=== PATIENT | female | born 1935 | race Caucasian/White ===

== ENCOUNTER 2016-05-28 06:24 | Day surgery (SDC) | payer OTHER ==
[2016-05-28] MEDS ORDERED: CYTARABINE SQ ONE (08:00)
[2016-05-28 10:28] LABS: MCH 35.9 pg (25.7-33.7); MCHC 33.9 g/dl (32.0-36.0); MEAN CELL VOLUME 105.7 fl (80-96); MEAN PLT VOLUME 7.2 fl (7.5-11.1); PLATELET COUNT 164 K/MM3 (134-434); RDW 27.2 % (11.6-15.6); WHITE BLOOD COUNT 8.9 K/mm3 (4.0-10.0)
[2016-05-28 10:58] LABS: ANISOCYTOSIS 2+; PLATELET ESTIMATE ADEQUATE (NORMAL)
[2016-05-28 11:58] VITALS: BP 120/47; TEMP 97.7
[2016-05-28 12:01] VITALS: PULSE 100; BMI 20.9
== END 2016-05-28 14:42 | disposition home or self-care (01) ==
LOC: JINFUSION 06:24 → J7W 06:24 → JONCCHEMO 06:24 → JINFUSION 14:42
PROVIDERS: ATTEND Internal Medicine Hematology & Oncology
DX: Z51.11 Encounter for antineoplastic chemotherapy (principal); C92.Z0 Other myeloid leukemia not having achieved remission; D64.81 Anemia due to antineoplastic chemotherapy; D70.1 Agranulocytosis secondary to cancer chemotherapy; T45.1X5A Adverse effect of antineoplastic and immunosuppressive drugs, initial encounter; Y92.9 Unspecified place or not applicable
CPT/HCPCS: 96402; J9100; 36415; 85025; 96401

== ENCOUNTER 2016-05-29 06:54 | Day surgery (SDC) | payer OTHER ==
[2016-05-29] MEDS ORDERED: CYTARABINE SQ ONE (08:00)
[2016-05-29 11:07] VITALS: BMI 20.9
[2016-05-29 11:08] VITALS: BP 102/50; PULSE 80; TEMP 98
== END 2016-05-29 13:56 | disposition home or self-care (01) ==
LOC: JONCCHEMO 06:54 → JINFUSION 06:54 → J7W 06:55 → JINFUSION 13:56
PROVIDERS: ATTEND Internal Medicine Hematology & Oncology
DX: Z51.11 Encounter for antineoplastic chemotherapy (principal); C92.Z0 Other myeloid leukemia not having achieved remission; D70.1 Agranulocytosis secondary to cancer chemotherapy; T45.1X5A Adverse effect of antineoplastic and immunosuppressive drugs, initial encounter; Y92.9 Unspecified place or not applicable
CPT/HCPCS: 96402; J9100; 96401; 96413; 96415

== ENCOUNTER 2016-05-30 07:27 | Day surgery (SDC) | payer OTHER ==
[2016-05-30] MEDS ORDERED: CYTARABINE SQ ONE (08:00)
[2016-05-30 10:28] VITALS: BP 117/49; PULSE 95; TEMP 98.1
== END 2016-05-30 15:51 | disposition home or self-care (01) ==
LOC: JONCCHEMO 07:27 → JINFUSION 07:27 → J7W 07:28 → JINFUSION 15:51
PROVIDERS: ATTEND Internal Medicine Hematology & Oncology
DX: Z51.11 Encounter for antineoplastic chemotherapy (principal); C92.Z0 Other myeloid leukemia not having achieved remission; D64.81 Anemia due to antineoplastic chemotherapy; D70.1 Agranulocytosis secondary to cancer chemotherapy; T45.1X5A Adverse effect of antineoplastic and immunosuppressive drugs, initial encounter; Y92.9 Unspecified place or not applicable
CPT/HCPCS: 96402; J9100; 96401

== ENCOUNTER 2016-06-05 06:38 | Day surgery (SDC) | payer OTHER ==
[2016-06-05] MEDS ORDERED: CYTARABINE SQ ONE (08:00)
[2016-06-05 08:34] LABS: MCH 36.7 pg (25.7-33.7); MCHC 34.6 g/dl (32.0-36.0); MEAN CELL VOLUME 106.2 fl (80-96); MEAN PLT VOLUME 6.6 fl (7.5-11.1); PLATELET COUNT 121 K/MM3 (134-434); RDW 26.3 % (11.6-15.6); WHITE BLOOD COUNT 14.9 K/mm3 (4.0-10.0)
[2016-06-05 10:09] LABS: ANISOCYTOSIS 2+
[2016-06-05 10:10] LABS: FRAGMENTED CELL 1+; MICROCYTOSIS 1+; POLYCHROMASIA 1+; TEAR DROP CELLS 1+
[2016-06-05 13:46] VITALS: BMI 19.8
[2016-06-05 13:50] VITALS: BP 106/52; PULSE 106; TEMP 98
== END 2016-06-05 09:30 | disposition home or self-care (01) ==
LOC: JONCCHEMO 06:38 → J7W 08:48 → JONCCHEMO 09:30
PROVIDERS: ATTEND Internal Medicine Hematology & Oncology
DX: Z51.11 Encounter for antineoplastic chemotherapy (principal); C92.02 Acute myeloblastic leukemia, in relapse
CPT/HCPCS: 96401; J9100; 36415; 85025

== ENCOUNTER 2016-06-06 06:36 | Day surgery (SDC) | payer OTHER ==
[2016-06-06] MEDS ORDERED: CYTARABINE SQ ONE (08:00)
[2016-06-06 16:53] VITALS: BP 118/68; PULSE 64; TEMP 98.2; BMI 20.9
== END 2016-06-06 11:00 | disposition home or self-care (01) ==
LOC: JONCCHEMO 06:36 → J7W 10:16 → JONCCHEMO 11:00
PROVIDERS: ATTEND Internal Medicine Hematology & Oncology
DX: Z51.11 Encounter for antineoplastic chemotherapy (principal); C92.02 Acute myeloblastic leukemia, in relapse
CPT/HCPCS: 96401; J9100; 96402

== ENCOUNTER 2016-06-07 06:14 | Day surgery (SDC) | payer OTHER ==
[2016-06-07] MEDS ORDERED: CYTARABINE SQ ONE (08:00)
[2016-06-07 16:16] VITALS: BP 106/54; PULSE 92; TEMP 97.9; BMI 20.9
== END 2016-06-07 11:00 | disposition home or self-care (01) ==
LOC: JONCCHEMO 06:14 → J7W 09:38 → JONCCHEMO 11:00
PROVIDERS: ATTEND Internal Medicine Hematology & Oncology
DX: Z51.11 Encounter for antineoplastic chemotherapy (principal); C92.02 Acute myeloblastic leukemia, in relapse
CPT/HCPCS: 96401; J9100; 96402

== ENCOUNTER 2016-06-11 06:45 | Day surgery (SDC) | payer OTHER ==
[2016-06-11] MEDS ORDERED: CYTARABINE SQ ONE (08:00)
[2016-06-11 09:05] LABS: MCHC 34.6 g/dl (32.0-36.0); MEAN CELL VOLUME 106.7 fl (80-96); MEAN PLT VOLUME 6.5 fl (7.5-11.1); PLATELET COUNT 106 K/MM3 (134-434); RDW 26.6 % (11.6-15.6); WHITE BLOOD COUNT 12.9 K/mm3 (4.0-10.0)
[2016-06-11 11:21] LABS: ALBUMIN 3.4 g/dl (3.4-5.0); BILIRUBIN,DIRECT 0.1 mg/dL (0.0-0.2); BILIRUBIN,TOTAL 0.4 mg/dL (0.2-1.0); TOT PROT 5.9 g/dl (6.4-8.2)
[2016-06-11 11:40] LABS: INR 2.84 (0.82-1.09); PROTHROMBIN TIME (PATIENT) 31.9 SEC (9.98-11.88)
[2016-06-11 12:53] LABS: ANISOCYTOSIS 4+; MICROCYTOSIS 1+; POLYCHROMASIA 1+; TEAR DROP CELLS 1+
[2016-06-11 14:00] VITALS: BMI 20.5
[2016-06-11 14:21] VITALS: BP 106/56; PULSE 66; TEMP 98
== END 2016-06-11 11:00 | disposition home or self-care (01) ==
LOC: JONCCHEMO 06:45 → J7W 10:23 → JONCCHEMO 11:00
PROVIDERS: ATTEND Internal Medicine Hematology & Oncology
PROC: 3E01305 Introduction of Other Antineoplastic into Subcutaneous Tissue, Percutaneous Approach (ICD-10-PCS; principal; 2016-06-11)
PROC: 30233N1 Transfusion of Nonautologous Red Blood Cells into Peripheral Vein, Percutaneous Approach (ICD-10-PCS; 2016-06-11)
DX: Z51.11 Encounter for antineoplastic chemotherapy (principal); C92.90 Myeloid leukemia, unspecified, not having achieved remission; D61.818 Other pancytopenia
CPT/HCPCS: 36430; 96401; J9100; 36415; 80076; 85025; 85610; 86850; 86900; 86901; 86922; P9038; P9058

== ENCOUNTER 2016-06-12 08:25 | Inpatient (IN) | payer OTHER ==
[~2016-06-12 08:25] MED LIST: CYTARABINE SQ ONE
[2016-06-12] MEDS ORDERED: FUROSEMIDE 40 MG TABLET (FP) PO SCH (09:45)
[2016-06-12] MEDS ORDERED: POTASSIUM CHLORIDE TABS 20 MEQ TABLET.ER (FP) PO SCH (09:45)
[2016-06-12 10:06] LABS: MCH 37.1 pg (25.7-33.7); MCHC 34.4 g/dl (32.0-36.0); MEAN CELL VOLUME 107.9 fl (80-96); MEAN PLT VOLUME 6.9 fl (7.5-11.1); PLATELET COUNT 113 K/MM3 (134-434); RDW 26.3 % (11.6-15.6); WHITE BLOOD COUNT 21.5 K/mm3 (4.0-10.0)
[2016-06-12 10:16] LABS: ALBUMIN 3.4 g/dl (3.4-5.0); ANION GAP 8 (8-16); BILIRUBIN,TOTAL 0.4 mg/dL (0.2-1.0); CO2 27 mmol/L (21-32); CREATININE 0.9 mg/dL (0.55-1.02); GLUCOSE,RANDOM 134 mg/dL (74-106); MAGNESIUM 1.9 mg/dL (1.8-2.4); SGOT/AST 15 U/L (15-37); SGPT/ALT 18 U/L (12-78); TOT PROT 5.8 g/dl (6.4-8.2)
[2016-06-12 10:17] LABS: ALK PHOS 53 U/L (45-117)
[2016-06-12 11:04] LABS: PLATELET ESTIMATE DECREASED (NORMAL)
[2016-06-12] MEDS ORDERED: ACETAMINOPHEN 325 MG TABLET (FP) ONE (15:16)
[2016-06-12] MEDS ORDERED: ACETAMINOPHEN 325 MG TABLET (FP) PO ONE (15:19)
[2016-06-12] MEDS ORDERED: POTASSIUM CHLORIDE TABS 20 MEQ TABLET.ER (FP) PO ONE (15:20)
--- NOTE | 2016-06-12 15:36 | PN ---
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 - on Emma-c- anemia secondary to chemotherapy Pancytopenia secondary to AML ROS- no headaches, diplopia , epistaxis, dysphagia, chest pain, SOB, difficulty breathing, , GI problems of nausea, emesis,diarrhea, constipation, melena, hematochezia, problems of dysuria, hematuria, pyuria, no vaginal bleeding , discharge, no musculskeletal symptoms, no joint pains, No psychological problems 95/50 102 20 afebrile - Temp spike to > 100 post transfusion HEENT: JAMARI, EOM Intact Oropharynx: No thrush, No mucositis Neck: Supple Nodes: Without adenopathy Breasts: Without masses Cor: RSR, systolic murmur Lungs: kyphoscoliosis, clear Abd: Soft, Normal bowel sounds, No organomegaly Ext:No significant edema Skin: No rashes, Integument intact Meds- reviewed and unchanged CBC, BMP 06/12/16 09:50 06/12/16 09:50 Impression: AML-- not in remission-- Kyle- C Fever- post transfusion- culture and tylenol- likely secondary to transfusion Anemia- for transfusion therapy-- 2 packed cells and reassess. Neutropenia/thrombocytopenia- secondary to chemotherapy and AML Hypokalemia- for repletion
[2016-06-12 17:06] VITALS: BMI 20.5
[2016-06-12] MEDS ORDERED: CEFEPIME HCL/D5W 2 GM/50 ML PREMIX IVPB SCH ×2 (18:00)
[2016-06-12] MEDS: WARFARIN NA 5 MG TABLET (UD) PO SCH (20:03)
[2016-06-12] MEDS: VANCOMYCIN 1 GRAM (PRE-DOCKED) 1,000 MG/250 ML BAG IVPB SCH (20:03)
[2016-06-12] MEDS ORDERED: PT OWN MED DRAWER 7, Y5N ONE (21:34)
[2016-06-12] MEDS: VORICONAZOLE 50 MG TABLET (RESTRICTED TO ID) PO SCH (21:58)
[2016-06-12] MEDS: ACYCLOVIR 400 MG TABLET PO SCH (21:58)
[2016-06-12] MEDS: CEFEPIME 2 GM in DEXTROSE 5%-WATER - 100 ML IVPB SCH (22:11)
[2016-06-13] MEDS ORDERED: ACETAMINOPHEN 325 MG TABLET (FP) PO ONE (01:15)
[2016-06-13] MEDS: CEFEPIME 2 GM in DEXTROSE 5%-WATER - 100 ML IVPB SCH ×3 (01:17→18:29)
[2016-06-13] MEDS ORDERED: PT OWN MED DRAWER 7, Y5N ONE ×4 (04:52→15:32)
[2016-06-13] MEDS: ACYCLOVIR 400 MG TABLET PO SCH ×2 (11:11→21:44)
[2016-06-13] MEDS: VANCOMYCIN 1 GRAM (PRE-DOCKED) 1,000 MG/250 ML BAG IVPB SCH (11:11)
[2016-06-13 11:12] LABS: MCH 33.5 pg (25.7-33.7); MCHC 34.2 g/dl (32.0-36.0); MEAN PLT VOLUME 7.2 fl (7.5-11.1); PLATELET COUNT 120 K/MM3 (134-434); RDW 25.3 % (11.6-15.6)
--- NOTE | 2016-06-13 11:19 | PN ---
Teaching Attending Note Name of Resident: Michel Keating ATTENDING PHYSICIAN STATEMENT I saw and evaluated the patient. I reviewed the resident's note and discussed the case with the resident. I agree with the resident's findings and plan as documented. SUBJECTIVE: 80 year old female with AML, admitted yesterday for transfusion and chemotherapy (dakota-c) she has been maintained on voriconazole, acyclovir and ciprofloxacin for the last 2 years she has chronic neutropenia for the last one year as well she has cough- some yellow sputum, worse today no SOB yesterday had fever and chills after transfusion no diarrhea no dysuria OBJECTIVE: Vital Signs Period Temp Pulse Resp BP Sys/Barrios Pulse Ox Last 24 Hr 98.7 F-102.4 F 86-108 20-20 90-109/42-68 pulse oximetry 95% RA no thrush, no oral lesions cor rrr lungs crackles left base abd soft,nt ext no edema no perirectal erythema or pain port site no erythema no rash CBC, BMP 06/13/16 10:15 cultures pending cxray left lower lobe infiltrate ASSESSMENT AND PLAN: neutropenic fever LLL pneumonia AML with blasts cipro prophylaxis makes atypical pneumonia unlikely send influenza screen stat, legionella urinary antigen sputum culture continue vancomycin/cefepime continue antifungal and antiviral prophylaxis chest ct aspergillus galactomanan, fungitell d/w Dr Miranda
[2016-06-13 11:20] LABS: WHITE BLOOD COUNT 41.9 K/mm3 (4.0-10.0)
[2016-06-13 11:32] LABS: INR 3.86 (0.82-1.09); PROTHROMBIN TIME (PATIENT) 43.7 SEC (9.98-11.88)
[2016-06-13 11:36] LABS: ALK PHOS 55 U/L (45-117); ANION GAP 10 (8-16); BILIRUBIN,TOTAL 0.5 mg/dL (0.2-1.0); CALCIUM 8.3 mg/dL (8.5-10.1); CO2 23 mmol/L (21-32); CREATININE 0.7 mg/dL (0.55-1.02); GLUCOSE,RANDOM 150 mg/dL (74-106); SGOT/AST 19 U/L (15-37); SGPT/ALT 18 U/L (12-78); TOT PROT 5.7 g/dl (6.4-8.2)
[2016-06-13 12:45] LABS: ANISOCYTOSIS 3+
[2016-06-13 12:46] LABS: MICROCYTOSIS FEW; POLYCHROMASIA FEW
--- NOTE | 2016-06-13 14:03 | CONSULT ---
Consult Consult Specialty:: Infectious Disease Referred by:: Dr. Miranda Reason for Consultation:: Febrile Neutropenia - History of Present Illness Chief Complaint: fevers History of Present Illness: this is a 80F with a PMH of atrial fibrillation history of DVT on coumadin s/p IVC filter and AML not in remission currently on Emma-C chemotherapy who presents to the hospital for elective blood transfusion and was to be discharged. She was being transfused yesterday and after her first unit of blood she spiked a fever. She had a Tmax at one point of 102.4. The patient is also chronically severely neutropenic for the last year. She also endorses chills which started yesterday. She also complains of a cough which started yesterday and has gotten worse. the cough is productive at times but she does not know the color or consistency of the sputum. During my evaluation of her a STAT CXR was obtained due to physical exam findings and she was found to have a LLL infiltrate/consolidation consistent with pneumonia. She denies recent travel or sick contacts. Denies chest pain or shortness of breath. Denies dysuria or diarrhea. She has been maintained on voriconazole, acyclovir and ciprofloxacin for the last 2 years. - History Source History Provided By: Patient, Medical Record Limitations to Obtaining History: No Limitations - Past Medical History Cardio/Vascular: Yes: AFIB Gastrointestinal: Yes: GERD Heme/Onc: Yes: Other (AML) - Alcohol/Substance Use Hx Alcohol Use: No - Smoking History Smoking history: Never smoked Have you smoked in the past 12 months: No - Social History ADL: Independent Home Medications - Allergies Allergies/Adverse Reactions: Allergies Allergy/AdvReac Type Severity Reaction Status Date / Time No Known Allergies Allergy Verified 07/27/15 13:50 - Home Medications Home Medications: Ambulatory Orders Ascorbate Calcium [Vitamin C] 500 mg PO DAILY 06/03/14 Calcium Citrate/Vitamin D3 [Citracal + D Caplet] 1 each PO BID 06/03/14 Diltiazem Cd [Cardizem Cd -] 180 mg PO DAILY 06/03/14 [place]-3 Fatty Acids [Fish Oil] 300 mg PO DAILY 06/03/14 Acyclovir [Zovirax -] 400 mg PO BID #60 tablet 07/09/14 Voriconazole 50 mg PO BID #60 tablet 07/09/14 Warfarin Na [Coumadin -] 5 mg PO DAILY #30 tablet 07/09/14 Ciprofloxacin [Cipro -] 250 mg PO DAILY 06/12/16 Omeprazole Magnesium [Prilosec] 10 mg PO DAILY 06/12/16 Review of Systems - Review of Systems Constitutional: reports: Chills, Fever Eyes: reports: No Symptoms HENT: reports: No Symptoms Neck: reports: No Symptoms Cardiovascular: reports: No Symptoms Respiratory: reports: Cough Gastrointestinal: reports: No Symptoms Genitourinary: reports: No Symptoms Neurological: reports: No Symptoms Physical Exam Vital Signs: Vital Signs Temperature 100.7 F H 06/13/16 13:48 Pulse Rate 116 H 06/13/16 13:48 Respiratory Rate 20 06/13/16 13:48 Blood Pressure 115/75 06/13/16 13:48 O2 Sat by Pulse Oximetry (%) Constitutional: Yes: Well Nourished, No Distress Eyes: Yes: Other (conjunctival pallor) HENT: Yes: Atraumatic, Other (no evidence of mucositis no thrush no oral ulcers) Neck: Yes: Trachea Midline Cardiovascular: Yes: Regular Rate and Rhythm, Murmur (3/6 systolic murmur) Respiratory: Yes: Other (LLL crackles right lung field clear left chemoport site clean no erythema or discharge) Gastrointestinal: Yes: Soft Edema: No Peripheral Pulses WNL: Yes (DP 2+ bilaterally ) Neurological: Yes: Alert, Oriented Labs: CBC, BMP 06/13/16 10:15 06/13/16 10:15 Imaging - Results Chest X-ray: Report Reviewed, Image Reviewed (image reviewed with radiologist consistent with LLL pneumonia) Problem List - Problems (1) AML (acute myelogenous leukemia) Code(s): C92.00 - ACUTE MYELOBLASTIC LEUKEMIA, NOT HAVING ACHIEVED REMISSION Qualifiers: Leukemia Active/Remission status: without remission Qualified Code(s ): C92.00 - Acute myeloblastic leukemia, not having achieved remission (2) DVT (deep venous thrombosis) Code(s): I82.409 - ACUTE EMBOLISM AND THOMBOS UNSP DEEP VN UNSP LOWER EXTREMITY Qualifiers: Laterality: left Chronicity: chronic (3) GERD (gastroesophageal reflux disease) Code(s): K21.9 - GASTRO-ESOPHAGEAL REFLUX DISEASE WITHOUT ESOPHAGITIS (4) Neutropenia Code(s): D70.9 - NEUTROPENIA, UNSPECIFIED Qualifiers: Neutropenia type: secondary to cancer chemotherapy Qualified Code(s) : D70.1 - Agranulocytosis secondary to cancer chemotherapy (5) Atrial fibrillation Code(s): I48.91 - UNSPECIFIED ATRIAL FIBRILLATION (6) Pneumonia Code(s): J18.9 - PNEUMONIA, UNSPECIFIED ORGANISM (7) Febrile neutropenia Code(s): D70.9 - NEUTROPENIA, UNSPECIFIED R50.81 - FEVER PRESENTING WITH CONDITIONS CLASSIFIED ELSEWHERE Assessment/Plan 80F with AML and now has febrile neutropenia and LLL pneumonia patient has been on ciprofloxacin which makes atypical organisms unlikely possible patient has a streptococcal pneumonia as cirpofloxacin does not have great coverage against strep. Will send urinary antigens send influenza nasal swab stat sputum culture if able to produce sputum continue vancomycin and cefepime day 1 continue antifungal and antiviral prophylaxis with voriconazole and acyclovir f/u blood cultures f/u urine cultures vanco trough before fourth dose chest ct ordered thank you for this consult and allowing us to participate in the care of this patient Case discussed with attending Dr. Ibarra
[2016-06-13] MEDS: VORICONAZOLE 50 MG TABLET (RESTRICTED TO ID) PO SCH ×2 (16:02→21:45)
[2016-06-13] MEDS ORDERED: ALTEPLASE 2 MG VIAL CVP ONE ×2 (21:50→22:45)
--- NOTE | 2016-06-13 22:22 | CONSULT ---
Consult - text type - Consultation Consultation Note: patient seen and examined this is a 80F with a PMH of atrial fibrillation history of DVT on coumadin s/p IVC filter and AML on Emma-C chemotherapy who presents to the hospital for elective blood transfusion and was to be discharged. She spiked a fever. She had a Tmax at one point of 102.4. The patient is also chronically severely neutropenic for the last year. She also endorses chills which started yesterday. - Past Medical History Cardio/Vascular: Yes: AFIB Gastrointestinal: Yes: GERD Heme/Onc: Yes: Other (AML) - Smoking History Smoking history: Never smoked - Social History ADL: Independent Home Medications - Allergies Allergies/Adverse Reactions: Allergies Allergy/AdvReac Type Severity Reaction Status Date / Time No Known Allergies Allergy Verified 07/27/15 13:50 - Home Medications Home Medications: Ambulatory Orders Ascorbate Calcium [Vitamin C] 500 mg PO DAILY 06/03/14 Calcium Citrate/Vitamin D3 [Citracal + D Caplet] 1 each PO BID 06/03/14 Diltiazem Cd [Cardizem Cd -] 180 mg PO DAILY 06/03/14 [place]-3 Fatty Acids [Fish Oil] 300 mg PO DAILY 06/03/14 Acyclovir [Zovirax -] 400 mg PO BID #60 tablet 07/09/14 Voriconazole 50 mg PO BID #60 tablet 07/09/14 Warfarin Na [Coumadin -] 5 mg PO DAILY #30 tablet 07/09/14 Ciprofloxacin [Cipro -] 250 mg PO DAILY 06/12/16 Omeprazole Magnesium [Prilosec] 10 mg PO DAILY 06/12/16 Current Medications Acetaminophen (Tylenol -) 650 mg PO Q6H PRN PRN Reason: FEVER OVER 101 Last Admin: 06/14/16 13:10 Dose: 650 mg Acyclovir (Zovirax -) 400 mg PO BID JATINDER Last Admin: 06/14/16 10:05 Dose: 400 mg Diltiazem HCl (Cardizem Cd -) 180 mg PO DAILY JATINDER Last Admin: 06/14/16 10:05 Dose: 180 mg Cefepime HCl 2 gm/ Dextrose 100 mls @ 200 mls/hr IVPB Q8H-IV JATINDER Last Admin: 06/14/16 11:27 Dose: 200 mls/hr Azithromycin (Zithromax 500mg Ivpb (Pre-Docked)) 250 mls @ 250 mls/hr IVPB DAILY [facility] Last Admin: 06/14/16 10:06 Dose: 250 mls/hr Voriconazole (Vfend (Restricted To Id)) 100 mg PO BID [facility] Last Admin: 06/14/16 10:06 Dose: 100 mg Warfarin Sodium (Coumadin -) 5 mg PO DAILY@1800 [facility] Last Admin: 06/12/16 20:03 Dose: 5 mg Physical Exam Vital Signs: Vital Signs Temperature 100.7 F H 06/13/16 13:48 Pulse Rate 116 H 06/13/16 13:48 Respiratory Rate 20 06/13/16 13:48 Blood Pressure 115/75 06/13/16 13:48 O2 Sat by Pulse Oximetry (%) Constitutional: Yes: Well Nourished, No Distress Eyes: Yes: Other (conjunctival pallor) HENT: Yes: Atraumatic, Other (no evidence of mucositis no thrush no oral ulcers) Neck: Yes: Trachea Midline Cardiovascular: Yes: Regular Rate and Rhythm, Murmur (3/6 systolic murmur) Respiratory: Yes: Other (LLL crackles right lung field clear left chemoport site clean no erythema or discharge) Gastrointestinal: Yes: Soft Peripheral Pulses WNL: Yes (DP 2+ bilaterally ) Neurological: Yes: Alert, Oriented Abnormal Lab Results 06/14/16 06/14/16 06/14/16 07:00 07:00 07:00 WBC 67.4 H* D RBC 3.05 L Hgb 10.1 L Hct 30.0 L MCV 98.4 H RDW 25.6 H Plt Count 108 L MPV 7.1 L Lymphocytes % 2.0 L D Nucleated RBCs 2 H Blast Cells 98 H INR 2.56 H D Random Glucose 121 H Calcium 7.8 L Total Protein 5.6 L Albumin 2.7 L A/P Problem List - Problems (1) AML (acute myelogenous leukemia) Code(s): C92.00 - ACUTE MYELOBLASTIC LEUKEMIA, NOT HAVING ACHIEVED REMISSION Qualifiers: Leukemia Active/Remission status: without remission Qualified Code(s ): C92.00 - Acute myeloblastic leukemia, not having achieved remission (2) DVT (deep venous thrombosis) Code(s): I82.409 - ACUTE EMBOLISM AND THOMBOS UNSP DEEP VN UNSP LOWER EXTREMITY Qualifiers: Laterality: left Chronicity: chronic (3) GERD (gastroesophageal reflux disease) Code(s): K21.9 - GASTRO-ESOPHAGEAL REFLUX DISEASE WITHOUT ESOPHAGITIS (4) Neutropenia Code(s): D70.9 - NEUTROPENIA, UNSPECIFIED Qualifiers: Neutropenia type: secondary to cancer chemotherapy Qualified Code(s) : D70.1 - Agranulocytosis secondary to cancer chemotherapy (5) Atrial fibrillation Code(s): I48.91 - UNSPECIFIED ATRIAL FIBRILLATION (6) Pneumonia Code(s): J18.9 - PNEUMONIA, UNSPECIFIED ORGANISM (7) Febrile neutropenia Code(s): D70.9 - NEUTROPENIA, UNSPECIFIED R50.81 - FEVER PRESENTING WITH CONDITIONS CLASSIFIED ELSEWHERE Assessment/Plan 80 y/o patient with aml on low dose cytarabine admitted with fevers/cough/mild SOB on vanco/cefepime on prophylactic vori/acyclovir /cipro had visual hallucinations in the past with 200mg bid of vori holding coumadin transfusion support as necessary discussed with ID team
[2016-06-14] MEDS ORDERED: ACETAMINOPHEN 325 MG TABLET (FP) ONE (01:20)
[2016-06-14] MEDS: CEFEPIME 2 GM in DEXTROSE 5%-WATER - 100 ML IVPB SCH ×3 (01:23→17:10)
[2016-06-14] MEDS: ACETAMINOPHEN 325 MG TABLET (FP) PO PRN ×3 (01:23→21:38)
[2016-06-14 08:17] LABS: MCH 33.2 pg (25.7-33.7); MCHC 33.8 g/dl (32.0-36.0); MEAN CELL VOLUME 98.4 fl (80-96); MEAN PLT VOLUME 7.1 fl (7.5-11.1); PLATELET COUNT 108 K/MM3 (134-434); RDW 25.6 % (11.6-15.6)
[2016-06-14 08:30] LABS: INR 2.56 (0.82-1.09); PROTHROMBIN TIME (PATIENT) 28.7 SEC (9.98-11.88)
--- NOTE | 2016-06-14 08:33 | PN ---
Progress Note, Physician Chief Complaint: ID Appears in good spirits today comfortable Denies SOB some couph noted but more chronically ill appearing then "acute" Notes some sputum production. Meds Vancomycin Cefepime Voriconazole Acyclovir - Current Medication List Current Medications: Active Medications Acetaminophen (Tylenol -) 650 mg PO Q6H PRN PRN Reason: FEVER OVER 101 Last Admin: 06/14/16 01:23 Dose: 650 mg Acyclovir (Zovirax -) 400 mg PO BID [facility] Last Admin: 06/13/16 21:44 Dose: 400 mg Diltiazem HCl (Cardizem Cd -) 180 mg PO DAILY [facility] Last Admin: 06/13/16 11:02 Dose: Not Given Cefepime HCl 2 gm/ Dextrose 100 mls @ 200 mls/hr IVPB Q8H-IV [facility] Last Admin: 06/14/16 01:23 Dose: 200 mls/hr Vancomycin HCl (Vancomycin (Pre-Docked)) 1,000 mg IVPB DAILY [facility] PRN Reason: Protocol Last Admin: 06/13/16 11:11 Dose: 1,000 mg Voriconazole (Vfend (Restricted To Id)) 100 mg PO BID [facility] Last Admin: 06/13/16 21:45 Dose: 100 mg Warfarin Sodium (Coumadin -) 5 mg PO DAILY@1800 [facility] Last Admin: 06/12/16 20:03 Dose: 5 mg - Objective Vital Signs: Vital Signs Temperature 98 F 06/14/16 06:00 Pulse Rate 94 H 06/14/16 06:00 Respiratory Rate 20 06/14/16 06:00 Blood Pressure 101/65 06/14/16 06:00 O2 Sat by Pulse Oximetry (%) 95 06/13/16 09:00 Constitutional: Yes: No Distress, Thin Eyes: Yes: WNL, Conjunctiva Clear HENT: Yes: WNL, Atraumatic. No: Thrush Neck: Yes: WNL, Supple Cardiovascular: Yes: Regular Rate and Rhythm, S1, S2. No: Murmur, Rub Respiratory: Yes: WNL, Regular, CTA Bilaterally, Rales Gastrointestinal: Yes: WNL, Normal Bowel Sounds, Soft. No: Tenderness, Tenderness, Epigastrium, Tenderness, Rebound Extremities: No: Cold, Cool, Cyanosis Edema: No Integumentary: No: Erythema, Rash Labs: INR, PTT INR 3.86 (0.82-1.09) H D 06/13/16 10:15 Problem List - Problems (1) AML (acute myelogenous leukemia) Code(s): C92.00 - ACUTE MYELOBLASTIC LEUKEMIA, NOT HAVING ACHIEVED REMISSION Qualifiers: Leukemia Active/Remission status: without remission Qualified Code(s ): C92.00 - Acute myeloblastic leukemia, not having achieved remission (2) Febrile neutropenia Code(s): D70.9 - NEUTROPENIA, UNSPECIFIED R50.81 - FEVER PRESENTING WITH CONDITIONS CLASSIFIED ELSEWHERE (3) Neutropenia Code(s): D70.9 - NEUTROPENIA, UNSPECIFIED Qualifiers: Neutropenia type: secondary to cancer chemotherapy Qualified Code(s) : D70.1 - Agranulocytosis secondary to cancer chemotherapy (4) Pneumonia Code(s): J18.9 - PNEUMONIA, UNSPECIFIED ORGANISM Assessment/Plan Microbiology 06/13/16 14:36 Urine For Antigen Detection Legionella Antigen - Final 06/13/16 14:36 Urine For Antigen Detection Streptococcus pneumoniae Antigen (M - Final 06/13/16 10:15 Nasopharyngeal Swab Influenza Types A,B Antigen (MINDY) - Final 06/13/16 10:15 Nasopharyngeal Swab - Final 06/12/16 16:00 Blood - Peripheral Venous Blood Culture - Preliminary NO GROWTH OBTAINED AFTER 24 HOURS, INCUBATION TO CONTINUE FOR 4 DAYS. 06/12/16 16:00 Blood - Peripheral Venous Blood Culture - Preliminary NO GROWTH OBTAINED AFTER 24 HOURS, INCUBATION TO CONTINUE FOR 4 DAYS. Laboratory Tests 06/13/16 06/13/16 06/13/16 10:15 10:15 10:15 WBC 41.9 H* D Hgb 10.3 L D Plt Count 120 L INR 3.86 H D Creatinine 0.7 D Total Bilirubin 0.5 D AST 19 D ALT 18 Alkaline Phosphatase 55 A. galactomannan Ag Beta-(1,3)-D-Glucan 06/14/16 06/14/16 06/14/16 07:00 07:00 07:00 WBC Pending Hgb Pending Plt Count Pending INR Pending Creatinine Total Bilirubin AST ALT Alkaline Phosphatase A. galactomannan Ag Pending Beta-(1,3)-D-Glucan Pending Assessment Acute myelogenous Leukemia not in remission Post SHILPI C chemotherapy Pneumonia unspecified etiology Post blood transfusion Plan Obviously the possible causes of fever and pneumonia in this immunocompromised patient are many and include bacterial fungal PCP Nocardia CMV. Currently "unspecified" etiology . Despite fever subjectively she says she feel bit better I would stop Vanco as her culture negative for staph Continue Cefepime Could add Azithromycin for atypical coverage though she was on quinolne prophylactically. Fungitell sent previously Would send sputum for fungal culture and routine. Not sure she could tolerate a bronchoscopy should she remain febrile. Serology for CMV including PCR should be sent
[2016-06-14 08:34] LABS: ALBUMIN 2.7 g/dl (3.4-5.0); ANION GAP 12 (8-16); CALCIUM 7.8 mg/dL (8.5-10.1); CO2 22 mmol/L (21-32); CREATININE 0.6 mg/dL (0.55-1.02); GLUCOSE,RANDOM 121 mg/dL (74-106); SGOT/AST 21 U/L (15-37); SGPT/ALT 17 U/L (12-78)
[2016-06-14 08:36] LABS: ALK PHOS 54 U/L (45-117); BILIRUBIN,TOTAL 0.5 mg/dL (0.2-1.0); TOT PROT 5.6 g/dl (6.4-8.2)
[2016-06-14 08:48] LABS: WHITE BLOOD COUNT 67.4 K/mm3 (4.0-10.0)
[2016-06-14] MEDS ORDERED: PT OWN MED DRAWER 7, Y5N ONE ×4 (09:40→20:16)
[2016-06-14] MEDS: ACYCLOVIR 400 MG TABLET PO SCH ×2 (10:05→21:38)
[2016-06-14] MEDS: AZITHROMYCIN IVPB 250 ML IVPB SCH (10:06)
[2016-06-14] MEDS: VORICONAZOLE 50 MG TABLET (RESTRICTED TO ID) PO SCH ×2 (10:06→21:37)
[2016-06-14] MEDS ORDERED: ALLOPURINOL 300 MG TABLET (FP) PO SCH (12:45)
--- NOTE | 2016-06-14 15:04 | HP ---
Admitting History and Physical - Primary Care Physician PCP: Saeed Boucher - Admission Chief Complaint: COUGH/WEAKNESS/SPUTUM History of Present Illness: 80 W FEMALE WITH PNEUMONIA AND AML NOW HOSPITALIZED FOR WORKUP AND TREATMENT OF ACUTE COMMUNITY ACQUIRED PNEUMONIA. WAS RECENTLY HOSPITALIZED WITH ACUTE BRONCHITIS. PATIENT WAS ON SHILPI-C/ AND FUNGAL/ANTI VIRAL/PCP PROPHYLAXSIS. History Source: Patient, Family Member, Medical Record Limitations to Obtaining History: Clinical Condition - Past Medical History RELIEF MATE: No: Alzheimer's Cardiovascular: Yes: AFIB Pulmonary: Yes: COPD. No: O2 Dependent Gastrointestinal: Yes: GERD Heme/Onc: Yes: Other (AML) Psych: No: Addictions - Smoking History Smoking history: Never smoked Have you smoked in the past 12 months: No - Alcohol/Substance Use Hx Alcohol Use: No - Social History Usual Living Arrangement: Yes: With Spouse ADL: Independent History of Recent Travel: No Home Medications - Allergies Allergies/Adverse Reactions: Allergies Allergy/AdvReac Type Severity Reaction Status Date / Time No Known Allergies Allergy Verified 07/27/15 13:50 - Home Medications Home Medications: Ambulatory Orders Ascorbate Calcium [Vitamin C] 500 mg PO DAILY 06/03/14 Calcium Citrate/Vitamin D3 [Citracal + D Caplet] 1 each PO BID 06/03/14 Diltiazem Cd [Cardizem Cd -] 180 mg PO DAILY 06/03/14 [place]-3 Fatty Acids [Fish Oil] 300 mg PO DAILY 06/03/14 Acyclovir [Zovirax -] 400 mg PO BID #60 tablet 07/09/14 Voriconazole 50 mg PO BID #60 tablet 07/09/14 Warfarin Na [Coumadin -] 5 mg PO DAILY #30 tablet 07/09/14 Ciprofloxacin [Cipro -] 250 mg PO DAILY 06/12/16 Omeprazole Magnesium [Prilosec] 10 mg PO DAILY 06/12/16 Family Disease History - Family Disease History Family History: Unremarkable Review of Systems - Review of Systems Constitutional: reports: Fever Eyes: denies: Blurred Vision HENT: denies: Difficult Swallowing Neck: denies: Decreased ROM Cardiovascular: denies: Chest Pain Respiratory: reports: Cough, Exercise Intolerance, SOB on Exertion. denies: Hemoptysis, Wheezing Gastrointestinal: reports: No Symptoms Genitourinary: reports: No Symptoms Breasts: reports: No Symptoms Reported Musculoskeletal: reports: No Symptoms Physical Examination Vital Signs: Vital Signs Temperature 102.1 F H 06/14/16 13:56 Pulse Rate 109 H 06/14/16 13:56 Respiratory Rate 20 06/14/16 13:56 Blood Pressure 118/51 06/14/16 13:56 O2 Sat by Pulse Oximetry (%) 97 06/14/16 09:00 Constitutional: Yes: Calm Eyes: Yes: EOM Intact HENT: Yes: Normocephalic Neck: Yes: Trachea Midline Cardiovascular: Yes: S1, S2 Respiratory: Yes: Diminished Gastrointestinal: Yes: Normal Bowel Sounds Edema: No Neurological: Yes: WNL Labs: CBC, BMP 06/14/16 07:00 06/14/16 07:00 REST REVIEWED Imaging - Results Cat Scan: Image Reviewed EKG: Report Reviewed Problem List - Problems (1) AML (acute myelogenous leukemia) Code(s): C92.00 - ACUTE MYELOBLASTIC LEUKEMIA, NOT HAVING ACHIEVED REMISSION Qualifiers: Leukemia Active/Remission status: without remission Qualified Code(s ): C92.00 - Acute myeloblastic leukemia, not having achieved remission (2) Atrial fibrillation Code(s): I48.91 - UNSPECIFIED ATRIAL FIBRILLATION (3) DVT (deep venous thrombosis) Code(s): I82.409 - ACUTE EMBOLISM AND THOMBOS UNSP DEEP VN UNSP LOWER EXTREMITY Qualifiers: Laterality: left Chronicity: chronic (4) Febrile neutropenia Code(s): D70.9 - NEUTROPENIA, UNSPECIFIED R50.81 - FEVER PRESENTING WITH CONDITIONS CLASSIFIED ELSEWHERE (5) GERD (gastroesophageal reflux disease) Code(s): K21.9 - GASTRO-ESOPHAGEAL REFLUX DISEASE WITHOUT ESOPHAGITIS (6) Pneumonia Code(s): J18.9 - PNEUMONIA, UNSPECIFIED ORGANISM Assessment/Plan ACUTE BLAST CRISIS SUPERIMPOSED UPON PNEUMONIA AF/DVT/ANTICOAGULATION RECENT SHILPI-C H/O ANTI-FUNGAL/ANTI-VIRAL/PCP PROPHYLAXSIS PANCULTURE ANTIBIOTICS ONCO F/U NEUTROPENIC PRECAUTIONS ANTICOAGULATION ID F/U Maritza BOUCHER MD
[2016-06-14] MEDS: WARFARIN NA 5 MG TABLET (UD) PO SCH (17:10)
--- NOTE | 2016-06-14 18:13 | PN ---
Progress Note (short form) - Note Progress Note: PAtient seen and examined Febrile Last Vital Signs Temp Pulse Resp BP Pulse Ox 98 F 85 20 107/49 97 06/14/16 18:04 06/14/16 18:04 06/14/16 18:04 06/14/16 18:04 06/14/16 09:00 Cor: RSR, No murmurs, No gallops Lungs: LLL crackles Abd: Soft, Normal bowel sounds, No organomegaly Ext:No significant edema Abnormal Lab Results 06/14/16 06/14/16 06/14/16 07:00 07:00 07:00 WBC 67.4 H* D RBC 3.05 L Hgb 10.1 L Hct 30.0 L MCV 98.4 H RDW 25.6 H Plt Count 108 L MPV 7.1 L Lymphocytes % 2.0 L D Nucleated RBCs 2 H Blast Cells 98 H INR 2.56 H D Random Glucose 121 H Calcium 7.8 L Total Protein 5.6 L Albumin 2.7 L Current Medications Acetaminophen (Tylenol -) 650 mg PO Q6H PRN PRN Reason: FEVER OVER 101 Last Admin: 06/14/16 13:10 Dose: 650 mg Acyclovir (Zovirax -) 400 mg PO BID [facility] Last Admin: 06/14/16 10:05 Dose: 400 mg Diltiazem HCl (Cardizem Cd -) 180 mg PO DAILY [facility] Last Admin: 06/14/16 10:05 Dose: 180 mg Cefepime HCl 2 gm/ Dextrose 100 mls @ 200 mls/hr IVPB Q8H-IV [facility] Last Admin: 06/14/16 17:10 Dose: 200 mls/hr Azithromycin (Zithromax 500mg Ivpb (Pre-Docked)) 250 mls @ 250 mls/hr IVPB DAILY [facility] Last Admin: 06/14/16 10:06 Dose: 250 mls/hr Voriconazole (Vfend (Restricted To Id)) 100 mg PO BID [facility] Last Admin: 06/14/16 10:06 Dose: 100 mg Warfarin Sodium (Coumadin -) 5 mg PO DAILY@1800 [facility] Last Admin: 06/14/16 17:10 Dose: 5 mg A/P 80 y/o patient with AML rising WBC on cefepime Rising blast count will get palliative care request
[2016-06-14] MEDS: SODIUM CHLORIDE 1,000 ML IV SCH (18:55)
[2016-06-14] MEDS: FEBUXOSTAT 40 MG TAB PO SCH (21:37)
[2016-06-15] MEDS: CEFEPIME 2 GM in DEXTROSE 5%-WATER - 100 ML IVPB SCH ×3 (01:14→17:34)
[2016-06-15] MEDS: ACETAMINOPHEN 325 MG TABLET (FP) PO PRN (05:38)
[2016-06-15 07:55] LABS: INR 2.41 (0.82-1.09)
[2016-06-15 07:58] LABS: ACTIVATED PTT 33.9 SECONDS (26.9-34.4)
--- NOTE | 2016-06-15 08:29 | PN ---
Progress Note, Physician Chief Complaint: ID Ill appearing SOB requiring oxygen Febrile once again 102 Cefepime Azithromycin - Current Medication List Current Medications: Active Medications Acetaminophen (Tylenol -) 650 mg PO Q6H PRN PRN Reason: FEVER OVER 101 Last Admin: 06/15/16 05:38 Dose: 650 mg Acyclovir (Zovirax -) 400 mg PO BID [facility] Last Admin: 06/14/16 21:38 Dose: 400 mg Diltiazem HCl (Cardizem Cd -) 180 mg PO DAILY [facility] Last Admin: 06/14/16 10:05 Dose: 180 mg Febuxostat (Uloric -) 40 mg PO DAILY [facility] Last Admin: 06/14/16 21:37 Dose: 40 mg Cefepime HCl 2 gm/ Dextrose 100 mls @ 200 mls/hr IVPB Q8H-IV [facility] Last Admin: 06/15/16 01:14 Dose: 200 mls/hr Azithromycin (Zithromax 500mg Ivpb (Pre-Docked)) 250 mls @ 250 mls/hr IVPB DAILY [facility] Last Admin: 06/14/16 10:06 Dose: 250 mls/hr Sodium Chloride (Normal Saline -) 1,000 mls @ 50 mls/hr IV ASDIR [facility] Stop: 06/15/16 18:23 Last Admin: 06/14/16 18:55 Dose: 50 mls/hr Voriconazole (Vfend (Restricted To Id)) 100 mg PO BID [facility] Last Admin: 06/14/16 21:37 Dose: 100 mg Warfarin Sodium (Coumadin -) 5 mg PO DAILY@1800 [facility] Last Admin: 06/14/16 17:10 Dose: 5 mg - Objective Vital Signs: Vital Signs Temperature 102 F H 06/15/16 05:36 Pulse Rate 101 H 06/15/16 05:36 Respiratory Rate 10 L 06/15/16 05:36 Blood Pressure 119/51 06/15/16 05:36 O2 Sat by Pulse Oximetry (%) 97 06/14/16 20:54 Constitutional: Yes: Mild Distress, Other (Cachectic) HENT: No: Thrush Cardiovascular: Yes: WNL, Regular Rate and Rhythm, S1, S2. No: Bradycardia Respiratory: Yes: WNL, Regular, CTA Bilaterally. No: Rales, Rhonchi Gastrointestinal: Yes: Soft. No: Tenderness, Tenderness, Epigastrium Edema: No Labs: CBC, BMP 06/14/16 07:00 06/14/16 07:00 INR, PTT INR 2.56 (0.82-1.09) H D 06/14/16 07:00 Problem List - Problems (1) AML (acute myelogenous leukemia) Code(s): C92.00 - ACUTE MYELOBLASTIC LEUKEMIA, NOT HAVING ACHIEVED REMISSION Qualifiers: Leukemia Active/Remission status: without remission Qualified Code(s ): C92.00 - Acute myeloblastic leukemia, not having achieved remission (2) Febrile neutropenia Code(s): D70.9 - NEUTROPENIA, UNSPECIFIED R50.81 - FEVER PRESENTING WITH CONDITIONS CLASSIFIED ELSEWHERE (3) Neutropenia Code(s): D70.9 - NEUTROPENIA, UNSPECIFIED Qualifiers: Neutropenia type: secondary to cancer chemotherapy Qualified Code(s) : D70.1 - Agranulocytosis secondary to cancer chemotherapy (4) Pneumonia Code(s): J18.9 - PNEUMONIA, UNSPECIFIED ORGANISM Assessment/Plan Microbiology 06/13/16 14:36 Urine For Antigen Detection Legionella Antigen - Final 06/13/16 14:36 Urine For Antigen Detection Streptococcus pneumoniae Antigen (M - Final 06/14/16 08:45 Serum Cryptococcal Antigen - Preliminary Laboratory Tests 06/14/16 06/14/16 06/14/16 07:00 07:00 07:00 WBC 67.4 H* D Hct 30.0 L Plt Count 108 L BUN 11 Creatinine 0.6 CMV IgG Ab CMV IgM Ab CMV DNA Quant PCR A. galactomannan Ag Pending Beta-(1,3)-D-Glucan Pending 06/15/16 06/15/16 06/15/16 06:35 06:35 06:35 WBC Hct Plt Count BUN Creatinine CMV IgG Ab Pending CMV IgM Ab Pending CMV DNA Quant PCR Pending A. galactomannan Ag Beta-(1,3)-D-Glucan Assessment AML Post chemotherapy Neutropenic febrile with PNA Transfusion requirements Plan Continue current antibiotics Caspofungin Dicsussed with Dr Miranda Antitussive Ngoc DEWITT
--- NOTE | 2016-06-15 08:44 | PN ---
History of Present Illness: AML - not in remission, on sub Q Emma-C with prolonged history of neutropenia, in with LLL pneumonia, and febrile course s/p transfusion therapy - Review of Systems Constitutional: reports: Fever, Malaise, Weakness Eyes: denies: Blurred Vision, Double Vision HENT: denies: Difficult Swallowing, Throat Pain Neck: denies: Stiffness, Tenderness Cardiovascular: reports: Shortness of Breath. denies: Edema Respiratory: reports: SOB, SOB on Exertion Gastrointestinal: denies: Abdominal Pain, Bloating, Constipation, Diarrhea, Dysphagia, Nausea, Vomiting Genitourinary: denies: Burning, Dysuria Breasts: reports: No Symptoms Reported Musculoskeletal: denies: Back Pain, Extremity Pain, Joint Swelling, Muscle Pain , Muscle Weakness Integumentary: denies: Bruising, Eczema, Erythema Neurological: reports: No Symptoms Endocrine: reports: No Symptoms Hematology/Lymphatic: reports: No Symptoms. denies: Swollen Glands Psychiatric: reports: No Symptoms - Medications/Allergies Allergies/Adverse Reactions: Allergies Allergy/AdvReac Type Severity Reaction Status Date / Time allopurinol Allergy Verified 06/14/16 20:33 Medications: Current Medications Acetaminophen (Tylenol -) 650 mg PO Q6H PRN PRN Reason: FEVER OVER 101 Last Admin: 06/15/16 05:38 Dose: 650 mg Diltiazem HCl (Cardizem Cd -) 180 mg PO DAILY [facility] Last Admin: 06/14/16 10:05 Dose: 180 mg Febuxostat (Uloric -) 40 mg PO DAILY [facility] Last Admin: 06/14/16 21:37 Dose: 40 mg Cefepime HCl 2 gm/ Dextrose 100 mls @ 200 mls/hr IVPB Q8H-IV [facility] Last Admin: 06/15/16 01:14 Dose: 200 mls/hr Azithromycin (Zithromax 500mg Ivpb (Pre-Docked)) 250 mls @ 250 mls/hr IVPB DAILY [facility] Last Admin: 06/14/16 10:06 Dose: 250 mls/hr Sodium Chloride (Normal Saline -) 1,000 mls @ 50 mls/hr IV ASDIR [facility] Stop: 06/15/16 18:23 Last Admin: 06/14/16 18:55 Dose: 50 mls/hr Caspofungin 70 mg/ Sodium (Chloride) 250 mls @ 250 mls/hr IV ONCE ONE Stop: 06/15/16 09:28 Caspofungin 50 mg/ Sodium (Chloride) 250 mls @ 250 mls/hr IV DAILY [facility] Valacyclovir HCl (Valtrex -) 500 mg PO DAILY [facility] Warfarin Sodium (Coumadin -) 5 mg PO DAILY@1800 [facility] Last Admin: 06/14/16 17:10 Dose: 5 mg - Objective Vital Signs: Vital Signs Temperature 102 F H 06/15/16 05:36 Pulse Rate 101 H 06/15/16 05:36 Respiratory Rate 10 L 06/15/16 05:36 Blood Pressure 119/51 06/15/16 05:36 O2 Sat by Pulse Oximetry (%) 97 06/14/16 20:54 Constitutional: Yes: Mild Distress Eyes: Yes: Conjunctiva Clear, EOM Intact, PERRL. No: Diplopia, Ptosis, Sclera Icterus, Tearing HENT: Yes: Atraumatic, Normocephalic. No: Hoarseness, Thrush, Tonsillar Exudate Neck: Yes: Supple. No: Lymphadenopathy, Thyromegaly Cardiovascular: Yes: Regular Rate and Rhythm, Murmur Respiratory: Yes: Rales, Other (LLL rales Kyphoscoliosis) Gastrointestinal: Yes: Normal Bowel Sounds, Soft. No: Hepatomegaly, Palpable Mass, Splenomegaly Genitourinary: No: CVA Tenderness - Left Breast(s): Yes: WNL Musculoskeletal: No: Back Pain Extremities: Yes: WNL. No: Calf Tenderness, Cyanosis Edema: No Integumentary: No: Bruising, Erythema Neurological: Yes: WNL ...Motor Strength: WNL Psychiatric: Yes: WNL Labs: CBC, BMP 06/14/16 07:00 06/14/16 07:00 - ....Imaging Cat Scan: Report Reviewed, Image Reviewed Problem List - Problems (1) AML (acute myelogenous leukemia) Assessment/Plan: Previously received idarubicin and emma-c x2. with remission. (3 and 7, 2 and 5 ) Then relapse --treated with 5- azacytidine with partial response. Then relapse. Then Emma-C subq low dose with partial response. Then progression. Re-trial of low dose subq Emma-c. Prolonged neutropenia with relative preservation of platelets and Hb in past. Patient was receiving low dose Emma-C when she spiked temp post transfusion. Code(s): C92.00 - ACUTE MYELOBLASTIC LEUKEMIA, NOT HAVING ACHIEVED REMISSION Qualifiers: Leukemia Active/Remission status: without remission Qualified Code(s ): C92.00 - Acute myeloblastic leukemia, not having achieved remission (2) Atrial fibrillation Assessment/Plan: History of atrial fib and DVT-- will need to be maintained on a/c with coumadin or other. Code(s): I48.91 - UNSPECIFIED ATRIAL FIBRILLATION (3) DVT (deep venous thrombosis) Assessment/Plan: History of DVT - maintain a/c. Code(s): I82.409 - ACUTE EMBOLISM AND THOMBOS UNSP DEEP VN UNSP LOWER EXTREMITY Qualifiers: Laterality: left Chronicity: chronic (4) Febrile neutropenia Assessment/Plan: LLL infitrate . On antibiotics per I.D. Had been maintained as outpatient on prophylactic voriconaze, cipro, and acyclovir . Code(s): D70.9 - NEUTROPENIA, UNSPECIFIED R50.81 - FEVER PRESENTING WITH CONDITIONS CLASSIFIED ELSEWHERE (5) Pneumonia Assessment/Plan: Antibiotics broadened per I.D. Has small pleural effusion on left. Multilobar pneumonia with RUL and LLL infiltration. Code(s): J18.9 - PNEUMONIA, UNSPECIFIED ORGANISM Qualifiers: Lung location: lower lobe of lung Qualified Code(s): J13 - Pneumonia due to Streptococcus pneumoniae Assessment/Plan Case reviewed with Dr. Grossman.
[2016-06-15] MEDS ORDERED: CASPOFUNGIN ACETATE 70 MG in SODIUM CHLORIDE 250 ML IVPB ONE (08:45)
[2016-06-15] MEDS ORDERED: PT OWN MED DRAWER 7, Y5N ONE ×3 (08:50→17:30)
[2016-06-15] MEDS: FEBUXOSTAT 40 MG TAB PO SCH (09:09)
[2016-06-15] MEDS: valACYclovir HCL 500 MG TABLET (FP) PO SCH (09:10)
[2016-06-15] MEDS: AZITHROMYCIN IVPB 250 ML IVPB SCH (09:10)
--- NOTE | 2016-06-15 09:17 | PN ---
Progress Note (short form) - Note Progress Note: Todays CBC pending- virtually 100% blasts with rising WBC count in prior labs. INR- therapeutic- currently off coumadin. To monitor. Problem List - Problems (1) AML (acute myelogenous leukemia) Code(s): C92.00 - ACUTE MYELOBLASTIC LEUKEMIA, NOT HAVING ACHIEVED REMISSION Qualifiers: Leukemia Active/Remission status: without remission Qualified Code(s ): C92.00 - Acute myeloblastic leukemia, not having achieved remission (2) Atrial fibrillation Code(s): I48.91 - UNSPECIFIED ATRIAL FIBRILLATION (3) DVT (deep venous thrombosis) Code(s): I82.409 - ACUTE EMBOLISM AND THOMBOS UNSP DEEP VN UNSP LOWER EXTREMITY Qualifiers: Laterality: left Chronicity: chronic (4) Febrile neutropenia Code(s): D70.9 - NEUTROPENIA, UNSPECIFIED R50.81 - FEVER PRESENTING WITH CONDITIONS CLASSIFIED ELSEWHERE (5) Pneumonia Code(s): J18.9 - PNEUMONIA, UNSPECIFIED ORGANISM Qualifiers: Lung location: lower lobe of lung Qualified Code(s): J13 - Pneumonia due to Streptococcus pneumoniae
[2016-06-15] MEDS: DEXTROMETHORPHAN/PROMETHAZINE 15 MG/6.25 MG/5 ML SYRUP PO PRN ×2 (12:53→22:45)
--- NOTE | 2016-06-15 15:52 | PN ---
Progress Note, Physician History of Present Illness: PULMONARY ALERT,+COUGH,FEBRILE - Current Medication List Current Medications: Active Medications Acetaminophen (Tylenol -) 650 mg PO Q6H PRN PRN Reason: FEVER OVER 101 Last Admin: 06/15/16 05:38 Dose: 650 mg Diltiazem HCl (Cardizem Cd -) 180 mg PO DAILY [facility] Last Admin: 06/15/16 09:09 Dose: 180 mg Febuxostat (Uloric -) 40 mg PO DAILY [facility] Last Admin: 06/15/16 09:09 Dose: 40 mg Cefepime HCl 2 gm/ Dextrose 100 mls @ 200 mls/hr IVPB Q8H-IV [facility] Last Admin: 06/15/16 09:06 Dose: 200 mls/hr Azithromycin (Zithromax 500mg Ivpb (Pre-Docked)) 250 mls @ 250 mls/hr IVPB DAILY [facility] Last Admin: 06/15/16 09:10 Dose: 250 mls/hr Sodium Chloride (Normal Saline -) 1,000 mls @ 50 mls/hr IV ASDIR [facility] Stop: 06/15/16 18:23 Last Admin: 06/14/16 18:55 Dose: 50 mls/hr Caspofungin 50 mg/ Sodium (Chloride) 250 mls @ 250 mls/hr IVPB DAILY [facility] Promethazine HCl/Dextromethorphan (Phenergan-Dm Syrup -) 5 ml PO Q4H PRN PRN Reason: COUGH Last Admin: 06/15/16 12:53 Dose: 5 ml Valacyclovir HCl (Valtrex -) 500 mg PO DAILY [facility] Last Admin: 06/15/16 09:10 Dose: 500 mg Warfarin Sodium (Coumadin -) 5 mg PO DAILY@1800 [facility] Last Admin: 06/14/16 17:10 Dose: 5 mg - Objective Vital Signs: Vital Signs Temperature 98.1 F 06/15/16 14:16 Pulse Rate 97 H 06/15/16 14:16 Respiratory Rate 20 06/15/16 14:16 Blood Pressure 117/47 06/15/16 14:16 O2 Sat by Pulse Oximetry (%) 95 06/15/16 09:00 Constitutional: Yes: Calm, Thin Eyes: Yes: WNL HENT: Yes: WNL Neck: Yes: WNL Cardiovascular: Yes: Pulse Irregular, S1, S2 Respiratory: Yes: Rales, Rhonchi (CRACKLES+ RHONCHI) Gastrointestinal: Yes: Normal Bowel Sounds, Soft Extremities: Yes: WNL Edema: No Labs: CBC, BMP 06/14/16 07:00 06/14/16 07:00 INR, PTT INR 2.41 (0.82-1.09) H 06/15/16 06:35 Assessment/Plan Problem List - Problems (1) AML (acute myelogenous leukemia) Code(s): C92.00 - ACUTE MYELOBLASTIC LEUKEMIA, NOT HAVING ACHIEVED REMISSION Qualifiers: Leukemia Active/Remission status: without remission Qualified Code(s ): C92.00 - Acute myeloblastic leukemia, not having achieved remission (2) Atrial fibrillation Code(s): I48.91 - UNSPECIFIED ATRIAL FIBRILLATION (3) DVT (deep venous thrombosis) Code(s): I82.409 - ACUTE EMBOLISM AND THOMBOS UNSP DEEP VN UNSP LOWER EXTREMITY Qualifiers: Laterality: left Chronicity: chronic (4) Febrile neutropenia Code(s): D70.9 - NEUTROPENIA, UNSPECIFIED R50.81 - FEVER PRESENTING WITH CONDITIONS CLASSIFIED ELSEWHERE (5) GERD (gastroesophageal reflux disease) Code(s): K21.9 - GASTRO-ESOPHAGEAL REFLUX DISEASE WITHOUT ESOPHAGITIS (6) Pneumonia Code(s): J18.9 - PNEUMONIA, UNSPECIFIED ORGANISM Assessment/Plan ACUTE BLAST CRISIS SUPERIMPOSED UPON PNEUMONIA AF DVT/ANTICOAGULATION RECENT SHILPI-C H/O ANTI-FUNGAL/ANTI-VIRAL/PCP PROPHYLAXSIS PLAN ANTIBIOTICS PER ID NEUTROPENIC PRECAUTIONS ANTICOAGULATION O2 INHALED BRONCHODILATORS F/U CHEST X-RAYS DR MARKS
[2016-06-15] MEDS: SODIUM CHLORIDE 1,000 ML IV SCH (17:34)
[2016-06-15] MEDS: WARFARIN NA 5 MG TABLET (UD) PO SCH (17:34)
[2016-06-16] MEDS: CEFEPIME 2 GM in DEXTROSE 5%-WATER - 100 ML IVPB SCH ×3 (02:07→19:09)
[2016-06-16 07:33] LABS: MCH 32.8 pg (25.7-33.7); MCHC 33.5 g/dl (32.0-36.0); MEAN PLT VOLUME 7.7 fl (7.5-11.1); PLATELET COUNT 73 K/MM3 (134-434); RDW 25.9 % (11.6-15.6)
[2016-06-16 07:44] LABS: INR 3.44 (0.82-1.09); PROTHROMBIN TIME (PATIENT) 38.8 SEC (9.98-11.88); WHITE BLOOD COUNT 68.4 K/mm3 (4.0-10.0)
[2016-06-16 07:55] LABS: ALBUMIN 2.2 g/dl (3.4-5.0); ALK PHOS 64 U/L (45-117); ANION GAP 10 (8-16); BILIRUBIN,TOTAL 0.2 mg/dL (0.2-1.0); CALCIUM 7.3 mg/dL (8.5-10.1); CO2 24 mmol/L (21-32); CREATININE 0.6 mg/dL (0.55-1.02); GLUCOSE,RANDOM 115 mg/dL (74-106); MAGNESIUM 2.1 mg/dL (1.8-2.4); SGOT/AST 33 U/L (15-37); SGPT/ALT 25 U/L (12-78); TOT PROT 4.8 g/dl (6.4-8.2)
--- NOTE | 2016-06-16 08:45 | PN ---
Progress Note, Physician Chief Complaint: ID Subjectively better today NO fever currently and her couph perhaps improved Cancidas day 1 Cefepime Azithromycin Valtrex - Current Medication List Current Medications: Active Medications Acetaminophen (Tylenol -) 650 mg PO Q6H PRN PRN Reason: FEVER OVER 101 Last Admin: 06/15/16 05:38 Dose: 650 mg Diltiazem HCl (Cardizem Cd -) 180 mg PO DAILY [facility] Last Admin: 06/15/16 09:09 Dose: 180 mg Febuxostat (Uloric -) 40 mg PO DAILY [facility] Last Admin: 06/15/16 09:09 Dose: 40 mg Cefepime HCl 2 gm/ Dextrose 100 mls @ 200 mls/hr IVPB Q8H-IV [facility] Last Admin: 06/16/16 02:07 Dose: 200 mls/hr Azithromycin (Zithromax 500mg Ivpb (Pre-Docked)) 250 mls @ 250 mls/hr IVPB DAILY [facility] Last Admin: 06/15/16 09:10 Dose: 250 mls/hr Caspofungin 50 mg/ Sodium (Chloride) 250 mls @ 250 mls/hr IVPB DAILY [facility] Promethazine HCl/Dextromethorphan (Phenergan-Dm Syrup -) 5 ml PO Q4H PRN PRN Reason: COUGH Last Admin: 06/15/16 22:45 Dose: 5 ml Valacyclovir HCl (Valtrex -) 500 mg PO DAILY [facility] Last Admin: 06/15/16 09:10 Dose: 500 mg Warfarin Sodium (Coumadin -) 5 mg PO DAILY@1800 [facility] Last Admin: 06/15/16 17:34 Dose: 5 mg - Objective Vital Signs: Vital Signs Temperature 98.4 F 06/16/16 06:52 Pulse Rate 100 H 06/16/16 06:52 Respiratory Rate 20 06/16/16 06:52 Blood Pressure 145/55 06/16/16 06:52 O2 Sat by Pulse Oximetry (%) 92 L 06/15/16 21:00 Constitutional: Yes: Thin Neck: Yes: WNL, Supple Cardiovascular: Yes: Regular Rate and Rhythm, S1, S2. No: Murmur Respiratory: Yes: WNL, Regular, CTA Bilaterally, Diminished, Other (Less rales today) Gastrointestinal: Yes: WNL, Normal Bowel Sounds, Soft. No: Tenderness, Tenderness, Epigastrium Edema: No Labs: CBC, BMP 06/16/16 06:00 06/16/16 06:00 INR, PTT INR 3.44 (0.82-1.09) H D 06/16/16 06:00 Problem List - Problems (1) AML (acute myelogenous leukemia) Code(s): C92.00 - ACUTE MYELOBLASTIC LEUKEMIA, NOT HAVING ACHIEVED REMISSION Qualifiers: Leukemia Active/Remission status: without remission Qualified Code(s ): C92.00 - Acute myeloblastic leukemia, not having achieved remission (2) Febrile neutropenia Code(s): D70.9 - NEUTROPENIA, UNSPECIFIED R50.81 - FEVER PRESENTING WITH CONDITIONS CLASSIFIED ELSEWHERE (3) Neutropenia Code(s): D70.9 - NEUTROPENIA, UNSPECIFIED Qualifiers: Neutropenia type: secondary to cancer chemotherapy Qualified Code(s) : D70.1 - Agranulocytosis secondary to cancer chemotherapy (4) Pneumonia Code(s): J18.9 - PNEUMONIA, UNSPECIFIED ORGANISM Qualifiers: Lung location: lower lobe of lung Qualified Code(s): J13 - Pneumonia due to Streptococcus pneumoniae Assessment/Plan Microbiology 06/14/16 14:00 Sputum - Expectorated Gram Stain - Final 06/13/16 19:00 Urine - Urine Clean Catch Urine Culture - Final NO GROWTH OBTAINED 06/14/16 08:45 Serum Cryptococcal Antigen - Preliminary 06/12/16 16:00 Blood - Peripheral Venous Blood Culture - Preliminary NO GROWTH OBTAINED AFTER 72 HOURS, INCUBATION TO CONTINUE FOR 2 DAYS. 06/12/16 16:00 Blood - Peripheral Venous Blood Culture - Preliminary NO GROWTH OBTAINED AFTER 72 HOURS, INCUBATION TO CONTINUE FOR 2 DAYS. Laboratory Tests 06/14/16 06/15/16 06/15/16 07:00 06:35 06:35 WBC Hgb Hct Plt Count BUN Creatinine Creat Clearance w eGFR CMV IgG Ab 5.80 H CMV IgM Ab CMV DNA Quant PCR Pending A. galactomannan Ag Pending Beta-(1,3)-D-Glucan Pending 06/15/16 06/16/16 06/16/16 06:35 06:00 06:00 WBC 68.4 H* Hgb 8.6 L D Hct 25.7 L Plt Count 73 L D BUN 12 Creatinine 0.6 Creat Clearance w eGFR > 60 CMV IgG Ab CMV IgM Ab < 30.0 CMV DNA Quant PCR A. galactomannan Ag Beta-(1,3)-D-Glucan Assessment AML with blast crisis and neutropenic pneumonia unspecified Empiric therapy includes antifugal therapy Plan Viral and fungal markers pendng Seems better today Continue current therapy Ngoc DEWITT
[2016-06-16] MEDS: AZITHROMYCIN IVPB 250 ML IVPB SCH (11:07)
[2016-06-16] MEDS: CASPOFUNGIN ACETATE 50 MG in SODIUM CHLORIDE 250 ML IVPB SCH (11:07)
[2016-06-16] MEDS: FEBUXOSTAT 40 MG TAB PO SCH (11:07)
[2016-06-16] MEDS: valACYclovir HCL 500 MG TABLET (FP) PO SCH (11:07)
[2016-06-16 11:18] LABS: SMUDGE CELLS FEW
[2016-06-16 11:19] LABS: PLATELET COMMENT2 NO CLOTTING DETECTED; PLATELET ESTIMATE DECREASED (NORMAL)
[2016-06-16 11:21] LABS: ANISOCYTOSIS 2+
[2016-06-16 11:22] LABS: HYPOCHROMIA 2+; POIKILOCYTOSIS 2+
--- NOTE | 2016-06-16 11:49 | PN ---
Progress Note (short form) - Note Progress Note: Appears very weak. Generalized malaise and fatigue. No CP. SOB has improved. Poor oral intake, but had some breakfast this AM. Intake & Output 06/13/16 06/14/16 06/15/16 06/16/16 23:59 23:59 23:59 23:59 Intake Total 750 1150 2960 120 Balance 750 1150 2960 120 Weight 98 lb Last Vital Signs Temp Pulse Resp BP Pulse Ox 98.4 F 100 H 20 145/55 92 L 06/16/16 06:52 06/16/16 06:52 06/16/16 06:52 06/16/16 06:52 06/15/16 21:00 Active Medications Acetaminophen (Tylenol -) 650 mg PO Q6H PRN PRN Reason: FEVER OVER 101 Last Admin: 06/15/16 05:38 Dose: 650 mg Diltiazem HCl (Cardizem Cd -) 180 mg PO DAILY [facility] Last Admin: 06/16/16 11:07 Dose: 180 mg Febuxostat (Uloric -) 40 mg PO DAILY [facility] Last Admin: 06/16/16 11:07 Dose: 40 mg Cefepime HCl 2 gm/ Dextrose 100 mls @ 200 mls/hr IVPB Q8H-IV [facility] Last Admin: 06/16/16 11:07 Dose: 200 mls/hr Azithromycin (Zithromax 500mg Ivpb (Pre-Docked)) 250 mls @ 250 mls/hr IVPB DAILY [facility] Last Admin: 06/16/16 11:07 Dose: 250 mls/hr Caspofungin 50 mg/ Sodium (Chloride) 250 mls @ 250 mls/hr IVPB DAILY [facility] Last Admin: 06/16/16 11:07 Dose: 250 mls/hr Promethazine HCl/Dextromethorphan (Phenergan-Dm Syrup -) 5 ml PO Q4H PRN PRN Reason: COUGH Last Admin: 06/15/16 22:45 Dose: 5 ml Valacyclovir HCl (Valtrex -) 500 mg PO DAILY [facility] Last Admin: 06/16/16 11:07 Dose: 500 mg Warfarin Sodium (Coumadin -) 5 mg PO DAILY@1800 [facility] Last Admin: 06/15/16 17:34 Dose: 5 mg Constitutional: Yes: Awake and alert, Weak appearing Eyes: Yes: WNL HENT: Yes: WNL Neck: Yes: WNL Cardiovascular: Yes: Pulse Irregular, S1, S2 Respiratory: Yes: Basilar Rales / Rhonchi Gastrointestinal: Yes: Normal Bowel Sounds, Soft Extremities: Yes: WNL Edema: No Labs: Laboratory Results - last 24 hr 06/15/16 06/15/16 06/16/16 06:35 06:35 06:00 WBC 68.4 H* RBC 2.62 L Hgb 8.6 L D Hct 25.7 L MCV 98.0 H MCHC 33.5 RDW 25.9 H Plt Count 73 L D MPV 7.7 Neutrophils % Y Lymphocytes % 4.0 L D Monocytes % 1.0 L Reactive Lymphocytes 6 D Blast Cells 90 H Smudge Cells Few Platelet Estimate Decreased Platelet Comment No clotting detected Hypochromic-Microcytic 2+ Poikilocytosis 2+ Anisocytosis 2+ INR Sodium Potassium Chloride Carbon Dioxide Anion Gap BUN Creatinine Creat Clearance w eGFR Random Glucose Calcium Magnesium Total Bilirubin AST ALT Alkaline Phosphatase Total Protein Albumin CMV IgG Ab 5.80 H CMV IgM Ab < 30.0 06/16/16 06/16/16 06:00 06:00 WBC RBC Hgb Hct MCV MCHC RDW Plt Count MPV Neutrophils % Lymphocytes % Monocytes % Reactive Lymphocytes Blast Cells Smudge Cells Platelet Estimate Platelet Comment Hypochromic-Microcytic Poikilocytosis Anisocytosis INR 3.44 H D Sodium 140 Potassium 3.5 Chloride 106 Carbon Dioxide 24 Anion Gap 10 BUN 12 Creatinine 0.6 Creat Clearance w eGFR > 60 Random Glucose 115 H Calcium 7.3 L Magnesium 2.1 Total Bilirubin 0.2 D AST 33 D ALT 25 D Alkaline Phosphatase 64 Total Protein 4.8 L Albumin 2.2 L CMV IgG Ab CMV IgM Ab Assessment/Plan Problem List - Problems (1) AML (acute myelogenous leukemia) Code(s): C92.00 - ACUTE MYELOBLASTIC LEUKEMIA, NOT HAVING ACHIEVED REMISSION Qualifiers: Leukemia Active/Remission status: without remission Qualified Code(s ): C92.00 - Acute myeloblastic leukemia, not having achieved remission (2) Atrial fibrillation Code(s): I48.91 - UNSPECIFIED ATRIAL FIBRILLATION (3) DVT (deep venous thrombosis) Code(s): I82.409 - ACUTE EMBOLISM AND THOMBOS UNSP DEEP VN UNSP LOWER EXTREMITY Qualifiers: Laterality: left Chronicity: chronic (4) Febrile neutropenia Code(s): D70.9 - NEUTROPENIA, UNSPECIFIED R50.81 - FEVER PRESENTING WITH CONDITIONS CLASSIFIED ELSEWHERE (5) GERD (gastroesophageal reflux disease) Code(s): K21.9 - GASTRO-ESOPHAGEAL REFLUX DISEASE WITHOUT ESOPHAGITIS (6) Pneumonia Code(s): J18.9 - PNEUMONIA, UNSPECIFIED ORGANISM Assessment/Plan ACUTE BLAST CRISIS SUPERIMPOSED UPON PNEUMONIA AF DVT/ANTICOAGULATION RECENT SHILPI-C H/O ANTI-FUNGAL/ANTI-VIRAL/PCP PROPHYLAXSIS PLAN ANTIBIOTICS/ANTIFUNGALS PER ID NEUTROPENIC PRECAUTIONS ANTICOAGULATION O2 INHALED BRONCHODILATORS PO TOLERATED DR MARTI
--- NOTE | 2016-06-16 11:54 | PN ---
Progress Note (short form) - Note Progress Note: History of Present Illness: AML - not in remission, on sub Q Emma-C with prolonged history of neutropenia, in with LLL pneumonia, and febrile course s/p transfusion therapy she is sleeping well. I spoke with the who says she was better this mornign, had a bath, ate and had no fevers yesterday and since she is tired now she was sleeping/ Active Medications Generic Name Dose Route Start Last Admin Trade Name Freq PRN Reason Stop Dose Admin Acetaminophen 650 mg 06/13/16 16:43 06/15/16 05:38 Tylenol - PO 650 mg Q6H PRN Administration FEVER OVER 101 Albuterol Sulfate 1 amp 06/16/16 11:49 Ventolin 0.083% Nebulizer Soln - NEB Q4H PRN SHORT OF BREATH/WHEEZING Diltiazem HCl 180 mg 06/13/16 10:00 06/16/16 11:07 Cardizem Cd - PO 180 mg DAILY [facility] Administration Febuxostat 40 mg 06/14/16 20:00 06/16/16 11:07 Uloric - PO 40 mg DAILY [facility] Administration Cefepime HCl 2 gm/ Dextrose 100 mls @ 200 mls/hr 06/12/16 18:00 06/16/16 11:07 IVPB 200 mls/hr Q8H-IV [facility] Administration Azithromycin 250 mls @ 250 mls/hr 06/14/16 10:00 06/16/16 11:07 Zithromax 500mg Ivpb (Pre-Docked) IVPB 250 mls/hr DAILY [facility] Administration Caspofungin 50 mg/ Sodium 250 mls @ 250 mls/hr 06/16/16 10:00 06/16/16 11:07 Chloride IVPB 250 mls/hr DAILY [facility] Administration Ondansetron HCl 4 mg 06/16/16 11:49 Zofran Injection IVPB Q6H PRN NAUSE[facility] Promethazine HCl/Dextromethorphan 5 ml 06/15/16 11:05 06/15/16 22:45 Phenergan-Dm Syrup - PO 5 ml Q4H PRN Administration COUGH Valacyclovir HCl 500 mg 06/15/16 10:00 06/16/16 11:07 Valtrex - PO 500 mg DAILY [facility] Administration Warfarin Sodium 5 mg 06/12/16 18:00 06/15/16 17:34 Coumadin - PO 5 mg DAILY@1800 [facility] Administration Vital Signs Period Temp Pulse Resp BP Sys/Barrios Pulse Ox Last 24 Hr 97.9 F-98.9 F 93-104 18-20 114-145/47-78 92 CBC, BMP 06/16/16 06:00 06/16/16 06:00 - ....Imaging Cat Scan: Report Reviewed, Image Reviewed Problem List AML -continue broad spectrum Abx as per ID -No fevers overnight and the patient subjectively better is good -continues to have a high percentage blasts consistent with relapsed AML, will melissa for now -hold coumadin
[2016-06-16] MEDS: ALBUTEROL SO4 0.083% IH SOL 2.5 MG/3 ML VIAL.NEB. NEB PRN (19:08)
[2016-06-17] MEDS: CEFEPIME 2 GM in DEXTROSE 5%-WATER - 100 ML IVPB SCH ×3 (02:03→18:14)
[2016-06-17] MEDS: ALBUTEROL SO4 0.083% IH SOL 2.5 MG/3 ML VIAL.NEB. NEB PRN (06:39)
[2016-06-17 07:39] LABS: MCH 33.3 pg (25.7-33.7); MCHC 33.8 g/dl (32.0-36.0); MEAN CELL VOLUME 98.6 fl (80-96); MEAN PLT VOLUME 7.9 fl (7.5-11.1); PLATELET COUNT 74 K/MM3 (134-434); RDW 26.1 % (11.6-15.6)
[2016-06-17 07:43] LABS: WHITE BLOOD COUNT 75.9 K/mm3 (4.0-10.0)
[2016-06-17 07:45] LABS: PROTHROMBIN TIME (PATIENT) 55.6 SEC (9.98-11.88)
[2016-06-17 08:01] LABS: INR 4.89 (0.82-1.09)
--- NOTE | 2016-06-17 08:12 | PN ---
Progress Note, Physician Chief Complaint: ID Looks worse today increasing weakness congested wheezing Seen by leukemia service Cefepime Caspofungin Azithromycin Fevers down - Current Medication List Current Medications: Active Medications Acetaminophen (Tylenol -) 650 mg PO Q6H PRN PRN Reason: FEVER OVER 101 Last Admin: 06/15/16 05:38 Dose: 650 mg Albuterol Sulfate (Ventolin 0.083% Nebulizer Soln -) 1 amp NEB Q4H PRN PRN Reason: SHORT OF BREATH/WHEEZING Last Admin: 06/17/16 06:39 Dose: 1 amp Diltiazem HCl (Cardizem Cd -) 180 mg PO DAILY [facility] Last Admin: 06/16/16 11:07 Dose: 180 mg Febuxostat (Uloric -) 40 mg PO DAILY [facility] Last Admin: 06/16/16 11:07 Dose: 40 mg Cefepime HCl 2 gm/ Dextrose 100 mls @ 200 mls/hr IVPB Q8H-IV [facility] Last Admin: 06/17/16 02:03 Dose: 200 mls/hr Azithromycin (Zithromax 500mg Ivpb (Pre-Docked)) 250 mls @ 250 mls/hr IVPB DAILY [facility] Last Admin: 06/16/16 11:07 Dose: 250 mls/hr Caspofungin 50 mg/ Sodium (Chloride) 250 mls @ 250 mls/hr IVPB DAILY [facility] Last Admin: 06/16/16 11:07 Dose: 250 mls/hr Ondansetron HCl (Zofran Injection) 4 mg IVPB Q6H PRN PRN Reason: NAUSEA Promethazine HCl/Dextromethorphan (Phenergan-Dm Syrup -) 5 ml PO Q4H PRN PRN Reason: COUGH Last Admin: 06/15/16 22:45 Dose: 5 ml Valacyclovir HCl (Valtrex -) 500 mg PO DAILY [facility] Last Admin: 06/16/16 11:07 Dose: 500 mg Warfarin Sodium (Coumadin -) 5 mg PO DAILY@1800 [facility] Last Admin: 06/15/16 17:34 Dose: 5 mg - Objective Vital Signs: Vital Signs Temperature 98.2 F 06/17/16 05:32 Pulse Rate 88 06/17/16 05:32 Respiratory Rate 20 06/17/16 05:32 Blood Pressure 123/61 06/17/16 05:32 O2 Sat by Pulse Oximetry (%) 92 L 06/16/16 21:00 Constitutional: Yes: Other (Weak) Neck: Yes: WNL, Supple Cardiovascular: Yes: Regular Rate and Rhythm, S1, S2 Respiratory: Yes: Rhonchi, Wheezes Gastrointestinal: Yes: Soft. No: Tenderness Edema: No Labs: CBC, BMP 06/17/16 06:15 INR, PTT INR 4.89 (0.82-1.09) H* D 06/17/16 06:15 Problem List - Problems (1) AML (acute myelogenous leukemia) Code(s): C92.00 - ACUTE MYELOBLASTIC LEUKEMIA, NOT HAVING ACHIEVED REMISSION Qualifiers: Leukemia Active/Remission status: without remission Qualified Code(s ): C92.00 - Acute myeloblastic leukemia, not having achieved remission (2) Febrile neutropenia Code(s): D70.9 - NEUTROPENIA, UNSPECIFIED R50.81 - FEVER PRESENTING WITH CONDITIONS CLASSIFIED ELSEWHERE (3) Neutropenia Code(s): D70.9 - NEUTROPENIA, UNSPECIFIED Qualifiers: Neutropenia type: secondary to cancer chemotherapy Qualified Code(s) : D70.1 - Agranulocytosis secondary to cancer chemotherapy (4) Pneumonia Code(s): J18.9 - PNEUMONIA, UNSPECIFIED ORGANISM Qualifiers: Lung location: lower lobe of lung Qualified Code(s): J13 - Pneumonia due to Streptococcus pneumoniae Assessment/Plan Microbiology 06/14/16 14:00 Sputum - Expectorated Gram Stain - Final 06/13/16 14:36 Urine For Antigen Detection Legionella Antigen - Final 06/13/16 14:36 Urine For Antigen Detection Streptococcus pneumoniae Antigen (M - Final 06/13/16 10:15 Nasopharyngeal Swab Influenza Types A,B Antigen (MINDY) - Final 06/13/16 10:15 Nasopharyngeal Swab - Final 06/14/16 14:00 Sputum - Expectorated Sputum Culture - Preliminary Yeast Like Organism 06/13/16 10:15 Nasopharyngeal Swab Respiratory Virus Panel - Preliminary 06/12/16 16:00 Blood - Peripheral Venous Blood Culture - Preliminary NO GROWTH OBTAINED AFTER 96 HOURS, INCUBATION TO CONTINUE FOR 1 DAYS. 06/12/16 16:00 Blood - Peripheral Venous Blood Culture - Preliminary NO GROWTH OBTAINED AFTER 96 HOURS, INCUBATION TO CONTINUE FOR 1 DAYS. Laboratory Tests 06/14/16 06/15/16 06/15/16 07:00 06:35 06:35 WBC Hgb Hct Plt Count INR CMV IgG Ab 5.80 H CMV IgM Ab CMV DNA Quant PCR Pending A. galactomannan Ag Pending Beta-(1,3)-D-Glucan Pending 06/15/16 06/17/16 06/17/16 06:35 06:15 06:15 WBC 75.9 H* Hgb 8.9 L Hct 26.2 L Plt Count 74 L INR 4.89 H* D CMV IgG Ab CMV IgM Ab < 30.0 CMV DNA Quant PCR A. galactomannan Ag Beta-(1,3)-D-Glucan Assessment Relapsed AML Pneumonia Bronchospasm wheeze Plan Continue current empiric antimicrobials Consider adding steroids Ngoc DEWITT
[2016-06-17 08:59] LABS: ANION GAP 9 (8-16); BILIRUBIN,TOTAL 0.3 mg/dL (0.2-1.0); CO2 23 mmol/L (21-32); CREATININE 0.6 mg/dL (0.55-1.02); GLUCOSE,RANDOM 110 mg/dL (74-106); MAGNESIUM 2.1 mg/dL (1.8-2.4); SGOT/AST 138 U/L (15-37); SGPT/ALT 80 U/L (12-78); TOT PROT 5.1 g/dl (6.4-8.2)
[2016-06-17 09:00] LABS: ALK PHOS 80 U/L (45-117)
[2016-06-17 09:06] LABS: CALCIUM 6.9 mg/dL (8.5-10.1)
[2016-06-17] MEDS ORDERED: PT OWN MED DRAWER 7, Y5N ONE (10:50)
[2016-06-17] MEDS: CASPOFUNGIN ACETATE 50 MG in SODIUM CHLORIDE 250 ML IVPB SCH (10:53)
[2016-06-17] MEDS: AZITHROMYCIN IVPB 250 ML IVPB SCH (10:54)
[2016-06-17] MEDS: FEBUXOSTAT 40 MG TAB PO SCH (10:56)
[2016-06-17] MEDS: valACYclovir HCL 500 MG TABLET (FP) PO SCH (10:58)
[2016-06-17] MEDS: DEXTROMETHORPHAN/PROMETHAZINE 15 MG/6.25 MG/5 ML SYRUP PO PRN (11:02)
[2016-06-17] MEDS ORDERED: FUROSEMIDE 40 MG/4 ML INJECTABLE VIAL IVPUSH ONE (11:15)
[2016-06-17] MEDS ORDERED: PHYTONADIONE 5 MG TABLET PO ONE (11:15)
--- NOTE | 2016-06-17 11:17 | PN ---
Progress Note (short form) - Note Progress Note: Appears very weak. Generalized malaise and fatigue. No CP. Congested cough. No hemoptysis. Ate some breakfast this AM. Intake & Output 06/14/16 06/15/16 06/16/16 06/17/16 23:59 23:59 23:59 23:59 Intake Total 1150 2960 470 100 Balance 1150 2960 470 100 Last Vital Signs Temp Pulse Resp BP Pulse Ox 98.2 F 88 20 123/61 92 L 06/17/16 05:32 06/17/16 05:32 06/17/16 05:32 06/17/16 05:32 06/16/16 21:00 Active Medications Acetaminophen (Tylenol -) 650 mg PO Q6H PRN PRN Reason: FEVER OVER 101 Last Admin: 06/15/16 05:38 Dose: 650 mg Albuterol Sulfate (Ventolin 0.083% Nebulizer Soln -) 1 amp NEB Q4H PRN PRN Reason: SHORT OF BREATH/WHEEZING Last Admin: 06/17/16 06:39 Dose: 1 amp Diltiazem HCl (Cardizem Cd -) 180 mg PO DAILY [facility] Last Admin: 06/17/16 10:57 Dose: 180 mg Febuxostat (Uloric -) 40 mg PO DAILY [facility] Last Admin: 06/17/16 10:56 Dose: 40 mg Cefepime HCl 2 gm/ Dextrose 100 mls @ 200 mls/hr IVPB Q8H-IV [facility] Last Admin: 06/17/16 02:03 Dose: 200 mls/hr Azithromycin (Zithromax 500mg Ivpb (Pre-Docked)) 250 mls @ 250 mls/hr IVPB DAILY [facility] Last Admin: 06/17/16 10:54 Dose: 250 mls/hr Caspofungin 50 mg/ Sodium (Chloride) 250 mls @ 250 mls/hr IVPB DAILY [facility] Last Admin: 06/17/16 10:53 Dose: 250 mls/hr Ondansetron HCl (Zofran Injection) 4 mg IVPB Q6H PRN PRN Reason: NAUSEA Promethazine HCl/Dextromethorphan (Phenergan-Dm Syrup -) 5 ml PO Q4H PRN PRN Reason: COUGH Last Admin: 06/17/16 11:02 Dose: 5 ml Valacyclovir HCl (Valtrex -) 500 mg PO DAILY [facility] Last Admin: 06/17/16 10:58 Dose: 500 mg Constitutional: Yes: Awake and alert, Mildly tachypneic at rest, Weak appearing Eyes: Yes: WNL HENT: Yes: WNL Neck: Yes: WNL Cardiovascular: Yes: Pulse Irregular, S1, S2 Respiratory: Yes: Basilar Rales / Rhonchi Gastrointestinal: Yes: Normal Bowel Sounds, Soft Extremities: Yes: WNL Edema: No Labs: Laboratory Results - last 24 hr 06/16/16 06/17/16 06/17/16 06:00 06:15 06:15 WBC 75.9 H* RBC 2.66 L Hgb 8.9 L Hct 26.2 L MCV 98.6 H MCHC 33.8 RDW 26.1 H Plt Count 74 L MPV 7.9 Lymphocytes % 4.0 L D Monocytes % 1.0 L Reactive Lymphocytes 6 D Blast Cells 90 H Smudge Cells Few Platelet Estimate Decreased Platelet Comment No clotting detected Hypochromic-Microcytic 2+ Poikilocytosis 2+ Anisocytosis 2+ INR 4.89 H* D Sodium Potassium Chloride Carbon Dioxide Anion Gap BUN Creatinine Creat Clearance w eGFR Random Glucose Calcium Magnesium Total Bilirubin AST ALT Alkaline Phosphatase Total Protein Albumin 06/17/16 06:15 WBC RBC Hgb Hct MCV MCHC RDW Plt Count MPV Lymphocytes % Monocytes % Reactive Lymphocytes Blast Cells Smudge Cells Platelet Estimate Platelet Comment Hypochromic-Microcytic Poikilocytosis Anisocytosis INR Sodium 142 Potassium 4.2 Chloride 109 H Carbon Dioxide 23 Anion Gap 9 BUN 12 Creatinine 0.6 Creat Clearance w eGFR > 60 Random Glucose 110 H Calcium 6.9 L* Magnesium 2.1 Total Bilirubin 0.3 D AST 138 H D ALT 80 H D Alkaline Phosphatase 80 D Total Protein 5.1 L Albumin 2.0 L Assessment/Plan Problem List - Problems (1) AML (acute myelogenous leukemia) Code(s): C92.00 - ACUTE MYELOBLASTIC LEUKEMIA, NOT HAVING ACHIEVED REMISSION Qualifiers: Leukemia Active/Remission status: without remission Qualified Code(s ): C92.00 - Acute myeloblastic leukemia, not having achieved remission (2) Atrial fibrillation Code(s): I48.91 - UNSPECIFIED ATRIAL FIBRILLATION (3) DVT (deep venous thrombosis) Code(s): I82.409 - ACUTE EMBOLISM AND THOMBOS UNSP DEEP VN UNSP LOWER EXTREMITY Qualifiers: Laterality: left Chronicity: chronic (4) Febrile neutropenia Code(s): D70.9 - NEUTROPENIA, UNSPECIFIED R50.81 - FEVER PRESENTING WITH CONDITIONS CLASSIFIED ELSEWHERE (5) GERD (gastroesophageal reflux disease) Code(s): K21.9 - GASTRO-ESOPHAGEAL REFLUX DISEASE WITHOUT ESOPHAGITIS (6) Pneumonia Code(s): J18.9 - PNEUMONIA, UNSPECIFIED ORGANISM Assessment/Plan ACUTE BLAST CRISIS SUPERIMPOSED UPON PNEUMONIA AF DVT/ANTICOAGULATION RECENT SHILPI-C H/O ANTI-FUNGAL/ANTI-VIRAL/PCP PROPHYLAXSIS PLAN ANTIBIOTICS/ANTIFUNGALS PER ID NEUTROPENIC PRECAUTIONS ANTICOAGULATION O2 INHALED BRONCHODILATORS PO TOLERATED CHECK AM LABS DR MARTI
[2016-06-17] MEDS: ARFORMOTEROL TARTRATE 15 MCG/2 ML VIAL NEB SCH ×2 (12:59→22:05)
[2016-06-17] MEDS: ACETYLCYSTEINE 20% 200MG/ML 4 ML VIAL *FOR ORAL / INH USE ONLY NEB SCH ×2 (13:00→22:05)
--- NOTE | 2016-06-17 13:15 | PN ---
Progress Note (short form) - Note Progress Note: History of Present Illness: AML - not in remission, on sub Q Emma-C with prolonged history of neutropenia, in with LLL pneumonia, and febrile course s/p transfusion therapy Today she is more SOB no cough with sputum, no fever She has wheezing and she got inhalers but with minimal relief Active Medications Generic Name Dose Route Start Last Admin Trade Name Freq PRN Reason Stop Dose Admin Acetaminophen 650 mg 06/13/16 16:43 06/15/16 05:38 Tylenol - PO 650 mg Q6H PRN Administration FEVER OVER 101 Albuterol Sulfate 1 amp 06/16/16 11:49 Ventolin 0.083% Nebulizer Soln - NEB Q4H PRN SHORT OF BREATH/WHEEZING Diltiazem HCl 180 mg 06/13/16 10:00 06/16/16 11:07 Cardizem Cd - PO 180 mg DAILY [facility] Administration Febuxostat 40 mg 06/14/16 20:00 06/16/16 11:07 Uloric - PO 40 mg DAILY [facility] Administration Cefepime HCl 2 gm/ Dextrose 100 mls @ 200 mls/hr 06/12/16 18:00 06/16/16 11:07 IVPB 200 mls/hr Q8H-IV [facility] Administration Azithromycin 250 mls @ 250 mls/hr 06/14/16 10:00 06/16/16 11:07 Zithromax 500mg Ivpb (Pre-Docked) IVPB 250 mls/hr DAILY [facility] Administration Caspofungin 50 mg/ Sodium 250 mls @ 250 mls/hr 06/16/16 10:00 06/16/16 11:07 Chloride IVPB 250 mls/hr DAILY [facility] Administration Ondansetron HCl 4 mg 06/16/16 11:49 Zofran Injection IVPB Q6H PRN NAUSEA Promethazine HCl/Dextromethorphan 5 ml 06/15/16 11:05 06/15/16 22:45 Phenergan-Dm Syrup - PO 5 ml Q4H PRN Administration COUGH Valacyclovir HCl 500 mg 06/15/16 10:00 06/16/16 11:07 Valtrex - PO 500 mg DAILY [facility] Administration Warfarin Sodium 5 mg 06/12/16 18:00 06/15/16 17:34 Coumadin - PO 5 mg DAILY@1800 [facility] Administration Vital Signs Period Temp Pulse Resp BP Sys/Barrios Pulse Ox Last 24 Hr 98.0 F-99.9 F 81-108 20-22 110-123/51-61 92 CVS- Normal RS- bilateral extensive crackles P/A- Soft, non tender Extr- no edema - ....Imaging Cat Scan: Report Reviewed, Image Reviewed Problem List AML -continue broad spectrum Abx as per ID -lasix 20 mg iv one dose now -Vitamin K po one dose today, coumadin held since Saturday -prednisone if needed -will consider hydrurea for high blasts if needed
[2016-06-17] MEDS ORDERED: FUROSEMIDE 40 MG/4 ML INJECTABLE VIAL ONE (14:02)
[2016-06-18] MEDS: CEFEPIME 2 GM in DEXTROSE 5%-WATER - 100 ML IVPB SCH ×3 (01:17→19:11)
[2016-06-18 08:02] LABS: INR 1.9 (0.82-1.09); PROTHROMBIN TIME (PATIENT) 21.2 SEC (9.98-11.88)
[2016-06-18] MEDS: ACETYLCYSTEINE 20% 200MG/ML 4 ML VIAL *FOR ORAL / INH USE ONLY NEB SCH ×2 (09:00→21:53)
[2016-06-18] MEDS: ARFORMOTEROL TARTRATE 15 MCG/2 ML VIAL NEB SCH ×2 (09:00→21:52)
[2016-06-18] MEDS ORDERED: PT OWN MED DRAWER 7, Y5N ONE ×2 (10:32→19:06)
[2016-06-18] MEDS: ALBUTEROL SO4 0.083% IH SOL 2.5 MG/3 ML VIAL.NEB. NEB PRN ×2 (11:21→14:25)
[2016-06-18] MEDS: AZITHROMYCIN IVPB 250 ML IVPB SCH (11:31)
[2016-06-18] MEDS: valACYclovir HCL 500 MG TABLET (FP) PO SCH (11:32)
[2016-06-18] MEDS: FEBUXOSTAT 40 MG TAB PO SCH (13:45)
[2016-06-18] MEDS: CASPOFUNGIN ACETATE 50 MG in SODIUM CHLORIDE 250 ML IVPB SCH (13:45)
--- NOTE | 2016-06-18 14:54 | PN ---
Progress Note (short form) - Note Progress Note: OOB to chair. [place] very congested last night and required BD TX almost every 4 hours. Appears very weak. Generalized malaise and fatigue. Congested cough. No hemoptysis. Intake & Output 06/15/16 06/16/16 06/17/16 06/18/16 23:59 23:59 23:59 23:59 Intake Total 2960 470 350 220 Balance 2960 470 350 220 Last Vital Signs Temp Pulse Resp BP Pulse Ox 98.2 F 92 H 22 112/51 92 L 06/18/16 06:00 06/18/16 06:00 06/18/16 06:00 06/18/16 06:00 06/17/16 21:00 Active Medications Acetaminophen (Tylenol -) 650 mg PO Q6H PRN PRN Reason: FEVER OVER 101 Last Admin: 06/15/16 05:38 Dose: 650 mg Acetylcysteine (Mucomyst 20 Oral / Inh Use Only*) 200 mg NEB BID [facility] Last Admin: 06/18/16 09:00 Dose: 200 mg Albuterol Sulfate (Ventolin 0.083% Nebulizer Soln -) 1 amp NEB Q4H PRN PRN Reason: SHORT OF BREATH/WHEEZING Last Admin: 06/18/16 11:21 Dose: 1 amp Arformoterol Tartrate (Brovana (Restricted To Pulmonology/Resp) -) 1 amp NEB BID [facility] Last Admin: 06/18/16 09:00 Dose: 1 amp Diltiazem HCl (Cardizem Cd -) 180 mg PO DAILY [facility] Last Admin: 06/18/16 11:32 Dose: 180 mg Febuxostat (Uloric -) 40 mg PO DAILY [facility] Last Admin: 06/18/16 13:45 Dose: 40 mg Cefepime HCl 2 gm/ Dextrose 100 mls @ 200 mls/hr IVPB Q8H-IV [facility] Last Admin: 06/18/16 12:49 Dose: 200 mls/hr Azithromycin (Zithromax 500mg Ivpb (Pre-Docked)) 250 mls @ 250 mls/hr IVPB DAILY [facility] Last Admin: 06/18/16 11:31 Dose: 250 mls/hr Caspofungin 50 mg/ Sodium (Chloride) 250 mls @ 250 mls/hr IVPB DAILY [facility] Last Admin: 06/18/16 13:45 Dose: 250 mls/hr Ondansetron HCl (Zofran Injection) 4 mg IVPB Q6H PRN PRN Reason: NAUSEA Promethazine HCl/Dextromethorphan (Phenergan-Dm Syrup -) 5 ml PO Q4H PRN PRN Reason: COUGH Last Admin: 06/17/16 11:02 Dose: 5 ml Valacyclovir HCl (Valtrex -) 500 mg PO DAILY [facility] Last Admin: 06/18/16 11:32 Dose: 500 mg Constitutional: Yes: Awake and alert, Mildly tachypneic at rest, Weak appearing Eyes: Yes: WNL HENT: Yes: WNL Neck: Yes: WNL Cardiovascular: Yes: Pulse Irregular, S1, S2 Respiratory: Yes: Basilar Rales / Rhonchi Gastrointestinal: Yes: Normal Bowel Sounds, Soft Extremities: Yes: WNL Edema: No Labs: Laboratory Results - last 24 hr 06/18/16 06:00 INR 1.90 H D Assessment/Plan Problem List - Problems (1) AML (acute myelogenous leukemia) Code(s): C92.00 - ACUTE MYELOBLASTIC LEUKEMIA, NOT HAVING ACHIEVED REMISSION Qualifiers: Leukemia Active/Remission status: without remission Qualified Code(s ): C92.00 - Acute myeloblastic leukemia, not having achieved remission (2) Atrial fibrillation Code(s): I48.91 - UNSPECIFIED ATRIAL FIBRILLATION (3) DVT (deep venous thrombosis) Code(s): I82.409 - ACUTE EMBOLISM AND THOMBOS UNSP DEEP VN UNSP LOWER EXTREMITY Qualifiers: Laterality: left Chronicity: chronic (4) Febrile neutropenia Code(s): D70.9 - NEUTROPENIA, UNSPECIFIED R50.81 - FEVER PRESENTING WITH CONDITIONS CLASSIFIED ELSEWHERE (5) GERD (gastroesophageal reflux disease) Code(s): K21.9 - GASTRO-ESOPHAGEAL REFLUX DISEASE WITHOUT ESOPHAGITIS (6) Pneumonia Code(s): J18.9 - PNEUMONIA, UNSPECIFIED ORGANISM Assessment/Plan ACUTE BLAST CRISIS SUPERIMPOSED UPON PNEUMONIA AF DVT/ANTICOAGULATION RECENT SHILPI-C H/O ANTI-FUNGAL/ANTI-VIRAL/PCP PROPHYLAXSIS PLAN ANTIBIOTICS/ANTIFUNGALS PER ID NEUTROPENIC PRECAUTIONS ANTICOAGULATION O2 INHALED BRONCHODILATORS PO TOLERATED JORDINVANДмитрий NEBULIZED MUCOMYST DR MARTI
--- NOTE | 2016-06-18 15:21 | PN ---
Progress Note, Physician History of Present Illness: patient seen and examined at bedside states she feels better than yesterday has a congested cough states she feels better after nebulizer treatments - Current Medication List Current Medications: Active Medications Acetaminophen (Tylenol -) 650 mg PO Q6H PRN PRN Reason: FEVER OVER 101 Last Admin: 06/15/16 05:38 Dose: 650 mg Acetylcysteine (Mucomyst 20 Oral / Inh Use Only*) 200 mg NEB BID [facility] Last Admin: 06/18/16 09:00 Dose: 200 mg Albuterol Sulfate (Ventolin 0.083% Nebulizer Soln -) 1 amp NEB Q4H PRN PRN Reason: SHORT OF BREATH/WHEEZING Last Admin: 06/18/16 11:21 Dose: 1 amp Arformoterol Tartrate (Brovana (Restricted To Pulmonology/Resp) -) 1 amp NEB BID [facility] Last Admin: 06/18/16 09:00 Dose: 1 amp Diltiazem HCl (Cardizem Cd -) 180 mg PO DAILY [facility] Last Admin: 06/18/16 11:32 Dose: 180 mg Febuxostat (Uloric -) 40 mg PO DAILY [facility] Last Admin: 06/18/16 13:45 Dose: 40 mg Cefepime HCl 2 gm/ Dextrose 100 mls @ 200 mls/hr IVPB Q8H-IV [facility] Last Admin: 06/18/16 12:49 Dose: 200 mls/hr Azithromycin (Zithromax 500mg Ivpb (Pre-Docked)) 250 mls @ 250 mls/hr IVPB DAILY [facility] Last Admin: 06/18/16 11:31 Dose: 250 mls/hr Caspofungin 50 mg/ Sodium (Chloride) 250 mls @ 250 mls/hr IVPB DAILY [facility] Last Admin: 06/18/16 13:45 Dose: 250 mls/hr Ondansetron HCl (Zofran Injection) 4 mg IVPB Q6H PRN PRN Reason: NAUSEA Promethazine HCl/Dextromethorphan (Phenergan-Dm Syrup -) 5 ml PO Q4H PRN PRN Reason: COUGH Last Admin: 06/17/16 11:02 Dose: 5 ml Valacyclovir HCl (Valtrex -) 500 mg PO DAILY [facility] Last Admin: 06/18/16 11:32 Dose: 500 mg - Objective Vital Signs: Vital Signs Temperature 98.2 F 06/18/16 06:00 Pulse Rate 92 H 06/18/16 06:00 Respiratory Rate 22 06/18/16 06:00 Blood Pressure 112/51 06/18/16 06:00 O2 Sat by Pulse Oximetry (%) 92 L 06/17/16 21:00 Microbiology 06/13/16 10:15 Nasopharyngeal Swab Respiratory Virus Panel - Preliminary 06/12/16 16:00 Blood - Peripheral Venous Blood Culture - Final NO GROWTH AFTER 5 DAYS INCUBATION 06/12/16 16:00 Blood - Peripheral Venous Blood Culture - Final NO GROWTH AFTER 5 DAYS INCUBATION 06/14/16 14:00 Sputum - Expectorated Gram Stain - Final 06/14/16 14:00 Sputum - Expectorated Sputum Culture - Final Yeast Like Organism 06/13/16 19:00 Urine - Urine Clean Catch Urine Culture - Final NO GROWTH OBTAINED 06/14/16 08:45 Serum Cryptococcal Antigen - Preliminary 06/13/16 14:36 Urine For Antigen Detection Legionella Antigen - Final 06/13/16 14:36 Urine For Antigen Detection Streptococcus pneumoniae Antigen (M - Final 06/13/16 10:15 Nasopharyngeal Swab Influenza Types A,B Antigen (MINDY) - Final 06/13/16 10:15 Nasopharyngeal Swab - Final Constitutional: Yes: No Distress, Calm Neck: Yes: Supple, Trachea Midline Cardiovascular: Yes: Tachycardia Respiratory: Yes: Rales (coarse breath sounds bilaterally), Rhonchi, Other Gastrointestinal: Yes: Normal Bowel Sounds, Soft Edema: No Psychiatric: Yes: Alert, Oriented Labs: CBC, BMP 06/17/16 06:15 06/17/16 06:15 INR, PTT INR 1.90 (0.82-1.09) H D 06/18/16 06:00 Problem List - Problems (1) AML (acute myelogenous leukemia) Code(s): C92.00 - ACUTE MYELOBLASTIC LEUKEMIA, NOT HAVING ACHIEVED REMISSION Qualifiers: Leukemia Active/Remission status: without remission Qualified Code(s ): C92.00 - Acute myeloblastic leukemia, not having achieved remission (2) DVT (deep venous thrombosis) Code(s): I82.409 - ACUTE EMBOLISM AND THOMBOS UNSP DEEP VN UNSP LOWER EXTREMITY Qualifiers: Laterality: left Chronicity: chronic (3) GERD (gastroesophageal reflux disease) Code(s): K21.9 - GASTRO-ESOPHAGEAL REFLUX DISEASE WITHOUT ESOPHAGITIS (4) Neutropenia Code(s): D70.9 - NEUTROPENIA, UNSPECIFIED Qualifiers: Neutropenia type: secondary to cancer chemotherapy Qualified Code(s) : D70.1 - Agranulocytosis secondary to cancer chemotherapy (5) Atrial fibrillation Code(s): I48.91 - UNSPECIFIED ATRIAL FIBRILLATION (6) Pneumonia Code(s): J18.9 - PNEUMONIA, UNSPECIFIED ORGANISM Qualifiers: Lung location: lower lobe of lung Qualified Code(s): J13 - Pneumonia due to Streptococcus pneumoniae (7) Febrile neutropenia Code(s): D70.9 - NEUTROPENIA, UNSPECIFIED R50.81 - FEVER PRESENTING WITH CONDITIONS CLASSIFIED ELSEWHERE Assessment/Plan 80F with AML and now has febrile neutropenia and LLL pneumonia Continue Cefepime Caspofungin valtrex and azithromycin bronchodilators and nebulizers PRN oxygen as needed Trend CBC Pallitaive care assessment
--- NOTE | 2016-06-18 15:47 | PN ---
Teaching Attending Note Name of Resident: Michel Keating ATTENDING PHYSICIAN STATEMENT I saw and evaluated the patient. I reviewed the resident's note and discussed the case with the resident. I agree with the resident's findings and plan as documented. SUBJECTIVE:Cefepime Azithromycin caspofungin OBJECTIVE: ASSESSMENT AND PLAN: Selected Entries 06/18/16 06/18/16 06:00 15:38 Temperature 98.0 F Pulse Rate 85 Respiratory 20 Rate Blood Pressure 112/51 Microbiology 06/14/16 14:00 Sputum - Expectorated Gram Stain - Final 06/14/16 14:00 Sputum - Expectorated Sputum Culture - Final Yeast Like Organism 06/12/16 16:00 Blood - Peripheral Venous Blood Culture - Final NO GROWTH AFTER 5 DAYS INCUBATION 06/12/16 16:00 Blood - Peripheral Venous Blood Culture - Final NO GROWTH AFTER 5 DAYS INCUBATION 06/14/16 08:45 Serum Cryptococcal Antigen - Preliminary Laboratory Tests 06/17/16 06/17/16 06:15 06:15 WBC 75.9 H* Hgb 8.9 L Hct 26.2 L Plt Count 74 L BUN 12 Creatinine 0.6 Assessment 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 Plan Continue current therapy Problem List - Problems (1) AML (acute myelogenous leukemia) Code(s): C92.00 - ACUTE MYELOBLASTIC LEUKEMIA, NOT HAVING ACHIEVED REMISSION Qualifiers: Leukemia Active/Remission status: without remission Qualified Code(s ): C92.00 - Acute myeloblastic leukemia, not having achieved remission (2) Febrile neutropenia Code(s): D70.9 - NEUTROPENIA, UNSPECIFIED R50.81 - FEVER PRESENTING WITH CONDITIONS CLASSIFIED ELSEWHERE (3) Neutropenia Code(s): D70.9 - NEUTROPENIA, UNSPECIFIED Qualifiers: Neutropenia type: secondary to cancer chemotherapy Qualified Code(s) : D70.1 - Agranulocytosis secondary to cancer chemotherapy (4) Pneumonia Code(s): J18.9 - PNEUMONIA, UNSPECIFIED ORGANISM Qualifiers: Lung location: lower lobe of lung Qualified Code(s): J13 - Pneumonia due to Streptococcus pneumoniae
--- NOTE | 2016-06-18 16:38 | PN ---
Progress Note (short form) - Note Progress Note: PAtient seen and examined mild shortness of breath Last Vital Signs Temp Pulse Resp BP Pulse Ox 98.0 F 85 20 112/50 92 L 06/18/16 15:38 06/18/16 15:38 06/18/16 15:38 06/18/16 10:00 06/17/16 21:00 Cor: RSR, No murmurs, No gallops Lungs: LLL crackles Abd: Soft, Normal bowel sounds, No organomegaly Ext:No significant edema Abnormal Lab Results 06/18/16 06:00 INR 1.90 H D Current Medications Acetaminophen (Tylenol -) 650 mg PO Q6H PRN PRN Reason: FEVER OVER 101 Last Admin: 06/15/16 05:38 Dose: 650 mg Acetylcysteine (Mucomyst 20 Oral / Inh Use Only*) 200 mg NEB BID [facility] Last Admin: 06/18/16 09:00 Dose: 200 mg Albuterol Sulfate (Ventolin 0.083% Nebulizer Soln -) 1 amp NEB Q4H PRN PRN Reason: SHORT OF BREATH/WHEEZING Last Admin: 06/18/16 11:21 Dose: 1 amp Arformoterol Tartrate (Brovana (Restricted To Pulmonology/Resp) -) 1 amp NEB BID [facility] Last Admin: 06/18/16 09:00 Dose: 1 amp Diltiazem HCl (Cardizem Cd -) 180 mg PO DAILY [facility] Last Admin: 06/18/16 11:32 Dose: 180 mg Febuxostat (Uloric -) 40 mg PO DAILY [facility] Last Admin: 06/18/16 13:45 Dose: 40 mg Cefepime HCl 2 gm/ Dextrose 100 mls @ 200 mls/hr IVPB Q8H-IV [facility] Last Admin: 06/18/16 12:49 Dose: 200 mls/hr Azithromycin (Zithromax 500mg Ivpb (Pre-Docked)) 250 mls @ 250 mls/hr IVPB DAILY [facility] Last Admin: 06/18/16 11:31 Dose: 250 mls/hr Caspofungin 50 mg/ Sodium (Chloride) 250 mls @ 250 mls/hr IVPB DAILY [facility] Last Admin: 06/18/16 13:45 Dose: 250 mls/hr Ondansetron HCl (Zofran Injection) 4 mg IVPB Q6H PRN PRN Reason: NAUSEA Promethazine HCl/Dextromethorphan (Phenergan-Dm Syrup -) 5 ml PO Q4H PRN PRN Reason: COUGH Last Admin: 06/17/16 11:02 Dose: 5 ml Valacyclovir HCl (Valtrex -) 500 mg PO DAILY [facility] Last Admin: 06/18/16 11:32 Dose: 500 mg A/P 80 y/o patient with AML rising WBC on cefepime Rising blast count. on uloric. check LDH/uric acid. start hydrea check CXR will get palliative care consult discussed with patients daughter overall situation. daughter to come tomorrow to discuss personally.
[2016-06-18] MEDS ORDERED: HYDROXYUREA 500 MG CAPSULE PO SCH (20:15)
[2016-06-19] MEDS ORDERED: PT OWN MED DRAWER 7, Y5N ONE ×5 (00:48→23:29)
[2016-06-19] MEDS: CEFEPIME 2 GM in DEXTROSE 5%-WATER - 100 ML IVPB SCH ×3 (01:32→17:17)
[2016-06-19 07:58] LABS: MCH 33.3 pg (25.7-33.7); MCHC 33.2 g/dl (32.0-36.0); MEAN CELL VOLUME 100.4 fl (80-96); MEAN PLT VOLUME 8.2 fl (7.5-11.1); PLATELET COUNT 88 K/MM3 (134-434); RDW 27.7 % (11.6-15.6)
[2016-06-19 08:02] LABS: WHITE BLOOD COUNT 56.4 K/mm3 (4.0-10.0)
[2016-06-19 08:54] LABS: ALBUMIN 1.9 g/dl (3.4-5.0); ALK PHOS 77 U/L (45-117); ANION GAP 11 (8-16); BILIRUBIN,TOTAL 0.3 mg/dL (0.2-1.0); CALCIUM 7.4 mg/dL (8.5-10.1); CO2 25 mmol/L (21-32); CREATININE 0.4 mg/dL (0.55-1.02); GLUCOSE,RANDOM 106 mg/dL (74-106); LDH 423 U/L (84-246); SGOT/AST 43 U/L (15-37); SGPT/ALT 57 U/L (12-78); TOT PROT 4.8 g/dl (6.4-8.2)
[2016-06-19 09:09] LABS: URIC ACID 0.8 mg/dL (2.6-7.2)
[2016-06-19 09:25] LABS: ASPERGILLUS GALACTOMANNAN AG 0.23
[2016-06-19] MEDS: valACYclovir HCL 500 MG TABLET (FP) PO SCH (09:26)
[2016-06-19] MEDS: HYDROXYUREA 500 MG CAPSULE PO SCH ×2 (09:26→23:25)
[2016-06-19] MEDS: FEBUXOSTAT 40 MG TAB PO SCH (09:27)
[2016-06-19] MEDS: DEXTROMETHORPHAN/PROMETHAZINE 15 MG/6.25 MG/5 ML SYRUP PO PRN ×2 (09:30→23:33)
[2016-06-19] MEDS: ARFORMOTEROL TARTRATE 15 MCG/2 ML VIAL NEB SCH ×2 (10:30→22:10)
[2016-06-19] MEDS: ACETYLCYSTEINE 20% 200MG/ML 4 ML VIAL *FOR ORAL / INH USE ONLY NEB SCH ×2 (10:30→22:10)
[2016-06-19] MEDS: AZITHROMYCIN IVPB 250 ML IVPB SCH (10:31)
[2016-06-19 10:51] LABS: PLATELET ESTIMATE DECREASED (NORMAL)
--- NOTE | 2016-06-19 11:25 | PN ---
Progress Note (short form) - Note Progress Note: OOB to chair. Clinically appears slightly better today. Less tachypneic at rest. Cough feels less congested. No CP. No hemoptysis. Intake & Output 06/16/16 06/17/16 06/18/16 06/19/16 23:59 23:59 23:59 23:59 Intake Total 470 350 540 550 Balance 470 350 540 550 Last Vital Signs Temp Pulse Resp BP Pulse Ox 99 F 104 H 20 115/55 91 L 06/19/16 10:34 06/19/16 10:34 06/19/16 10:34 06/19/16 10:34 06/18/16 21:00 Active Medications Acetaminophen (Tylenol -) 650 mg PO Q6H PRN PRN Reason: FEVER OVER 101 Last Admin: 06/15/16 05:38 Dose: 650 mg Acetylcysteine (Mucomyst 20 Oral / Inh Use Only*) 200 mg NEB BID [facility] Last Admin: 06/18/16 21:53 Dose: 200 mg Albuterol Sulfate (Ventolin 0.083% Nebulizer Soln -) 1 amp NEB Q4H PRN PRN Reason: SHORT OF BREATH/WHEEZING Last Admin: 06/18/16 14:25 Dose: 1 amp Arformoterol Tartrate (Brovana (Restricted To Pulmonology/Resp) -) 1 amp NEB BID [facility] Last Admin: 06/18/16 21:52 Dose: 1 amp Diltiazem HCl (Cardizem Cd -) 180 mg PO DAILY [facility] Last Admin: 06/18/16 11:32 Dose: 180 mg Febuxostat (Uloric -) 40 mg PO DAILY [facility] Last Admin: 06/19/16 09:27 Dose: 40 mg Hydroxyurea (Hydrea -) 500 mg PO Q12H [facility] Last Admin: 06/19/16 09:26 Dose: 500 mg Cefepime HCl 2 gm/ Dextrose 100 mls @ 200 mls/hr IVPB Q8H-IV J[facility]INDER Last Admin: 06/19/16 09:47 Dose: 200 mls/hr Azithromycin (Zithromax 500mg Ivpb (Pre-Docked)) 250 mls @ 250 mls/hr IVPB DAILY [facility] Last Admin: 06/19/16 10:31 Dose: 250 mls/hr Caspofungin 50 mg/ Sodium (Chloride) 250 mls @ 250 mls/hr IVPB DAILY [facility] Last Admin: 06/18/16 13:45 Dose: 250 mls/hr Ondansetron HCl (Zofran Injection) 4 mg IVPB Q6H PRN PRN Reason: NAUSEA Promethazine HCl/Dextromethorphan (Phenergan-Dm Syrup -) 5 ml PO Q4H PRN PRN Reason: COUGH Last Admin: 06/19/16 09:30 Dose: 5 ml Valacyclovir HCl (Valtrex -) 500 mg PO DAILY [facility] Last Admin: 06/19/16 09:26 Dose: 500 mg Constitutional: Yes: Awake and alert, Mildly tachypneic at rest, Weak appearing Eyes: Yes: WNL HENT: Yes: WNL Neck: Yes: WNL Cardiovascular: Yes: Pulse Irregular, S1, S2 Respiratory: Yes: Basilar Rales / Rhonchi Gastrointestinal: Yes: Normal Bowel Sounds, Soft Extremities: Yes: WNL Edema: No Labs: Laboratory Results - last 24 hr 06/14/16 06/19/16 06/19/16 07:00 06:00 06:00 WBC 56.4 H* RBC 2.48 L Hgb 8.3 L Hct 24.9 L MCV 100.4 H MCHC 33.2 RDW 27.7 H Plt Count 88 L MPV 8.2 Neutrophils % 2.0 L Lymphocytes % 3.0 L D Differential Comment Manual diff done Blast Cells 95 H Platelet Estimate Decreased Sodium 141 Potassium 3.7 Chloride 105 Carbon Dioxide 25 Anion Gap 11 BUN 12 Creatinine 0.4 L D Creat Clearance w eGFR > 60 Random Glucose 106 Uric Acid 0.8 L* D Calcium 7.4 L Total Bilirubin 0.3 AST 43 H D ALT 57 D Alkaline Phosphatase 77 LD Total 423 H D Total Protein 4.8 L Albumin 1.9 L A. galactomannan Ag 0.23 Assessment/Plan Problem List - Problems (1) AML (acute myelogenous leukemia) Code(s): C92.00 - ACUTE MYELOBLASTIC LEUKEMIA, NOT HAVING ACHIEVED REMISSION Qualifiers: Leukemia Active/Remission status: without remission Qualified Code(s ): C92.00 - Acute myeloblastic leukemia, not having achieved remission (2) Atrial fibrillation Code(s): I48.91 - UNSPECIFIED ATRIAL FIBRILLATION (3) DVT (deep venous thrombosis) Code(s): I82.409 - ACUTE EMBOLISM AND THOMBOS UNSP DEEP VN UNSP LOWER EXTREMITY Qualifiers: Laterality: left Chronicity: chronic (4) Febrile neutropenia Code(s): D70.9 - NEUTROPENIA, UNSPECIFIED R50.81 - FEVER PRESENTING WITH CONDITIONS CLASSIFIED ELSEWHERE (5) GERD (gastroesophageal reflux disease) Code(s): K21.9 - GASTRO-ESOPHAGEAL REFLUX DISEASE WITHOUT ESOPHAGITIS (6) Pneumonia Code(s): J18.9 - PNEUMONIA, UNSPECIFIED ORGANISM Assessment/Plan ACUTE BLAST CRISIS SUPERIMPOSED UPON PNEUMONIA AF DVT/ANTICOAGULATION RECENT SHILPI-C H/O ANTI-FUNGAL/ANTI-VIRAL/PCP PROPHYLAXSIS PLAN ANTIBIOTICS/ANTIFUNGALS PER ID NEUTROPENIC PRECAUTIONS ANTICOAGULATION O2 INHALED BRONCHODILATORS PO TOLERATED BROVANA NEBULIZED MUCOMYST DR MARTI
[2016-06-19] MEDS: CASPOFUNGIN ACETATE 50 MG in SODIUM CHLORIDE 250 ML IVPB SCH (11:37)
--- NOTE | 2016-06-19 11:39 | PN ---
Progress Note, Physician History of Present Illness: patient seen and examined at bedside states she feels better than yesterday states she feels less congested complains of a runny nose states she feels better after nebulizer treatments - Current Medication List Current Medications: Active Medications Acetaminophen (Tylenol -) 650 mg PO Q6H PRN PRN Reason: FEVER OVER 101 Last Admin: 06/15/16 05:38 Dose: 650 mg Acetylcysteine (Mucomyst 20 Oral / Inh Use Only*) 200 mg NEB BID [facility] Last Admin: 06/18/16 21:53 Dose: 200 mg Albuterol Sulfate (Ventolin 0.083% Nebulizer Soln -) 1 amp NEB Q4H PRN PRN Reason: SHORT OF BREATH/WHEEZING Last Admin: 06/18/16 14:25 Dose: 1 amp Arformoterol Tartrate (Brovana (Restricted To Pulmonology/Resp) -) 1 amp NEB BID [facility] Last Admin: 06/18/16 21:52 Dose: 1 amp Diltiazem HCl (Cardizem Cd -) 180 mg PO DAILY [facility] Last Admin: 06/18/16 11:32 Dose: 180 mg Febuxostat (Uloric -) 40 mg PO DAILY [facility] Last Admin: 06/19/16 09:27 Dose: 40 mg Hydroxyurea (Hydrea -) 500 mg PO Q12H [facility] Last Admin: 06/19/16 09:26 Dose: 500 mg Cefepime HCl 2 gm/ Dextrose 100 mls @ 200 mls/hr IVPB Q8H-IV [facility] Last Admin: 06/19/16 09:47 Dose: 200 mls/hr Azithromycin (Zithromax 500mg Ivpb (Pre-Docked)) 250 mls @ 250 mls/hr IVPB DAILY [facility] Last Admin: 06/19/16 10:31 Dose: 250 mls/hr Caspofungin 50 mg/ Sodium (Chloride) 250 mls @ 250 mls/hr IVPB DAILY [facility] Last Admin: 06/18/16 13:45 Dose: 250 mls/hr Ondansetron HCl (Zofran Injection) 4 mg IVPB Q6H PRN PRN Reason: NAUSEA Promethazine HCl/Dextromethorphan (Phenergan-Dm Syrup -) 5 ml PO Q4H PRN PRN Reason: COUGH Last Admin: 06/19/16 09:30 Dose: 5 ml Valacyclovir HCl (Valtrex -) 500 mg PO DAILY [facility] Last Admin: 06/19/16 09:26 Dose: 500 mg - Objective Vital Signs: Vital Signs Temperature 99 F 06/19/16 10:34 Pulse Rate 104 H 06/19/16 10:34 Respiratory Rate 20 06/19/16 10:34 Blood Pressure 115/55 06/19/16 10:34 O2 Sat by Pulse Oximetry (%) 91 L 06/18/16 21:00 Constitutional: Yes: No Distress, Calm Neck: Yes: Supple, Trachea Midline Cardiovascular: Yes: Tachycardia Respiratory: Yes: Rales (coarse breath sounds L>R), Rhonchi L>R, Other Left chest chemoport in place no signs of infection Gastrointestinal: Yes: Normal Bowel Sounds, Soft Edema: No Psychiatric: Yes: Alert, Oriented Labs: CBC, BMP 06/19/16 06:00 06/19/16 06:00 INR, PTT INR 1.90 (0.82-1.09) H D 06/18/16 06:00 Problem List - Problems (1) AML (acute myelogenous leukemia) Code(s): C92.00 - ACUTE MYELOBLASTIC LEUKEMIA, NOT HAVING ACHIEVED REMISSION Qualifiers: Leukemia Active/Remission status: without remission Qualified Code(s ): C92.00 - Acute myeloblastic leukemia, not having achieved remission (2) DVT (deep venous thrombosis) Code(s): I82.409 - ACUTE EMBOLISM AND THOMBOS UNSP DEEP VN UNSP LOWER EXTREMITY Qualifiers: Laterality: left Chronicity: chronic (3) GERD (gastroesophageal reflux disease) Code(s): K21.9 - GASTRO-ESOPHAGEAL REFLUX DISEASE WITHOUT ESOPHAGITIS (4) Neutropenia Code(s): D70.9 - NEUTROPENIA, UNSPECIFIED Qualifiers: Neutropenia type: secondary to cancer chemotherapy Qualified Code(s) : D70.1 - Agranulocytosis secondary to cancer chemotherapy (5) Atrial fibrillation Code(s): I48.91 - UNSPECIFIED ATRIAL FIBRILLATION (6) Pneumonia Code(s): J18.9 - PNEUMONIA, UNSPECIFIED ORGANISM Qualifiers: Lung location: lower lobe of lung Qualified Code(s): J13 - Pneumonia due to Streptococcus pneumoniae (7) Febrile neutropenia Code(s): D70.9 - NEUTROPENIA, UNSPECIFIED R50.81 - FEVER PRESENTING WITH CONDITIONS CLASSIFIED ELSEWHERE Assessment/Plan 80F with AML and now has febrile neutropenia and LLL pneumonia Continue Cefepime Caspofungin and valtrex stop azithromycin bronchodilators and nebulizers PRN oxygen as needed Trend CBC Pallitaive care assessment Meeting with patient's daughter today
--- NOTE | 2016-06-19 12:20 | PN ---
Progress Note (short form) - Note Progress Note: OOB in chair reports feeling better today! still with moist cough less SOB Vital Signs Period Temp Pulse Resp BP Sys/Barrios Pulse Ox Last 24 Hr 97.8 F-99 F 85-109 20-20 112-122/53-66 91-91 cor-rrr lungs bilateral rhonchi abd soft,nt ext no edema CBC, BMP 06/19/16 06:00 06/19/16 06:00 Microbiology 06/14/16 08:45 Serum Cryptococcal Antigen - Final 06/13/16 10:15 Nasopharyngeal Swab Respiratory Virus Panel - Final 06/12/16 16:00 Blood - Peripheral Venous Blood Culture - Final NO GROWTH AFTER 5 DAYS INCUBATION 06/12/16 16:00 Blood - Peripheral Venous Blood Culture - Final NO GROWTH AFTER 5 DAYS INCUBATION 06/14/16 14:00 Sputum - Expectorated Gram Stain - Final 06/14/16 14:00 Sputum - Expectorated Sputum Culture - Final Yeast Like Organism 06/13/16 19:00 Urine - Urine Clean Catch Urine Culture - Final NO GROWTH OBTAINED 06/13/16 14:36 Urine For Antigen Detection Legionella Antigen - Final 06/13/16 14:36 Urine For Antigen Detection Streptococcus pneumoniae Antigen (M - Final 06/13/16 10:15 Nasopharyngeal Swab Influenza Types A,B Antigen (MINDY) - Final 06/13/16 10:15 Nasopharyngeal Swab - Final a/p neutr
--- NOTE | 2016-06-19 12:22 | PN ---
Teaching Attending Note Name of Resident: Michel Keating ATTENDING PHYSICIAN STATEMENT I saw and evaluated the patient. I reviewed the resident's note and discussed the case with the resident. I agree with the resident's findings and plan as documented. SUBJECTIVE: oob to chair, feels better today moist cough OBJECTIVE: Vital Signs Period Temp Pulse Resp BP Sys/Barrios Pulse Ox Last 24 Hr 97.8 F-99 F 85-109 20-20 112-122/53-66 91-91 cor-rrr lungs bilateral rhonchi abd soft,nt ext no edema +port CBC, BMP 06/19/16 06:00 06/19/16 06:00 ANC is 1128- 2% poly today!! ASSESSMENT AND PLAN: pneumonia AML not in remission ?regaining her neutrophils awaiting tomorrows CBC palliative care f/u cefepime and caspofungin valtrex to continue d/c zithromax
--- NOTE | 2016-06-19 15:31 | PN ---
Progress Note (short form) - Note Progress Note: Patient seen and examined Met with daughter, son-in- law, and with patient at bedside. Lengthy discussion about current status, poor prognosis, inability to fight infection, persistent pneumonia in both left and right lung, and leukemia with almost 100 % leukemia in blood . Some nausea, no emesis. Appetite fair, Cough persists, perhaps diminished. No diarrhea, constipation. No dysuria. Last Vital Signs Temp Pulse Resp BP Pulse Ox 98.6 F 94 H 20 115/55 91 L 06/19/16 14:44 06/19/16 14:44 06/19/16 14:44 06/19/16 10:34 06/19/16 09:00 HEENT: JAMARI, EOM Intact Oropharynx: No thrush, No mucositis Neck: Supple Nodes: Without adenopathy Cor: RSR, systolic murmur Lungs:Rales-coarse --LLL>RLL Abd: Soft, Normal bowel sounds, No organomegaly Ext:No significant edema Skin: No rashes, Integument intact 06/19/16 06:00 06/19/16 06:00 Current Medications Generic Name Dose Route Start Last Admin Trade Name Freq PRN Reason Stop Dose Admin Acetaminophen 650 mg 06/13/16 16:43 06/15/16 05:38 Tylenol - PO 650 mg Q6H PRN Administration FEVER OVER 101 Acetylcysteine 200 mg 06/17/16 11:30 06/19/16 10:30 Mucomyst 20 Oral / Inh Use Only* NEB 200 mg BID JATINDER Administration Albuterol Sulfate 1 amp 06/16/16 11:49 06/18/16 14:25 Ventolin 0.083% Nebulizer Soln - NEB 1 amp Q4H PRN Administration SHORT OF BREATH/WHEEZING Arformoterol Tartrate 1 amp 06/17/16 11:30 06/19/16 10:30 Brovana (Restricted To Pulmonology/Resp) - NEB 1 amp BID JATINDER Administration Diltiazem HCl 180 mg 06/13/16 10:00 06/19/16 11:40 Cardizem Cd - PO Not Given DAILY JATINDER Febuxostat 40 mg 06/14/16 20:00 06/19/16 09:27 Uloric - PO 40 mg DAILY JAT[facility]ER Administration Hydroxyurea 500 mg 06/19/16 10:00 06/19/16 09:26 Hydrea - PO 500 mg Q12H JATINDER Administration Cefepime HCl 2 gm/ Dextrose 100 mls @ 200 mls/hr 06/12/16 18:00 06/19/16 09:47 IVPB 200 mls/hr Q8H-IV JATINDER Administration Caspofungin 50 mg/ Sodium 250 mls @ 250 mls/hr 06/16/16 10:00 06/19/16 11:37 Chloride IVPB 250 mls/hr DAILY JATINDER Administration Ondansetron HCl 4 mg 06/16/16 11:49 Zofran Injection IVPB Q6H PRN NAUSEA Promethazine HCl/Dextromethorphan 5 ml 06/15/16 11:05 06/19/16 09:30 Phenergan-Dm Syrup - PO 5 ml Q4H PRN Administration COUGH Valacyclovir HCl 500 mg 06/15/16 10:00 06/19/16 09:26 Valtrex - PO 500 mg DAILY JATINDER Administration Imp-AML not in remission Pneumonia Anemia Leucocytosis, Thrombocytopenia Plan: Antibiotics per I.D. 2% PMN's ?? effect of 9 days of sub Q Emma-c Hydrea to control leucocytosi A/C for Hx of DVT Anti-fungal and anti-viral therapy. Problem List - Problems (1) AML (acute myelogenous leukemia) Code(s): C92.00 - ACUTE MYELOBLASTIC LEUKEMIA, NOT HAVING ACHIEVED REMISSION Qualifiers: Leukemia Active/Remission status: without remission Qualified Code(s ): C92.00 - Acute myeloblastic leukemia, not having achieved remission (2) Atrial fibrillation Code(s): I48.91 - UNSPECIFIED ATRIAL FIBRILLATION (3) DVT (deep venous thrombosis) Code(s): I82.409 - ACUTE EMBOLISM AND THOMBOS UNSP DEEP VN UNSP LOWER EXTREMITY Qualifiers: Laterality: left Chronicity: chronic (4) Febrile neutropenia Code(s): D70.9 - NEUTROPENIA, UNSPECIFIED R50.81 - FEVER PRESENTING WITH CONDITIONS CLASSIFIED ELSEWHERE (5) Pneumonia Code(s): J18.9 - PNEUMONIA, UNSPECIFIED ORGANISM Qualifiers: Lung location: lower lobe of lung Qualified Code(s): J13 - Pneumonia due to Streptococcus pneumoniae
[2016-06-19] MEDS ORDERED: ALTEPLASE 2 MG VIAL CVP ONE ×2 (20:30→23:00)
[2016-06-20 00:07] LABS: B D GLUCAN(FUNGITELL) < 31 pg/mL (.)
[2016-06-20] MEDS: CEFEPIME 2 GM in DEXTROSE 5%-WATER - 100 ML IVPB SCH ×3 (02:06→17:28)
[2016-06-20 07:51] LABS: MCH 33.8 pg (25.7-33.7); MEAN CELL VOLUME 99.3 fl (80-96); MEAN PLT VOLUME 8.3 fl (7.5-11.1); PLATELET COUNT 98 K/MM3 (134-434); RDW 26.8 % (11.6-15.6)
[2016-06-20 08:12] LABS: INR 1.45 (0.82-1.09); PROTHROMBIN TIME (PATIENT) 16.1 SEC (9.98-11.88)
[2016-06-20 09:01] LABS: ALBUMIN 1.9 g/dl (3.4-5.0); ALK PHOS 85 U/L (45-117); ANION GAP 8 (8-16); BILIRUBIN,TOTAL 0.3 mg/dL (0.2-1.0); CALCIUM 7.5 mg/dL (8.5-10.1); CO2 26 mmol/L (21-32); CREATININE 0.4 mg/dL (0.55-1.02); GLUCOSE,RANDOM 92 mg/dL (74-106); SGOT/AST 47 U/L (15-37); SGPT/ALT 54 U/L (12-78); TOT PROT 5.1 g/dl (6.4-8.2)
[2016-06-20] MEDS: ARFORMOTEROL TARTRATE 15 MCG/2 ML VIAL NEB SCH ×2 (09:10→23:15)
[2016-06-20] MEDS: ACETYLCYSTEINE 20% 200MG/ML 4 ML VIAL *FOR ORAL / INH USE ONLY NEB SCH ×2 (09:10→23:15)
--- NOTE | 2016-06-20 09:36 | PN ---
Progress Note, Physician Chief Complaint: ID Cefepime Caspofungin Dyspneic afebrile - Current Medication List Current Medications: Active Medications Acetaminophen (Tylenol -) 650 mg PO Q6H PRN PRN Reason: FEVER OVER 101 Last Admin: 06/15/16 05:38 Dose: 650 mg Acetylcysteine (Mucomyst 20 Oral / Inh Use Only*) 200 mg NEB BID [facility] Last Admin: 06/20/16 09:10 Dose: 200 mg Albuterol Sulfate (Ventolin 0.083% Nebulizer Soln -) 1 amp NEB Q4H PRN PRN Reason: SHORT OF BREATH/WHEEZING Last Admin: 06/18/16 14:25 Dose: 1 amp Arformoterol Tartrate (Brovana (Restricted To Pulmonology/Resp) -) 1 amp NEB BID [facility] Last Admin: 06/20/16 09:10 Dose: 1 amp Diltiazem HCl (Cardizem Cd -) 180 mg PO DAILY [facility] Last Admin: 06/19/16 11:40 Dose: Not Given Febuxostat (Uloric -) 40 mg PO DAILY [facility] Last Admin: 06/19/16 09:27 Dose: 40 mg Hydroxyurea (Hydrea -) 500 mg PO Q12H [facility] Last Admin: 06/19/16 23:25 Dose: 500 mg Cefepime HCl 2 gm/ Dextrose 100 mls @ 200 mls/hr IVPB Q8H-IV [facility] Last Admin: 06/20/16 02:06 Dose: 200 mls/hr Caspofungin 50 mg/ Sodium (Chloride) 250 mls @ 250 mls/hr IVPB DAILY [facility] Last Admin: 06/19/16 11:37 Dose: 250 mls/hr Ondansetron HCl (Zofran Injection) 4 mg IVPB Q6H PRN PRN Reason: NAUSEA Promethazine HCl/Dextromethorphan (Phenergan-Dm Syrup -) 5 ml PO Q4H PRN PRN Reason: COUGH Last Admin: 06/19/16 23:33 Dose: 5 ml Valacyclovir HCl (Valtrex -) 500 mg PO DAILY [facility] Last Admin: 06/19/16 09:26 Dose: 500 mg - Objective Vital Signs: Vital Signs Temperature 98.7 F 06/20/16 05:48 Pulse Rate 98 H 06/20/16 09:06 Respiratory Rate 20 06/20/16 05:48 Blood Pressure 124/62 06/20/16 05:48 O2 Sat by Pulse Oximetry (%) 92 L 06/20/16 09:06 Constitutional: Yes: Moderate Distress, Other (venti mask) Labs: CBC, BMP 06/20/16 06:00 06/20/16 06:00 INR, PTT INR 1.45 (0.82-1.09) H 06/20/16 06:00 Problem List - Problems (1) AML (acute myelogenous leukemia) Code(s): C92.00 - ACUTE MYELOBLASTIC LEUKEMIA, NOT HAVING ACHIEVED REMISSION Qualifiers: Leukemia Active/Remission status: without remission Qualified Code(s ): C92.00 - Acute myeloblastic leukemia, not having achieved remission (2) Febrile neutropenia Code(s): D70.9 - NEUTROPENIA, UNSPECIFIED R50.81 - FEVER PRESENTING WITH CONDITIONS CLASSIFIED ELSEWHERE (3) Neutropenia Code(s): D70.9 - NEUTROPENIA, UNSPECIFIED Qualifiers: Neutropenia type: secondary to cancer chemotherapy Qualified Code(s) : D70.1 - Agranulocytosis secondary to cancer chemotherapy (4) Pneumonia Code(s): J18.9 - PNEUMONIA, UNSPECIFIED ORGANISM Qualifiers: Lung location: lower lobe of lung Qualified Code(s): J13 - Pneumonia due to Streptococcus pneumoniae Assessment/Plan Laboratory Tests 06/19/16 06/20/16 06:00 06:00 WBC 40.0 H* Plt Count 98 L Blast Cells 95 H Assessment Relapsed leukemia AML Bilateral PNA Fungal markers and MCV PCR negative Plan Consider stopping current antibiotics in next 48 hours Ngoc DEWITT
[2016-06-20] MEDS: FEBUXOSTAT 40 MG TAB PO SCH (10:31)
[2016-06-20] MEDS: valACYclovir HCL 500 MG TABLET (FP) PO SCH (10:31)
[2016-06-20] MEDS: CASPOFUNGIN ACETATE 50 MG in SODIUM CHLORIDE 250 ML IVPB SCH (10:31)
[2016-06-20] MEDS: HYDROXYUREA 500 MG CAPSULE PO SCH ×2 (10:31→21:39)
[2016-06-20 11:04] LABS: ANISOCYTOSIS 2+; FRAGMENTED CELL FEW; MICROCYTOSIS 1+
[2016-06-20 11:05] LABS: PLATELET ESTIMATE DECREASED (NORMAL)
--- NOTE | 2016-06-20 13:03 | PN ---
Progress Note, Physician History of Present Illness: pulmonary alert,nad,oob-chair,-sob,less cough - Current Medication List Current Medications: Active Medications Acetaminophen (Tylenol -) 650 mg PO Q6H PRN PRN Reason: FEVER OVER 101 Last Admin: 06/15/16 05:38 Dose: 650 mg Acetylcysteine (Mucomyst 20 Oral / Inh Use Only*) 200 mg NEB BID [facility] Last Admin: 06/20/16 09:10 Dose: 200 mg Albuterol Sulfate (Ventolin 0.083% Nebulizer Soln -) 1 amp NEB Q4H PRN PRN Reason: SHORT OF BREATH/WHEEZING Last Admin: 06/18/16 14:25 Dose: 1 amp Arformoterol Tartrate (Brovana (Restricted To Pulmonology/Resp) -) 1 amp NEB BID [facility] Last Admin: 06/20/16 09:10 Dose: 1 amp Diltiazem HCl (Cardizem Cd -) 180 mg PO DAILY [facility] Last Admin: 06/20/16 10:31 Dose: 180 mg Febuxostat (Uloric -) 40 mg PO DAILY [facility] Last Admin: 06/20/16 10:31 Dose: 40 mg Hydroxyurea (Hydrea -) 500 mg PO Q12H [facility] Last Admin: 06/20/16 10:31 Dose: 500 mg Cefepime HCl 2 gm/ Dextrose 100 mls @ 200 mls/hr IVPB Q8H-IV [facility] Last Admin: 06/20/16 02:06 Dose: 200 mls/hr Caspofungin 50 mg/ Sodium (Chloride) 250 mls @ 250 mls/hr IVPB DAILY [facility] Last Admin: 06/20/16 10:31 Dose: 250 mls/hr Ondansetron HCl (Zofran Injection) 4 mg IVPB Q6H PRN PRN Reason: NAUSEA Promethazine HCl/Dextromethorphan (Phenergan-Dm Syrup -) 5 ml PO Q4H PRN PRN Reason: COUGH Last Admin: 06/19/16 23:33 Dose: 5 ml Valacyclovir HCl (Valtrex -) 500 mg PO DAILY [facility] Last Admin: 06/20/16 10:31 Dose: 500 mg - Objective Vital Signs: Vital Signs Temperature 98.7 F 06/20/16 05:48 Pulse Rate 98 H 03/08/17 09:06 Respiratory Rate 20 06/20/16 05:48 Blood Pressure 124/62 06/20/16 05:48 O2 Sat by Pulse Oximetry (%) 92 L 06/20/16 09:06 Constitutional: Yes: Calm, Thin Eyes: Yes: WNL HENT: Yes: WNL Neck: Yes: WNL Cardiovascular: Yes: Pulse Irregular, S1, S2 Respiratory: Yes: Rales (scattered rhonchi,basilar crackles), Rhonchi Gastrointestinal: Yes: Normal Bowel Sounds, Soft Extremities: Yes: WNL Edema: No Labs: CBC, BMP 06/20/16 06:00 06/20/16 06:00 INR, PTT INR 1.45 (0.82-1.09) H 06/20/16 06:00 Assessment/Plan Problem List - Problems (1) AML (acute myelogenous leukemia) Code(s): C92.00 - ACUTE MYELOBLASTIC LEUKEMIA, NOT HAVING ACHIEVED REMISSION Qualifiers: Leukemia Active/Remission status: without remission Qualified Code(s ): C92.00 - Acute myeloblastic leukemia, not having achieved remission (2) Atrial fibrillation Code(s): I48.91 - UNSPECIFIED ATRIAL FIBRILLATION (3) DVT (deep venous thrombosis) Code(s): I82.409 - ACUTE EMBOLISM AND THOMBOS UNSP DEEP VN UNSP LOWER EXTREMITY Qualifiers: Laterality: left Chronicity: chronic (4) Febrile neutropenia Code(s): D70.9 - NEUTROPENIA, UNSPECIFIED R50.81 - FEVER PRESENTING WITH CONDITIONS CLASSIFIED ELSEWHERE (5) GERD (gastroesophageal reflux disease) Code(s): K21.9 - GASTRO-ESOPHAGEAL REFLUX DISEASE WITHOUT ESOPHAGITIS (6) Pneumonia Code(s): J18.9 - PNEUMONIA, UNSPECIFIED ORGANISM Assessment/Plan ACUTE BLAST CRISIS SUPERIMPOSED UPON PNEUMONIA AF DVT/ANTICOAGULATION RECENT SHILPI-C H/O ANTI-FUNGAL/ANTI-VIRAL/PCP PROPHYLAXSIS PLAN NEUTROPENIC PRECAUTIONS ANTICOAGULATION O2 INHALED BRONCHODILATORS F/U CHEST X-RAYS DR MARKS
--- NOTE | 2016-06-20 21:20 | PN ---
Progress Note (short form) - Note Progress Note: PAtient seen and examined mild shortness of breath Last Vital Signs Temp Pulse Resp BP Pulse Ox 98.5 F 95 H 20 116/57 94 L 06/20/16 18:00 06/20/16 18:00 06/20/16 20:32 06/20/16 18:00 06/20/16 20:32 Cor: RSR, No murmurs, No gallops Lungs: LLL crackles Abd: Soft, Normal bowel sounds, No organomegaly Ext:No significant edema Abnormal Lab Results 06/20/16 06/20/16 06/20/16 06:00 06:00 06:00 WBC 40.0 H* RBC 2.52 L Hgb 8.5 L Hct 25.0 L MCV 99.3 H RDW 26.8 H Plt Count 98 L Neutrophils % 2.0 L Lymphocytes % 1.0 L D Monocytes % 3.0 L D Blast Cells 94 H INR 1.45 H Chloride 108 H Creatinine 0.4 L Calcium 7.5 L AST 47 H Total Protein 5.1 L Albumin 1.9 L Current Medications Acetaminophen (Tylenol -) 650 mg PO Q6H PRN PRN Reason: FEVER OVER 101 Last Admin: 06/15/16 05:38 Dose: 650 mg Acetylcysteine (Mucomyst 20 Oral / Inh Use Only*) 200 mg NEB BID [facility] Last Admin: 06/20/16 09:10 Dose: 200 mg Albuterol Sulfate (Ventolin 0.083% Nebulizer Soln -) 1 amp NEB Q4H PRN PRN Reason: SHORT OF BREATH/WHEEZING Last Admin: 06/18/16 14:25 Dose: 1 amp Arformoterol Tartrate (Brovana (Restricted To Pulmonology/Resp) -) 1 amp NEB BID [facility] Last Admin: 06/20/16 09:10 Dose: 1 amp Diltiazem HCl (Cardizem Cd -) 180 mg PO DAILY [facility] Last Admin: 06/20/16 10:31 Dose: 180 mg Febuxostat (Uloric -) 40 mg PO DAILY [facility] Last Admin: 06/20/16 10:31 Dose: 40 mg Hydroxyurea (Hydrea -) 500 mg PO Q12H [facility] Last Admin: 06/20/16 10:31 Dose: 500 mg Cefepime HCl 2 gm/ Dextrose 100 mls @ 200 mls/hr IVPB Q8H-IV [facility] Last Admin: 06/20/16 17:28 Dose: 200 mls/hr Caspofungin 50 mg/ Sodium (Chloride) 250 mls @ 250 mls/hr IVPB DAILY [facility] Last Admin: 06/20/16 10:31 Dose: 250 mls/hr Ondansetron HCl (Zofran Injection) 4 mg IVPB Q6H PRN PRN Reason: NAUSEA Promethazine HCl/Dextromethorphan (Phenergan-Dm Syrup -) 5 ml PO Q4H PRN PRN Reason: COUGH Last Admin: 06/19/16 23:33 Dose: 5 ml Valacyclovir HCl (Valtrex -) 500 mg PO DAILY [facility] Last Admin: 06/20/16 10:31 Dose: 500 mg A/P 80 y/o patient with AML rising WBC on cefepime on uloric/hydrea on broad spectrum antibiotics
[2016-06-20] MEDS ORDERED: WARFARIN NA 3 MG TABLET PO ONE (21:27)
[2016-06-20] MEDS ORDERED: PT OWN MED DRAWER 7, Y5N ONE (21:42)
[2016-06-20] MEDS: DEXTROMETHORPHAN/PROMETHAZINE 15 MG/6.25 MG/5 ML SYRUP PO PRN (22:20)
[2016-06-21] MEDS: CEFEPIME 2 GM in DEXTROSE 5%-WATER - 100 ML IVPB SCH ×3 (01:37→18:34)
[2016-06-21 07:32] LABS: MCH 34.3 pg (25.7-33.7); MCHC 34.5 g/dl (32.0-36.0); MEAN CELL VOLUME 99.4 fl (80-96); MEAN PLT VOLUME 7.6 fl (7.5-11.1); PLATELET COUNT 95 K/MM3 (134-434); RDW 26.7 % (11.6-15.6); WHITE BLOOD COUNT 17.6 K/mm3 (4.0-10.0)
[2016-06-21 07:59] LABS: INR 1.29 (0.82-1.09); PROTHROMBIN TIME (PATIENT) 14.3 SEC (9.98-11.88)
[2016-06-21 08:06] LABS: ALBUMIN 2.1 g/dl (3.4-5.0); ANION GAP 8 (8-16); CALCIUM 7.7 mg/dL (8.5-10.1); CO2 26 mmol/L (21-32); GLUCOSE,RANDOM 100 mg/dL (74-106)
[2016-06-21 08:11] LABS: ALK PHOS 86 U/L (45-117); BILIRUBIN,TOTAL 0.4 mg/dL (0.2-1.0); CREATININE 0.4 mg/dL (0.55-1.02); SGOT/AST 56 U/L (15-37); SGPT/ALT 62 U/L (12-78); TOT PROT 5.4 g/dl (6.4-8.2)
--- NOTE | 2016-06-21 09:12 | PN ---
Progress Note (short form) - Note Progress Note: OOB in chair +cough sob when she moves Vital Signs Period Temp Pulse Resp BP Sys/Barrios Pulse Ox Last 24 Hr 97.7 F-98.8 F 95-110 20-22 106-140/57-76 94 cor-rrr llungs scattered rhonchi abd soft,nt ext no edema CBC, BMP 06/21/16 06:00 06/21/16 06:00 diff pending a/p pneumonia persistent neutropenia AML not in remission (blasts) s/p [place]-c overall prognosis poor continue cefepime/cancidas valtrex remains afebrile
[2016-06-21 09:30] LABS: PLATELET ESTIMATE DECREASED (NORMAL)
[2016-06-21] MEDS ORDERED: PT OWN MED DRAWER 7, Y5N ONE ×2 (10:01→18:30)
[2016-06-21] MEDS: valACYclovir HCL 500 MG TABLET (FP) PO SCH (10:12)
[2016-06-21] MEDS: HYDROXYUREA 500 MG CAPSULE PO SCH ×2 (10:12→22:19)
[2016-06-21] MEDS: CASPOFUNGIN ACETATE 50 MG in SODIUM CHLORIDE 250 ML IVPB SCH (10:12)
[2016-06-21] MEDS: ARFORMOTEROL TARTRATE 15 MCG/2 ML VIAL NEB SCH ×2 (10:20→22:08)
[2016-06-21] MEDS: ACETYLCYSTEINE 20% 200MG/ML 4 ML VIAL *FOR ORAL / INH USE ONLY NEB SCH ×2 (10:20→22:08)
--- NOTE | 2016-06-21 10:22 | PN ---
Progress Note (short form) - Note Progress Note: OOB to chair. Clinically no significant change. Mildly tachypneic at rest. Congested cough. No CP. No hemoptysis. Intake & Output 06/18/16 06/19/16 06/20/16 06/21/16 23:59 23:59 23:59 23:59 Intake Total 540 1400 1100 350 Balance 540 1400 1100 350 Last Vital Signs Temp Pulse Resp BP Pulse Ox 98.2 F 104 H 20 125/58 94 L 06/21/16 09:07 06/21/16 09:07 06/21/16 09:07 06/21/16 09:07 06/20/16 20:32 Active Medications Acetaminophen (Tylenol -) 650 mg PO Q6H PRN PRN Reason: FEVER OVER 101 Last Admin: 06/15/16 05:38 Dose: 650 mg Acetylcysteine (Mucomyst 20 Oral / Inh Use Only*) 200 mg NEB BID COUNTS INCLUDE 234 BEDS AT THE [facility] Last Admin: 06/20/16 23:15 Dose: 200 mg Albuterol Sulfate (Ventolin 0.083% Nebulizer Soln -) 1 amp NEB Q4H PRN PRN Reason: SHORT OF BREATH/WHEEZING Last Admin: 06/18/16 14:25 Dose: 1 amp Arformoterol Tartrate (Brovana (Restricted To Pulmonology/Resp) -) 1 amp NEB BID COUNTS INCLUDE 234 BEDS AT THE [facility] Last Admin: 06/20/16 23:15 Dose: 1 amp Diltiazem HCl (Cardizem Cd -) 180 mg PO DAILY COUNTS INCLUDE 234 BEDS AT THE [facility] Last Admin: 06/20/16 10:31 Dose: 180 mg Febuxostat (Uloric -) 40 mg PO DAILY COUNTS INCLUDE 234 BEDS AT THE [facility] Last Admin: 06/20/16 10:31 Dose: 40 mg Hydroxyurea (Hydrea -) 500 mg PO Q12H COUNTS INCLUDE 234 BEDS AT THE [facility] Last Admin: 06/20/16 21:39 Dose: 500 mg Cefepime HCl 2 gm/ Dextrose 100 mls @ 200 mls/hr IVPB Q8H-IV JATINDER Last Admin: 06/21/16 01:37 Dose: 200 mls/hr Caspofungin 50 mg/ Sodium (Chloride) 250 mls @ 250 mls/hr IVPB DAILY COUNTS INCLUDE 234 BEDS AT THE [facility] Last Admin: 06/20/16 10:31 Dose: 250 mls/hr Ondansetron HCl (Zofran Injection) 4 mg IVPB Q6H PRN PRN Reason: NAUSEA Promethazine HCl/Dextromethorphan (Phenergan-Dm Syrup -) 5 ml PO Q4H PRN PRN Reason: COUGH Last Admin: 06/20/16 22:20 Dose: 5 ml Valacyclovir HCl (Valtrex -) 500 mg PO DAILY COUNTS INCLUDE 234 BEDS AT THE [facility] Last Admin: 06/20/16 10:31 Dose: 500 mg Warfarin Sodium (Coumadin -) 3 mg PO DAILY@1800 JATINDER Constitutional: Yes: Awake and alert, Mildly tachypneic at rest, Weak appearing Eyes: Yes: WNL HENT: Yes: WNL Neck: Yes: WNL Cardiovascular: Yes: Pulse Irregular, S1, S2 Respiratory: Yes: Bilateral Rales / Rhonchi Gastrointestinal: Yes: Normal Bowel Sounds, Soft Extremities: Yes: WNL Edema: No Labs: Laboratory Results - last 24 hr 06/20/16 06/21/16 06/21/16 06:00 06:00 06:00 WBC 17.6 H D RBC 2.55 L Hgb 8.7 L Hct 25.3 L MCV 99.4 H MCHC 34.5 RDW 26.7 H Plt Count 95 L MPV 7.6 Neutrophils % 2.0 L 1.0 L Lymphocytes % 1.0 L D 5.0 L D Monocytes % 3.0 L D 1.0 L Differential Comment Manual diff done Manual diff done Blast Cells 94 H 93 H Platelet Estimate Decreased Decreased Anisocytosis 2+ Microcytosis 1+ Macrocytosis 1+ Fragmented RBCs Few INR 1.29 H Sodium Potassium Chloride Carbon Dioxide Anion Gap BUN Creatinine Creat Clearance w eGFR Random Glucose Calcium Total Bilirubin AST ALT Alkaline Phosphatase Total Protein Albumin 06/21/16 06:00 WBC RBC Hgb Hct MCV MCHC RDW Plt Count MPV Neutrophils % Lymphocytes % Monocytes % Differential Comment Blast Cells Platelet Estimate Anisocytosis Microcytosis Macrocytosis Fragmented RBCs INR Sodium 142 Potassium 3.9 Chloride 108 H Carbon Dioxide 26 Anion Gap 8 BUN 14 Creatinine 0.4 L Creat Clearance w eGFR > 60 Random Glucose 100 Calcium 7.7 L Total Bilirubin 0.4 D AST 56 H ALT 62 Alkaline Phosphatase 86 Total Protein 5.4 L Albumin 2.1 L Assessment/Plan Problem List - Problems (1) AML (acute myelogenous leukemia) Code(s): C92.00 - ACUTE MYELOBLASTIC LEUKEMIA, NOT HAVING ACHIEVED REMISSION Qualifiers: Leukemia Active/Remission status: without remission Qualified Code(s ): C92.00 - Acute myeloblastic leukemia, not having achieved remission (2) Atrial fibrillation Code(s): I48.91 - UNSPECIFIED ATRIAL FIBRILLATION (3) DVT (deep venous thrombosis) Code(s): I82.409 - ACUTE EMBOLISM AND THOMBOS UNSP DEEP VN UNSP LOWER EXTREMITY Qualifiers: Laterality: left Chronicity: chronic (4) Febrile neutropenia Code(s): D70.9 - NEUTROPENIA, UNSPECIFIED R50.81 - FEVER PRESENTING WITH CONDITIONS CLASSIFIED ELSEWHERE (5) GERD (gastroesophageal reflux disease) Code(s): K21.9 - GASTRO-ESOPHAGEAL REFLUX DISEASE WITHOUT ESOPHAGITIS (6) Pneumonia Code(s): J18.9 - PNEUMONIA, UNSPECIFIED ORGANISM Assessment/Plan ACUTE BLAST CRISIS SUPERIMPOSED UPON PNEUMONIA AF DVT/ANTICOAGULATION RECENT SHILPI-C H/O ANTI-FUNGAL/ANTI-VIRAL/PCP PROPHYLAXSIS PLAN ANTIBIOTICS/ANTIFUNGALS PER ID NEUTROPENIC PRECAUTIONS ANTICOAGULATION O2 INHALED BRONCHODILATORS PO TOLERATED BROVANA NEBULIZED MUCOMYST GOC DISCUSSIONS ONGOING WITH PALLIATIVE CARE DR MARTI
[2016-06-21] MEDS: FEBUXOSTAT 40 MG TAB PO SCH (10:50)
[2016-06-21] MEDS: ACETAMINOPHEN 325 MG TABLET (FP) PO PRN (17:54)
[2016-06-21] MEDS: WARFARIN NA 3 MG TABLET PO SCH (18:28)
[2016-06-22] MEDS ORDERED: PT OWN MED DRAWER 7, Y5N ONE ×3 (01:18→18:57)
[2016-06-22] MEDS: CEFEPIME 2 GM in DEXTROSE 5%-WATER - 100 ML IVPB SCH ×3 (01:49→18:55)
[2016-06-22 07:27] LABS: MCHC 33.9 g/dl (32.0-36.0); MEAN CELL VOLUME 100.2 fl (80-96); PLATELET COUNT 105 K/MM3 (134-434); RDW 26.7 % (11.6-15.6); WHITE BLOOD COUNT 14.5 K/mm3 (4.0-10.0)
[2016-06-22 07:53] LABS: ALBUMIN 2.1 g/dl (3.4-5.0); ANION GAP 10 (8-16); CALCIUM 7.5 mg/dL (8.5-10.1); CO2 24 mmol/L (21-32); GLUCOSE,RANDOM 105 mg/dL (74-106)
[2016-06-22 07:56] LABS: ALK PHOS 75 U/L (45-117); BILIRUBIN,TOTAL 0.6 mg/dL (0.2-1.0); CREATININE 0.4 mg/dL (0.55-1.02); SGOT/AST 37 U/L (15-37); SGPT/ALT 48 U/L (12-78); TOT PROT 5.5 g/dl (6.4-8.2)
[2016-06-22 10:17] LABS: PLATELET ESTIMATE DECREASED (NORMAL); POLYCHROMASIA FEW
[2016-06-22 10:18] LABS: ANISOCYTOSIS 2+; OVALOCYTES 1+
[2016-06-22] MEDS: ARFORMOTEROL TARTRATE 15 MCG/2 ML VIAL NEB SCH ×2 (10:43→22:35)
[2016-06-22] MEDS: ACETYLCYSTEINE 20% 200MG/ML 4 ML VIAL *FOR ORAL / INH USE ONLY NEB SCH ×2 (10:44→22:35)
[2016-06-22] MEDS: CASPOFUNGIN ACETATE 50 MG in SODIUM CHLORIDE 250 ML IVPB SCH (11:05)
[2016-06-22] MEDS: ACETAMINOPHEN 325 MG TABLET (FP) PO PRN (11:07)
[2016-06-22] MEDS: HYDROXYUREA 500 MG CAPSULE PO SCH ×2 (11:07→21:34)
[2016-06-22] MEDS: valACYclovir HCL 500 MG TABLET (FP) PO SCH (11:07)
[2016-06-22] MEDS: FEBUXOSTAT 40 MG TAB PO SCH (11:08)
--- NOTE | 2016-06-22 12:04 | PN ---
Progress Note (short form) - Note Progress Note: PAtient seen and examined 06/21 and 06/22/16 mild shortness of breath Last Vital Signs Temp Pulse Resp BP Pulse Ox 98.6 F 112 H 20 122/59 92 L 06/22/16 06:00 06/22/16 03:11 06/22/16 06:00 06/22/16 03:11 06/21/16 21:00 Cor: RSR, No murmurs, No gallops Lungs: decreased at bases Abd: Soft, Normal bowel sounds, No organomegaly Ext:No significant edema Abnormal Lab Results 06/22/16 06/22/16 07:16 07:16 WBC 14.5 H RBC 2.44 L Hgb 8.3 L Hct 24.4 L MCV 100.2 H RDW 26.7 H Plt Count 105 L Neutrophils % 0.0 L Lymphocytes % 2.0 L D Monocytes % 0.0 L D Nucleated RBCs 1 H Blast Cells 92 H Creatinine 0.4 L Calcium 7.5 L Total Protein 5.5 L Albumin 2.1 L Current Medications Acetaminophen (Tylenol -) 650 mg PO Q6H PRN PRN Reason: FEVER OVER 101 Last Admin: 06/22/16 11:07 Dose: 650 mg Acetylcysteine (Mucomyst 20 Oral / Inh Use Only*) 200 mg NEB BID [facility] Last Admin: 06/22/16 10:44 Dose: 200 mg Arformoterol Tartrate (Brovana (Restricted To Pulmonology/Resp) -) 1 amp NEB BID [facility] Last Admin: 06/22/16 10:43 Dose: 1 amp Diltiazem HCl (Cardizem Cd -) 180 mg PO DAILY [facility] Last Admin: 06/22/16 11:07 Dose: 180 mg Febuxostat (Uloric -) 40 mg PO DAILY [facility] Last Admin: 06/22/16 11:08 Dose: 40 mg Hydroxyurea (Hydrea -) 500 mg PO Q12H [facility] Last Admin: 06/22/16 11:07 Dose: 500 mg Cefepime HCl 2 gm/ Dextrose 100 mls @ 200 mls/hr IVPB Q8H-IV JATINDER Last Admin: 06/22/16 11:07 Dose: 200 mls/hr Caspofungin 50 mg/ Sodium (Chloride) 250 mls @ 250 mls/hr IVPB DAILY [facility] Last Admin: 06/22/16 11:05 Dose: 250 mls/hr Ondansetron HCl (Zofran Injection) 4 mg IVPB Q6H PRN PRN Reason: NAUSEA Promethazine HCl/Dextromethorphan (Phenergan-Dm Syrup -) 5 ml PO Q4H PRN PRN Reason: COUGH Last Admin: 06/20/16 22:20 Dose: 5 ml Valacyclovir HCl (Valtrex -) 500 mg PO DAILY [facility] Last Admin: 06/22/16 11:07 Dose: 500 mg Warfarin Sodium (Coumadin -) 3 mg PO DAILY@1800 [facility] Last Admin: 06/21/16 18:28 Dose: 3 mg A/P 80 y/o patient with AML on uloric/hydrea on broad spectrum antibiotics disucuused [facility] patient and family. They understand the whole situation. At this time they will consider adira placemetn when medically cleared
[2016-06-22] MEDS ORDERED: VANCOMYCIN 1 GRAM (PRE-DOCKED) 250 ML IVPB ONE (13:12)
--- NOTE | 2016-06-22 13:16 | PN ---
Progress Note (short form) - Note Progress Note: in bed eating lunch isolated temp last night to 102! blood cultures/urine culture drawn now afebrile continues to c/o SOB still hopeful- is the cancer getting better? this is despite multiple conversations to the contrary with multiple providers at bedside here sister is visiting no diarrhea no dysuria Vital Signs Period Temp Pulse Resp BP Sys/Barrios Pulse Ox Last 24 Hr 98.2 F-102.3 F 112-114 20-20 122-128/58-63 92 no oral lesions cor-rrr lungs crackles at bases abd soft,nt port no erythema ext no edema no rash no perirectal pain CBC, BMP 06/22/16 07:16 06/22/16 07:16 cultures pending a/p pneumonia persistent neutropenia AML not in remission (blasts) s/p [place]-c overall prognosis poor continue cefepime/cancidas valtrex vancomycin one dose f/u cultures
--- NOTE | 2016-06-22 14:40 | PN ---
Progress Note (short form) - Note Progress Note: PULMONARY REMAINS HOPEFUL AND OPTOMISTIC PATIENT IS NOT A DNR AT THIS POINT FRAIL/CHRONICALLY ILL IN APPEARANCE VSS/AFEBRILE ANICTERIC DISTANT SCATTERED RHONCHI S1S2 BS+ SOFT NO EDEMA LABS/MEDS/NOTES/IMAGING REVIEWED NEUTROPENIC PNEUMONIA AML SHILPI-C CONTINUE ANTIBIOTICS/FLUIDS/O2 PRN HAVE DISCUSSED GOALS OF CARE Maritza BOUCHER MD Problem List - Problems (1) AML (acute myelogenous leukemia) Code(s): C92.00 - ACUTE MYELOBLASTIC LEUKEMIA, NOT HAVING ACHIEVED REMISSION Qualifiers: Leukemia Active/Remission status: without remission Qualified Code(s ): C92.00 - Acute myeloblastic leukemia, not having achieved remission (2) Atrial fibrillation Code(s): I48.91 - UNSPECIFIED ATRIAL FIBRILLATION (3) DVT (deep venous thrombosis) Code(s): I82.409 - ACUTE EMBOLISM AND THOMBOS UNSP DEEP VN UNSP LOWER EXTREMITY Qualifiers: Laterality: left Chronicity: chronic (4) Febrile neutropenia Code(s): D70.9 - NEUTROPENIA, UNSPECIFIED R50.81 - FEVER PRESENTING WITH CONDITIONS CLASSIFIED ELSEWHERE (5) GERD (gastroesophageal reflux disease) Code(s): K21.9 - GASTRO-ESOPHAGEAL REFLUX DISEASE WITHOUT ESOPHAGITIS (6) Pneumonia Code(s): J18.9 - PNEUMONIA, UNSPECIFIED ORGANISM Qualifiers: Lung location: lower lobe of lung Qualified Code(s): J13 - Pneumonia due to Streptococcus pneumoniae
[2016-06-22] MEDS: WARFARIN NA 3 MG TABLET PO SCH (18:40)
[2016-06-22] MEDS: ONDANSETRON 4 MG/2 ML VIAL IVPB PRN (21:26)
[2016-06-23] MEDS ORDERED: PT OWN MED DRAWER 7, Y5N ONE (00:16)
[2016-06-23] MEDS: CEFEPIME 2 GM in DEXTROSE 5%-WATER - 100 ML IVPB SCH ×3 (01:07→18:00)
[2016-06-23 09:20] LABS: ALBUMIN 2.1 g/dl (3.4-5.0); ANION GAP 11 (8-16); CALCIUM 7.8 mg/dL (8.5-10.1); CO2 25 mmol/L (21-32); CREATININE 0.5 mg/dL (0.55-1.02); GLUCOSE,RANDOM 91 mg/dL (74-106); SGOT/AST 28 U/L (15-37); SGPT/ALT 40 U/L (12-78)
[2016-06-23 09:21] LABS: ALK PHOS 76 U/L (45-117); BILIRUBIN,TOTAL 0.3 mg/dL (0.2-1.0); TOT PROT 5.7 g/dl (6.4-8.2)
[2016-06-23] MEDS: CASPOFUNGIN ACETATE 50 MG in SODIUM CHLORIDE 250 ML IVPB SCH (09:38)
[2016-06-23] MEDS: HYDROXYUREA 500 MG CAPSULE PO SCH ×2 (09:38→22:13)
[2016-06-23] MEDS: valACYclovir HCL 500 MG TABLET (FP) PO SCH (09:38)
[2016-06-23] MEDS: FEBUXOSTAT 40 MG TAB PO SCH (09:38)
[2016-06-23] MEDS: DEXTROMETHORPHAN/PROMETHAZINE 15 MG/6.25 MG/5 ML SYRUP PO PRN (09:39)
[2016-06-23] MEDS: ARFORMOTEROL TARTRATE 15 MCG/2 ML VIAL NEB SCH ×2 (11:00→21:16)
[2016-06-23] MEDS: ACETYLCYSTEINE 20% 200MG/ML 4 ML VIAL *FOR ORAL / INH USE ONLY NEB SCH ×2 (11:00→21:16)
[2016-06-23 12:25] LABS: MCH 33.9 pg (25.7-33.7); MCHC 33.8 g/dl (32.0-36.0); MEAN CELL VOLUME 100.4 fl (80-96); MEAN PLT VOLUME 7.8 fl (7.5-11.1); PLATELET COUNT 113 K/MM3 (134-434); RDW 26.3 % (11.6-15.6); WHITE BLOOD COUNT 27.3 K/mm3 (4.0-10.0)
[2016-06-23 12:46] LABS: ANISOCYTOSIS 3+; HYPOCHROMIA 2+; MICROCYTOSIS 1+; PLATELET COMMENT2 NO CLUMPING NOTED; PLATELET COMMENT3 NO CLOTTING DETECTED; PLATELET ESTIMATE SLT DECREASED (NORMAL); POIKILOCYTOSIS 2+; POLYCHROMASIA 2+; SMUDGE CELLS FEW
--- NOTE | 2016-06-23 13:05 | PN ---
Progress Note (short form) - Note Progress Note: Patient seen in follow up. No new complaints, in good cheer. Denies SOB. Ongoing cough. Meds reviewed. Current Medications Generic Name Dose Route Start Last Admin Trade Name Freq PRN Reason Stop Dose Admin Acetaminophen 650 mg 06/13/16 16:43 06/22/16 11:07 Tylenol - PO 650 mg Q6H PRN Administration FEVER OVER 101 Acetylcysteine 200 mg 06/17/16 11:30 06/23/16 11:00 Mucomyst 20 Oral / Inh Use Only* NEB 200 mg BID JATINDER Administration Arformoterol Tartrate 1 amp 06/17/16 11:30 06/23/16 11:00 Brovana (Restricted To Pulmonology/Resp) - NEB 1 amp BID JATINDER Administration Diltiazem HCl 180 mg 06/13/16 10:00 06/23/16 09:38 Cardizem Cd - PO 180 mg DAILY JATINDER Administration Febuxostat 40 mg 06/14/16 20:00 06/23/16 09:38 Uloric - PO 40 mg DAILY JATINDER Administration Hydroxyurea 500 mg 06/19/16 10:00 06/23/16 09:38 Hydrea - PO 500 mg Q12H JATINDER Administration Cefepime HCl 2 gm/ Dextrose 100 mls @ 200 mls/hr 06/12/16 18:00 06/23/16 10:54 IVPB 200 mls/hr Q8H-IV JATINDER Administration Caspofungin 50 mg/ Sodium 250 mls @ 250 mls/hr 06/16/16 10:00 06/23/16 09:38 Chloride IVPB 250 mls/hr DAILY JATINDER Administration Ondansetron HCl 4 mg 06/16/16 11:49 06/22/16 21:26 Zofran Injection IVPB 4 mg Q6H PRN Administration NAUSEA Promethazine HCl/Dextromethorphan 5 ml 06/15/16 11:05 06/23/16 09:39 Phenergan-Dm Syrup - PO 5 ml Q4H PRN Administration COUGH Valacyclovir HCl 500 mg 06/15/16 10:00 06/23/16 09:38 Valtrex - PO 500 mg DAILY JATINDER Administration Warfarin Sodium 3 mg 06/21/16 18:00 06/22/16 18:40 Coumadin - PO 3 mg DAILY@1800 JATINDER Administration On exam. Last Vital Signs Temp Pulse Resp BP Pulse Ox 99.2 F 106 H 20 109/49 93 L 06/23/16 09:50 06/23/16 09:50 06/23/16 09:50 06/23/16 09:50 06/22/16 21:00 Looks comfortable. Well hydrated. Mild pallor. Not icteric. Chest: scattered ronchi throughout both lung espinal, mildly distresses, with increased RR, use of accessory muscles. Abd: SNT, no organomeagly. CVS: S1, S2, no gallops or murmurs. Neuro: Alert and oriented, non-focal. Skin: no rash Ext: no swelling. CBC, BMP 06/23/16 06:00 06/23/16 09:00 INR, PTT INR 1.29 (0.82-1.09) H 06/21/16 06:00 Assessment: MDS/AML with progressive disease. Initial peripheral blastemia appeared to respond to HU, but today trend reversed. Will continue to observe for now - consider increasing HU tomorrow if rising trend confirmed. Unfortunately, cognizant of ultimate futility of above titration. Ongoing treatment for suspected pulmonary sepsis.
--- NOTE | 2016-06-23 14:47 | PN ---
Progress Note (short form) - Note Progress Note: PULMONARY REMAINS HOPEFUL AND OPTIMISTIC PATIENT IS NOT A DNR AT THIS POINT FRAIL/CHRONICALLY ILL IN APPEARANCE VSS/AFEBRILE ANICTERIC DISTANT SCATTERED RHONCHI S1S2 BS+ SOFT NO EDEMA LABS/MEDS/NOTES/IMAGING REVIEWED NEUTROPENIC PNEUMONIA AML SHILPI-C CONTINUE ANTIBIOTICS/FLUIDS/O2 PRN HAVE DISCUSSED GOALS OF CARE Maritza BOUCHER MD Problem List - Problems (1) AML (acute myelogenous leukemia) Code(s): C92.00 - ACUTE MYELOBLASTIC LEUKEMIA, NOT HAVING ACHIEVED REMISSION Qualifiers: Leukemia Active/Remission status: without remission Qualified Code(s ): C92.00 - Acute myeloblastic leukemia, not having achieved remission (2) Atrial fibrillation Code(s): I48.91 - UNSPECIFIED ATRIAL FIBRILLATION (3) DVT (deep venous thrombosis) Code(s): I82.409 - ACUTE EMBOLISM AND THOMBOS UNSP DEEP VN UNSP LOWER EXTREMITY Qualifiers: Laterality: left Chronicity: chronic (4) Febrile neutropenia Code(s): D70.9 - NEUTROPENIA, UNSPECIFIED R50.81 - FEVER PRESENTING WITH CONDITIONS CLASSIFIED ELSEWHERE (5) GERD (gastroesophageal reflux disease) Code(s): K21.9 - GASTRO-ESOPHAGEAL REFLUX DISEASE WITHOUT ESOPHAGITIS (6) Pneumonia Code(s): J18.9 - PNEUMONIA, UNSPECIFIED ORGANISM Qualifiers: Lung location: lower lobe of lung Qualified Code(s): J13 - Pneumonia due to Streptococcus pneumoniae
[2016-06-23] MEDS: WARFARIN NA 3 MG TABLET PO SCH (18:00)
[2016-06-24] MEDS: CEFEPIME 2 GM in DEXTROSE 5%-WATER - 100 ML IVPB SCH ×3 (01:04→18:46)
[2016-06-24] MEDS ORDERED: PT OWN MED DRAWER 7, Y5N ONE ×2 (09:39→18:26)
[2016-06-24] MEDS: CASPOFUNGIN ACETATE 50 MG in SODIUM CHLORIDE 250 ML IVPB SCH (10:06)
[2016-06-24] MEDS: valACYclovir HCL 500 MG TABLET (FP) PO SCH (10:06)
[2016-06-24] MEDS: FEBUXOSTAT 40 MG TAB PO SCH (10:06)
[2016-06-24] MEDS: HYDROXYUREA 500 MG CAPSULE PO SCH ×2 (10:06→22:08)
[2016-06-24] MEDS: ARFORMOTEROL TARTRATE 15 MCG/2 ML VIAL NEB SCH ×2 (10:30→21:49)
[2016-06-24] MEDS: ACETYLCYSTEINE 20% 200MG/ML 4 ML VIAL *FOR ORAL / INH USE ONLY NEB SCH ×2 (10:30→21:49)
[2016-06-24 10:44] LABS: INR 1.89 (0.82-1.09); PROTHROMBIN TIME (PATIENT) 21.1 SEC (9.98-11.88)
[2016-06-24 10:47] LABS: ACTIVATED PTT 38.2 SECONDS (26.9-34.4)
[2016-06-24 13:32] LABS: MCH 34.7 pg (25.7-33.7); MCHC 34.2 g/dl (32.0-36.0); MEAN CELL VOLUME 101.5 fl (80-96); MEAN PLT VOLUME 8.1 fl (7.5-11.1); PLATELET COUNT 126 K/MM3 (134-434); RDW 27.1 % (11.6-15.6); WHITE BLOOD COUNT 12.5 K/mm3 (4.0-10.0)
--- NOTE | 2016-06-24 15:45 | PN ---
Progress Note (short form) - Note Progress Note: Patient seen in follow up. No new complaints, in good cheer. Sitting in chair. Denies SOB. Ongoing cough. Appears more tachypneic, but denies feeling more dyspneic. Meds reviewed. Current Medications Generic Name Dose Route Start Last Admin Trade Name Freq PRN Reason Stop Dose Admin Acetaminophen 650 mg 06/13/16 16:43 06/22/16 11:07 Tylenol - PO 650 mg Q6H PRN Administration FEVER OVER 101 Acetylcysteine 200 mg 06/17/16 11:30 06/23/16 11:00 Mucomyst 20 Oral / Inh Use Only* NEB 200 mg BID JATINDER Administration Arformoterol Tartrate 1 amp 06/17/16 11:30 06/23/16 11:00 Brovana (Restricted To Pulmonology/Resp) - NEB 1 amp BID JATINDER Administration Diltiazem HCl 180 mg 06/13/16 10:00 06/23/16 09:38 Cardizem Cd - PO 180 mg DAILY JATINDER Administration Febuxostat 40 mg 06/14/16 20:00 06/23/16 09:38 Uloric - PO 40 mg DAILY JATINDER Administration Hydroxyurea 500 mg 06/19/16 10:00 06/23/16 09:38 Hydrea - PO 500 mg Q12H JATINDER Administration Cefepime HCl 2 gm/ Dextrose 100 mls @ 200 mls/hr 06/12/16 18:00 06/23/16 10:54 IVPB 200 mls/hr Q8H-IV JATINDER Administration Caspofungin 50 mg/ Sodium 250 mls @ 250 mls/hr 06/16/16 10:00 06/23/16 09:38 Chloride IVPB 250 mls/hr DAILY JATINDER Administration Ondansetron HCl 4 mg 06/16/16 11:49 06/22/16 21:26 Zofran Injection IVPB 4 mg Q6H PRN Administration NAUSEA Promethazine HCl/Dextromethorphan 5 ml 06/15/16 11:05 06/23/16 09:39 Phenergan-Dm Syrup - PO 5 ml Q4H PRN Administration COUGH Valacyclovir HCl 500 mg 06/15/16 10:00 06/23/16 09:38 Valtrex - PO 500 mg DAILY JATINDER Administration Warfarin Sodium 3 mg 06/21/16 18:00 06/22/16 18:40 Coumadin - PO 3 mg DAILY@1800 JATINDER Administration On exam. Last Vital Signs Temp Pulse Resp BP Pulse Ox 98.2 F 109 H 20 138/114 90 L 06/24/16 14:27 06/24/16 14:27 06/24/16 14:27 06/24/16 14:27 06/24/16 11:46 Looks comfortable. Well hydrated. Mild pallor. Not icteric. Chest: scattered ronchi throughout both lung espinal, mildly distresses, with increased RR, use of accessory muscles. Abd: SNT, no organomeagly. CVS: S1, S2, no gallops or murmurs. Neuro: Alert and oriented, non-focal. Skin: no rash Ext: no swelling. CBC, BMP 06/24/16 13:25 06/23/16 09:00 INR, PTT INR 1.29 (0.82-1.09) H 06/21/16 06:00 Assessment: MDS/AML with progressive disease. Initial peripheral blastemia appeared to respond to HU, and with WCC stable at this time - keep on HU at present dose. Unfortunately, cognizant of ultimate futility of above titration. Ongoing treatment for suspected pulmonary sepsis.
[2016-06-24] MEDS: ACETAMINOPHEN 325 MG TABLET (FP) PO PRN (16:38)
[2016-06-24] MEDS: WARFARIN NA 3 MG TABLET PO SCH (18:39)
[2016-06-25] MEDS: CEFEPIME 2 GM in DEXTROSE 5%-WATER - 100 ML IVPB SCH ×2 (01:02→10:03)
[2016-06-25 07:41] LABS: MCHC 33.8 g/dl (32.0-36.0); MEAN CELL VOLUME 100.4 fl (80-96); MEAN PLT VOLUME 7.8 fl (7.5-11.1); PLATELET COUNT 120 K/MM3 (134-434); RDW 26.5 % (11.6-15.6); WHITE BLOOD COUNT 12.7 K/mm3 (4.0-10.0)
[2016-06-25 07:45] LABS: INR 1.83 (0.82-1.09); PROTHROMBIN TIME (PATIENT) 20.4 SEC (9.98-11.88)
[2016-06-25] MEDS: DEXTROMETHORPHAN/PROMETHAZINE 15 MG/6.25 MG/5 ML SYRUP PO PRN (10:03)
[2016-06-25] MEDS: FEBUXOSTAT 40 MG TAB PO SCH (10:04)
[2016-06-25] MEDS: HYDROXYUREA 500 MG CAPSULE PO SCH ×2 (10:04→22:19)
[2016-06-25] MEDS: valACYclovir HCL 500 MG TABLET (FP) PO SCH (10:04)
[2016-06-25] MEDS: ACETYLCYSTEINE 20% 200MG/ML 4 ML VIAL *FOR ORAL / INH USE ONLY NEB SCH ×2 (10:32→22:24)
[2016-06-25] MEDS: ARFORMOTEROL TARTRATE 15 MCG/2 ML VIAL NEB SCH ×2 (10:32→22:24)
--- NOTE | 2016-06-25 10:39 | PN ---
Progress Note, Physician Chief Complaint: ID Situation remains desperate Remains dyspneic Couphing Last chest xray with persistant infiltrates - Current Medication List Current Medications: Active Medications Acetaminophen (Tylenol -) 650 mg PO Q6H PRN PRN Reason: FEVER OVER 101 Last Admin: 06/24/16 16:38 Dose: 650 mg Acetylcysteine (Mucomyst 20 Oral / Inh Use Only*) 200 mg NEB BID [facility] Last Admin: 06/25/16 10:32 Dose: 200 mg Arformoterol Tartrate (Brovana (Restricted To Pulmonology/Resp) -) 1 amp NEB BID [facility] Last Admin: 06/25/16 10:32 Dose: 1 amp Diltiazem HCl (Cardizem Cd -) 180 mg PO DAILY [facility] Last Admin: 06/25/16 10:04 Dose: 180 mg Febuxostat (Uloric -) 40 mg PO DAILY [facility] Last Admin: 06/25/16 10:04 Dose: 40 mg Hydroxyurea (Hydrea -) 500 mg PO Q12H [facility] Last Admin: 06/25/16 10:04 Dose: 500 mg Cefepime HCl 2 gm/ Dextrose 100 mls @ 200 mls/hr IVPB Q8H-IV [facility] Last Admin: 06/25/16 10:03 Dose: 200 mls/hr Caspofungin 50 mg/ Sodium (Chloride) 250 mls @ 250 mls/hr IVPB DAILY [facility] Last Admin: 06/24/16 10:06 Dose: 250 mls/hr Ondansetron HCl (Zofran Injection) 4 mg IVPB Q6H PRN PRN Reason: NAUSEA Last Admin: 06/22/16 21:26 Dose: 4 mg Promethazine HCl/Dextromethorphan (Phenergan-Dm Syrup -) 5 ml PO Q4H PRN PRN Reason: COUGH Last Admin: 06/25/16 10:03 Dose: 5 ml Valacyclovir HCl (Valtrex -) 500 mg PO DAILY [facility] Last Admin: 06/25/16 10:04 Dose: 500 mg Warfarin Sodium (Coumadin -) 3 mg PO DAILY@1800 [facility] Last Admin: 06/24/16 18:39 Dose: 3 mg - Objective Vital Signs: Vital Signs Temperature 98.9 F 06/25/16 08:06 Pulse Rate 115 H 06/25/16 08:06 Respiratory Rate 22 06/25/16 08:06 Blood Pressure 117/58 06/25/16 08:06 O2 Sat by Pulse Oximetry (%) 93 L 06/24/16 20:55 Constitutional: Yes: Cachectic, Moderate Distress Neck: Yes: WNL, Supple Cardiovascular: Yes: Regular Rate and Rhythm, S1, S2. No: Murmur Respiratory: Yes: Rales Gastrointestinal: Yes: WNL, Normal Bowel Sounds. No: Tenderness, Tenderness, Epigastrium Edema: No Labs: CBC, BMP 06/25/16 05:55 06/23/16 09:00 INR, PTT INR 1.83 (0.82-1.09) H 06/25/16 05:55 Problem List - Problems (1) AML (acute myelogenous leukemia) Code(s): C92.00 - ACUTE MYELOBLASTIC LEUKEMIA, NOT HAVING ACHIEVED REMISSION Qualifiers: Leukemia Active/Remission status: without remission Qualified Code(s ): C92.00 - Acute myeloblastic leukemia, not having achieved remission (2) Febrile neutropenia Code(s): D70.9 - NEUTROPENIA, UNSPECIFIED R50.81 - FEVER PRESENTING WITH CONDITIONS CLASSIFIED ELSEWHERE (3) Neutropenia Code(s): D70.9 - NEUTROPENIA, UNSPECIFIED Qualifiers: Neutropenia type: secondary to cancer chemotherapy Qualified Code(s) : D70.1 - Agranulocytosis secondary to cancer chemotherapy (4) Pneumonia Code(s): J18.9 - PNEUMONIA, UNSPECIFIED ORGANISM Qualifiers: Lung location: lower lobe of lung Qualified Code(s): J13 - Pneumonia due to Streptococcus pneumoniae Assessment/Plan Microbiology 06/21/16 22:25 Urine - Urine Clean Catch Urine Culture - Final NO GROWTH OBTAINED 06/21/16 20:45 Blood - Alon Cath Blood Culture - Preliminary NO GROWTH OBTAINED AFTER 72 HOURS, INCUBATION TO CONTINUE FOR 2 DAYS. Laboratory Tests 06/14/16 06/15/16 06/15/16 07:00 06:35 06:35 WBC Hgb Hct Plt Count Blast Cells CMV IgG Ab 5.80 H CMV IgM Ab < 30.0 A. galactomannan Ag 0.23 Beta-(1,3)-D-Glucan < 31 06/24/16 06/25/16 13:25 05:55 WBC 12.7 H Hgb 7.6 L D Hct 22.5 L Plt Count 120 L Blast Cells 92 H CMV IgG Ab CMV IgM Ab A. galactomannan Ag Beta-(1,3)-D-Glucan Assessment Refractory leukemia Fever pulmonary infiltrates ? etiology Spiking fevers despite Caspo and Cefepime Advise Prognosis poor Invasive BAL for diagnosis not feasible Discussed Dr Casarez Stop Cefepime Substitute Imipenem Stop Caspofungin Palliative care most appropriate Chst satinder Grossman MD
[2016-06-25] MEDS: CASPOFUNGIN ACETATE 50 MG in SODIUM CHLORIDE 250 ML IVPB SCH (10:50)
--- NOTE | 2016-06-25 12:10 | PN ---
Progress Note (short form) - Note Progress Note: PULMONARY/MED Feeling slightly better. Cough clearing. Febrile overnight to 101.2 Last Vital Signs Temp Pulse Resp BP Pulse Ox 98.9 F 115 H 22 117/58 93 L 06/25/16 08:06 06/25/16 08:06 06/25/16 08:06 06/25/16 08:06 06/24/16 20:55 Gen: NAD in chair Heart: irregular Lung: bibasilar rales Abd: soft, nontender Ext: no edema CBC, BMP 06/25/16 05:55 06/23/16 09:00 Active Medications Acetaminophen (Tylenol -) 650 mg PO Q6H PRN PRN Reason: FEVER OVER 101 Last Admin: 06/24/16 16:38 Dose: 650 mg Acetylcysteine (Mucomyst 20 Oral / Inh Use Only*) 200 mg NEB BID [facility] Last Admin: 06/25/16 10:32 Dose: 200 mg Arformoterol Tartrate (Brovana (Restricted To Pulmonology/Resp) -) 1 amp NEB BID [facility] Last Admin: 06/25/16 10:32 Dose: 1 amp Diltiazem HCl (Cardizem Cd -) 180 mg PO DAILY [facility] Last Admin: 06/25/16 10:04 Dose: 180 mg Febuxostat (Uloric -) 40 mg PO DAILY [facility] Last Admin: 06/25/16 10:04 Dose: 40 mg Hydroxyurea (Hydrea -) 500 mg PO Q12H J[facility]INDER Last Admin: 06/25/16 10:04 Dose: 500 mg Imipenem/Cilastatin Sodium 500 (mg/ Sodium Chloride) 100 mls @ 100 mls/hr IVPB Q6H-IV JATINDER PRN Reason: Protocol Ondansetron HCl (Zofran Injection) 4 mg IVPB Q6H PRN PRN Reason: NAUSEA Last Admin: 06/22/16 21:26 Dose: 4 mg Promethazine HCl/Dextromethorphan (Phenergan-Dm Syrup -) 5 ml PO Q4H PRN PRN Reason: COUGH Last Admin: 06/25/16 10:03 Dose: 5 ml Valacyclovir HCl (Valtrex -) 500 mg PO DAILY [facility] Last Admin: 06/25/16 10:04 Dose: 500 mg Warfarin Sodium (Coumadin -) 3 mg PO DAILY@1800 J[facility]ER Last Admin: 06/24/16 18:39 Dose: 3 mg A/P Pneumonia Neutropenic Sepsis AML s/p recent SHILPI-C DVT Atrial Fibrillation - continue antibiotics per ID - f/u cultures - monitor CBC - inhaled bronchodilators - rate control - continue anticoagulation - o2 as needed
[2016-06-25] MEDS: IMIPENEM/CILASTATIN SODIUM 500 MG in SODIUM CHLORIDE 100 ML IVPB SCH ×2 (15:34→22:18)
[2016-06-25 15:54] LABS: PLATELET ESTIMATE DECREASED (NORMAL); POIKILOCYTOSIS 1+
[2016-06-25 15:55] LABS: ANISOCYTOSIS 1+
[2016-06-25] MEDS: WARFARIN NA 3 MG TABLET PO SCH (19:00)
--- NOTE | 2016-06-25 20:46 | PN ---
Progress Note (short form) - Note Progress Note: PAtient seen and examined 06/21 and 06/22/16 mild shortness of breath cough AFVSS Cor: RSR, No murmurs, No gallops Lungs: decreased at bases Abd: Soft, Normal bowel sounds, No organomegaly Ext:No significant edema A/P 80 y/o patient with AML on uloric/hydrea on broad spectrum antibiotics disucuused wih patient and family. They understand the whole situation but have not decided yet. ongoing discussion regarding goals of care
[2016-06-26] MEDS: IMIPENEM/CILASTATIN SODIUM 500 MG in SODIUM CHLORIDE 100 ML IVPB SCH ×4 (02:54→20:59)
[2016-06-26 09:11] LABS: INR 1.86 (0.82-1.09); PROTHROMBIN TIME (PATIENT) 20.7 SEC (9.98-11.88)
[2016-06-26] MEDS: ARFORMOTEROL TARTRATE 15 MCG/2 ML VIAL NEB SCH ×2 (09:41→22:20)
[2016-06-26] MEDS: ACETYLCYSTEINE 20% 200MG/ML 4 ML VIAL *FOR ORAL / INH USE ONLY NEB SCH ×2 (09:41→20:20)
[2016-06-26] MEDS ORDERED: PT OWN MED DRAWER 7, Y5N ONE ×2 (10:19→20:44)
[2016-06-26] MEDS: HYDROXYUREA 500 MG CAPSULE PO SCH ×2 (10:20→21:05)
[2016-06-26] MEDS: FEBUXOSTAT 40 MG TAB PO SCH (10:21)
[2016-06-26] MEDS: valACYclovir HCL 500 MG TABLET (FP) PO SCH (10:21)
--- NOTE | 2016-06-26 11:00 | PN ---
Progress Note (short form) - Note Progress Note: PULMONARY/MED Feeling slightly better. Cough clearing. No fevers recorded. Last Vital Signs Temp Pulse Resp BP Pulse Ox 97.4 F L 109 H 20 100/47 94 L 06/26/16 14:00 06/26/16 14:00 06/26/16 14:00 06/26/16 14:00 06/26/16 09:00 Gen: NAD in chair Heart: irregular Lung: bibasilar rales Abd: soft, nontender Ext: no edema CBC, BMP 06/25/16 05:55 06/23/16 09:00 Active Medications Acetaminophen (Tylenol -) 650 mg PO Q6H PRN PRN Reason: FEVER OVER 101 Last Admin: 06/24/16 16:38 Dose: 650 mg Acetylcysteine (Mucomyst 20 Oral / Inh Use Only*) 200 mg NEB BID [facility] Last Admin: 06/26/16 09:41 Dose: 200 mg Arformoterol Tartrate (Brovana (Restricted To Pulmonology/Resp) -) 1 amp NEB BID [facility] Last Admin: 06/26/16 09:41 Dose: 1 amp Diltiazem HCl (Cardizem Cd -) 180 mg PO DAILY [facility] Last Admin: 06/26/16 10:20 Dose: 180 mg Febuxostat (Uloric -) 40 mg PO DAILY [facility] Last Admin: 06/26/16 10:21 Dose: 40 mg Hydroxyurea (Hydrea -) 500 mg PO Q12H [facility] Last Admin: 06/26/16 10:20 Dose: 500 mg Imipenem/Cilastatin Sodium 500 (mg/ Sodium Chloride) 100 mls @ 100 mls/hr IVPB Q6H-IV JATINDER PRN Reason: Protocol Last Admin: 06/26/16 10:20 Dose: 100 mls/hr Ondansetron HCl (Zofran Injection) 4 mg IVPB Q6H PRN PRN Reason: NAUSEA Last Admin: 06/22/16 21:26 Dose: 4 mg Promethazine HCl/Dextromethorphan (Phenergan-Dm Syrup -) 5 ml PO Q4H PRN PRN Reason: COUGH Last Admin: 06/25/16 10:03 Dose: 5 ml Valacyclovir HCl (Valtrex -) 500 mg PO DAILY [facility] Last Admin: 06/26/16 10:21 Dose: 500 mg Warfarin Sodium (Coumadin -) 3 mg PO DAILY@1800 [facility] Last Admin: 06/25/16 19:00 Dose: 3 mg A/P Pneumonia Neutropenic Sepsis AML s/p recent SHILPI-C DVT Atrial Fibrillation - continue antibiotics per ID - monitor CBC - transfuse as needed - inhaled bronchodilators - rate control - continue anticoagulation - o2 as needed
[2016-06-26] MEDS: WARFARIN NA 3 MG TABLET PO SCH (17:31)
[2016-06-27] MEDS: IMIPENEM/CILASTATIN SODIUM 500 MG in SODIUM CHLORIDE 100 ML IVPB SCH ×4 (03:25→22:09)
[2016-06-27 08:00] LABS: MCH 34.3 pg (25.7-33.7); MCHC 33.9 g/dl (32.0-36.0); MEAN CELL VOLUME 101.4 fl (80-96); MEAN PLT VOLUME 7.7 fl (7.5-11.1); PLATELET COUNT 104 K/MM3 (134-434); RDW 26.5 % (11.6-15.6); WHITE BLOOD COUNT 4.4 K/mm3 (4.0-10.0)
[2016-06-27 08:44] LABS: CALCIUM 7.9 mg/dL (8.5-10.1); MAGNESIUM 2.3 mg/dL (1.8-2.4)
[2016-06-27 08:46] LABS: CREATININE 0.5 mg/dL (0.55-1.02); PHOSPHOROUS 2.8 mg/dL (2.5-4.9)
[2016-06-27] MEDS: valACYclovir HCL 500 MG TABLET (FP) PO SCH (10:00)
[2016-06-27] MEDS: HYDROXYUREA 500 MG CAPSULE PO SCH (10:00)
[2016-06-27] MEDS: FEBUXOSTAT 40 MG TAB PO SCH (10:00)
[2016-06-27 10:32] LABS: INR 1.82 (0.82-1.09); PROTHROMBIN TIME (PATIENT) 20.3 SEC (9.98-11.88)
[2016-06-27 10:53] LABS: ANISOCYTOSIS 3+; HYPOCHROMIA 2+; MICROCYTOSIS FEW; PLATELET ESTIMATE DECREASED (NORMAL)
[2016-06-27 10:54] LABS: SCHISTOCYTES FEW; TEAR DROP CELLS FEW
--- NOTE | 2016-06-27 11:29 | PN ---
Progress Note (short form) - Note Progress Note: PULMONARY REMAINS HOPEFUL AND OPTIMISTIC PATIENT IS NOT A DNR AT THIS POINT FRAIL/CHRONICALLY ILL IN APPEARANCE VSS/AFEBRILE ANICTERIC DISTANT SCATTERED RHONCHI S1S2 BS+ SOFT NO EDEMA LABS/MEDS/NOTES/IMAGING REVIEWED MILD IMPROVEMENT IN RADIOGRAPH NEUTROPHILS UP TO 3% NEUTROPENIC PNEUMONIA AML SHILPI-C CONTINUE ANTIBIOTICS/FLUIDS/O2 PRN HAVE DISCUSSED GOALS OF CARE Maritza BOUCHER MD Problem List - Problems (1) AML (acute myelogenous leukemia) Code(s): C92.00 - ACUTE MYELOBLASTIC LEUKEMIA, NOT HAVING ACHIEVED REMISSION Qualifiers: Leukemia Active/Remission status: without remission Qualified Code(s ): C92.00 - Acute myeloblastic leukemia, not having achieved remission (2) Atrial fibrillation Code(s): I48.91 - UNSPECIFIED ATRIAL FIBRILLATION (3) DVT (deep venous thrombosis) Code(s): I82.409 - ACUTE EMBOLISM AND THOMBOS UNSP DEEP VN UNSP LOWER EXTREMITY Qualifiers: Laterality: left Chronicity: chronic (4) Febrile neutropenia Code(s): D70.9 - NEUTROPENIA, UNSPECIFIED R50.81 - FEVER PRESENTING WITH CONDITIONS CLASSIFIED ELSEWHERE (5) GERD (gastroesophageal reflux disease) Code(s): K21.9 - GASTRO-ESOPHAGEAL REFLUX DISEASE WITHOUT ESOPHAGITIS (6) Pneumonia Code(s): J18.9 - PNEUMONIA, UNSPECIFIED ORGANISM Qualifiers: Lung location: lower lobe of lung Qualified Code(s): J13 - Pneumonia due to Streptococcus pneumoniae
[2016-06-27] MEDS: ACETYLCYSTEINE 20% 200MG/ML 4 ML VIAL *FOR ORAL / INH USE ONLY NEB SCH ×2 (11:30→22:05)
[2016-06-27] MEDS: ARFORMOTEROL TARTRATE 15 MCG/2 ML VIAL NEB SCH ×2 (11:30→22:05)
--- NOTE | 2016-06-27 13:29 | PN ---
Progress Note (short form) - Note Progress Note: OOb in chair wants to know if she is getting better no fevers Vital Signs Period Temp Pulse Resp BP Sys/Barrios Pulse Ox Last 24 Hr 97.4 F-98.2 F 87-109 20-20 100-115/47-60 91-96 cor-rrr lungs decreased bs at bases abd soft,nt ext no edema CBC, BMP 06/27/16 06:30 06/27/16 06:30 cxray improving RUL infiltrate LLL infiltrate unchanged Microbiology 06/21/16 20:45 Blood - Alon Cath Blood Culture - Final NO GROWTH AFTER 5 DAYS INCUBATION 06/21/16 20:45 Blood - Peripheral Venous Blood Culture - Final NO GROWTH AFTER 5 DAYS INCUBATION 06/21/16 22:25 Urine - Urine Clean Catch Urine Culture - Final NO GROWTH OBTAINED 06/15/16 22:22 Sputum - Expectorated REY Preparation - Preliminary 06/15/16 22:22 Sputum - Expectorated Fungal Culture - Preliminary 06/14/16 08:45 Serum Cryptococcal Antigen - Final 06/13/16 10:15 Nasopharyngeal Swab Respiratory Virus Panel - Final 06/12/16 16:00 Blood - Peripheral Venous Blood Culture - Final NO GROWTH AFTER 5 DAYS INCUBATION 06/12/16 16:00 Blood - Peripheral Venous Blood Culture - Final NO GROWTH AFTER 5 DAYS INCUBATION 06/14/16 14:00 Sputum - Expectorated Gram Stain - Final 06/14/16 14:00 Sputum - Expectorated Sputum Culture - Final Yeast Like Organism 06/13/16 19:00 Urine - Urine Clean Catch Urine Culture - Final NO GROWTH OBTAINED 06/13/16 14:36 Urine For Antigen Detection Legionella Antigen - Final 06/13/16 14:36 Urine For Antigen Detection Streptococcus pneumoniae Antigen (M - Final 06/13/16 10:15 Nasopharyngeal Swab Influenza Types A,B Antigen (MINDY) - Final 06/13/16 10:15 Nasopharyngeal Swab - Final a/p pneumonia persistent neutropenia AML not in remission (blasts) s/p dakota-c overall prognosis poor now on imipenem day #2 continue antiviral/antifungal prophylaxis
[2016-06-27] MEDS: WARFARIN NA 3 MG TABLET PO SCH (18:25)
--- NOTE | 2016-06-27 20:15 | PN ---
Progress Note (short form) - Note Progress Note: PAtient seen and examined 06/21 and 06/22/16 mild shortness of breath cough Last Vital Signs Temp Pulse Resp BP Pulse Ox 98.6 F 103 H 20 112/48 91 L 06/27/16 18:04 06/27/16 18:04 06/27/16 18:04 06/27/16 18:04 06/27/16 12:43 Cor: RSR, No murmurs, No gallops Lungs: decreased at bases Abd: Soft, Normal bowel sounds, No organomegaly Ext:No significant edema Abnormal Lab Results 06/27/16 06/27/16 06/27/16 06:30 06:30 06:30 RBC 2.07 L Hgb 7.1 L Hct 21.0 L MCV 101.4 H RDW 26.5 H Plt Count 104 L Neutrophils % 3.0 L Lymphocytes % 6.0 L D Blast Cells 91 H INR 1.82 H Creatinine 0.5 L Calcium 7.9 L Current Medications Acetaminophen (Tylenol -) 650 mg PO Q6H PRN PRN Reason: FEVER OVER 101 Last Admin: 06/24/16 16:38 Dose: 650 mg Acetylcysteine (Mucomyst 20 Oral / Inh Use Only*) 200 mg NEB BID [facility] Last Admin: 06/27/16 11:30 Dose: 200 mg Arformoterol Tartrate (Brovana (Restricted To Pulmonology/Resp) -) 1 amp NEB BID [facility] Last Admin: 06/27/16 11:30 Dose: 1 amp Diltiazem HCl (Cardizem Cd -) 180 mg PO DAILY [facility] Last Admin: 06/27/16 10:00 Dose: 180 mg Febuxostat (Uloric -) 40 mg PO DAILY [facility] Last Admin: 06/27/16 10:00 Dose: 40 mg Hydroxyurea (Hydrea -) 500 mg PO Q12H [facility] Last Admin: 06/27/16 10:00 Dose: 500 mg Imipenem/Cilastatin Sodium 500 (mg/ Sodium Chloride) 100 mls @ 100 mls/hr IVPB Q6H-IV JATINDER PRN Reason: Protocol Last Admin: 06/27/16 15:00 Dose: 100 mls/hr Ondansetron HCl (Zofran Injection) 4 mg IVPB Q6H PRN PRN Reason: NAUSEA Last Admin: 06/22/16 21:26 Dose: 4 mg Promethazine HCl/Dextromethorphan (Phenergan-Dm Syrup -) 5 ml PO Q4H PRN PRN Reason: COUGH Last Admin: 06/25/16 10:03 Dose: 5 ml Valacyclovir HCl (Valtrex -) 500 mg PO DAILY [facility] Last Admin: 06/27/16 10:00 Dose: 500 mg Voriconazole (Vfend (Restricted To Id)) 100 mg PO BID [facility] Warfarin Sodium (Coumadin -) 3 mg PO DAILY@1800 [facility] Last Admin: 06/27/16 18:25 Dose: 3 mg A/P 80 y/o patient with AML on uloric/hydrea on broad spectrum antibiotics--imipenem/voriconazole discussed wih patient and family. They understand the whole situation but have not decided yet. ongoing discussion regarding goals of care
[2016-06-27] MEDS ORDERED: PT OWN MED DRAWER 7, Y5N ONE (21:54)
[2016-06-27] MEDS: VORICONAZOLE 50 MG TABLET (RESTRICTED TO ID) PO SCH (22:10)
[2016-06-28] MEDS: IMIPENEM/CILASTATIN SODIUM 500 MG in SODIUM CHLORIDE 100 ML IVPB SCH ×4 (02:10→21:34)
[2016-06-28 07:46] LABS: MCH 33.4 pg (25.7-33.7); MCHC 33.9 g/dl (32.0-36.0); MEAN CELL VOLUME 98.4 fl (80-96); MEAN PLT VOLUME 7.3 fl (7.5-11.1); PLATELET COUNT 102 K/MM3 (134-434); RDW 23.8 % (11.6-15.6)
[2016-06-28 07:53] LABS: WHITE BLOOD COUNT 1.7 K/mm3 (4.0-10.0)
[2016-06-28 08:03] LABS: INR 1.61 (0.82-1.09); PROTHROMBIN TIME (PATIENT) 17.9 SEC (9.98-11.88)
[2016-06-28] MEDS ORDERED: PT OWN MED DRAWER 7, Y5N ONE ×2 (08:29→20:53)
[2016-06-28] MEDS: ARFORMOTEROL TARTRATE 15 MCG/2 ML VIAL NEB SCH ×2 (10:30→22:13)
[2016-06-28] MEDS: ACETYLCYSTEINE 20% 200MG/ML 4 ML VIAL *FOR ORAL / INH USE ONLY NEB SCH ×2 (10:30→22:13)
--- NOTE | 2016-06-28 10:53 | PN ---
Progress Note, Physician Chief Complaint: ID Imipenem day 3 Rx Voriconazole prophylaxis per Dr Casarez Patient states " Im not getting better" - Current Medication List Current Medications: Active Medications Acetaminophen (Tylenol -) 650 mg PO Q6H PRN PRN Reason: FEVER OVER 101 Last Admin: 06/24/16 16:38 Dose: 650 mg Acetylcysteine (Mucomyst 20 Oral / Inh Use Only*) 200 mg NEB BID [facility] Last Admin: 06/27/16 22:05 Dose: 200 mg Arformoterol Tartrate (Brovana (Restricted To Pulmonology/Resp) -) 1 amp NEB BID [facility] Last Admin: 06/27/16 22:05 Dose: 1 amp Diltiazem HCl (Cardizem Cd -) 180 mg PO DAILY [facility] Last Admin: 06/27/16 10:00 Dose: 180 mg Febuxostat (Uloric -) 40 mg PO DAILY [facility] Last Admin: 06/27/16 10:00 Dose: 40 mg Imipenem/Cilastatin Sodium 500 (mg/ Sodium Chloride) 100 mls @ 100 mls/hr IVPB Q6H-IV JATINDER PRN Reason: Protocol Last Admin: 06/28/16 08:41 Dose: 100 mls/hr Ondansetron HCl (Zofran Injection) 4 mg IVPB Q6H PRN PRN Reason: NAUSEA Last Admin: 06/22/16 21:26 Dose: 4 mg Promethazine HCl/Dextromethorphan (Phenergan-Dm Syrup -) 5 ml PO Q4H PRN PRN Reason: COUGH Last Admin: 06/25/16 10:03 Dose: 5 ml Valacyclovir HCl (Valtrex -) 500 mg PO DAILY [facility] Last Admin: 06/27/16 10:00 Dose: 500 mg Voriconazole (Vfend (Restricted To Id)) 100 mg PO BID [facility] Last Admin: 06/27/16 22:10 Dose: 100 mg Warfarin Sodium (Coumadin -) 3 mg PO DAILY@1800 [facility] Last Admin: 06/27/16 18:25 Dose: 3 mg - Objective Vital Signs: Vital Signs Temperature 97.2 F L 06/28/16 09:12 Pulse Rate 92 H 06/28/16 09:12 Respiratory Rate 18 06/28/16 09:12 Blood Pressure 114/43 06/28/16 09:12 O2 Sat by Pulse Oximetry (%) 91 L 06/27/16 21:00 Constitutional: Yes: Moderate Distress, Thin Neck: Yes: WNL, Supple Cardiovascular: Yes: S1, S2 Respiratory: Yes: Rales, Rhonchi Gastrointestinal: Yes: Soft. No: Tenderness Edema: No Labs: CBC, BMP 06/28/16 06:00 06/27/16 06:30 INR, PTT INR 1.61 (0.82-1.09) H 06/28/16 06:00 Problem List - Problems (1) AML (acute myelogenous leukemia) Code(s): C92.00 - ACUTE MYELOBLASTIC LEUKEMIA, NOT HAVING ACHIEVED REMISSION Qualifiers: Leukemia Active/Remission status: without remission Qualified Code(s ): C92.00 - Acute myeloblastic leukemia, not having achieved remission (2) Febrile neutropenia Code(s): D70.9 - NEUTROPENIA, UNSPECIFIED R50.81 - FEVER PRESENTING WITH CONDITIONS CLASSIFIED ELSEWHERE (3) Neutropenia Code(s): D70.9 - NEUTROPENIA, UNSPECIFIED Qualifiers: Neutropenia type: secondary to cancer chemotherapy Qualified Code(s) : D70.1 - Agranulocytosis secondary to cancer chemotherapy (4) Pneumonia Code(s): J18.9 - PNEUMONIA, UNSPECIFIED ORGANISM Qualifiers: Lung location: lower lobe of lung Qualified Code(s): J13 - Pneumonia due to Streptococcus pneumoniae Assessment/Plan Microbiology 06/14/16 14:00 Sputum - Expectorated Gram Stain - Final 06/14/16 14:00 Sputum - Expectorated Sputum Culture - Final Yeast Like Organism Laboratory Tests 06/27/16 06/28/16 06:30 06:00 WBC 1.7 L D Hgb 9.2 L D Hct 27.1 L D Plt Count 102 L BUN 15 Creatinine 0.5 L Assessment AML relapsed Pancytopenia secondary above Pneumonia long course antibiotic empiric Plan Prognosis remains poor She has made little or no clinical improvement in the time admitted Supportive care to continue Ngoc DEWITT
[2016-06-28] MEDS: FEBUXOSTAT 40 MG TAB PO SCH (11:23)
--- NOTE | 2016-06-28 11:23 | PN ---
Progress Note (short form) - Note Progress Note: PULMONARY/MED No fevers recorded. Does not feel like she is improving. Last Vital Signs Temp Pulse Resp BP Pulse Ox 97.2 F L 92 H 18 114/43 91 L 06/28/16 09:12 06/28/16 09:12 06/28/16 09:12 06/28/16 09:12 06/27/16 21:00 Gen: NAD in chair Heart: irregular Lung: bibasilar rales Abd: soft, nontender Ext: no edema CBC, BMP 06/28/16 06:00 06/27/16 06:30 Active Medications Acetaminophen (Tylenol -) 650 mg PO Q6H PRN PRN Reason: FEVER OVER 101 Last Admin: 06/24/16 16:38 Dose: 650 mg Acetylcysteine (Mucomyst 20 Oral / Inh Use Only*) 200 mg NEB BID [facility] Last Admin: 06/28/16 10:30 Dose: 200 mg Arformoterol Tartrate (Brovana (Restricted To Pulmonology/Resp) -) 1 amp NEB BID [facility] Last Admin: 06/28/16 10:30 Dose: 1 amp Diltiazem HCl (Cardizem Cd -) 180 mg PO DAILY [facility] Last Admin: 06/27/16 10:00 Dose: 180 mg Febuxostat (Uloric -) 40 mg PO DAILY [facility] Last Admin: 06/27/16 10:00 Dose: 40 mg Imipenem/Cilastatin Sodium 500 (mg/ Sodium Chloride) 100 mls @ 100 mls/hr IVPB Q6H-IV JATINDER PRN Reason: Protocol Last Admin: 06/28/16 08:41 Dose: 100 mls/hr Ondansetron HCl (Zofran Injection) 4 mg IVPB Q6H PRN PRN Reason: NAUSEA Last Admin: 06/22/16 21:26 Dose: 4 mg Promethazine HCl/Dextromethorphan (Phenergan-Dm Syrup -) 5 ml PO Q4H PRN PRN Reason: COUGH Last Admin: 06/25/16 10:03 Dose: 5 ml Valacyclovir HCl (Valtrex -) 500 mg PO DAILY [facility] Last Admin: 06/27/16 10:00 Dose: 500 mg Voriconazole (Vfend (Restricted To Id)) 100 mg PO BID [facility] Last Admin: 06/27/16 22:10 Dose: 100 mg Warfarin Sodium (Coumadin -) 3 mg PO DAILY@1800 [facility] Last Admin: 06/27/16 18:25 Dose: 3 mg A/P Pneumonia Neutropenic Sepsis AML s/p recent SHILPI-C DVT Atrial Fibrillation - continue antibiotics per ID - monitor CBC - transfuse as needed - inhaled bronchodilators - rate control - continue anticoagulation - o2 as needed - continue discussions regarding goals of care, advanced directives
[2016-06-28] MEDS: VORICONAZOLE 50 MG TABLET (RESTRICTED TO ID) PO SCH ×2 (11:24→22:40)
[2016-06-28] MEDS: valACYclovir HCL 500 MG TABLET (FP) PO SCH (11:24)
[2016-06-28] MEDS: WARFARIN NA 3 MG TABLET PO SCH (17:57)
--- NOTE | 2016-06-28 18:18 | PN ---
Progress Note (short form) - Note Progress Note: PAtient seen and examined 06/21 and 06/22/16 mild shortness of breath cough Last Vital Signs Temp Pulse Resp BP Pulse Ox 98.2 F 102 H 20 122/57 94 L 06/28/16 14:11 06/28/16 14:11 06/28/16 14:11 06/28/16 14:11 06/28/16 09:00 Cor: RSR, No murmurs, No gallops Lungs: decreased at bases Abd: Soft, Normal bowel sounds, No organomegaly Ext:No significant edema Abnormal Lab Results 06/27/16 06/27/16 06/27/16 06:30 06:30 06:30 RBC 2.07 L Hgb 7.1 L Hct 21.0 L MCV 101.4 H RDW 26.5 H Plt Count 104 L Neutrophils % 3.0 L Lymphocytes % 6.0 L D Blast Cells 91 H INR 1.82 H Creatinine 0.5 L Calcium 7.9 L Current Medications Acetaminophen (Tylenol -) 650 mg PO Q6H PRN PRN Reason: FEVER OVER 101 Last Admin: 06/24/16 16:38 Dose: 650 mg Acetylcysteine (Mucomyst 20 Oral / Inh Use Only*) 200 mg NEB BID [facility] Last Admin: 06/27/16 11:30 Dose: 200 mg Arformoterol Tartrate (Brovana (Restricted To Pulmonology/Resp) -) 1 amp NEB BID [facility] Last Admin: 06/27/16 11:30 Dose: 1 amp Diltiazem HCl (Cardizem Cd -) 180 mg PO DAILY [facility] Last Admin: 06/27/16 10:00 Dose: 180 mg Febuxostat (Uloric -) 40 mg PO DAILY [facility] Last Admin: 06/27/16 10:00 Dose: 40 mg Hydroxyurea (Hydrea -) 500 mg PO Q12H [facility] Last Admin: 06/27/16 10:00 Dose: 500 mg Imipenem/Cilastatin Sodium 500 (mg/ Sodium Chloride) 100 mls @ 100 mls/hr IVPB Q6H-IV JATINDER PRN Reason: Protocol Last Admin: 06/27/16 15:00 Dose: 100 mls/hr Ondansetron HCl (Zofran Injection) 4 mg IVPB Q6H PRN PRN Reason: NAUSEA Last Admin: 06/22/16 21:26 Dose: 4 mg Promethazine HCl/Dextromethorphan (Phenergan-Dm Syrup -) 5 ml PO Q4H PRN PRN Reason: COUGH Last Admin: 06/25/16 10:03 Dose: 5 ml Valacyclovir HCl (Valtrex -) 500 mg PO DAILY [facility] Last Admin: 06/27/16 10:00 Dose: 500 mg Voriconazole (Vfend (Restricted To Id)) 100 mg PO BID [facility] Warfarin Sodium (Coumadin -) 3 mg PO DAILY@1800 [facility] Last Admin: 06/27/16 18:25 Dose: 3 mg A/P 80 y/o patient with AML on uloric on broad spectrum antibiotics--imipenem/voriconazole s/p PRBCs hold hydrea s/p fluoroscopy of port add mucinex DM for cough ongoing discussion regarding goals of care
[2016-06-28] MEDS: guaiFENesin/D-METHORPHAN HB 1 EACH TAB.ER.12H PO SCH (21:37)
[2016-06-28] MEDS: ONDANSETRON 4 MG/2 ML VIAL IVPB PRN (21:39)
[2016-06-29] MEDS: IMIPENEM/CILASTATIN SODIUM 500 MG in SODIUM CHLORIDE 100 ML IVPB SCH ×4 (03:50→22:26)
[2016-06-29 07:38] LABS: MCH 33.4 pg (25.7-33.7); MCHC 34.5 g/dl (32.0-36.0); MEAN CELL VOLUME 96.8 fl (80-96); MEAN PLT VOLUME 7.1 fl (7.5-11.1); PLATELET COUNT 90 K/MM3 (134-434); RDW 23.6 % (11.6-15.6)
[2016-06-29 07:51] LABS: WHITE BLOOD COUNT 1.3 K/mm3 (4.0-10.0)
[2016-06-29 08:05] LABS: CALCIUM 8.1 mg/dL (8.5-10.1); CREATININE 0.5 mg/dL (0.55-1.02); MAGNESIUM 2.3 mg/dL (1.8-2.4); PHOSPHOROUS 2.2 mg/dL (2.5-4.9)
[2016-06-29 08:16] LABS: INR 1.56 (0.82-1.09); PROTHROMBIN TIME (PATIENT) 17.3 SEC (9.98-11.88)
[2016-06-29 08:53] LABS: PLATELET ESTIMATE DECREASED (NORMAL)
[2016-06-29] MEDS ORDERED: PT OWN MED DRAWER 7, Y5N ONE ×2 (09:24→13:23)
[2016-06-29] MEDS: FEBUXOSTAT 40 MG TAB PO SCH (09:29)
[2016-06-29] MEDS: VORICONAZOLE 50 MG TABLET (RESTRICTED TO ID) PO SCH ×2 (09:29→22:28)
[2016-06-29] MEDS: guaiFENesin/D-METHORPHAN HB 1 EACH TAB.ER.12H PO SCH ×2 (09:33→22:27)
[2016-06-29] MEDS: ACETYLCYSTEINE 20% 200MG/ML 4 ML VIAL *FOR ORAL / INH USE ONLY NEB SCH ×2 (09:45→21:20)
[2016-06-29] MEDS: ARFORMOTEROL TARTRATE 15 MCG/2 ML VIAL NEB SCH ×2 (09:45→21:20)
--- NOTE | 2016-06-29 11:28 | PN ---
Progress Note (short form) - Note Progress Note: PULMONARY REMAINS HOPEFUL AND OPTIMISTIC PATIENT IS NOT A DNR AT THIS POINT FRAIL/CHRONICALLY ILL IN APPEARANCE VSS/AFEBRILE ANICTERIC DISTANT SCATTERED RHONCHI S1S2 BS+ SOFT NO EDEMA LABS/MEDS/NOTES/IMAGING REVIEWED MILD IMPROVEMENT IN RADIOGRAPH NEUTROPHILS UP TO 4% NEUTROPENIC PNEUMONIA AML SHILPI-C CONTINUE ANTIBIOTICS/FLUIDS/O2 PRN HAVE DISCUSSED GOALS OF CARE Maritza BOUCHER MD Problem List - Problems (1) AML (acute myelogenous leukemia) Code(s): C92.00 - ACUTE MYELOBLASTIC LEUKEMIA, NOT HAVING ACHIEVED REMISSION Qualifiers: Leukemia Active/Remission status: without remission Qualified Code(s ): C92.00 - Acute myeloblastic leukemia, not having achieved remission (2) Atrial fibrillation Code(s): I48.91 - UNSPECIFIED ATRIAL FIBRILLATION (3) DVT (deep venous thrombosis) Code(s): I82.409 - ACUTE EMBOLISM AND THOMBOS UNSP DEEP VN UNSP LOWER EXTREMITY Qualifiers: Laterality: left Chronicity: chronic (4) Febrile neutropenia Code(s): D70.9 - NEUTROPENIA, UNSPECIFIED R50.81 - FEVER PRESENTING WITH CONDITIONS CLASSIFIED ELSEWHERE (5) GERD (gastroesophageal reflux disease) Code(s): K21.9 - GASTRO-ESOPHAGEAL REFLUX DISEASE WITHOUT ESOPHAGITIS (6) Pneumonia Code(s): J18.9 - PNEUMONIA, UNSPECIFIED ORGANISM Qualifiers: Lung location: lower lobe of lung Qualified Code(s): J13 - Pneumonia due to Streptococcus pneumoniae
[2016-06-29] MEDS: valACYclovir HCL 500 MG TABLET (FP) PO SCH (11:33)
--- NOTE | 2016-06-29 12:43 | PN ---
Progress Note (short form) - Note Progress Note: Patient seen and examined Updated patient on her status. Acute leukemia has not significantly responded to Emma-c Thus there are not sufficeint good WBC's to fight infection. Pneumonia not significantly changed over past several weeks in hospital. Both patient and are not willing to stop therapy. Last Vital Signs Temp Pulse Resp BP Pulse Ox 98.5 F 99 H 20 116/54 94 L 06/29/16 08:00 06/29/16 09:50 06/29/16 08:00 06/29/16 08:00 06/29/16 09:50 HEENT: JAMARI, EOM Intact Oropharynx: No thrush, No mucositis, missing teeth Neck: Supple Nodes: Without adenopathy Cor: RSR, , systolic murmur Lungs:kyphosis, diminished breath sounds bilaterally Abd: Soft, Normal bowel sounds, No organomegaly Ext:No significant edema Skin: No rashes, Integument intact CBC, BMP 06/29/16 06:30 06/29/16 06:30 s/p transfusion therapy Impression: AML - not in remission Bilobar pneumonia Pancytopenia secondary to AML Plan: Patient/family not willing to retreat from therapy. Dietary to see Try marinol Problem List - Problems (1) AML (acute myelogenous leukemia) Code(s): C92.00 - ACUTE MYELOBLASTIC LEUKEMIA, NOT HAVING ACHIEVED REMISSION Qualifiers: Leukemia Active/Remission status: without remission Qualified Code(s ): C92.00 - Acute myeloblastic leukemia, not having achieved remission (2) Atrial fibrillation Code(s): I48.91 - UNSPECIFIED ATRIAL FIBRILLATION (3) DVT (deep venous thrombosis) Code(s): I82.409 - ACUTE EMBOLISM AND THOMBOS UNSP DEEP VN UNSP LOWER EXTREMITY Qualifiers: Laterality: left Chronicity: chronic (4) Febrile neutropenia Code(s): D70.9 - NEUTROPENIA, UNSPECIFIED R50.81 - FEVER PRESENTING WITH CONDITIONS CLASSIFIED ELSEWHERE (5) Pneumonia Code(s): J18.9 - PNEUMONIA, UNSPECIFIED ORGANISM Qualifiers: Lung location: lower lobe of lung Qualified Code(s): J13 - Pneumonia due to Streptococcus pneumoniae
--- NOTE | 2016-06-29 14:03 | PN ---
Progress Note (short form) - Note Progress Note: OOb in chair feels better after transfusion cough unchanged no diarrhea Vital Signs Period Temp Pulse Resp BP Sys/Barrios Pulse Ox Last 24 Hr 97.7 F-98.5 F 93-102 20-20 116-122/52-62 94-94 cor-rrr llungs scattered rhonchi abd soft,nt ext no edema CBC, BMP 06/29/16 06:30 06/29/16 06:30 a/p pneumonia persistent neutropenia AML not in remission (blasts) s/p dakota-c overall prognosis poor now on imipenem day #4 continue antiviral/antifungal prophylaxis ongoing discussion with patient and regarding goals of care
[2016-06-29] MEDS: WARFARIN NA 3 MG TABLET PO SCH (17:19)
[2016-06-29] MEDS: DRONABINOL 5 MG CAPSULE PO SCH (22:27)
[2016-06-30] MEDS: IMIPENEM/CILASTATIN SODIUM 500 MG in SODIUM CHLORIDE 100 ML IVPB SCH ×4 (03:27→22:00)
[2016-06-30 07:33] LABS: MCH 33.3 pg (25.7-33.7); MCHC 34.4 g/dl (32.0-36.0); MEAN CELL VOLUME 96.9 fl (80-96); MEAN PLT VOLUME 7.5 fl (7.5-11.1); PLATELET COUNT 93 K/MM3 (134-434); RDW 23.5 % (11.6-15.6)
[2016-06-30 07:44] LABS: WHITE BLOOD COUNT 0.8 K/mm3 (4.0-10.0)
[2016-06-30 07:48] LABS: ALBUMIN 2.4 g/dl (3.4-5.0); ANION GAP 6 (8-16); BILIRUBIN,TOTAL 0.6 mg/dL (0.2-1.0); CALCIUM 8.1 mg/dL (8.5-10.1); CO2 29 mmol/L (21-32); CREATININE 0.4 mg/dL (0.55-1.02); GLUCOSE,RANDOM 92 mg/dL (74-106); SGOT/AST 21 U/L (15-37); SGPT/ALT 19 U/L (12-78); TOT PROT 7.1 g/dl (6.4-8.2)
[2016-06-30 07:49] LABS: ALK PHOS 66 U/L (45-117)
[2016-06-30] MEDS ORDERED: PT OWN MED DRAWER 7, Y5N ONE ×2 (08:54→21:27)
[2016-06-30] MEDS: ACETYLCYSTEINE 20% 200MG/ML 4 ML VIAL *FOR ORAL / INH USE ONLY NEB SCH ×2 (10:40→22:35)
[2016-06-30] MEDS: ARFORMOTEROL TARTRATE 15 MCG/2 ML VIAL NEB SCH ×2 (10:40→22:35)
[2016-06-30] MEDS: DRONABINOL 5 MG CAPSULE PO SCH ×2 (10:45→22:00)
[2016-06-30] MEDS: VORICONAZOLE 50 MG TABLET (RESTRICTED TO ID) PO SCH ×2 (10:45→22:01)
[2016-06-30] MEDS: valACYclovir HCL 500 MG TABLET (FP) PO SCH (10:45)
[2016-06-30] MEDS: FEBUXOSTAT 40 MG TAB PO SCH (11:10)
[2016-06-30] MEDS: guaiFENesin/D-METHORPHAN HB 1 EACH TAB.ER.12H PO SCH ×2 (11:11→22:02)
--- NOTE | 2016-06-30 13:22 | PN ---
Progress Note (short form) - Note Progress Note: PULMONARY/MED +nonproductive cough. Denies shortness of breath. Last Vital Signs Temp Pulse Resp BP Pulse Ox 98.2 F 99 H 18 117/64 94 L 06/30/16 06:02 06/30/16 06:02 06/30/16 06:02 06/30/16 06:02 06/29/16 21:00 Gen: NAD in chair Heart: irregular Lung: bibasilar rales Abd: soft, nontender Ext: no edema CBC, BMP 06/30/16 06:00 06/30/16 06:00 Active Medications Acetaminophen (Tylenol -) 650 mg PO Q6H PRN PRN Reason: FEVER OVER 101 Last Admin: 06/24/16 16:38 Dose: 650 mg Acetylcysteine (Mucomyst 20 Oral / Inh Use Only*) 200 mg NEB BID [facility] Last Admin: 06/30/16 10:40 Dose: 200 mg Arformoterol Tartrate (Brovana (Restricted To Pulmonology/Resp) -) 1 amp NEB BID [facility] Last Admin: 06/30/16 10:40 Dose: 1 amp Diltiazem HCl (Cardizem Cd -) 180 mg PO DAILY [facility] Last Admin: 06/30/16 10:45 Dose: 180 mg Dronabinol (Marinol -) 5 mg PO BID [facility] Last Admin: 06/30/16 10:45 Dose: 5 mg Febuxostat (Uloric -) 40 mg PO DAILY [facility] Last Admin: 06/30/16 11:10 Dose: 40 mg Guaifenesin (Mucinex Dm -) 1 tablet PO BID [facility] Last Admin: 06/30/16 11:11 Dose: 1 tablet Imipenem/Cilastatin Sodium 500 (mg/ Sodium Chloride) 100 mls @ 100 mls/hr IVPB Q6H-IV JATINDER PRN Reason: Protocol Last Admin: 06/30/16 10:00 Dose: 100 mls/hr Ondansetron HCl (Zofran Injection) 4 mg IVPB Q6H PRN PRN Reason: NAUSEA Last Admin: 06/28/16 21:39 Dose: 4 mg Valacyclovir HCl (Valtrex -) 500 mg PO DAILY [facility] Last Admin: 06/30/16 10:45 Dose: 500 mg Voriconazole (Vfend (Restricted To Id)) 100 mg PO BID [facility] Last Admin: 06/30/16 10:45 Dose: 100 mg Warfarin Sodium (Coumadin -) 3 mg PO DAILY@1800 [facility] Last Admin: 06/29/16 17:19 Dose: 3 mg A/P Pneumonia Neutropenic Sepsis AML s/p recent SHILPI-C DVT Atrial Fibrillation - continue antibiotics per ID - monitor CBC - transfuse as needed - inhaled bronchodilators - rate control - continue anticoagulation - o2 as needed - continue discussions regarding goals of care, advanced directives
--- NOTE | 2016-06-30 13:38 | PN ---
Progress Note (short form) - Note Progress Note: Patient seen and examined Last Vital Signs Temp Pulse Resp BP Pulse Ox 98.2 F 99 H 18 117/64 94 L 06/30/16 06:02 06/30/16 06:02 06/30/16 06:02 06/30/16 06:02 06/29/16 21:00 HEENT: JAMARI, EOM Intact Oropharynx: No thrush, No mucositis, missing teeth Cor: RSR, Systolic murmur Abd: Soft, Normal bowel sounds, No organomegaly Ext:No significant edema Skin: No rashes, Integument intact CBC, BMP 06/30/16 06:00 06/30/16 06:00 Current Medications Generic Name Dose Route Start Last Admin Trade Name Freq PRN Reason Stop Dose Admin Acetaminophen 650 mg 06/13/16 16:43 06/24/16 16:38 Tylenol - PO 650 mg Q6H PRN Administration FEVER OVER 101 Acetylcysteine 200 mg 06/17/16 11:30 06/30/16 10:40 Mucomyst 20 Oral / Inh Use Only* NEB 200 mg BID JATINDER Administration Arformoterol Tartrate 1 amp 06/17/16 11:30 06/30/16 10:40 Brovana (Restricted To Pulmonology/Resp) - NEB 1 amp BID JATINDER Administration Diltiazem HCl 180 mg 06/13/16 10:00 06/30/16 10:45 Cardizem Cd - PO 180 mg DAILY JATINDER Administration Dronabinol 5 mg 06/29/16 22:00 06/30/16 10:45 Marinol - PO 5 mg BID JATINDER Administration Febuxostat 40 mg 06/14/16 20:00 06/30/16 11:10 Uloric - PO 40 mg DAILY JATINDER Administration Guaifenesin 1 tablet 06/28/16 22:00 06/30/16 11:11 Mucinex Dm - PO 1 tablet BID JATINDER Administration Imipenem/Cilastatin Sodium 500 100 mls @ 100 mls/hr 06/25/16 15:00 06/30/16 10: 00 mg/ Sodium Chloride IVPB 100 mls/hr Q6H-IV JATINDER Administration Protocol Ondansetron HCl 4 mg 06/16/16 11:49 06/28/16 21:39 Zofran Injection IVPB 4 mg Q6H PRN Administration NAUSEA Valacyclovir HCl 500 mg 06/15/16 10:00 06/30/16 10:45 Valtrex - PO 500 mg DAILY JATINDER Administration Voriconazole 100 mg 06/27/16 22:00 06/30/16 10:45 Vfend (Restricted To Id) PO 100 mg BID JATINDER Administration Warfarin Sodium 3 mg 06/21/16 18:00 06/29/16 17:19 Coumadin - PO 3 mg DAILY@1800 JATINDER Administration Impression: AML- not in remission Pancytopenia Bilobar pneumonia A/C H/O DVT Continue antibiotics per I.D. Check INR. Problem List - Problems (1) AML (acute myelogenous leukemia) Code(s): C92.00 - ACUTE MYELOBLASTIC LEUKEMIA, NOT HAVING ACHIEVED REMISSION Qualifiers: Leukemia Active/Remission status: without remission Qualified Code(s ): C92.00 - Acute myeloblastic leukemia, not having achieved remission (2) Atrial fibrillation Code(s): I48.91 - UNSPECIFIED ATRIAL FIBRILLATION (3) DVT (deep venous thrombosis) Code(s): I82.409 - ACUTE EMBOLISM AND THOMBOS UNSP DEEP VN UNSP LOWER EXTREMITY Qualifiers: Laterality: left Chronicity: chronic (4) Febrile neutropenia Code(s): D70.9 - NEUTROPENIA, UNSPECIFIED R50.81 - FEVER PRESENTING WITH CONDITIONS CLASSIFIED ELSEWHERE (5) Pneumonia Code(s): J18.9 - PNEUMONIA, UNSPECIFIED ORGANISM Qualifiers: Lung location: lower lobe of lung Qualified Code(s): J13 - Pneumonia due to Streptococcus pneumoniae
[2016-06-30 14:09] LABS: HYPOCHROMIA 2+; PLATELET COMMENT2 NO CLOTTING DETECTED; PLATELET ESTIMATE DECREASED (NORMAL); SMUDGE CELLS FEW
[2016-06-30 14:10] LABS: ANISOCYTOSIS 2+
[2016-06-30] MEDS: WARFARIN NA 3 MG TABLET PO SCH (17:42)
[2016-07-01] MEDS: IMIPENEM/CILASTATIN SODIUM 500 MG in SODIUM CHLORIDE 100 ML IVPB SCH ×4 (02:09→23:06)
[2016-07-01 07:40] LABS: MCH 33.6 pg (25.7-33.7); MCHC 34.4 g/dl (32.0-36.0); MEAN CELL VOLUME 97.9 fl (80-96); MEAN PLT VOLUME 7.7 fl (7.5-11.1); PLATELET COUNT 104 K/MM3 (134-434); RDW 23.4 % (11.6-15.6)
[2016-07-01 07:55] LABS: CALCIUM 8.6 mg/dL (8.5-10.1); CREATININE 0.4 mg/dL (0.55-1.02); MAGNESIUM 2.3 mg/dL (1.8-2.4); PHOSPHOROUS 2.7 mg/dL (2.5-4.9)
[2016-07-01 08:03] LABS: INR 1.66 (0.82-1.09); PROTHROMBIN TIME (PATIENT) 18.4 SEC (9.98-11.88)
[2016-07-01 08:16] LABS: WHITE BLOOD COUNT 0.6 K/mm3 (4.0-10.0)
[2016-07-01] MEDS ORDERED: PT OWN MED DRAWER 7, Y5N ONE ×2 (08:48→14:58)
[2016-07-01] MEDS: ARFORMOTEROL TARTRATE 15 MCG/2 ML VIAL NEB SCH ×2 (09:56→22:22)
[2016-07-01] MEDS: ACETYLCYSTEINE 20% 200MG/ML 4 ML VIAL *FOR ORAL / INH USE ONLY NEB SCH ×2 (09:57→22:23)
[2016-07-01] MEDS: DRONABINOL 5 MG CAPSULE PO SCH ×2 (10:16→23:06)
[2016-07-01] MEDS: guaiFENesin/D-METHORPHAN HB 1 EACH TAB.ER.12H PO SCH ×2 (10:17→23:07)
[2016-07-01] MEDS: FEBUXOSTAT 40 MG TAB PO SCH (10:17)
[2016-07-01] MEDS: valACYclovir HCL 500 MG TABLET (FP) PO SCH (10:17)
[2016-07-01] MEDS: VORICONAZOLE 50 MG TABLET (RESTRICTED TO ID) PO SCH ×2 (10:17→23:07)
--- NOTE | 2016-07-01 11:36 | PN ---
Progress Note (short form) - Note Progress Note: PULMONARY/MED Denies shortness of breath. No fevers or chills. Occasional cough. Last Vital Signs Temp Pulse Resp BP Pulse Ox 97 F L 91 H 20 119/59 95 07/01/16 10:36 07/01/16 10:36 07/01/16 10:36 07/01/16 10:36 07/01/16 09:00 Gen: NAD at rest Heart: irregular Lung: bibasilar rales Abd: soft, nontender Ext: no edema CBC, BMP 07/01/16 06:00 07/01/16 06:00 Active Medications Acetaminophen (Tylenol -) 650 mg PO Q6H PRN PRN Reason: FEVER OVER 101 Last Admin: 06/24/16 16:38 Dose: 650 mg Acetylcysteine (Mucomyst 20 Oral / Inh Use Only*) 200 mg NEB BID [facility] Last Admin: 07/01/16 09:57 Dose: 200 mg Arformoterol Tartrate (Brovana (Restricted To Pulmonology/Resp) -) 1 amp NEB BID [facility] Last Admin: 07/01/16 09:56 Dose: 1 amp Diltiazem HCl (Cardizem Cd -) 180 mg PO DAILY [facility] Last Admin: 07/01/16 10:12 Dose: 180 mg Dronabinol (Marinol -) 5 mg PO BID [facility] Last Admin: 07/01/16 10:16 Dose: 5 mg Febuxostat (Uloric -) 40 mg PO DAILY [facility] Last Admin: 07/01/16 10:17 Dose: 40 mg Guaifenesin (Mucinex Dm -) 1 tablet PO BID [facility] Last Admin: 07/01/16 10:17 Dose: 1 tablet Imipenem/Cilastatin Sodium 500 (mg/ Sodium Chloride) 100 mls @ 100 mls/hr IVPB Q6H-IV JATINDER PRN Reason: Protocol Last Admin: 07/01/16 09:30 Dose: 100 mls/hr Ondansetron HCl (Zofran Injection) 4 mg IVPB Q6H PRN PRN Reason: NAUSEA Last Admin: 06/28/16 21:39 Dose: 4 mg Valacyclovir HCl (Valtrex -) 500 mg PO DAILY [facility] Last Admin: 07/01/16 10:17 Dose: 500 mg Voriconazole (Vfend (Restricted To Id)) 100 mg PO BID [facility] Last Admin: 07/01/16 10:17 Dose: 100 mg Warfarin Sodium (Coumadin -) 3 mg PO DAILY@1800 [facility] Last Admin: 06/30/16 17:42 Dose: 3 mg A/P Pneumonia Neutropenia AML s/p recent SHILPI-C DVT Atrial Fibrillation - continue antibiotics per ID - monitor CBC - transfuse as needed - inhaled bronchodilators - rate control - continue anticoagulation - o2 as needed - continue discussions regarding goals of care, advanced directives
--- NOTE | 2016-07-01 12:32 | PN ---
Progress Note (short form) - Note Progress Note: Patient seen and examined No chest pains, SOB, dysnea Weak and required assistance in ambulation from bed to BR. Some tremors Last Vital Signs Temp Pulse Resp BP Pulse Ox 97 F L 91 H 20 119/59 95 07/01/16 10:36 07/01/16 10:36 07/01/16 10:36 07/01/16 10:36 07/01/16 09:00 HEENT: JAMARI, EOM Intact Oropharynx: No thrush, No mucositis, missing teeth Cor: RSR, systolic murmur Lungs: bronchial breath sounds, rales at bases bilaterally, kyphosis Abd: Soft, Normal bowel sounds, No organomegaly Ext:No significant edema Skin: No rashes, Integument intact CBC, BMP 07/01/16 06:00 07/01/16 06:00 INR, PTT INR 1.66 (0.82-1.09) H 07/01/16 06:00 Impression: AML -not in remission Pneumonia Neutropenia Anemia a/c- subtherapeutic Plan: Increase coumadin Continue antibiotics Problem List - Problems (1) AML (acute myelogenous leukemia) Code(s): C92.00 - ACUTE MYELOBLASTIC LEUKEMIA, NOT HAVING ACHIEVED REMISSION Qualifiers: Leukemia Active/Remission status: without remission Qualified Code(s ): C92.00 - Acute myeloblastic leukemia, not having achieved remission (2) Atrial fibrillation Code(s): I48.91 - UNSPECIFIED ATRIAL FIBRILLATION (3) DVT (deep venous thrombosis) Code(s): I82.409 - ACUTE EMBOLISM AND THOMBOS UNSP DEEP VN UNSP LOWER EXTREMITY Qualifiers: Laterality: left Chronicity: chronic (4) Febrile neutropenia Code(s): D70.9 - NEUTROPENIA, UNSPECIFIED R50.81 - FEVER PRESENTING WITH CONDITIONS CLASSIFIED ELSEWHERE (5) Pneumonia Code(s): J18.9 - PNEUMONIA, UNSPECIFIED ORGANISM Qualifiers: Lung location: lower lobe of lung Qualified Code(s): J13 - Pneumonia due to Streptococcus pneumoniae
[2016-07-01 15:17] LABS: PLATELET ESTIMATE DECREASED (NORMAL)
[2016-07-01 15:19] LABS: ANISOCYTOSIS 2+; HYPOCHROMIA 1+
[2016-07-01] MEDS: WARFARIN NA 5 MG TABLET (UD) PO SCH (18:17)
[2016-07-02] MEDS: IMIPENEM/CILASTATIN SODIUM 500 MG in SODIUM CHLORIDE 100 ML IVPB SCH ×4 (03:20→20:53)
[2016-07-02 08:17] LABS: MCH 33.5 pg (25.7-33.7); MEAN CELL VOLUME 98.5 fl (80-96); MEAN PLT VOLUME 7.6 fl (7.5-11.1); PLATELET COUNT 117 K/MM3 (134-434); RDW 23.3 % (11.6-15.6)
[2016-07-02 08:21] LABS: WHITE BLOOD COUNT 0.6 K/mm3 (4.0-10.0)
[2016-07-02 08:36] LABS: INR 1.66 (0.82-1.09); PROTHROMBIN TIME (PATIENT) 18.4 SEC (9.98-11.88)
[2016-07-02 08:44] LABS: ALBUMIN 2.6 g/dl (3.4-5.0); ANION GAP 8 (8-16); CALCIUM 8.6 mg/dL (8.5-10.1); CO2 29 mmol/L (21-32); CREATININE 0.5 mg/dL (0.55-1.02); GLUCOSE,RANDOM 101 mg/dL (74-106); MAGNESIUM 2.3 mg/dL (1.8-2.4); SGPT/ALT 14 U/L (12-78)
[2016-07-02 08:50] LABS: ALK PHOS 69 U/L (45-117); BILIRUBIN,TOTAL 0.6 mg/dL (0.2-1.0); PHOSPHOROUS 2.5 mg/dL (2.5-4.9); SGOT/AST 15 U/L (15-37); TOT PROT 7.5 g/dl (6.4-8.2)
[2016-07-02] MEDS: ARFORMOTEROL TARTRATE 15 MCG/2 ML VIAL NEB SCH ×2 (10:10→21:45)
[2016-07-02] MEDS: ACETYLCYSTEINE 20% 200MG/ML 4 ML VIAL *FOR ORAL / INH USE ONLY NEB SCH ×2 (10:10→21:45)
[2016-07-02] MEDS ORDERED: PT OWN MED DRAWER 7, Y5N ONE (10:53)
[2016-07-02] MEDS: guaiFENesin/D-METHORPHAN HB 1 EACH TAB.ER.12H PO SCH ×2 (11:34→22:41)
--- NOTE | 2016-07-02 11:51 | PN ---
Progress Note (short form) - Note Progress Note: remains afebrile has completed one week of imipenem now looks quite weak now dizzy yesterday no diarrhea appetite improved on marinol Vital Signs Period Temp Pulse Resp BP Sys/Barrios Pulse Ox Last 24 Hr 98 F-98.6 F 91-102 18-20 116-137/46-70 94 cor-rrr lungs decreased bs at bases abd soft,nt ext no edema port site no erythema CBC, BMP 07/02/16 06:00 07/02/16 06:00 a/p AML- not in remission continue neutropenia pneumonia remains on imipenem will d/w oncology
[2016-07-02] MEDS: valACYclovir HCL 500 MG TABLET (FP) PO SCH (12:39)
[2016-07-02] MEDS: DRONABINOL 5 MG CAPSULE PO SCH ×2 (12:39→22:41)
[2016-07-02] MEDS: VORICONAZOLE 50 MG TABLET (RESTRICTED TO ID) PO SCH ×2 (12:41→22:42)
[2016-07-02] MEDS: FEBUXOSTAT 40 MG TAB PO SCH (12:42)
--- NOTE | 2016-07-02 16:30 | PN ---
Progress Note, Physician History of Present Illness: PULMONARY ALERT,NAD,OOB-CHAIR,-SOB. - Current Medication List Current Medications: Active Medications Acetaminophen (Tylenol -) 650 mg PO Q6H PRN PRN Reason: FEVER OVER 101 Last Admin: 06/24/16 16:38 Dose: 650 mg Acetylcysteine (Mucomyst 20 Oral / Inh Use Only*) 200 mg NEB BID [facility] Last Admin: 07/02/16 10:10 Dose: 200 mg Arformoterol Tartrate (Brovana (Restricted To Pulmonology/Resp) -) 1 amp NEB BID [facility] Last Admin: 07/02/16 10:10 Dose: 1 amp Diltiazem HCl (Cardizem Cd -) 180 mg PO DAILY [facility] Last Admin: 07/02/16 10:40 Dose: 180 mg Dronabinol (Marinol -) 5 mg PO BID [facility] Last Admin: 07/02/16 12:39 Dose: 5 mg Febuxostat (Uloric -) 40 mg PO DAILY [facility] Last Admin: 07/02/16 12:42 Dose: 40 mg Guaifenesin (Mucinex Dm -) 1 tablet PO BID [facility] Last Admin: 07/02/16 11:34 Dose: 1 tablet Imipenem/Cilastatin Sodium 500 (mg/ Sodium Chloride) 100 mls @ 100 mls/hr IVPB Q6H-IV JATINDER PRN Reason: Protocol Last Admin: 07/02/16 10:00 Dose: 100 mls/hr Ondansetron HCl (Zofran Injection) 4 mg IVPB Q6H PRN PRN Reason: NAUSEA Last Admin: 06/28/16 21:39 Dose: 4 mg Valacyclovir HCl (Valtrex -) 500 mg PO DAILY [facility] Last Admin: 07/02/16 12:39 Dose: 500 mg Voriconazole (Vfend (Restricted To Id)) 100 mg PO BID [facility] Last Admin: 07/02/16 12:41 Dose: 100 mg Warfarin Sodium (Coumadin -) 5 mg PO DAILY@1800 [facility] Last Admin: 07/01/16 18:17 Dose: 5 mg - Objective Vital Signs: Vital Signs Temperature 97.9 F 07/02/16 15:20 Pulse Rate 95 H 07/02/16 15:20 Respiratory Rate 20 07/02/16 15:20 Blood Pressure 129/52 07/02/16 09:00 O2 Sat by Pulse Oximetry (%) 96 07/02/16 09:00 Constitutional: Yes: Calm, Thin Eyes: Yes: WNL HENT: Yes: WNL Neck: Yes: WNL Cardiovascular: Yes: Pulse Irregular, S1, S2 Respiratory: Yes: Diminished Gastrointestinal: Yes: Normal Bowel Sounds, Soft Extremities: Yes: WNL Edema: No Labs: CBC, BMP 07/02/16 06:00 07/02/16 06:00 INR, PTT INR 1.66 (0.82-1.09) H 07/02/16 06:30 Assessment/Plan Problem List - Problems (1) AML (acute myelogenous leukemia) Code(s): C92.00 - ACUTE MYELOBLASTIC LEUKEMIA, NOT HAVING ACHIEVED REMISSION Qualifiers: Leukemia Active/Remission status: without remission Qualified Code(s ): C92.00 - Acute myeloblastic leukemia, not having achieved remission (2) Atrial fibrillation Code(s): I48.91 - UNSPECIFIED ATRIAL FIBRILLATION (3) DVT (deep venous thrombosis) Code(s): I82.409 - ACUTE EMBOLISM AND THOMBOS UNSP DEEP VN UNSP LOWER EXTREMITY Qualifiers: Laterality: left Chronicity: chronic (4) Febrile neutropenia Code(s): D70.9 - NEUTROPENIA, UNSPECIFIED R50.81 - FEVER PRESENTING WITH CONDITIONS CLASSIFIED ELSEWHERE (5) GERD (gastroesophageal reflux disease) Code(s): K21.9 - GASTRO-ESOPHAGEAL REFLUX DISEASE WITHOUT ESOPHAGITIS (6) Pneumonia Code(s): J18.9 - PNEUMONIA, UNSPECIFIED ORGANISM Assessment/Plan ACUTE BLAST CRISIS SUPERIMPOSED UPON PNEUMONIA AF DVT/ANTICOAGULATION RECENT SHILPI-C H/O ANTI-FUNGAL/ANTI-VIRAL/PCP PROPHYLAXSIS NEUTROPENIA PLAN NEUTROPENIC PRECAUTIONS ANTICOAGULATION O2 INHALED BRONCHODILATORS F/U CHEST X-RAYS DR MARKS
[2016-07-02] MEDS: WARFARIN NA 5 MG TABLET (UD) PO SCH (18:21)
--- NOTE | 2016-07-02 20:00 | PN ---
Progress Note (short form) - Note Progress Note: PAtient seen and examined 06/21 and 06/22/16 mild shortness of breath cough Last Vital Signs Temp Pulse Resp BP Pulse Ox 98.2 F 102 H 20 122/57 94 L 06/28/16 14:11 06/28/16 14:11 06/28/16 14:11 06/28/16 14:11 06/28/16 09:00 Cor: RSR, No murmurs, No gallops Lungs: decreased at bases Abd: Soft, Normal bowel sounds, No organomegaly Ext:No significant edema Abnormal Lab Results 06/27/16 06/27/16 06/27/16 06:30 06:30 06:30 RBC 2.07 L Hgb 7.1 L Hct 21.0 L MCV 101.4 H RDW 26.5 H Plt Count 104 L Neutrophils % 3.0 L Lymphocytes % 6.0 L D Blast Cells 91 H INR 1.82 H Creatinine 0.5 L Calcium 7.9 L Current Medications Acetaminophen (Tylenol -) 650 mg PO Q6H PRN PRN Reason: FEVER OVER 101 Last Admin: 06/24/16 16:38 Dose: 650 mg Acetylcysteine (Mucomyst 20 Oral / Inh Use Only*) 200 mg NEB BID [facility] Last Admin: 06/27/16 11:30 Dose: 200 mg Arformoterol Tartrate (Brovana (Restricted To Pulmonology/Resp) -) 1 amp NEB BID [facility] Last Admin: 06/27/16 11:30 Dose: 1 amp Diltiazem HCl (Cardizem Cd -) 180 mg PO DAILY [facility] Last Admin: 06/27/16 10:00 Dose: 180 mg Febuxostat (Uloric -) 40 mg PO DAILY [facility] Last Admin: 06/27/16 10:00 Dose: 40 mg Hydroxyurea (Hydrea -) 500 mg PO Q12H [facility] Last Admin: 06/27/16 10:00 Dose: 500 mg Imipenem/Cilastatin Sodium 500 (mg/ Sodium Chloride) 100 mls @ 100 mls/hr IVPB Q6H-IV JATINDER PRN Reason: Protocol Last Admin: 06/27/16 15:00 Dose: 100 mls/hr Ondansetron HCl (Zofran Injection) 4 mg IVPB Q6H PRN PRN Reason: NAUSEA Last Admin: 06/22/16 21:26 Dose: 4 mg Promethazine HCl/Dextromethorphan (Phenergan-Dm Syrup -) 5 ml PO Q4H PRN PRN Reason: COUGH Last Admin: 06/25/16 10:03 Dose: 5 ml Valacyclovir HCl (Valtrex -) 500 mg PO DAILY [facility] Last Admin: 06/27/16 10:00 Dose: 500 mg Voriconazole (Vfend (Restricted To Id)) 100 mg PO BID [facility] Warfarin Sodium (Coumadin -) 3 mg PO DAILY@1800 [facility] Last Admin: 06/27/16 18:25 Dose: 3 mg A/P 80 y/o patient with AML on uloric on broad spectrum antibiotics--imipenem/voriconazole s/p PRBCs hold hydrea s/p fluoroscopy of port add mucinex DM for cough ongoing discussion regarding goals of care
[2016-07-03] MEDS: IMIPENEM/CILASTATIN SODIUM 500 MG in SODIUM CHLORIDE 100 ML IVPB SCH ×4 (02:01→22:10)
[2016-07-03] MEDS ORDERED: PT OWN MED DRAWER 7, Y5N ONE ×3 (09:11→21:10)
[2016-07-03] MEDS: ACETYLCYSTEINE 20% 200MG/ML 4 ML VIAL *FOR ORAL / INH USE ONLY NEB SCH ×2 (09:55→22:15)
[2016-07-03] MEDS: ARFORMOTEROL TARTRATE 15 MCG/2 ML VIAL NEB SCH ×2 (09:55→22:15)
[2016-07-03] MEDS: valACYclovir HCL 500 MG TABLET (FP) PO SCH (11:24)
[2016-07-03] MEDS: DRONABINOL 5 MG CAPSULE PO SCH ×2 (11:24→22:12)
[2016-07-03] MEDS: FEBUXOSTAT 40 MG TAB PO SCH (11:25)
[2016-07-03] MEDS: guaiFENesin/D-METHORPHAN HB 1 EACH TAB.ER.12H PO SCH ×2 (11:25→22:12)
[2016-07-03] MEDS: VORICONAZOLE 50 MG TABLET (RESTRICTED TO ID) PO SCH ×2 (11:41→22:13)
--- NOTE | 2016-07-03 13:09 | PN ---
Progress Note (short form) - Note Progress Note: PULMONARY/MED Denies shortness of breath. No fevers or chills. Occasional cough. Last Vital Signs Temp Pulse Resp BP Pulse Ox 97.6 F 94 H 20 109/43 96 07/03/16 06:01 07/03/16 06:01 07/03/16 06:01 07/03/16 06:01 07/02/16 20:50 Gen: NAD at rest Heart: irregular Lung: bibasilar rales Abd: soft, nontender Ext: no edema CBC, BMP 07/02/16 06:00 07/02/16 06:00 Active Medications Acetaminophen (Tylenol -) 650 mg PO Q6H PRN PRN Reason: FEVER OVER 101 Last Admin: 06/24/16 16:38 Dose: 650 mg Acetylcysteine (Mucomyst 20 Oral / Inh Use Only*) 200 mg NEB BID [facility] Last Admin: 07/03/16 09:55 Dose: 200 mg Arformoterol Tartrate (Brovana (Restricted To Pulmonology/Resp) -) 1 amp NEB BID [facility] Last Admin: 07/03/16 09:55 Dose: 1 amp Diltiazem HCl (Cardizem Cd -) 180 mg PO DAILY [facility] Last Admin: 07/03/16 11:24 Dose: 180 mg Dronabinol (Marinol -) 5 mg PO BID [facility] Last Admin: 07/03/16 11:24 Dose: 5 mg Febuxostat (Uloric -) 40 mg PO DAILY [facility] Last Admin: 07/03/16 11:25 Dose: 40 mg Guaifenesin (Mucinex Dm -) 1 tablet PO BID [facility] Last Admin: 07/03/16 11:25 Dose: 1 tablet Imipenem/Cilastatin Sodium 500 (mg/ Sodium Chloride) 100 mls @ 100 mls/hr IVPB Q6H-IV JATINDER PRN Reason: Protocol Last Admin: 07/03/16 09:59 Dose: 100 mls/hr Ondansetron HCl (Zofran Injection) 4 mg IVPB Q6H PRN PRN Reason: NAUSEA Last Admin: 06/28/16 21:39 Dose: 4 mg Valacyclovir HCl (Valtrex -) 500 mg PO DAILY [facility] Last Admin: 07/03/16 11:24 Dose: 500 mg Voriconazole (Vfend (Restricted To Id)) 100 mg PO BID [facility] Last Admin: 07/03/16 11:41 Dose: 100 mg Warfarin Sodium (Coumadin -) 5 mg PO DAILY@1800 [facility] Last Admin: 07/02/16 18:21 Dose: 5 mg A/P Pneumonia Neutropenia AML s/p recent SHILPI-C DVT Atrial Fibrillation - continue antibiotics per ID - monitor CBC - transfuse as needed - inhaled bronchodilators - rate control - continue anticoagulation - humidify O2 - rehab/PT - continue discussions regarding goals of care, advanced directives - discuss with ID length of antibiotic course
--- NOTE | 2016-07-03 17:07 | PN ---
Progress Note (short form) - Note Progress Note: Patient seen and examined Still with heart burn No chest pain . minimal cough No diarrhea,moving bowels Last Vital Signs Temp Pulse Resp BP Pulse Ox 98.8 F 100 H 20 105/43 96 07/03/16 15:05 07/03/16 15:05 07/03/16 15:05 07/03/16 15:05 07/03/16 09:00 HEENT: JAMARI, EOM Intact Oropharynx: No thrush, No mucositis Neck: Supple Nodes: Without adenopathy Cor: RSR, No murmurs, No gallops Lungs:kyphosis ;diminished breath sounds Abd: Soft, Normal bowel sounds, No organomegaly Ext:No significant edema Skin: No rashes, Integument intact No labs- to order Impression: AML not in remission pancytopenia Pneumonia Plan: check labs continue with antibiotics. Problem List - Problems (1) AML (acute myelogenous leukemia) Code(s): C92.00 - ACUTE MYELOBLASTIC LEUKEMIA, NOT HAVING ACHIEVED REMISSION Qualifiers: Leukemia Active/Remission status: without remission Qualified Code(s ): C92.00 - Acute myeloblastic leukemia, not having achieved remission (2) Atrial fibrillation Code(s): I48.91 - UNSPECIFIED ATRIAL FIBRILLATION (3) DVT (deep venous thrombosis) Code(s): I82.409 - ACUTE EMBOLISM AND THOMBOS UNSP DEEP VN UNSP LOWER EXTREMITY Qualifiers: Laterality: left Chronicity: chronic (4) Febrile neutropenia Code(s): D70.9 - NEUTROPENIA, UNSPECIFIED R50.81 - FEVER PRESENTING WITH CONDITIONS CLASSIFIED ELSEWHERE (5) Pneumonia Code(s): J18.9 - PNEUMONIA, UNSPECIFIED ORGANISM Qualifiers: Lung location: lower lobe of lung Qualified Code(s): J13 - Pneumonia due to Streptococcus pneumoniae
[2016-07-03 17:52] LABS: MCH 33.5 pg (25.7-33.7); MEAN CELL VOLUME 98.7 fl (80-96); MEAN PLT VOLUME 7.7 fl (7.5-11.1); PLATELET COUNT 164 K/MM3 (134-434); RDW 23.3 % (11.6-15.6); WHITE BLOOD COUNT 0.5 K/mm3 (4.0-10.0)
[2016-07-03 18:10] LABS: INR 1.89 (0.82-1.09); PROTHROMBIN TIME (PATIENT) 21.1 SEC (9.98-11.88)
[2016-07-03] MEDS: WARFARIN NA 5 MG TABLET (UD) PO SCH (19:03)
[2016-07-04] MEDS ORDERED: PT OWN MED DRAWER 7, Y5N ONE ×4 (03:20→22:24)
[2016-07-04] MEDS: IMIPENEM/CILASTATIN SODIUM 500 MG in SODIUM CHLORIDE 100 ML IVPB SCH ×4 (03:26→22:43)
[2016-07-04 07:35] LABS: MCH 33.3 pg (25.7-33.7); MCHC 33.7 g/dl (32.0-36.0); MEAN PLT VOLUME 7.6 fl (7.5-11.1); PLATELET COUNT 133 K/MM3 (134-434); RDW 22.9 % (11.6-15.6)
[2016-07-04 07:51] LABS: INR 1.95 (0.82-1.09); PROTHROMBIN TIME (PATIENT) 21.8 SEC (9.98-11.88)
[2016-07-04 08:16] LABS: WHITE BLOOD COUNT 0.6 K/mm3 (4.0-10.0)
[2016-07-04] MEDS: DRONABINOL 5 MG CAPSULE PO SCH ×2 (09:18→22:41)
[2016-07-04] MEDS: valACYclovir HCL 500 MG TABLET (FP) PO SCH (09:18)
[2016-07-04] MEDS: FEBUXOSTAT 40 MG TAB PO SCH (09:19)
[2016-07-04] MEDS: guaiFENesin/D-METHORPHAN HB 1 EACH TAB.ER.12H PO SCH ×2 (09:20→22:42)
[2016-07-04] MEDS: VORICONAZOLE 50 MG TABLET (RESTRICTED TO ID) PO SCH ×2 (09:20→22:42)
[2016-07-04 10:05] LABS: ALBUMIN 2.7 g/dl (3.4-5.0); ALK PHOS 68 U/L (45-117); ANION GAP 10 (8-16); BILIRUBIN,TOTAL 0.5 mg/dL (0.2-1.0); CALCIUM 8.3 mg/dL (8.5-10.1); CO2 26 mmol/L (21-32); CREATININE 0.4 mg/dL (0.55-1.02); GLUCOSE,RANDOM 87 mg/dL (74-106); MAGNESIUM 2.2 mg/dL (1.8-2.4); PHOSPHOROUS 2.3 mg/dL (2.5-4.9); SGOT/AST 12 U/L (15-37); SGPT/ALT 12 U/L (12-78); TOT PROT 7.3 g/dl (6.4-8.2)
--- NOTE | 2016-07-04 10:12 | PN ---
Progress Note (short form) - Note Progress Note: PULMONARY DAY #10 IMIPENEM OOB TO CHAIR/POOR APPETITE FRAIL/CHRONICALLY ILL IN APPEARANCE VSS/AFEBRILE ANICTERIC DISTANT SCATTERED RHONCHI S1S2 BS+ SOFT NO EDEMA LABS/MEDS/NOTES/IMAGING REVIEWED MILD IMPROVEMENT IN RADIOGRAPH NEUTROPENIC PNEUMONIA AML SHILPI-C CONTINUE ANTIBIOTICS/FLUIDS/O2 PRN/ANTI-VIRAL/ANTI-FUNGAL HAVE DISCUSSED GOALS OF CARE Maritza BOUCHER MD Problem List - Problems (1) AML (acute myelogenous leukemia) Code(s): C92.00 - ACUTE MYELOBLASTIC LEUKEMIA, NOT HAVING ACHIEVED REMISSION Qualifiers: Leukemia Active/Remission status: without remission Qualified Code(s ): C92.00 - Acute myeloblastic leukemia, not having achieved remission (2) Atrial fibrillation Code(s): I48.91 - UNSPECIFIED ATRIAL FIBRILLATION (3) DVT (deep venous thrombosis) Code(s): I82.409 - ACUTE EMBOLISM AND THOMBOS UNSP DEEP VN UNSP LOWER EXTREMITY Qualifiers: Laterality: left Chronicity: chronic (4) Febrile neutropenia Code(s): D70.9 - NEUTROPENIA, UNSPECIFIED R50.81 - FEVER PRESENTING WITH CONDITIONS CLASSIFIED ELSEWHERE (5) GERD (gastroesophageal reflux disease) Code(s): K21.9 - GASTRO-ESOPHAGEAL REFLUX DISEASE WITHOUT ESOPHAGITIS (6) Pneumonia Code(s): J18.9 - PNEUMONIA, UNSPECIFIED ORGANISM Qualifiers: Lung location: lower lobe of lung Qualified Code(s): J13 - Pneumonia due to Streptococcus pneumoniae
[2016-07-04] MEDS: ACETYLCYSTEINE 20% 200MG/ML 4 ML VIAL *FOR ORAL / INH USE ONLY NEB SCH ×2 (10:40→22:30)
[2016-07-04] MEDS: ARFORMOTEROL TARTRATE 15 MCG/2 ML VIAL NEB SCH ×2 (10:40→22:30)
--- NOTE | 2016-07-04 15:57 | PN ---
Progress Note (short form) - Note Progress Note: remains afebrile day #9 imipenem no diarrhea appetite improved on marinol Vital Signs Period Temp Pulse Resp BP Sys/Barrios Pulse Ox Last 24 Hr 97.6 F-98.5 F 86-112 20-20 113-126/52-63 95-98 cor-rrr lungs decreased bs at bases abd soft,nt ext no edema CBC, BMP 07/04/16 06:00 07/04/16 06:00 a/p AML- not in remission continue neutropenia pneumonia remains on imipenem repeat cxray today
[2016-07-04] MEDS: WARFARIN NA 5 MG TABLET (UD) PO SCH (17:30)
--- NOTE | 2016-07-04 22:40 | PN ---
Progress Note (short form) - Note Progress Note: PAtient seen and examined 06/21 and 06/22/16 feels better Last Vital Signs Temp Pulse Resp BP Pulse Ox 97.9 F 94 H 20 123/50 96 07/04/16 20:49 07/04/16 20:49 07/04/16 20:49 07/04/16 20:49 07/04/16 20:49 Cor: RSR, No murmurs, No gallops Lungs: decreased at bases Abd: Soft, Normal bowel sounds, No organomegaly Ext:No significant edema Abnormal Lab Results 07/04/16 07/04/16 07/04/16 06:00 06:00 06:00 WBC 0.6 L RBC 2.30 L Hgb 7.7 L D Hct 22.8 L MCV 99.0 H RDW 22.9 H Plt Count 133 L Neutrophils % 6.0 L D Lymphocytes % 80.0 H Blast Cells 8 H INR 1.95 H Creatinine 0.4 L Calcium 8.3 L Phosphorus 2.3 L AST 12 L Albumin 2.7 L Current Medications Generic Name Dose Route Start Last Admin Trade Name Freq PRN Reason Stop Dose Admin Acetaminophen 650 mg 06/13/16 16:43 06/24/16 16:38 Tylenol - PO 650 mg Q6H PRN Administration FEVER OVER 101 Acetylcysteine 200 mg 06/17/16 11:30 07/04/16 10:40 Mucomyst 20 Oral / Inh Use Only* NEB 200 mg BID JATINDER Administration Arformoterol Tartrate 1 amp 06/17/16 11:30 07/04/16 10:40 Brovana (Restricted To Pulmonology/Resp) - NEB 1 amp BID JATINDER Administration Diltiazem HCl 180 mg 06/13/16 10:00 07/04/16 09:18 Cardizem Cd - PO 180 mg DAILY JATINDER Administration Dronabinol 5 mg 06/29/16 22:00 07/04/16 09:18 Marinol - PO 5 mg BID JATINDER Administration Febuxostat 40 mg 06/14/16 20:00 07/04/16 09:19 Uloric - PO 40 mg DAILY JATINDER Administration Guaifenesin 1 tablet 06/28/16 22:00 07/04/16 09:20 Mucinex Dm - PO 1 tablet BID JATINDER Administration Imipenem/Cilastatin Sodium 500 100 mls @ 100 mls/hr 06/25/16 15:00 07/04/16 15: 35 mg/ Sodium Chloride IVPB 100 mls/hr Q6H-IV JATINDER Administration Protocol Ondansetron HCl 4 mg 06/16/16 11:49 06/28/16 21:39 Zofran Injection IVPB 4 mg Q6H PRN Administration NAUSEA Valacyclovir HCl 500 mg 06/15/16 10:00 07/04/16 09:18 Valtrex - PO 500 mg DAILY JATINDER Administration Voriconazole 100 mg 06/27/16 22:00 07/04/16 09:20 Vfend (Restricted To Id) PO 100 mg BID JATINDER Administration Warfarin Sodium 5 mg 07/01/16 18:00 07/04/16 17:30 Coumadin - PO 5 mg DAILY@1800 JATINDER Administration A/P 80 y/o patient with AML on uloric on broad spectrum antibiotics--imipenem/voriconazole s/p PRBCs hold hydrea s/p fluoroscopy of port add mucinex DM for cough ongoing discussion regarding goals of care
[2016-07-05] MEDS: IMIPENEM/CILASTATIN SODIUM 500 MG in SODIUM CHLORIDE 100 ML IVPB SCH ×2 (04:13→08:38)
[2016-07-05] MEDS ORDERED: PT OWN MED DRAWER 7, Y5N ONE ×3 (08:35→14:58)
--- NOTE | 2016-07-05 09:34 | PN ---
Progress Note (short form) - Note Progress Note: Looks slightly better overall. Some dry cough. Generalized weakness. CXR: some radiographic improvement Intake & Output 07/02/16 07/03/16 07/04/16 07/05/16 23:59 23:59 23:59 23:59 Intake Total 500 520 600 200 Balance 500 520 600 200 Last Vital Signs Temp Pulse Resp BP Pulse Ox 98.1 F 89 20 111/60 96 07/05/16 05:40 07/05/16 05:40 07/05/16 05:40 07/05/16 05:40 07/04/16 20:49 Active Medications Acetaminophen (Tylenol -) 650 mg PO Q6H PRN PRN Reason: FEVER OVER 101 Last Admin: 06/24/16 16:38 Dose: 650 mg Acetylcysteine (Mucomyst 20 Oral / Inh Use Only*) 200 mg NEB BID [facility] Last Admin: 07/04/16 22:30 Dose: 200 mg Arformoterol Tartrate (Brovana (Restricted To Pulmonology/Resp) -) 1 amp NEB BID [facility] Last Admin: 07/04/16 22:30 Dose: 1 amp Diltiazem HCl (Cardizem Cd -) 180 mg PO DAILY [facility] Last Admin: 07/04/16 09:18 Dose: 180 mg Dronabinol (Marinol -) 5 mg PO BID [facility] Last Admin: 07/04/16 22:41 Dose: 5 mg Febuxostat (Uloric -) 40 mg PO DAILY [facility] Last Admin: 07/04/16 09:19 Dose: 40 mg Guaifenesin (Mucinex Dm -) 1 tablet PO BID [facility] Last Admin: 07/04/16 22:42 Dose: 1 tablet Imipenem/Cilastatin Sodium 500 (mg/ Sodium Chloride) 100 mls @ 100 mls/hr IVPB Q6H-IV JATINDER PRN Reason: Protocol Last Admin: 07/05/16 08:38 Dose: 100 mls/hr Ondansetron HCl (Zofran Injection) 4 mg IVPB Q6H PRN PRN Reason: NAUSEA Last Admin: 06/28/16 21:39 Dose: 4 mg Valacyclovir HCl (Valtrex -) 500 mg PO DAILY [facility] Last Admin: 07/04/16 09:18 Dose: 500 mg Voriconazole (Vfend (Restricted To Id)) 100 mg PO BID [facility] Warfarin Sodium (Coumadin -) 5 mg PO DAILY@1800 [facility] Last Admin: 07/04/16 17:30 Dose: 5 mg Gen: NAD at rest Heart: irregular Lung: bibasilar rhonchi Abd: soft, nontender Ext: no edema Laboratory Results - last 24 hr 07/04/16 07/04/16 06:00 06:00 Neutrophils % 6.0 L D Lymphocytes % 80.0 H Monocytes % 6.0 Blast Cells 8 H Sodium 141 Potassium 4.1 Chloride 105 Carbon Dioxide 26 Anion Gap 10 BUN 16 Creatinine 0.4 L Creat Clearance w eGFR > 60 Random Glucose 87 Calcium 8.3 L Phosphorus 2.3 L Magnesium 2.2 Total Bilirubin 0.5 AST 12 L ALT 12 Alkaline Phosphatase 68 Total Protein 7.3 Albumin 2.7 L IMP: Pneumonia Neutropenia AML s/p recent SHILPI-C -> Not in remission DVT Atrial Fibrillation Anemia - continue antibiotics per ID -> Will D/W ID ABX course - monitor CBC - transfuse as needed - inhaled bronchodilators - Follow INR - O2 as needed - rehab/PT - ongoing discussions regarding goals of care, advanced directives Dr Marquez
[2016-07-05] MEDS: DRONABINOL 5 MG CAPSULE PO SCH ×2 (10:14→22:19)
[2016-07-05] MEDS: guaiFENesin/D-METHORPHAN HB 1 EACH TAB.ER.12H PO SCH ×2 (10:15→22:19)
[2016-07-05 10:16] LABS: MCH 33.6 pg (25.7-33.7); MCHC 33.7 g/dl (32.0-36.0); MEAN CELL VOLUME 99.8 fl (80-96); MEAN PLT VOLUME 7.2 fl (7.5-11.1); PLATELET COUNT 157 K/MM3 (134-434); RDW 23.5 % (11.6-15.6)
[2016-07-05] MEDS: VORICONAZOLE 200 MG TABLET (RESTRICTED TO ID) PO SCH ×2 (10:16→22:19)
[2016-07-05] MEDS: FEBUXOSTAT 40 MG TAB PO SCH (10:19)
[2016-07-05 10:24] LABS: INR 2.21 (0.82-1.09); PROTHROMBIN TIME (PATIENT) 24.7 SEC (9.98-11.88)
[2016-07-05] MEDS: ARFORMOTEROL TARTRATE 15 MCG/2 ML VIAL NEB SCH ×2 (10:30→22:23)
[2016-07-05] MEDS: ACETYLCYSTEINE 20% 200MG/ML 4 ML VIAL *FOR ORAL / INH USE ONLY NEB SCH ×2 (10:30→22:23)
[2016-07-05 10:55] LABS: WHITE BLOOD COUNT 0.6 K/mm3 (4.0-10.0)
[2016-07-05 11:21] LABS: ALBUMIN 2.7 g/dl (3.4-5.0); ALK PHOS 75 U/L (45-117); ANION GAP 8 (8-16); BILIRUBIN,TOTAL 0.5 mg/dL (0.2-1.0); CALCIUM 8.6 mg/dL (8.5-10.1); CO2 28 mmol/L (21-32); CREATININE 0.5 mg/dL (0.55-1.02); GLUCOSE,RANDOM 112 mg/dL (74-106); SGOT/AST 14 U/L (15-37); SGPT/ALT 15 U/L (12-78); TOT PROT 7.5 g/dl (6.4-8.2)
[2016-07-05] MEDS: valACYclovir HCL 500 MG TABLET (FP) PO SCH (13:40)
--- NOTE | 2016-07-05 14:02 | PN ---
Progress Note, Physician Chief Complaint: Perhaps looks best she has looked Day 10 Imipenem No fever distress - Current Medication List Current Medications: Active Medications Acetaminophen (Tylenol -) 650 mg PO Q6H PRN PRN Reason: FEVER OVER 101 Last Admin: 06/24/16 16:38 Dose: 650 mg Acetylcysteine (Mucomyst 20 Oral / Inh Use Only*) 200 mg NEB BID [facility] Last Admin: 07/05/16 10:30 Dose: 200 mg Arformoterol Tartrate (Brovana (Restricted To Pulmonology/Resp) -) 1 amp NEB BID [facility] Last Admin: 07/05/16 10:30 Dose: 1 amp Diltiazem HCl (Cardizem Cd -) 180 mg PO DAILY [facility] Last Admin: 07/05/16 10:14 Dose: 180 mg Dronabinol (Marinol -) 5 mg PO BID [facility] Last Admin: 07/05/16 10:14 Dose: 5 mg Febuxostat (Uloric -) 40 mg PO DAILY [facility] Last Admin: 07/05/16 10:19 Dose: 40 mg Guaifenesin (Mucinex Dm -) 1 tablet PO BID [facility] Last Admin: 07/05/16 10:15 Dose: 1 tablet Imipenem/Cilastatin Sodium 500 (mg/ Sodium Chloride) 100 mls @ 100 mls/hr IVPB Q6H-IV JATINDER PRN Reason: Protocol Last Admin: 07/05/16 08:38 Dose: 100 mls/hr Ondansetron HCl (Zofran Injection) 4 mg IVPB Q6H PRN PRN Reason: NAUSEA Last Admin: 06/28/16 21:39 Dose: 4 mg Valacyclovir HCl (Valtrex -) 500 mg PO DAILY [facility] Last Admin: 07/05/16 13:40 Dose: 500 mg Voriconazole (Vfend (Restricted To Id)) 100 mg PO BID [facility] Last Admin: 07/05/16 10:16 Dose: 100 mg Warfarin Sodium (Coumadin -) 5 mg PO DAILY@1800 [facility] Last Admin: 07/04/16 17:30 Dose: 5 mg - Objective Vital Signs: Vital Signs Temperature 98.1 F 07/05/16 05:40 Pulse Rate 89 07/05/16 05:40 Respiratory Rate 20 07/05/16 05:40 Blood Pressure 111/60 07/05/16 05:40 O2 Sat by Pulse Oximetry (%) 96 07/04/16 20:49 Constitutional: Yes: Cachectic, Thin HENT: Yes: WNL, Atraumatic Neck: Yes: WNL, Supple Respiratory: Yes: Diminished. No: Rales, Tachypnea Gastrointestinal: Yes: Soft. No: Tenderness Edema: No Labs: CBC, BMP 07/05/16 09:45 07/05/16 09:45 INR, PTT INR 2.21 (0.82-1.09) H 07/05/16 09:45 Problem List - Problems (1) AML (acute myelogenous leukemia) Code(s): C92.00 - ACUTE MYELOBLASTIC LEUKEMIA, NOT HAVING ACHIEVED REMISSION Qualifiers: Leukemia Active/Remission status: without remission Qualified Code(s ): C92.00 - Acute myeloblastic leukemia, not having achieved remission (2) Febrile neutropenia Code(s): D70.9 - NEUTROPENIA, UNSPECIFIED R50.81 - FEVER PRESENTING WITH CONDITIONS CLASSIFIED ELSEWHERE (3) Neutropenia Code(s): D70.9 - NEUTROPENIA, UNSPECIFIED Qualifiers: Neutropenia type: secondary to cancer chemotherapy Qualified Code(s) : D70.1 - Agranulocytosis secondary to cancer chemotherapy (4) Pneumonia Code(s): J18.9 - PNEUMONIA, UNSPECIFIED ORGANISM Qualifiers: Lung location: lower lobe of lung Qualified Code(s): J13 - Pneumonia due to Streptococcus pneumoniae Assessment/Plan Laboratory Tests 07/05/16 07/05/16 09:45 09:45 WBC 0.6 L Hgb 7.9 L Hct 23.6 L Plt Count 157 BUN 16 Creatinine 0.5 L D Creat Clearance w eGFR > 60 Assessment Relapsed leukemia/ Resolving infiltrate unspecified etiolog/ Neutropenia Plan Stop Imipenem Ciproflox 500mg bid Consider discharge if hematology agrees ? NH transfer [facility]
--- NOTE | 2016-07-05 14:40 | PN ---
Progress Note (short form) - Note Progress Note: PAtient seen and examined 06/21 and 06/22/16 feels better Last Vital Signs Temp Pulse Resp BP Pulse Ox 98.3 F 93 H 20 111/60 96 07/05/16 14:10 07/05/16 14:10 07/05/16 14:10 07/05/16 05:40 07/04/16 20:49 Cor: RSR, No murmurs, No gallops Lungs: decreased at bases Abd: Soft, Normal bowel sounds, No organomegaly Ext:No significant edema Abnormal Lab Results 07/05/16 07/05/16 07/05/16 09:45 09:45 09:45 WBC 0.6 L RBC 2.36 L Hgb 7.9 L Hct 23.6 L MCV 99.8 H RDW 23.5 H MPV 7.2 L INR 2.21 H Creatinine 0.5 L D Random Glucose 112 H D AST 14 L Albumin 2.7 L A/P 80 y/o patient with AML on uloric on broad spectrum antibiotics--imipenem/voriconazole discussed with ID team -- switching to cipro now on cipro/valtrex/voriconazole continue supportive care discussions ongoing regarding placement with daughter
[2016-07-05] MEDS: WARFARIN NA 5 MG TABLET (UD) PO SCH (18:42)
[2016-07-05] MEDS: CIPROFLOXACIN 250 MG TABLET (RESTRICTED TO ID) PO SCH (22:18)
[2016-07-06 06:44] LABS: MCHC 33.7 g/dl (32.0-36.0); MEAN CELL VOLUME 100.8 fl (80-96); MEAN PLT VOLUME 7.5 fl (7.5-11.1); PLATELET COUNT 169 K/MM3 (134-434); RDW 24.3 % (11.6-15.6)
[2016-07-06 06:59] LABS: ALBUMIN 2.7 g/dl (3.4-5.0); ANION GAP 7 (8-16); CALCIUM 8.2 mg/dL (8.5-10.1); CO2 30 mmol/L (21-32); GLUCOSE,RANDOM 88 mg/dL (74-106); SGOT/AST 15 U/L (15-37); SGPT/ALT 13 U/L (12-78)
[2016-07-06 07:01] LABS: ALK PHOS 72 U/L (45-117); BILIRUBIN,TOTAL 0.6 mg/dL (0.2-1.0); CREATININE 0.4 mg/dL (0.55-1.02); INR 2.17 (0.82-1.09); PROTHROMBIN TIME (PATIENT) 24.2 SEC (9.98-11.88)
[2016-07-06 07:24] LABS: WHITE BLOOD COUNT 0.6 K/mm3 (4.0-10.0)
[2016-07-06] MEDS ORDERED: PT OWN MED DRAWER 7, Y5N ONE (09:26)
[2016-07-06 10:04] LABS: ANISOCYTOSIS 3+; MICROCYTOSIS 1+; PLATELET ESTIMATE DECREASED (NORMAL)
[2016-07-06] MEDS: ACETYLCYSTEINE 20% 200MG/ML 4 ML VIAL *FOR ORAL / INH USE ONLY NEB SCH ×2 (10:40→22:30)
[2016-07-06] MEDS: ARFORMOTEROL TARTRATE 15 MCG/2 ML VIAL NEB SCH ×2 (10:40→22:30)
[2016-07-06] MEDS: DRONABINOL 5 MG CAPSULE PO SCH ×2 (10:47→21:24)
[2016-07-06] MEDS: CIPROFLOXACIN 250 MG TABLET (RESTRICTED TO ID) PO SCH ×2 (10:48→21:26)
[2016-07-06] MEDS: VORICONAZOLE 200 MG TABLET (RESTRICTED TO ID) PO SCH ×2 (10:48→21:24)
[2016-07-06] MEDS: guaiFENesin/D-METHORPHAN HB 1 EACH TAB.ER.12H PO SCH ×2 (10:49→21:26)
[2016-07-06] MEDS: FEBUXOSTAT 40 MG TAB PO SCH (10:50)
[2016-07-06] MEDS: valACYclovir HCL 500 MG TABLET (FP) PO SCH (13:22)
--- NOTE | 2016-07-06 14:13 | PN ---
Progress Note, Physician History of Present Illness: pulmonary alert,nad,oob-chair,-sob - Current Medication List Current Medications: Active Medications Acetaminophen (Tylenol -) 650 mg PO Q6H PRN PRN Reason: FEVER OVER 101 Last Admin: 06/24/16 16:38 Dose: 650 mg Acetylcysteine (Mucomyst 20 Oral / Inh Use Only*) 200 mg NEB BID [facility] Last Admin: 07/06/16 10:40 Dose: 200 mg Arformoterol Tartrate (Brovana (Restricted To Pulmonology/Resp) -) 1 amp NEB BID [facility] Last Admin: 07/06/16 10:40 Dose: 1 amp Ciprofloxacin (Cipro (Restricted To Id)) 250 mg PO BID [facility] Last Admin: 07/06/16 10:48 Dose: 250 mg Diltiazem HCl (Cardizem Cd -) 180 mg PO DAILY [facility] Last Admin: 07/06/16 10:47 Dose: 180 mg Dronabinol (Marinol -) 5 mg PO BID [facility] Last Admin: 07/06/16 10:47 Dose: 5 mg Febuxostat (Uloric -) 40 mg PO DAILY [facility] Last Admin: 07/06/16 10:50 Dose: 40 mg Guaifenesin (Mucinex Dm -) 1 tablet PO BID [facility] Last Admin: 07/06/16 10:49 Dose: 1 tablet Ondansetron HCl (Zofran Injection) 4 mg IVPB Q6H PRN PRN Reason: NAUSEA Last Admin: 06/28/16 21:39 Dose: 4 mg Valacyclovir HCl (Valtrex -) 500 mg PO DAILY [facility] Last Admin: 07/06/16 13:22 Dose: 500 mg Voriconazole (Vfend (Restricted To Id)) 100 mg PO BID [facility] Last Admin: 07/06/16 10:48 Dose: 100 mg Warfarin Sodium (Coumadin -) 5 mg PO DAILY@1800 [facility] Last Admin: 07/05/16 18:42 Dose: 5 mg - Objective Vital Signs: Vital Signs Temperature 97.6 F 07/06/16 09:00 Pulse Rate 89 07/06/16 10:40 Respiratory Rate 20 07/06/16 09:00 Blood Pressure 113/51 07/06/16 09:00 O2 Sat by Pulse Oximetry (%) 98 07/06/16 10:40 Constitutional: Yes: Calm, Thin Eyes: Yes: WNL HENT: Yes: WNL Neck: Yes: WNL Cardiovascular: Yes: Regular Rate and Rhythm, S1, S2 Respiratory: Yes: Diminished Gastrointestinal: Yes: Normal Bowel Sounds, Soft Extremities: Yes: WNL Edema: No Labs: CBC, BMP 07/06/16 05:00 07/06/16 05:00 INR, PTT INR 2.17 (0.82-1.09) H 07/06/16 05:00 Assessment/Plan Problem List - Problems (1) AML (acute myelogenous leukemia) Code(s): C92.00 - ACUTE MYELOBLASTIC LEUKEMIA, NOT HAVING ACHIEVED REMISSION Qualifiers: Leukemia Active/Remission status: without remission Qualified Code(s ): C92.00 - Acute myeloblastic leukemia, not having achieved remission (2) Atrial fibrillation Code(s): I48.91 - UNSPECIFIED ATRIAL FIBRILLATION (3) DVT (deep venous thrombosis) Code(s): I82.409 - ACUTE EMBOLISM AND THOMBOS UNSP DEEP VN UNSP LOWER EXTREMITY Qualifiers: Laterality: left Chronicity: chronic (4) Febrile neutropenia Code(s): D70.9 - NEUTROPENIA, UNSPECIFIED R50.81 - FEVER PRESENTING WITH CONDITIONS CLASSIFIED ELSEWHERE (5) GERD (gastroesophageal reflux disease) Code(s): K21.9 - GASTRO-ESOPHAGEAL REFLUX DISEASE WITHOUT ESOPHAGITIS (6) Pneumonia Code(s): J18.9 - PNEUMONIA, UNSPECIFIED ORGANISM Assessment/Plan ACUTE BLAST CRISIS SUPERIMPOSED UPON PNEUMONIA AF DVT/ANTICOAGULATION RECENT SHILPI-C H/O ANTI-FUNGAL/ANTI-VIRAL/PCP PROPHYLAXSIS NEUTROPENIA PLAN NEUTROPENIC PRECAUTIONS ANTICOAGULATION O2 INHALED BRONCHODILATORS ANTIBIOTICS PER WES MARKS
--- NOTE | 2016-07-06 16:06 | PN ---
Progress Note (short form) - Note Progress Note: PAtient seen and examined 06/21 and 06/22/16 feels better Last Vital Signs Temp Pulse Resp BP Pulse Ox 97.8 F 102 H 20 117/52 98 07/06/16 14:37 07/06/16 14:37 07/06/16 14:37 07/06/16 14:37 07/06/16 10:40 Cor: RSR, No murmurs, No gallops Lungs: decreased at bases Abd: Soft, Normal bowel sounds, No organomegaly Ext:No significant edema Abnormal Lab Results 07/06/16 07/06/16 07/06/16 05:00 05:00 05:00 WBC 0.6 L RBC 2.28 L Hgb 7.7 L Hct 23.0 L MCV 100.8 H RDW 24.3 H Neutrophils % 15.0 L D Lymphocytes % 60.0 H D Blast Cells 15 H D INR 2.17 H Anion Gap 7 L Creatinine 0.4 L Calcium 8.2 L Albumin 2.7 L A/P 80 y/o patient with AML on uloric on broad spectrum antibiotics--imipenem/voriconazole discussed with ID team -- switching to cipro now on cipro/valtrex/voriconazole continue supportive care discussed with Dr. Miranda, patient and family -- to consider SNF
[2016-07-06] MEDS: WARFARIN NA 5 MG TABLET (UD) PO SCH ×2 (18:48→18:59)
[2016-07-07] MEDS: ARFORMOTEROL TARTRATE 15 MCG/2 ML VIAL NEB SCH ×2 (10:00→23:30)
[2016-07-07] MEDS: ACETYLCYSTEINE 20% 200MG/ML 4 ML VIAL *FOR ORAL / INH USE ONLY NEB SCH ×2 (10:00→23:30)
[2016-07-07] MEDS ORDERED: PT OWN MED DRAWER 7, Y5N ONE ×2 (10:57→21:09)
[2016-07-07] MEDS: DRONABINOL 5 MG CAPSULE PO SCH ×2 (11:01→21:58)
[2016-07-07] MEDS: FEBUXOSTAT 40 MG TAB PO SCH (11:01)
[2016-07-07] MEDS: valACYclovir HCL 500 MG TABLET (FP) PO SCH (11:01)
[2016-07-07] MEDS: VORICONAZOLE 200 MG TABLET (RESTRICTED TO ID) PO SCH ×2 (11:02→21:57)
[2016-07-07] MEDS: CIPROFLOXACIN 250 MG TABLET (RESTRICTED TO ID) PO SCH ×2 (11:02→21:57)
[2016-07-07] MEDS: guaiFENesin/D-METHORPHAN HB 1 EACH TAB.ER.12H PO SCH ×2 (11:03→21:57)
--- NOTE | 2016-07-07 13:42 | PN ---
Progress Note (short form) - Note Progress Note: PAtient seen and examined 06/21 and 06/22/16 feels better Last Vital Signs Temp Pulse Resp BP Pulse Ox 98.7 F 92 H 16 138/56 98 07/07/16 11:32 07/07/16 11:32 07/07/16 11:32 07/07/16 11:32 07/07/16 10:57 Cor: RSR, No murmurs, No gallops Lungs: decreased at bases Abd: Soft, Normal bowel sounds, No organomegaly Ext:No significant edema Labs reviewed A/P 80 y/o patient with AML on uloric on broad spectrum antibiotics--imipenem/voriconazole discussed with ID team -- switching to cipro now on cipro/valtrex/voriconazole continue supportive care to continue SNF placement
--- NOTE | 2016-07-07 16:14 | PN ---
Progress Note, Physician History of Present Illness: pulmonary alert,nad,-sob,-cough,-cp - Current Medication List Current Medications: Active Medications Acetaminophen (Tylenol -) 650 mg PO Q6H PRN PRN Reason: FEVER OVER 101 Last Admin: 06/24/16 16:38 Dose: 650 mg Acetylcysteine (Mucomyst 20 Oral / Inh Use Only*) 200 mg NEB BID [facility] Last Admin: 07/07/16 10:00 Dose: 200 mg Arformoterol Tartrate (Brovana (Restricted To Pulmonology/Resp) -) 1 amp NEB BID [facility] Last Admin: 07/07/16 10:00 Dose: 1 amp Ciprofloxacin (Cipro (Restricted To Id)) 250 mg PO BID [facility] Last Admin: 07/07/16 11:02 Dose: 250 mg Diltiazem HCl (Cardizem Cd -) 180 mg PO DAILY [facility] Last Admin: 07/07/16 11:01 Dose: 180 mg Dronabinol (Marinol -) 5 mg PO BID [facility] Last Admin: 07/07/16 11:01 Dose: 5 mg Febuxostat (Uloric -) 40 mg PO DAILY [facility] Last Admin: 07/07/16 11:01 Dose: 40 mg Guaifenesin (Mucinex Dm -) 1 tablet PO BID [facility] Last Admin: 07/07/16 11:03 Dose: 1 tablet Ondansetron HCl (Zofran Injection) 4 mg IVPB Q6H PRN PRN Reason: NAUSEA Last Admin: 06/28/16 21:39 Dose: 4 mg Valacyclovir HCl (Valtrex -) 500 mg PO DAILY [facility] Last Admin: 07/07/16 11:01 Dose: 500 mg Voriconazole (Vfend (Restricted To Id)) 100 mg PO BID [facility] Last Admin: 07/07/16 11:02 Dose: 100 mg Warfarin Sodium (Coumadin -) 5 mg PO DAILY@1800 [facility] Last Admin: 07/06/16 18:59 Dose: Not Given - Objective Vital Signs: Vital Signs Temperature 97.6 F 07/07/16 14:19 Pulse Rate 97 H 07/07/16 14:19 Respiratory Rate 20 07/07/16 14:19 Blood Pressure 112/51 07/07/16 14:19 O2 Sat by Pulse Oximetry (%) 98 07/07/16 10:57 Constitutional: Yes: Calm, Thin Eyes: Yes: WNL HENT: Yes: WNL Neck: Yes: WNL Cardiovascular: Yes: Pulse Irregular, S1, S2 Respiratory: Yes: Diminished Gastrointestinal: Yes: Normal Bowel Sounds, Soft Extremities: Yes: WNL Edema: No Labs: CBC, BMP 07/06/16 05:00 07/06/16 05:00 INR, PTT INR 2.17 (0.82-1.09) H 07/06/16 05:00 Assessment/Plan Problem List - Problems (1) AML (acute myelogenous leukemia) Code(s): C92.00 - ACUTE MYELOBLASTIC LEUKEMIA, NOT HAVING ACHIEVED REMISSION Qualifiers: Leukemia Active/Remission status: without remission Qualified Code(s ): C92.00 - Acute myeloblastic leukemia, not having achieved remission (2) Atrial fibrillation Code(s): I48.91 - UNSPECIFIED ATRIAL FIBRILLATION (3) DVT (deep venous thrombosis) Code(s): I82.409 - ACUTE EMBOLISM AND THOMBOS UNSP DEEP VN UNSP LOWER EXTREMITY Qualifiers: Laterality: left Chronicity: chronic (4) Febrile neutropenia Code(s): D70.9 - NEUTROPENIA, UNSPECIFIED R50.81 - FEVER PRESENTING WITH CONDITIONS CLASSIFIED ELSEWHERE (5) GERD (gastroesophageal reflux disease) Code(s): K21.9 - GASTRO-ESOPHAGEAL REFLUX DISEASE WITHOUT ESOPHAGITIS (6) Pneumonia Code(s): J18.9 - PNEUMONIA, UNSPECIFIED ORGANISM Assessment/Plan ACUTE BLAST CRISIS SUPERIMPOSED UPON PNEUMONIA AF DVT/ANTICOAGULATION RECENT SHILPI-C H/O ANTI-FUNGAL/ANTI-VIRAL/PCP PROPHYLAXSIS NEUTROPENIA PLAN NEUTROPENIC PRECAUTIONS ANTICOAGULATION O2 INHALED BRONCHODILATORS ANTIBIOTICS PER ID CHEST X-RAY DR MARKS
[2016-07-07] MEDS: WARFARIN NA 5 MG TABLET (UD) PO SCH (18:21)
[2016-07-08 07:34] LABS: INR 2.9 (0.82-1.09); PROTHROMBIN TIME (PATIENT) 32.6 SEC (9.98-11.88)
[2016-07-08 07:53] LABS: MCH 34.5 pg (25.7-33.7); MCHC 33.5 g/dl (32.0-36.0); MEAN CELL VOLUME 102.9 fl (80-96); MEAN PLT VOLUME 7.4 fl (7.5-11.1); PLATELET COUNT 179 K/MM3 (134-434); RDW 26.6 % (11.6-15.6)
[2016-07-08 07:59] LABS: WHITE BLOOD COUNT 0.8 K/mm3 (4.0-10.0)
[2016-07-08 08:36] LABS: ALBUMIN 2.7 g/dl (3.4-5.0); ANION GAP 8 (8-16); BILIRUBIN,TOTAL 0.4 mg/dL (0.2-1.0); CALCIUM 8.4 mg/dL (8.5-10.1); CO2 30 mmol/L (21-32); CREATININE 0.5 mg/dL (0.55-1.02); GLUCOSE,RANDOM 83 mg/dL (74-106); SGOT/AST 14 U/L (15-37); SGPT/ALT 13 U/L (12-78)
[2016-07-08 08:37] LABS: ALK PHOS 76 U/L (45-117)
[2016-07-08 09:53] LABS: ANISOCYTOSIS 3+; HYPOCHROMIA 2+; PLATELET COMMENT2 NO CLOTTING DETECTED; PLATELET ESTIMATE ADEQUATE (NORMAL); POIKILOCYTOSIS 2+; POLYCHROMASIA 1+
[2016-07-08] MEDS ORDERED: PT OWN MED DRAWER 7, Y5N ONE (10:03)
[2016-07-08] MEDS: valACYclovir HCL 500 MG TABLET (FP) PO SCH (10:06)
[2016-07-08] MEDS: FEBUXOSTAT 40 MG TAB PO SCH (10:06)
[2016-07-08] MEDS: DRONABINOL 5 MG CAPSULE PO SCH ×2 (10:06→21:24)
[2016-07-08] MEDS: VORICONAZOLE 200 MG TABLET (RESTRICTED TO ID) PO SCH ×2 (10:06→21:23)
[2016-07-08] MEDS: guaiFENesin/D-METHORPHAN HB 1 EACH TAB.ER.12H PO SCH ×2 (10:07→21:23)
[2016-07-08] MEDS: CIPROFLOXACIN 250 MG TABLET (RESTRICTED TO ID) PO SCH ×2 (10:08→21:23)
[2016-07-08] MEDS: ARFORMOTEROL TARTRATE 15 MCG/2 ML VIAL NEB SCH ×2 (11:18→22:54)
[2016-07-08] MEDS: ACETYLCYSTEINE 20% 200MG/ML 4 ML VIAL *FOR ORAL / INH USE ONLY NEB SCH ×2 (11:18→22:54)
--- NOTE | 2016-07-08 14:05 | PN ---
Progress Note, Physician History of Present Illness: PULMONARY ALERT,FEELING BETTER,OOB-CHAIR,-SOB,FAIR APPETITE - Current Medication List Current Medications: Active Medications Acetaminophen (Tylenol -) 650 mg PO Q6H PRN PRN Reason: FEVER OVER 101 Last Admin: 06/24/16 16:38 Dose: 650 mg Acetylcysteine (Mucomyst 20 Oral / Inh Use Only*) 200 mg NEB BID [facility] Last Admin: 07/08/16 11:18 Dose: 200 mg Arformoterol Tartrate (Brovana (Restricted To Pulmonology/Resp) -) 1 amp NEB BID [facility] Last Admin: 07/08/16 11:18 Dose: 1 amp Ciprofloxacin (Cipro (Restricted To Id)) 250 mg PO BID [facility] Last Admin: 07/08/16 10:08 Dose: 250 mg Diltiazem HCl (Cardizem Cd -) 180 mg PO DAILY [facility] Last Admin: 07/08/16 10:05 Dose: 180 mg Dronabinol (Marinol -) 5 mg PO BID [facility] Last Admin: 07/08/16 10:06 Dose: 5 mg Febuxostat (Uloric -) 40 mg PO DAILY [facility] Last Admin: 07/08/16 10:06 Dose: 40 mg Guaifenesin (Mucinex Dm -) 1 tablet PO BID [facility] Last Admin: 07/08/16 10:07 Dose: 1 tablet Ondansetron HCl (Zofran Injection) 4 mg IVPB Q6H PRN PRN Reason: NAUSEA Last Admin: 06/28/16 21:39 Dose: 4 mg Valacyclovir HCl (Valtrex -) 500 mg PO DAILY [facility] Last Admin: 07/08/16 10:06 Dose: 500 mg Voriconazole (Vfend (Restricted To Id)) 100 mg PO BID [facility] Last Admin: 07/08/16 10:06 Dose: 100 mg Warfarin Sodium (Coumadin -) 5 mg PO DAILY@1800 [facility] Last Admin: 07/07/16 18:21 Dose: 5 mg - Objective Vital Signs: Vital Signs Temperature 97.8 F 07/08/16 10:00 Pulse Rate 80 07/08/16 11:17 Respiratory Rate 22 07/08/16 10:00 Blood Pressure 118/44 07/08/16 10:00 O2 Sat by Pulse Oximetry (%) 98 07/08/16 11:17 Constitutional: Yes: Calm, Thin Eyes: Yes: WNL HENT: Yes: WNL Neck: Yes: Supple Cardiovascular: Yes: Pulse Irregular, S1, S2 Respiratory: Yes: CTA Bilaterally Gastrointestinal: Yes: WNL Extremities: Yes: WNL Edema: No Labs: CBC, BMP 07/08/16 06:00 07/08/16 06:00 INR, PTT INR 2.90 (0.82-1.09) H D 07/08/16 06:00 - ....Imaging Chest X-ray: Report Reviewed, Image Reviewed Assessment/Plan Problem List - Problems (1) AML (acute myelogenous leukemia) Code(s): C92.00 - ACUTE MYELOBLASTIC LEUKEMIA, NOT HAVING ACHIEVED REMISSION Qualifiers: Leukemia Active/Remission status: without remission Qualified Code(s ): C92.00 - Acute myeloblastic leukemia, not having achieved remission (2) Atrial fibrillation Code(s): I48.91 - UNSPECIFIED ATRIAL FIBRILLATION (3) DVT (deep venous thrombosis) Code(s): I82.409 - ACUTE EMBOLISM AND THOMBOS UNSP DEEP VN UNSP LOWER EXTREMITY Qualifiers: Laterality: left Chronicity: chronic (4) Febrile neutropenia Code(s): D70.9 - NEUTROPENIA, UNSPECIFIED R50.81 - FEVER PRESENTING WITH CONDITIONS CLASSIFIED ELSEWHERE (5) GERD (gastroesophageal reflux disease) Code(s): K21.9 - GASTRO-ESOPHAGEAL REFLUX DISEASE WITHOUT ESOPHAGITIS (6) Pneumonia Code(s): J18.9 - PNEUMONIA, UNSPECIFIED ORGANISM Assessment/Plan ACUTE BLAST CRISIS SUPERIMPOSED UPON PNEUMONIA AF DVT/ANTICOAGULATION RECENT SHILPI-C H/O ANTI-FUNGAL/ANTI-VIRAL/PCP PROPHYLAXSIS NEUTROPENIA PLAN NEUTROPENIC PRECAUTIONS ANTICOAGULATION PER INR O2 INHALED BRONCHODILATORS ANTIBIOTICS PER ID HOLD COUMADIN DR MARKS
--- NOTE | 2016-07-08 15:20 | PN ---
Progress Note (short form) - Note Progress Note: PAtient seen and examined feels better Last Vital Signs Temp Pulse Resp BP Pulse Ox 98.5 F 88 20 104/46 98 07/08/16 14:36 07/08/16 14:36 07/08/16 14:36 07/08/16 14:36 07/08/16 11:17 + thrush Cor: RSR, No murmurs, No gallops Lungs: decreased at bases Abd: Soft, Normal bowel sounds, No organomegaly Ext:No significant edema Abnormal Lab Results 07/08/16 07/08/16 07/08/16 06:00 06:00 06:00 WBC 0.8 L* D RBC 2.29 L Hgb 7.9 L Hct 23.6 L MCV 102.9 H RDW 26.6 H MPV 7.4 L Neutrophils % 7.0 L D Lymphocytes % 80.0 H D Monocytes % 1.0 L D INR 2.90 H D Creatinine 0.5 L D Calcium 8.4 L AST 14 L Albumin 2.7 L Active Medications Acetaminophen (Tylenol -) 650 mg PO Q6H PRN PRN Reason: FEVER OVER 101 Last Admin: 06/24/16 16:38 Dose: 650 mg Acetylcysteine (Mucomyst 20 Oral / Inh Use Only*) 200 mg NEB BID [facility] Last Admin: 07/08/16 11:18 Dose: 200 mg Arformoterol Tartrate (Brovana (Restricted To Pulmonology/Resp) -) 1 amp NEB BID [facility] Last Admin: 07/08/16 11:18 Dose: 1 amp Ciprofloxacin (Cipro (Restricted To Id)) 250 mg PO BID [facility] Last Admin: 07/08/16 10:08 Dose: 250 mg Diltiazem HCl (Cardizem Cd -) 180 mg PO DAILY [facility] Last Admin: 07/08/16 10:05 Dose: 180 mg Dronabinol (Marinol -) 5 mg PO BID [facility] Last Admin: 07/08/16 10:06 Dose: 5 mg Febuxostat (Uloric -) 40 mg PO DAILY [facility] Last Admin: 07/08/16 10:06 Dose: 40 mg Guaifenesin (Mucinex Dm -) 1 tablet PO BID [facility] Last Admin: 07/08/16 10:07 Dose: 1 tablet Ondansetron HCl (Zofran Injection) 4 mg IVPB Q6H PRN PRN Reason: NAUSEA Last Admin: 06/28/16 21:39 Dose: 4 mg Valacyclovir HCl (Valtrex -) 500 mg PO DAILY [facility] Last Admin: 07/08/16 10:06 Dose: 500 mg Voriconazole (Vfend (Restricted To Id)) 100 mg PO BID [facility] Last Admin: 07/08/16 10:06 Dose: 100 mg A/P 80 y/o patient with AML on uloric was on broad spectrum antibiotics for pneumonia--imipenem/voriconazole switched to cipro now on cipro/valtrex/voriconazole transfuse 1 unit PRBCs add nystatin For SNF placement need to monitor CBC twice weekly
[2016-07-08] MEDS ORDERED: ACETAMINOPHEN 325 MG TABLET (FP) PO ONE (15:45)
[2016-07-08] MEDS: NYSTATIN 500,000 UNITS/5 ML SUSPENSION PO SCH ×2 (18:13→23:21)
[2016-07-09] MEDS: NYSTATIN 500,000 UNITS/5 ML SUSPENSION PO SCH ×3 (06:17→18:05)
[2016-07-09 08:14] LABS: INR 2.75 (0.82-1.09); PROTHROMBIN TIME (PATIENT) 30.9 SEC (9.98-11.88)
[2016-07-09] MEDS: VORICONAZOLE 200 MG TABLET (RESTRICTED TO ID) PO SCH ×2 (10:05→22:44)
[2016-07-09] MEDS: CIPROFLOXACIN 250 MG TABLET (RESTRICTED TO ID) PO SCH ×2 (10:06→22:44)
[2016-07-09] MEDS: valACYclovir HCL 500 MG TABLET (FP) PO SCH (10:06)
[2016-07-09] MEDS: DRONABINOL 5 MG CAPSULE PO SCH ×2 (10:06→22:43)
[2016-07-09] MEDS: FEBUXOSTAT 40 MG TAB PO SCH (10:07)
[2016-07-09] MEDS: guaiFENesin/D-METHORPHAN HB 1 EACH TAB.ER.12H PO SCH ×2 (10:07→22:45)
[2016-07-09] MEDS: ACETYLCYSTEINE 20% 200MG/ML 4 ML VIAL *FOR ORAL / INH USE ONLY NEB SCH ×2 (10:40→22:38)
[2016-07-09] MEDS: ARFORMOTEROL TARTRATE 15 MCG/2 ML VIAL NEB SCH ×2 (10:40→22:38)
--- NOTE | 2016-07-09 12:29 | DS ---
Physical Examination Vital Signs: Vital Signs Temperature 98.3 F 07/09/16 08:15 Pulse Rate 76 07/09/16 10:45 Respiratory Rate 20 07/09/16 08:15 Blood Pressure 118/58 07/09/16 08:15 O2 Sat by Pulse Oximetry (%) 97 07/09/16 10:45 Constitutional: Yes: No Distress, Calm Eyes: Yes: Conjunctiva Clear, EOM Intact HENT: Yes: Atraumatic, Normocephalic Neck: Yes: Supple, Trachea Midline Cardiovascular: Yes: Regular Rate and Rhythm Respiratory: Yes: Diminished Gastrointestinal: Yes: Normal Bowel Sounds, Soft. No: Tenderness Edema: No Neurological: Yes: Alert, Oriented Labs: CBC, BMP 07/08/16 06:00 07/08/16 06:00 Discharge Summary Reason For Visit: APLASTIC ANEMIA Current Active Problems AML (acute myelogenous leukemia) (Acute) Atrial fibrillation (Acute) DVT (deep venous thrombosis) (Acute) DVT prophylaxis (Acute) Febrile neutropenia (Acute) GERD (gastroesophageal reflux disease) (Acute) Neutropenia (Acute) Pneumonia (Acute) Pneumothorax (Acute) Thrombophlebitis (Acute) Procedures: Principal: IV antibiotics Hospital Course: 80yo female with h/o AML s/p recent SHILPI-C, h/o DVT s/p IVC filter, atrial fibrillation who was admitted after developing a fever during an elective blood transfusion. Found to have a LLL consolidation on CXR, treated with vancomycin and cefepime initially but had persistent fevers. Evaluated by ID, antibiotics changed to imipenem for which she was given 7 days. WBC low during admission, patient evaluated by palliative care as she has limited options and was not significantly improving. Pt defervesced, remains neutropenic. To be discharged on maintenance voriconazole, ciprofloxacin, valacyclovir. Condition: Guarded - Instructions Disposition: [facility] - Home Medications Comprehensive Discharge Medication List: Ambulatory Orders Ascorbate Calcium [Vitamin C] 500 mg PO DAILY 06/03/14 Calcium Citrate/Vitamin D3 [Citracal + D Caplet] 1 each PO BID 06/03/14 Diltiazem Cd [Cardizem Cd -] 180 mg PO DAILY 06/03/14 [place]-3 Fatty Acids [Fish Oil] 300 mg PO DAILY 06/03/14 Warfarin Na [Coumadin -] 5 mg PO DAILY #30 tablet 07/09/14 Omeprazole Magnesium [Prilosec] 10 mg PO DAILY 06/12/16 Acetaminophen [Tylenol .Regular Strength -] 650 mg PO Q6H PRN #0 tablet Ciprofloxacin [Cipro -] 250 mg PO BID #14 tablet 07/09/16 Diltiazem Cd [Cardizem Cd -] 180 mg PO DAILY #30 tablet 07/09/16 Dronabinol [Marinol -] 5 mg PO BID #60 tablet MDD 10mg 07/09/16 Febuxostat [Uloric -] 40 mg PO DAILY tab 07/09/16 Guaifenesin Dm [Mucinex Dm -] 1 tablet PO BID #60 tablet 07/09/16 Nystatin Oral Suspension - [Nystatin Oral Susp 993525 Units/5 ML -] 500,000 units PO Q6HPO 14 Days 07/09/16 Valacyclovir HCl [Valtrex -] 500 mg PO DAILY tablet 07/09/16 Voriconazole [Vfend (Restricted To Id)] 100 mg PO BID #14 tablet 07/09/16 Warfarin Na [Coumadin -] 5 mg PO DAILY@1800 tablet 07/09/16
--- NOTE | 2016-07-09 16:04 | PN ---
Progress Note (short form) - Note Progress Note: PAtient seen and examined feels better Last Vital Signs Temp Pulse Resp BP Pulse Ox 97.8 F 80 20 100/47 97 07/09/16 13:51 07/09/16 13:51 07/09/16 13:51 07/09/16 13:51 07/09/16 10:45 + thrush Cor: RSR, No murmurs, No gallops Lungs: decreased at bases Abd: Soft, Normal bowel sounds, No organomegaly Ext:No significant edema Abnormal Lab Results 07/08/16 07/09/16 15:45 06:15 INR 2.75 H Crossmatch See Detail Active Medications Generic Name Dose Route Start Last Admin Trade Name Freq PRN Reason Stop Dose Admin Acetaminophen 650 mg 06/13/16 16:43 06/24/16 16:38 Tylenol - PO 650 mg Q6H PRN Administration FEVER OVER 101 Acetylcysteine 200 mg 06/17/16 11:30 07/09/16 10:40 Mucomyst 20 Oral / Inh Use Only* NEB 200 mg BID JATINDER Administration Arformoterol Tartrate 1 amp 06/17/16 11:30 07/09/16 10:40 Brovana (Restricted To Pulmonology/Resp) - NEB 1 amp BID JATINDER Administration Ciprofloxacin 250 mg 07/05/16 22:00 07/09/16 10:06 Cipro (Restricted To Id) PO 250 mg BID JATINDER Administration Diltiazem HCl 180 mg 06/13/16 10:00 07/09/16 10:06 Cardizem Cd - PO 180 mg DAILY JATINDER Administration Dronabinol 5 mg 07/06/16 22:00 07/09/16 10:06 Marinol - PO 5 mg BID JATINDER Administration Febuxostat 40 mg 06/14/16 20:00 07/09/16 10:07 Uloric - PO 40 mg DAILY JATINDER Administration Guaifenesin 1 tablet 06/28/16 22:00 07/09/16 10:07 Mucinex Dm - PO 1 tablet BID JATINDER Administration Nystatin 500,000 units 07/08/16 18:00 07/09/16 13:00 Nystatin Oral Suspension - PO 500,000 units Q6HPO JATINDER Administration Ondansetron HCl 4 mg 06/16/16 11:49 06/28/16 21:39 Zofran Injection IVPB 4 mg Q6H PRN Administration NAUSEA Valacyclovir HCl 500 mg 06/15/16 10:00 07/09/16 10:06 Valtrex - PO 500 mg DAILY JATINDER Administration Voriconazole 100 mg 07/05/16 10:00 07/09/16 10:05 Vfend (Restricted To Id) PO 100 mg BID JATINDER Administration Warfarin Sodium 5 mg 07/09/16 18:00 Coumadin - PO DAILY@1800 JATINDER A/P 80 y/o patient with AML on uloric was on broad spectrum antibiotics for pneumonia--imipenem/voriconazole switched to cipro now on cipro/valtrex/voriconazole transfused 1 unit PRBCs yesterday added nystatin For SNF placement need to monitor CBC twice weekly need to f/u with Dr. Miranda in the office
[2016-07-09] MEDS ORDERED: WARFARIN NA 5 MG TABLET (UD) PO SCH (18:00)
[2016-07-10] MEDS: NYSTATIN 500,000 UNITS/5 ML SUSPENSION PO SCH ×2 (00:39→05:29)
[2016-07-10 07:29] LABS: MCH 34.4 pg (25.7-33.7); MCHC 34.2 g/dl (32.0-36.0); MEAN CELL VOLUME 100.6 fl (80-96); MEAN PLT VOLUME 6.9 fl (7.5-11.1); PLATELET COUNT 177 K/MM3 (134-434); RDW 26.3 % (11.6-15.6)
[2016-07-10 08:06] LABS: WHITE BLOOD COUNT 0.7 K/mm3 (4.0-10.0)
[2016-07-10 08:12] LABS: INR 2.28 (0.82-1.09); PROTHROMBIN TIME (PATIENT) 25.5 SEC (9.98-11.88)
[2016-07-10 08:15] LABS: ACTIVATED PTT 40.9 SECONDS (26.9-34.4)
[2016-07-10 08:29] LABS: ALBUMIN 2.7 g/dl (3.4-5.0); ANION GAP 8 (8-16); BILIRUBIN,TOTAL 0.3 mg/dL (0.2-1.0); CALCIUM 8.5 mg/dL (8.5-10.1); CO2 31 mmol/L (21-32); CREATININE 0.5 mg/dL (0.55-1.02); GLUCOSE,RANDOM 92 mg/dL (74-106); SGOT/AST 13 U/L (15-37); SGPT/ALT 13 U/L (12-78); TOT PROT 6.9 g/dl (6.4-8.2)
[2016-07-10 08:30] LABS: ALK PHOS 78 U/L (45-117)
--- NOTE | 2016-07-10 10:37 | DS ---
Physical Examination Vital Signs: Vital Signs Temperature 97.8 F 07/10/16 06:00 Pulse Rate 88 07/10/16 06:00 Respiratory Rate 20 07/10/16 06:00 Blood Pressure 113/71 07/10/16 06:00 O2 Sat by Pulse Oximetry (%) 96 07/09/16 21:00 Constitutional: Yes: No Distress, Calm Eyes: Yes: Conjunctiva Clear, EOM Intact HENT: Yes: Atraumatic, Normocephalic Neck: Yes: Supple, Trachea Midline Cardiovascular: Yes: Regular Rate and Rhythm Respiratory: Yes: Regular, Diminished (distant) Gastrointestinal: Yes: Normal Bowel Sounds, Soft. No: Tenderness Edema: No Labs: CBC, BMP 07/10/16 06:00 07/10/16 06:00 Discharge Summary Reason For Visit: APLASTIC ANEMIA Current Active Problems AML (acute myelogenous leukemia) (Acute) Atrial fibrillation (Acute) DVT (deep venous thrombosis) (Acute) DVT prophylaxis (Acute) Febrile neutropenia (Acute) GERD (gastroesophageal reflux disease) (Acute) Neutropenia (Acute) Pneumonia (Acute) Pneumothorax (Acute) Thrombophlebitis (Acute) Procedures: Principal: IV antibiotics Hospital Course: 80yo female with h/o AML s/p recent SHILPI-C, h/o DVT s/p IVC filter, atrial fibrillation who was admitted after developing a fever during an elective blood transfusion. Found to have a LLL consolidation on CXR, treated with vancomycin and cefepime initially but had persistent fevers. Evaluated by ID, antibiotics changed to imipenem for which she was given 7 days. WBC low during admission, patient evaluated by palliative care as she has limited options and was not significantly improving. Pt defervesced, remains neutropenic. To be discharged on maintenance voriconazole, ciprofloxacin, valacyclovir. Condition: Guarded - Instructions Disposition: [facility] - Home Medications Comprehensive Discharge Medication List: Ambulatory Orders Ascorbate Calcium [Vitamin C] 500 mg PO DAILY 06/03/14 Calcium Citrate/Vitamin D3 [Citracal + D Caplet] 1 each PO BID 06/03/14 Diltiazem Cd [Cardizem Cd -] 180 mg PO DAILY 06/03/14 [place]-3 Fatty Acids [Fish Oil] 300 mg PO DAILY 06/03/14 Warfarin Na [Coumadin -] 5 mg PO DAILY #30 tablet 07/09/14 Omeprazole Magnesium [Prilosec] 10 mg PO DAILY 06/12/16 Acetaminophen [Tylenol .Regular Strength -] 650 mg PO Q6H PRN #0 tablet Ciprofloxacin [Cipro -] 250 mg PO BID #14 tablet 07/09/16 Diltiazem Cd [Cardizem Cd -] 180 mg PO DAILY #30 tablet 07/09/16 Dronabinol [Marinol -] 5 mg PO BID #60 tablet MDD 10mg 07/09/16 Febuxostat [Uloric -] 40 mg PO DAILY tab 07/09/16 Guaifenesin Dm [Mucinex Dm -] 1 tablet PO BID #60 tablet 07/09/16 Nystatin Oral Suspension - [Nystatin Oral Susp 951052 Units/5 ML -] 500,000 units PO Q6HPO 14 Days 07/09/16 Valacyclovir HCl [Valtrex -] 500 mg PO DAILY tablet 07/09/16 Voriconazole [Vfend (Restricted To Id)] 100 mg PO BID #14 tablet 07/09/16 Warfarin Na [Coumadin -] 5 mg PO DAILY@1800 tablet 07/09/16
[2016-07-10] MEDS: valACYclovir HCL 500 MG TABLET (FP) PO SCH (10:45)
[2016-07-10] MEDS: VORICONAZOLE 200 MG TABLET (RESTRICTED TO ID) PO SCH (10:45)
[2016-07-10] MEDS: DRONABINOL 5 MG CAPSULE PO SCH (10:45)
[2016-07-10] MEDS: guaiFENesin/D-METHORPHAN HB 1 EACH TAB.ER.12H PO SCH (10:45)
[2016-07-10] MEDS: CIPROFLOXACIN 250 MG TABLET (RESTRICTED TO ID) PO SCH (10:45)
[2016-07-10] MEDS: FEBUXOSTAT 40 MG TAB PO SCH (10:45)
[2016-07-10 11:11] VITALS: BP 109/51; TEMP 98.4
[2016-07-10] MEDS: ARFORMOTEROL TARTRATE 15 MCG/2 ML VIAL NEB SCH (11:11)
[2016-07-10] MEDS: ACETYLCYSTEINE 20% 200MG/ML 4 ML VIAL *FOR ORAL / INH USE ONLY NEB SCH (11:11)
[2016-07-10 11:12] VITALS: PULSE 74
[2016-07-10 12:25] LABS: ANISOCYTOSIS 2+; TEAR DROP CELLS FEW
== END 2016-07-10 14:38 | disposition home or self-care (01) | DRG 834 ==
LOC: JONCBLOOD 08:25 → J7W 08:26 → JONCBLOOD 08:26 → J7W 08:26
PROVIDERS: ADMIT Specialist; ATTEND Specialist
PROC: B518YZA Fluoroscopy of Superior Vena Cava using Other Contrast, Guidance (ICD-10-PCS; 2016-06-15)
PROC: 30233N1 Transfusion of Nonautologous Red Blood Cells into Peripheral Vein, Percutaneous Approach (ICD-10-PCS; principal; 2016-06-27)
PROC: 3E04305 Introduction of Other Antineoplastic into Central Vein, Percutaneous Approach (ICD-10-PCS; 2016-06-27)
DX: C92.00 Acute myeloblastic leukemia, not having achieved remission (principal); J13 Pneumonia due to Streptococcus pneumoniae; A41.89 Other specified sepsis; D61.818 Other pancytopenia; I82.5Z2 Chronic embolism and thrombosis of unspecified deep veins of left distal lower extremity; D70.1 Agranulocytosis secondary to cancer chemotherapy; E87.6 Hypokalemia; I48.91 Unspecified atrial fibrillation; Z79.01 Long term (current) use of anticoagulants; J44.9 Chronic obstructive pulmonary disease, unspecified; K21.9 Gastro-esophageal reflux disease without esophagitis
CPT/HCPCS: 36415; 36430; 36598; 71010-TC; 71250-TC; 80048; 80053; 82330; 83605; 83615; 83735; 84100; 84550; 85025; 85027; 85610; 85730; 86644; 86645; 86850; 86900; 86901; 86922; 87040; 87070; 87086; 87102; 87205; 87210; 87254; 87305; 87449; 87497; 87804; 87899; 94010; 94640; 94761; 96401; 97116-GP; 97161-GP; J0637; J2997; J3465; J8999; P9038; P9058

== ENCOUNTER 2017-02-19 14:36 | Inpatient (IN) | payer OTHER ==
[2017-02-19 14:46] VITALS: BMI 18.6
--- NOTE | 2017-02-19 14:47 | PDOC ---
Rapid Medical Evaluation Medical Evaluation: Allergies Allergy/AdvReac Type Severity Reaction Status Date / Time allopurinol Allergy Verified 02/19/17 14:41 02/19/17 14:41 I have performed a brief in person evaluation of this patient. The patient presents with chief complaint of : pain to the left leg for a few days started in low back left side for 4 days. Pt has history of DVT in the left leg .Pain only with movement . recent tooth extraction was off her coumadin for a while about one week ago now back on and was taking lovenox as well. Pertinent PE findings: none I have ordered the following: US lower left leg The patient will proceed to the ER for further evaluation.
--- NOTE | 2017-02-19 15:43 | PDOC ---
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 Patient states that she began to feel a dull pain along her left upper thigh. The pain has become progressively worse over the past few days and has expanded to involve the whole left leg. The pain waxes and wanes and affects different parts of the leg at different times. The pain is exacerbated by moving and putting pressure on it and alleviated by lying or sitting still. The patient had a dental procedure 2 weeks ago which required her to stop taking her coumadin for 5 days. She states that she covered herself with lovenox shots, but only endorses 3 days worth of coverage. Patient denies chest pain, shortness of breath, palpitations, dizziness, trauma to the area or abdominal pain. Past History - Past Medical History Allergies/Adverse Reactions: Allergies Allergy/AdvReac Type Severity Reaction Status Date / Time allopurinol Allergy Verified 02/19/17 14:41 Home Medications: Ambulatory Orders Acetaminophen [Tylenol -] 650 mg PO Q6H PRN 02/19/17 Ascorbic Acid [Vitamin C] 500 mg PO DAILY 02/19/17 Diltiazem Cd [Cardizem Cd -] 180 mg PO DAILY 02/19/17 Guaifenesin Dm [Mucinex Dm -] 1 tab PO BID PRN 02/19/17 Nystatin Oral Suspension - [Nystatin Oral Susp 618339 Units/5 ML -] 500,000 units PO Q6H 02/19/17 Valacyclovir HCl [Valtrex -] 500 mg PO DAILY 02/19/17 Voriconazole 100 mg PO BID 02/19/17 Warfarin Sodium [Coumadin] 5 mg PO DAILY 02/19/17 Ciprofloxacin [Cipro (Restricted To Id)] 250 mg PO BID 02/21/17 Anemia: Yes (LEUKEMIA) Asthma: No Cancer: Yes (fibermyo leukemia) Cardiac Disorders: Yes (A-FIB) CVA: No COPD: No CHF: No DVT: Yes (LT LEG) Dementia: No Diabetes: No GI Disorders: No Disorders: No HTN: No Hypercholesterolemia: No Liver Disease: No Seizures: No Thyroid Disease: No Other medical history: ARTHRITIS,PNEUMOTHORAX - Surgical History Abdominal Surgery: No Appendectomy: Yes (age 17) Cardiac Surgery: (2014 filter) Cholecystectomy: No Lung Surgery: No Neurologic Surgery: No Orthopedic Surgery: No - Suicide/Smoking/Psychosocial Hx Smoking History: Never smoked Have you smoked in the past 12 months: No Hx Alcohol Use: No Drug/Substance Use Hx: No Substance Use Type: None Hx Substance Use Treatment: No Review of Systems - Review of Systems Constitutional: No: Chills, Fever, Malaise, Weakness HEENTM: No: Blurred Vision, Recent change in vision Respiratory: No: Cough, Shortness of Breath Cardiac (ROS): Yes: Edema (left leg swollen). No: Chest Pain, Lightheadedness, Palpitations ABD/GI: No: Symptoms Reported Musculoskeletal: Yes: Muscle Pain Integumentary: No: Bruising, Change in Color Neurological: No: Headache, Numbness, Tingling *Physical Exam - Vital Signs Last Vital Signs Temp Pulse Resp BP Pulse Ox 98.1 F 111 H 17 99/44 100 02/19/17 14:41 02/19/17 14:41 02/19/17 14:41 02/19/17 14:41 02/19/17 14:41 - Physical Exam General Appearance: Yes: Appropriately Dressed. No: Apparent Distress HEENT: positive: EOMI, NATHALY Neck: positive: Trachea midline Respiratory/Chest: positive: Lungs Clear, Normal Breath Sounds. negative: Chest Tender, Respiratory Distress, Accessory Muscle Use Cardiovascular: positive: Regular Rate, S1, S2, Tachycardia, Irregularly Irregular. negative: JVD, Murmur, Gallop/S3, Gallop/S4 Gastrointestinal/Abdominal: positive: Normal Bowel Sounds, Flat, Soft. negative : Tender Musculoskeletal: positive: Normal Inspection Extremity: positive: Normal Inspection, Normal Range of Motion, Tender ( tenderness to palpation over the left leg from the upper thigh down to the ankle ; positive van's sign), Pelvis Stable, Swelling (left calf swollen and warm.) , Calf Tenderness, Erythema ED Treatment Course - LABORATORY CBC & Chemistry Diagram: 02/21/17 06:00 02/21/17 12:00 Medical Decision Making - Medical Decision Making 02/22/17 07:14 02/19/17 16:08 The patient is an 81 yo f w/ PMH AML, Afib, COPD and DVT s/p IVC filter on coumadin comes into the ED c/o left leg pain for 4 days. The Patient recently had a dental procedure during which she was off of coumadin for approx. 5 days. Per the patient, she only covered herself with lovenox for 3 of those 5 days. The patient has a warm, swollen left calf with tenderness to palpation and a positive Van's sign. Patient denies recent trauma. This is concerning for recurrence of her DVT. -doppler LE -CBC, CMP, INR 02/19/17 19:32 -doppler reveals extensive DVT -patient will be admitted for anticoagulation -Case signed out to Dr. Roger *DC/Admit/Observation/Transfer Diagnosis at time of Disposition: DVT (deep venous thrombosis) Qualifiers: DVT location: lower extremity Affected thrombotic vein of extremity: unspecified vein of extremity Chronicity: acute Laterality: unspecified laterality Qualified Code(s): I82.409 - Acute embolism and thrombosis of unspecified deep veins of unspecified lower extremity - Discharge Dispostion Condition at time of disposition: Stable Admit: Yes - Referrals - Patient Instructions - Post Discharge Activity
--- NOTE | 2017-02-19 17:57 | PDOC ---
Attending Attestation - ED Attending Attestation I have performed the following: I have examined & evaluated the patient, The case was reviewed & discussed with the resident, I agree w/resident's findings & plan, Exceptions are as noted - Medical Decision Making 02/22/17 07:48 DVT on Warfarin, Will admit, add lovenox, consult initiated <Obed Riojas - Last Filed: 02/22/17 07:48> - Resident Resident Name: DimitriosMohan jaime - ED Attending Attestation I have performed the following: I have examined & evaluated the patient, The case was reviewed & discussed with the resident, I agree w/resident's findings & plan, Exceptions are as noted - HPI HPI: 02/19/17 16:40 81yo F hx DVT, AML, COPD, AF on coumadin p/wpain in left leg for 4 days. Pain began in thigh and then progressed down the entire leg. Pain is dull, waxes and wanes, is worse when putting pressure on it. No other associated sxs. No tx tried. Has been compliant with coumadin but 2 weeks ago was off coumadin for 5 days due to dental procedure but covered herself with Lovenox 3 times. Denies SOB/CP. Denies fevers/chills, headache, weakness, abd pain, dysuria, abd pain. - Physicial Exam PE: 02/19/17 16:42 GENERAL: Awake, alert, and fully oriented, in no acute distress HEAD: No signs of trauma EYES: PERRLA, EOMI, sclera anicteric, conjunctiva clear ENT: Auricles normal inspection, hearing grossly normal, nares patent, oropharynx clear without exudates. Moist mucosa NECK: Normal ROM, supple, no lymphadenopathy, JVD, or masses LUNGS: Breath sounds equal, clear to auscultation bilaterally. No wheezes, and no crackles HEART: tachy 111, irregularly irregular, normal S1 and S2, no murmurs, rubs or gallops ABDOMEN: Soft, nontender, normoactive bowel sounds. No guarding, no rebound. No masses EXTREMITIES: LLE: ttp all along L leg, +swelling of L calf and ttp. +Rafael's sign Otherwise Normal range of motion, no edema. No clubbing or cyanosis. No cords, erythema, or tenderness NEUROLOGICAL: Normal speech, cranial nerves intact, negative pronator drift, 5/ 5 strength in all 4 extremities, normal sensation to light touch in all 4 extremities, normal cerebellar exam, normal gait, normal reflexes and tone SKIN: Warm, Dry, normal turgor, no rashes or lesions noted. <Ambreen Dixon - Last Filed: 02/27/17 16:23> Discharge Disposition - Discharge Dispostion Last Admission D/C Date: 07/10/16 <Obed Riojas - Last Filed: 02/22/17 07:48> <Ambreen Dixon - Last Filed: 02/27/17 16:23> - Diagnosis DVT (deep venous thrombosis) Qualifiers: DVT location: lower extremity Affected thrombotic vein of extremity: unspecified vein of extremity Chronicity: acute Laterality: unspecified laterality Qualified Code(s): I82.409 - Acute embolism and thrombosis of unspecified deep veins of unspecified lower extremity - Discharge Dispostion Condition at time of disposition: Stable
--- NOTE | 2017-02-19 19:51 | PDOC ---
*Physical Exam - Vital Signs Last Vital Signs Temp Pulse Resp BP Pulse Ox 98.1 F 98 H 17 121/51 100 02/19/17 14:41 02/19/17 19:25 02/19/17 19:25 02/19/17 19:25 02/19/17 19:25 - Physical Exam Comments: 02/19/17 21:17 GENERAL: Awake, alert, and fully oriented, in no acute distress, frail, cachetic HEAD: No signs of trauma, normocephalic, atraumatic EYES: PERRLA, EOMI, sclera anicteric, conjunctiva clear ENT: Auricles normal inspection, hearing grossly normal, nares patent, oropharynx clear without exudates. Moist mucosa LUNGS: No distress, speaks full sentences, clear to auscultation bilaterally HEART: Regular rate and rhythm, normal S1 and S2, no murmurs, rubs or gallops, peripheral pulses normal and equal bilaterally. NEUROLOGICAL: Cranial nerves II through XII grossly intact. Normal speech, no focal sensorimotor deficits SKIN: Warm, Dry, normal turgor, no rashes or lesions noted. ED Treatment Course - LABORATORY CBC & Chemistry Diagram: 02/19/17 15:48 02/19/17 15:48 Medical Decision Making - Medical Decision Making 02/19/17 21:[address] Linares. Patient has AML with L DVT after being taken off coumadin. Pending labs and chest CTA. 02/19/17 22:14 CBC shows elevation to 50 WBC. Cr normal. CTA pending. Signed out to Dr Riojas. *DC/Admit/Observation/Transfer Diagnosis at time of Disposition: DVT (deep venous thrombosis)
[2017-02-19 20:11] LABS: MCH 39.3 pg (25.7-33.7); MCHC 33.9 g/dl (32.0-36.0); MEAN CELL VOLUME 115.8 fl (80-96); MEAN PLT VOLUME 6.8 fl (7.5-11.1); PLATELET COUNT 127 K/MM3 (134-434); RDW 15.8 % (11.6-15.6)
[2017-02-19 20:33] LABS: INR 2.89 (0.82-1.09); PROTHROMBIN TIME (PATIENT) 32.7 SEC (9.98-11.88)
[2017-02-19] MEDS ORDERED: SODIUM CHLORIDE 0.9% 500 ML INFUS.BAG IV ONE (20:34)
[2017-02-19 20:38] LABS: ANION GAP 8 (8-16); CALCIUM 8.1 mg/dL (8.5-10.1); CO2 27 mmol/L (21-32); CREATININE 0.8 mg/dL (0.55-1.02); GLUCOSE,RANDOM 175 mg/dL (74-106); SGOT/AST 11 U/L (15-37); SGPT/ALT 11 U/L (12-78)
[2017-02-19 20:40] LABS: ALK PHOS 57 U/L (45-117); BILIRUBIN,TOTAL 0.5 mg/dL (0.2-1.0); TOT PROT 6.7 g/dl (6.4-8.2)
--- NOTE | 2017-02-19 23:10 | PDOC ---
*Physical Exam - Vital Signs Last Vital Signs Temp Pulse Resp BP Pulse Ox 98.1 F 98 H 17 121/51 100 02/19/17 14:41 02/19/17 19:25 02/19/17 19:25 02/19/17 19:25 02/19/17 19:25 <Obed Riojas - Last Filed: 02/19/17 23:24> - Vital Signs Last Vital Signs Temp Pulse Resp BP Pulse Ox 98.4 F 115 H 17 131/59 96 02/20/17 02:09 02/20/17 02:09 02/20/17 02:09 02/20/17 02:09 02/20/17 02:09 <Kristina Nobles - Last Filed: 02/20/17 03:54> ED Treatment Course - LABORATORY CBC & Chemistry Diagram: 02/19/17 15:48 02/19/17 15:48 - ADDITIONAL ORDERS Additional order review: Laboratory Results 02/19/17 02/19/17 02/19/17 20:04 20:04 15:48 PT with INR 32.70 H INR 2.89 H D Sodium Potassium Chloride Carbon Dioxide Anion Gap BUN Creatinine Creat Clearance w eGFR Random Glucose Calcium Total Bilirubin AST ALT Alkaline Phosphatase Troponin I < 0.02 B-Natriuretic Peptide 555.41 H Total Protein Albumin 02/19/17 15:48 PT with INR INR Sodium 139 Potassium 3.8 Chloride 104 Carbon Dioxide 27 Anion Gap 8 BUN 16 Creatinine 0.8 D Creat Clearance w eGFR > 60 Random Glucose 175 H D Calcium 8.1 L Total Bilirubin 0.5 D AST 11 L D ALT 11 L D Alkaline Phosphatase 57 Troponin I B-Natriuretic Peptide Total Protein 6.7 Albumin 3.0 L 02/19/17 15:48 RBC 2.07 L D MCV 115.8 H MCHC 33.9 RDW 15.8 H D MPV 6.8 L Neutrophils % No Result Required. Lymphocytes % No Result Required. - Medications Given in the ED: ED Medications Discontinued Medications Generic Name Dose Route Start Last Admin Trade Name Freq PRN Reason Stop Dose Admin Sodium Chloride 1,000 ml 02/19/17 20:34 02/19/17 20:37 Normal Saline - IV 02/19/17 20:35 1,000 ml ONCE ONE Administration <Obed Riojas - Last Filed: 02/19/17 23:24> - LABORATORY CBC & Chemistry Diagram: 02/19/17 15:48 02/19/17 15:48 - ADDITIONAL ORDERS Additional order review: Laboratory Results 02/19/17 02/19/17 02/19/17 20:08 20:04 20:04 PT with INR INR PTT (Actin FS) 31.8 Sodium Potassium Chloride Carbon Dioxide Anion Gap BUN Creatinine Creat Clearance w eGFR Random Glucose Calcium Total Bilirubin AST ALT Alkaline Phosphatase Troponin I < 0.02 B-Natriuretic Peptide 555.41 H Total Protein Albumin 02/19/17 02/19/17 15:48 15:48 PT with INR 32.70 H INR 2.89 H D PTT (Actin FS) Sodium 139 Potassium 3.8 Chloride 104 Carbon Dioxide 27 Anion Gap 8 BUN 16 Creatinine 0.8 D Creat Clearance w eGFR > 60 Random Glucose 175 H D Calcium 8.1 L Total Bilirubin 0.5 D AST 11 L D ALT 11 L D Alkaline Phosphatase 57 Troponin I B-Natriuretic Peptide Total Protein 6.7 Albumin 3.0 L 02/19/17 15:48 RBC 2.07 L D MCV 115.8 H MCHC 33.9 RDW 15.8 H D MPV 6.8 L Neutrophils % No Result Required. Lymphocytes % No Result Required. - Medications Given in the ED: ED Medications Discontinued Medications Generic Name Dose Route Start Last Admin Trade Name Freq PRN Reason Stop Dose Admin Enoxaparin Sodium 40 mg 02/20/17 00:00 02/20/17 00:50 Lovenox - SQ Not Given BID JATINDER Sodium Chloride 1,000 ml 02/19/17 20:34 02/19/17 20:37 Normal Saline - IV 02/19/17 20:35 1,000 ml ONCE ONE Administration <Kristina Nobles - Last Filed: 02/20/17 03:54> Medical Decision Making - Medical Decision Making 02/19/17 23:15 patient not getting any specific treatment for AML (at least since May 2016 ). Dr Miranda is her oncologist. Will speak with Oncology 02/19/17 23:[address] Patino, Give Lovenox, Check PTT, Admit, will follow in the hospital. <Obed Riojas - Last Filed: 02/19/17 23:24> - Medical Decision Making 02/20/17 03:53 ECG Reviewed by me at 0:39 Vent rate 118 bpm Sinus tachycardia with premature atrial complexes L axis deviation Septal infarct Abnormal ECG Documentation prepared by Kristina Nobles, acting as medical technologist microbiology for Obed Riojas MD/DO. <Kristina Nobles - Last Filed: 02/20/17 03:54> *DC/Admit/Observation/Transfer - Discharge Dispostion Admit: Yes <Obed Riojas - Last Filed: 02/19/17 23:24> <Kristina Nobles - Last Filed: 02/20/17 03:54> Diagnosis at time of Disposition: DVT (deep venous thrombosis) Qualifiers: DVT location: lower extremity Affected thrombotic vein of extremity: unspecified vein of extremity Chronicity: acute Laterality: unspecified laterality Qualified Code(s): I82.409 - Acute embolism and thrombosis of unspecified deep veins of unspecified lower extremity - Discharge Dispostion Condition at time of disposition: Unchanged/Unknown - Referrals - Patient Instructions - Post Discharge Activity
[2017-02-20] MEDS ORDERED: ENOXAPARIN NA (PORCINE) 40 MG/0.4 ML DISP.SYRIN SQ SCH
--- NOTE | 2017-02-20 00:50 | PN ---
Teaching Attending Note Name of Resident: Avtar Stephens ATTENDING PHYSICIAN STATEMENT I saw and evaluated the patient. I reviewed the resident's note and discussed the case with the resident. I agree with the resident's findings and plan as documented. SUBJECTIVE: States pain started in left thigh and radiated down. Notes her left leg is always swollen greater than right due to prior sx. States 1-2 weeks ago, she stopped her Coumadin for 5 days for a dental procedure, but was on Lovenox for 3 /5 days. Notes her blood counts in the past have been low and notes she has been getting a "injection" for her AML, but has not recieved treatment since May. States her last few WBC's have been 12-15. Notes she has recieved transfusions in the past for her AML. No current chest pain, pressure, shortness of breath or lightheadedness. No headaches or visual changes. OBJECTIVE: Physical: VS: Vital Signs Period Temp Pulse Resp BP Sys/Barrios Pulse Ox Last 24 Hr 98.1 F 98-111 17-17 99-121/44-51 100-100 GEN: NAD, Elderly female, resting in bed, AA0X3 HEENT: NCAT, PERRL, throat without erythema or exudates CARD: Stach S1, S1 RESP: CTAB ABD: BSx4, NTD to palpation EXT: LLE edema>RLE, No cyanosis, warm to touch, pulses +2/4 bilateral and equal CBCD WBC 50.0 K/mm3 (4.0-10.0) H* D 02/19/17 15:48 RBC 2.07 M/mm3 (3.60-5.2) L D 02/19/17 15:48 Hgb 8.1 GM/dL (10.7-15.3) L D 02/19/17 15:48 Hct 24.0 % (32.4-45.2) L D 02/19/17 15:48 MCV 115.8 fl (80-96) H 02/19/17 15:48 MCHC 33.9 g/dl (32.0-36.0) 02/19/17 15:48 RDW 15.8 % (11.6-15.6) H D 02/19/17 15:48 Plt Count 127 K/MM3 (134-434) L D 02/19/17 15:48 MPV 6.8 fl (7.5-11.1) L 02/19/17 15:48 CMP Sodium 139 mmol/L (136-145) 02/19/17 15:48 Potassium 3.8 mmol/L (3.5-5.1) 02/19/17 15:48 Chloride 104 mmol/L (98-107) 02/19/17 15:48 Carbon Dioxide 27 mmol/L (21-32) 02/19/17 15:48 Anion Gap 8 (8-16) 02/19/17 15:48 BUN 16 mg/dL (7-18) 02/19/17 15:48 Creatinine 0.8 mg/dL (0.55-1.02) D 02/19/17 15:48 Creat Clearance w eGFR > 60 (>60) 02/19/17 15:48 Random Glucose 175 mg/dL (74-106) H D 02/19/17 15:48 Calcium 8.1 mg/dL (8.5-10.1) L 02/19/17 15:48 Total Bilirubin 0.5 mg/dL (0.2-1.0) D 02/19/17 15:48 AST 11 U/L (15-37) L D 02/19/17 15:48 ALT 11 U/L (12-78) L D 02/19/17 15:48 Alkaline Phosphatase 57 U/L (45-117) 02/19/17 15:48 Total Protein 6.7 g/dl (6.4-8.2) 02/19/17 15:48 Albumin 3.0 g/dl (3.4-5.0) L 02/19/17 15:48 CARDIAC ENZYMES Troponin I < 0.02 ng/ml (0.00-0.05) 02/19/17 20:04 Ambulatory Orders Acetaminophen [Tylenol -] 650 mg PO Q6H PRN 02/19/17 Ascorbic Acid [Vitamin C] 500 mg PO DAILY 02/19/17 Diltiazem Cd [Cardizem Cd -] 180 mg PO DAILY 02/19/17 Guaifenesin Dm [Mucinex Dm -] 1 tab PO BID PRN 02/19/17 Nystatin Oral Suspension - [Nystatin Oral Susp 071147 Units/5 ML -] 500,000 units PO Q6H 02/19/17 Valacyclovir HCl [Valtrex -] 500 mg PO DAILY 02/19/17 Voriconazole 100 mg PO BID 02/19/17 Warfarin Sodium [Coumadin] 5 mg PO DAILY 02/19/17 EKG: Stach 118 with Pvcs, No st-elevations CTA- No PE, No acute process in chest Duplex LLE: Extensive DVT within common, deep and superficial femoral veins as well as polpiteal and posterior tibial veins. Greater saphonous vein is thrombosed. They are completely occluded ASSESSMENT AND PLAN: 81 F with pmhc of AML, A-fib, COPD, DVT s/p IVC filter on coumadin who presents with left leg pain found to have DVT and hyperlukocytosis 1.) DVT - Lovenox 1mg/kg BID 2.) AML with leukocytosis - IVF - Heme consulted- appreciate recc - Chk. uric a, phos, K, Ca - Monitor for TLS - Repeat CBC - monitor on Tele - C/W Valtrex/Vorixonazole for ppx 3.) COPD - C/W home meds 4.) Afib - C/W Cardizem - On Lovenox Place in Med-Tele
--- NOTE | 2017-02-20 02:31 | HP ---
CHIEF COMPLAINT: "i have a blood clot" PCP: Dr Dunaway Hem: Dr Miranda HISTORY OF PRESENT ILLNESS: This is an 81 yo F with PMH of AML, DVT s/p IVC filter on coumadin, COPD, afib who presents due to L calf pain x 4 days, found to have DVT in ED. Patient had a LLE DVT 2 yrs ago, was started of A/C and had filter placed. She has never had PE and currently denies sob, cough, hemoptysis, CP, palpitations. She states that her AML was last treated with chemo May [address] Miranda was closely following her rising WBC count and was planning to start another round of chemo while adjusting her coum dose. She has recently lost 30 lb and was attempting to gain it back to prepare for chemo. The patient had a dental procedure 2 weeks ago which required her to stop taking her coumadin for 5 days. She states that she covered herself with lovenox. On presentation INR is 2.89. ER course was notable for: (1)labs (2) ekg, cta, LE duplex (3)IVF Recent Travel: denies PAST MEDICAL HISTORY: as above PAST SURGICAL HISTORY: as above Social History: lives with Smoking: denies Alcohol:denies Drugs: denies Family History: noncontributory Allergies allopurinol Allergy (Verified 02/19/17 14:41) HOME MEDICATIONS: Home Medications Medication Instructions Recorded Acetaminophen [Tylenol -] 650 mg PO Q6H PRN 02/19/17 Ascorbic Acid [Vitamin C] 500 mg PO DAILY 02/19/17 Diltiazem Cd [Cardizem Cd -] 180 mg PO DAILY 02/19/17 Guaifenesin Dm [Mucinex Dm -] 1 tab PO BID PRN 02/19/17 Nystatin Oral Suspension - 500,000 units PO Q6H 02/19/17 [Nystatin Oral Susp 920394 Units/5 ML -] Valacyclovir HCl [Valtrex -] 500 mg PO DAILY 02/19/17 Voriconazole 100 mg PO BID 02/19/17 Warfarin Sodium [Coumadin] 5 mg PO DAILY 02/19/17 REVIEW OF SYSTEMS CONSTITUTIONAL: Absent: fever, chills, diaphoresis, malaise, loss of appetite HEENT: Absent: rhinorrhea, nasal congestion, throat pain, visual changes CARDIOVASCULAR: Absent: chest pain, syncope, palpitations, irregular heart rate, lightheadedness , peripheral edema RESPIRATORY: Absent: cough, shortness of breath, dyspnea with exertion, orthopnea, wheezing, stridor, hemoptysis GASTROINTESTINAL: Absent: abdominal pain, abdominal distension, nausea, vomiting, diarrhea GENITOURINARY: Absent: dysuria MUSCULOSKELETAL: Absent: back pain, neck pain SKIN: Absent: rash, itching, pallor HEMATOLOGIC/IMMUNOLOGIC: Absent: frequent infections ENDOCRINE: Absent: unexplained weight gain, unexplained weight loss, heat intolerance, cold intolerance NEUROLOGIC: Absent: headache, focal weakness or paresthesias PSYCHIATRIC: Absent: anxiety, depression PHYSICAL EXAMINATION Vital Signs - 24 hr 02/20/17 02:09 Temperature 98.4 F Pulse Rate [ 115 H Radial] Respiratory 17 Rate Blood Pressure 131/59 [Arm] O2 Sat by Pulse 96 Oximetry (%) GENERAL: Awake, alert, and fully oriented, in no acute distress. HEAD: Normal with no signs of trauma. EYES: Pupils equal, round and reactive to light, extraocular movements intact, sclera anicteric, conjunctiva clear. EARS, NOSE, THROAT: Ears normal, nares patent, oropharynx clear without exudates. Moist mucous membranes. NECK: supple without JVD LUNGS: Breath sounds equal, clear to auscultation bilaterally. HEART: Regular rate and rhythm, normal S1 and S2 ABDOMEN: Soft, nontender, not distended, normoactive bowel sounds, no guarding MUSCULOSKELETAL:No CVA tenderness. UPPER EXTREMITIES: 2+ pulses, warm, well-perfused. No peripheral edema. LOWER EXTREMITIES: 1+ pulses, warm, well-perfused. L calf tenderness. LLE more edematous than R but this is chronic accordong to patient, RLE No peripheral edema. NEUROLOGICAL: Cranial nerves II-XII grossly intact. Normal speech. PSYCHIATRIC: Cooperative. Good eye contact. Appropriate mood and affect. SKIN: Warm, dry ASSESSMENT/PLAN: This is an 81 yo F with PMH of AML, DVT s/p IVC filter on coumadin, COPD, afib who presents due to L calf pain x 4 days, found to have DVT in ED. 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 -has been on coum with therapeutic INR -WBC 50, with slight anemia and thrombocytopenia, concern for hyperviscosity syndrome provoking DVT -Heme consulted; start Silas, check PTT, recheck INR; further instructions to follow -IV hydration -cta unremarkable for PE -PT Cachexia -nutritional consult -ensure Dispo: adm med tereso Problem List - Problem (1) AML (acute myelogenous leukemia) Code(s): C92.00 - ACUTE MYELOBLASTIC LEUKEMIA, NOT HAVING ACHIEVED REMISSION Qualifiers: Leukemia Active/Remission status: without remission Qualified Code(s ): C92.00 - Acute myeloblastic leukemia, not having achieved remission; C92.00 - Acute myeloblastic leukemia, not having achieved remission; C92.00 - Acute myeloblastic leukemia, not having achieved remission (2) DVT (deep venous thrombosis) Code(s): I82.409 - ACUTE EMBOLISM AND THOMBOS UNSP DEEP VN UNSP LOWER EXTREMITY Qualifiers: DVT location: lower extremity Affected thrombotic vein of extremity: unspecified vein of extremity Chronicity: acute Laterality: unspecified laterality Qualified Code(s): I82.409 - Acute embolism and thrombosis of unspecified deep veins of unspecified lower extremity; I82.409 - Acute embolism and thrombosis of unspecified deep veins of unspecified lower extremity; I82.409 - Acute embolism and thrombosis of unspecified deep veins of unspecified lower extremity; I82.409 - Acute embolism and thrombosis of unspecified deep veins of unspecified lower extremity (3) Thrombophlebitis Code(s): I80.9 - PHLEBITIS AND THROMBOPHLEBITIS OF UNSPECIFIED SITE (4) Atrial fibrillation Code(s): I48.91 - UNSPECIFIED ATRIAL FIBRILLATION (5) Anemia Code(s): D64.9 - ANEMIA, UNSPECIFIED (6) Hyperviscosity syndrome Code(s): WDQ8607 - (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 - New Patient This patient is new to me today: Yes Date on this admission: 02/20/17 - Critical Care Critical Care patient: No
--- NOTE | 2017-02-20 03:03 | HP ---
CHIEF COMPLAINT: LLE pain PCP: Emelyn HISTORY OF PRESENT ILLNESS: 81F w/ hx of AML (diagnosed in 2009), a-fib, DVT s/p IVC filter on coumadin, and PNA who presents with LLE pain x 4 days. She states that it began in her thigh and has extended to her calf as well, is 8/10, burning in quality, worsened by walking, improved with rest. She states that she had stopped taking her coumadin for a 5 day period about 2 weeks ago for a dental extraction and covered herself with lovenox for 3 of those 5 days. Pt endorses increased immobility over the past week or so, and she denies recent trauma to leg. She denies fevers, chills, leg numbness, leg weakness, headache, SOB, hemoptysis, cough, chest pain, palpitations, abdominal pain, n/v/d/c, and dysuria. She states that she received injections for her AML in may 2016 for a 14 day period, then was off treatment for 14 days, then could not complete a 2nd 14 day course of treatment due to b/l PNA. Pt states that she lost a significant amount of weight, and she told her oncologist (Dr. Miranda) that she wants to gain back her weight before continuing therapy. Pt states that she sees her oncologist every 2 weeks. She states that her wbc count has been slowly rising, but does not recall it ever being higher than 20,000. She states that she only had one DVT before, diagnosed 2 years ago in her LLE. Her IVC filter was placed shortly afterwards. ER course was notable for: (1) severe leukocytosis (2) anemia and thrombocytopenia (3) DVT Recent Travel: PAST MEDICAL HISTORY: AML (diagnosed in 2009), a-fib, DVT s/p IVC filter on coumadin, and PNA PAST SURGICAL HISTORY: appendectomy IVC filter Social History: Smoking: denies Alcohol: denies Drugs: denies Family History: mom-melanoma sister- breast ca Allergies allopurinol Allergy (Verified 02/19/17 14:41) HOME MEDICATIONS: Home Medications Medication Instructions Recorded Acetaminophen [Tylenol -] 650 mg PO Q6H PRN 02/19/17 Ascorbic Acid [Vitamin C] 500 mg PO DAILY 02/19/17 Diltiazem Cd [Cardizem Cd -] 180 mg PO DAILY 02/19/17 Guaifenesin Dm [Mucinex Dm -] 1 tab PO BID PRN 02/19/17 Nystatin Oral Suspension - 500,000 units PO Q6H 02/19/17 [Nystatin Oral Susp 677566 Units/5 ML -] Valacyclovir HCl [Valtrex -] 500 mg PO DAILY 02/19/17 Voriconazole 100 mg PO BID 02/19/17 Warfarin Sodium [Coumadin] 5 mg PO DAILY 02/19/17 REVIEW OF SYSTEMS CONSTITUTIONAL: Absent: fever, chills, diaphoresis, generalized weakness, malaise, loss of appetite Positive: weight change HEENT: Absent: rhinorrhea, nasal congestion, throat pain, throat swelling, difficulty swallowing, mouth swelling, ear pain, eye pain, visual changes CARDIOVASCULAR: Absent: chest pain, syncope, palpitations, irregular heart rate, lightheadedness , peripheral edema RESPIRATORY: Absent: cough, shortness of breath, dyspnea with exertion, orthopnea, wheezing, stridor, hemoptysis GASTROINTESTINAL: Absent: abdominal pain, abdominal distension, nausea, vomiting, diarrhea, constipation, melena, hematochezia GENITOURINARY: Absent: dysuria, frequency, urgency, hesitancy, hematuria, flank pain, genital pain MUSCULOSKELETAL: Absent: back pain, neck pain Positive: leg pain SKIN: Absent: rash, itching, pallor HEMATOLOGIC/IMMUNOLOGIC: Absent: easy bleeding, easy bruising, lymphadenopathy, frequent infections ENDOCRINE: Absent: unexplained weight gain, unexplained weight loss, heat intolerance, cold intolerance NEUROLOGIC: Absent: headache, focal weakness or paresthesias, dizziness, unsteady gait, seizure, mental status changes, bladder or bowel incontinence PSYCHIATRIC: Absent: anxiety, depression, suicidal or homicidal ideation, hallucinations. PHYSICAL EXAMINATION Vital Signs - 24 hr 02/20/17 02:09 Temperature 98.4 F Pulse Rate [ 115 H Radial] Respiratory 17 Rate Blood Pressure 131/59 [Arm] O2 Sat by Pulse 96 Oximetry (%) GENERAL: elderly female, awake, alert, and fully oriented, in no acute distress. HEAD: Normal with no signs of trauma. EYES: Pupils equal, round and reactive to light, extraocular movements intact, sclera anicteric, conjunctiva clear. No lid lag. EARS, NOSE, THROAT: Ears normal, nares patent, oropharynx clear without exudates. Moist mucous membranes. NECK: Normal range of motion, supple without lymphadenopathy, JVD, or masses. LUNGS: Breath sounds equal, clear to auscultation bilaterally. No wheezes, and no crackles. No accessory muscle use. HEART: tachycardic, regular rhythm, normal S1 and S2 without murmur, rub or gallop. ABDOMEN: Soft, nontender, not distended, normoactive bowel sounds, no guarding, no rebound, no masses. No hepatomegaly or splenomegaly. MUSCULOSKELETAL: LLE thigh and calf are swollen, warm to touch, and tender to palpation compared to RLE. no erythema NEUROLOGICAL: Cranial nerves II-XII intact. Normal speech. PSYCHIATRIC: Cooperative. Good eye contact. Appropriate mood and affect. SKIN: Warm, dry, normal turgor, no rashes or lesions noted, normal capillary refill. Laboratory Results - last 24 hr 02/19/17 02/19/17 02/19/17 15:48 15:48 15:48 WBC 50.0 H* D RBC 2.07 L D Hgb 8.1 L D Hct 24.0 L D MCV 115.8 H MCH 39.3 H MCHC 33.9 RDW 15.8 H D Plt Count 127 L D MPV 6.8 L Neutrophils % No Result Required. Lymphocytes % No Result Required. PT with INR 32.70 H INR 2.89 H D PTT (Actin FS) Sodium 139 Potassium 3.8 Chloride 104 Carbon Dioxide 27 Anion Gap 8 BUN 16 Creatinine 0.8 D Creat Clearance w eGFR > 60 Random Glucose 175 H D Calcium 8.1 L Total Bilirubin 0.5 D AST 11 L D ALT 11 L D Alkaline Phosphatase 57 Troponin I B-Natriuretic Peptide Total Protein 6.7 Albumin 3.0 L 02/19/17 02/19/17 02/19/17 20:04 20:04 20:08 WBC RBC Hgb Hct MCV MCH MCHC RDW Plt Count MPV Neutrophils % Lymphocytes % PT with INR INR PTT (Actin FS) 31.8 Sodium Potassium Chloride Carbon Dioxide Anion Gap BUN Creatinine Creat Clearance w eGFR Random Glucose Calcium Total Bilirubin AST ALT Alkaline Phosphatase Troponin I < 0.02 B-Natriuretic Peptide 555.41 H Total Protein Albumin LLE duplex: extensive DVT CTA: no PE ASSESSMENT/PLAN: 81F w/ hx of AML (diagnosed in 2009), a-fib, DVT s/p IVC filter on coumadin, and PNA who presents with acute LLE pain, found to have an extensive LLE DVT, severe leukocytosis, anemia, and thrombocytopenia, admitted to telemetry for DVT. 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 Casarez, f/u recs -f/u uric acid, phos, K, and ca -monitor for tumor lysis syndrome -cardiac telemetry -continue ppx with voriconazole, valacyclovir, and nystatin #macrocytic anemia- 2/2 AML -Hgb of 8.1, MCV of 115 -monitor #thrombocytopenia- 2/2 AML -platelets of 127 -continue to monitor #a-fib -rate controlled with diltiazem -monitor #decreased weight -RD consulted, f/u recs -ensure #FEN/ppx -NS @ 75cc/hr -electrolytes wnl -sodium-controlled diet -no GI ppx -therapeutic lovenox -Avtar Stephens MD PGY1 Visit type - Emergency Visit Emergency Visit: Yes ED Registration Date: 02/19/17 Care time: The patient presented to the Emergency Department on the above date and was hospitalized for further evaluation of their emergent condition. - New Patient This patient is new to me today: Yes Date on this admission: 02/20/17 - Critical Care Critical Care patient: No
[2017-02-20] MEDS ORDERED: SODIUM CHLORIDE 1,000 ML IV SCH ×2 (03:30→15:30)
[2017-02-20 07:40] LABS: MCH 38.7 pg (25.7-33.7); MCHC 33.6 g/dl (32.0-36.0); MEAN CELL VOLUME 115.3 fl (80-96); MEAN PLT VOLUME 6.7 fl (7.5-11.1); PLATELET COUNT 123 K/MM3 (134-434); RDW 15.5 % (11.6-15.6); WHITE BLOOD COUNT 71.3 K/mm3 (4.0-10.0)
[2017-02-20 07:43] LABS: ACTIVATED PTT 29.6 SECONDS (26.9-34.4); INR 3.05 (0.82-1.09); PROTHROMBIN TIME (PATIENT) 34.5 SEC (9.98-11.88)
[2017-02-20 08:33] LABS: ALBUMIN 2.5 g/dl (3.4-5.0); ANION GAP 8 (8-16); CALCIUM 7.3 mg/dL (8.5-10.1); CO2 25 mmol/L (21-32); GLUCOSE,RANDOM 97 mg/dL (74-106); MAGNESIUM 2.2 mg/dL (1.8-2.4); PHOSPHOROUS 2.4 mg/dL (2.5-4.9); SGOT/AST 13 U/L (15-37)
[2017-02-20 08:35] LABS: ALK PHOS 45 U/L (45-117); BILIRUBIN,TOTAL 0.2 mg/dL (0.2-1.0); CREATININE 0.5 mg/dL (0.55-1.02); SGPT/ALT 10 U/L (12-78); TOT PROT 5.6 g/dl (6.4-8.2)
[2017-02-20] MEDS: valACYclovir HCL 500 MG TABLET (FP) PO SCH (09:37)
[2017-02-20] MEDS: ENOXAPARIN NA (PORCINE) 40 MG/0.4 ML DISP.SYRIN SQ SCH ×2 (09:37→23:08)
[2017-02-20] MEDS: ASCORBIC ACID 500 MG TABLET (FP) PO SCH (09:37)
--- NOTE | 2017-02-20 10:47 | CONSULT ---
Consult Consult Specialty:: Oncology Reason for Consultation:: DVT - History of Present Illness History of Present Illness: 81 year old F with a PMH of history of DVT on coumadin s/p IVC filter and AML s /p "7+3" and Emma-C chemotherapy who follows with Is here with LLE pain and was found to have extensive DVT Patient seen and examined. . - History Source History Provided By: Patient, Medical Record - Past Medical History Cardio/Vascular: Yes: AFIB Pulmonary: Yes: COPD. No: O2 Dependent Gastrointestinal: Yes: GERD - Alcohol/Substance Use Hx Alcohol Use: No - Smoking History Smoking history: Never smoked Have you smoked in the past 12 months: No - Social History ADL: Independent History of Recent Travel: No Home Medications - Allergies Allergies/Adverse Reactions: Allergies Allergy/AdvReac Type Severity Reaction Status Date / Time allopurinol Allergy Verified 02/19/17 14:41 - Home Medications Home Medications: Ambulatory Orders Acetaminophen [Tylenol -] 650 mg PO Q6H PRN 02/19/17 Ascorbic Acid [Vitamin C] 500 mg PO DAILY 02/19/17 Diltiazem Cd [Cardizem Cd -] 180 mg PO DAILY 02/19/17 Guaifenesin Dm [Mucinex Dm -] 1 tab PO BID PRN 02/19/17 Nystatin Oral Suspension - [Nystatin Oral Susp 148348 Units/5 ML -] 500,000 units PO Q6H 02/19/17 Valacyclovir HCl [Valtrex -] 500 mg PO DAILY 02/19/17 Voriconazole 100 mg PO BID 02/19/17 Warfarin Sodium [Coumadin] 5 mg PO DAILY 02/19/17 Review of Systems - Review of Systems Constitutional: reports: No Symptoms. denies: Chills, Fever, Lethargy, Loss of Appetite Cardiovascular: denies: Chest Pain, Edema, Palpitations, Shortness of Breath Respiratory: denies: Cough, SOB, SOB on Exertion Gastrointestinal: denies: Abdominal Pain Genitourinary: denies: Burning Neurological: denies: Change in LOC Endocrine: denies: Excessive Sweating Hematology/Lymphatic: denies: Easily Bruised, Excessive Bleeding, Swollen Glands Physical Exam Vital Signs: Vital Signs Temperature 97.9 F 02/20/17 08:00 Pulse Rate 69 02/20/17 08:00 Respiratory Rate 20 02/20/17 08:00 Blood Pressure 111/66 02/20/17 08:00 O2 Sat by Pulse Oximetry (%) 96 02/20/17 02:09 Constitutional: Yes: Well Nourished, No Distress, Calm Eyes: Yes: Conjunctiva Clear, EOM Intact HENT: Yes: Atraumatic, Normocephalic Neck: Yes: Supple, Trachea Midline Cardiovascular: Yes: Regular Rate and Rhythm Respiratory: Yes: Regular, CTA Bilaterally Gastrointestinal: Yes: Normal Bowel Sounds, Soft Edema: No (LLE>RLE (asymmetry)) Neurological: Yes: Alert, Oriented Labs: CBC, BMP 02/20/17 06:05 02/20/17 08:00 Imaging - Results Cat Scan: Report Reviewed Ultrasound: Report Reviewed Assessment/Plan AML DVT Anemia At risk for TLS OI ppx AML: -likely progressing based on CBC. -manual diff pending -[place] [id number] -will give hydrea 500mg daily -Stool for occult blood -2U PRBC -did not seem that she has any occult infection for now accounting for the WCC, will need to monitor for now -for anemia, she denies any bleed, r/o hemolysis, likely from AML progression. -will c/w OI ppx from home -start TLS ppx with Urolic ( she is allergic to allopurinol) DVT: -Coumadin has been therapeutic thus far and in the hospital too -on lovenox today -will give eliquis from tomorrow ( to be off of Lovenox from tomorrow) dose for DVT: 10 mg twice daily for 7 days followed by 5 mg twice daily -sent the eliquis prescription to her pharmacy. [facility] c/s for support. d/w Pt in detail d/w MEDICAL DOCTOR MD/MEDICAL DIRECTOR and admitting resident
--- NOTE | 2017-02-20 10:49 | EKG ---
Test Reason : Blood Pressure : / mmHG Vent. Rate : 118 BPM Atrial Rate : 118 BPM P-R Int : 142 ms QRS Dur : 076 ms QT Int : 320 ms P-R-T Axes : 048 -38 035 degrees QTc Int : 448 ms POOR DATA QUALITY, INTERPRETATION MAY BE ADVERSELY AFFECTED SINUS TACHYCARDIA WITH PREMATURE ATRIAL COMPLEXES LEFT AXIS DEVIATION SEPTAL INFARCT , AGE UNDETERMINED ABNORMAL ECG WHEN COMPARED WITH ECG OF 09-JUN-2014 16:55, PREMATURE ATRIAL COMPLEXES ARE NOW PRESENT SEPTAL INFARCT IS NOW PRESENT Confirmed by JASON DEWITT, CLIFF ([id number]) on 02/20/2017 10:48:43 AM Referred By: Confirmed By:CLIFF GOMEZ MD
--- NOTE | 2017-02-20 10:56 | CONSULT ---
Consultation: REQUESTING PROVIDER: CONSULT REQUEST: We have been asked to medically evaluate this patient for DVT. HISTORY OF PRESENT ILLNESS: 81F w/ hx of AML (diagnosed in 2009), a-fib, DVT s/p IVC filter on coumadin, and PNA who presents with LLE pain x 4 days. She states that it began in her thigh and has extended to her calf as well, is 8/10, burning in quality, worsened by walking, improved with rest. She states that she had stopped taking her coumadin for a 5 day period about 2 weeks ago for a dental extraction and covered herself with lovenox for 3 of those 5 days. Pt endorses increased immobility over the past week or so, and she denies recent trauma to leg. She denies fevers, chills, leg numbness, leg weakness, headache, SOB, hemoptysis, cough, chest pain, palpitations, abdominal pain, n/v/d/c, and dysuria. She states that she received injections for her AML in may 2016 for a 14 day period, then was off treatment for 14 days, then could not complete a 2nd 14 day course of treatment due to b/l PNA. Pt states that she lost a significant amount of weight, and she told her oncologist (Dr. Miranda) that she wants to gain back her weight before continuing therapy. Pt states that she sees her oncologist every 2 weeks. She states that her wbc count has been slowly rising, but does not recall it ever being higher than 20,000. She states that she only had one DVT before, diagnosed 2 years ago in her LLE. Her IVC filter was placed shortly afterwards. REVIEW OF SYSTEMS: as above PHYSICAL EXAMINATION Vital Signs - 24 hr 02/19/17 02/19/17 02/20/17 14:41 19:25 02:09 Temperature 98.1 F 98.4 F Pulse Rate 111 H Pulse Rate [ 98 H 115 H Radial] Respiratory Rate Blood Pressure 99/44 Blood Pressure 121/51 131/59 [Arm] O2 Sat by Pulse 100 100 96 Oximetry (%) 02/20/17 08:00 Temperature 97.9 F Pulse Rate 69 Pulse Rate [ Radial] Respiratory 20 Rate Blood Pressure 111/66 Blood Pressure [Arm] O2 Sat by Pulse Oximetry (%) GENERAL: thin lady,Awake, alert, and fully oriented, in no acute distress. HEAD: Normal with no signs of trauma. EYES: sclera anicteric, conjunctiva clear. EARS, NOSE, THROAT: Moist mucous membranes. LUNGS: Breath sounds equal, clear to auscultation bilaterally. No wheezes, and no crackles. No accessory muscle use. HEART: irregular rate and rhythm, normal S1 and S2 without murmur, rub or gallop. ABDOMEN: Soft, nontender, not distended, normoactive bowel sounds, no guarding, no rebound, no masses. No hepatomegaly or splenomegaly. MUSCULOSKELETAL: Normal range of motion at all joints. No bony deformities LOWER EXTREMITIES: warm, well-perfused. + calf tenderness left leg. +2 peripheral edema. left leg bigger than the right but claim cast and surgery on the right. Sensation intact, strength 5/5 B/L NEUROLOGICAL: No focal deficit, Normal speech. Gait not observed. PSYCHIATRIC: Cooperative. Good eye contact. Appropriate mood and affect. SKIN: Warm, dry, no rashes or lesions noted. Laboratory Results - last 24 hr 02/19/17 02/19/17 02/19/17 15:48 15:48 15:48 WBC 50.0 H* D RBC 2.07 L D Hgb 8.1 L D Hct 24.0 L D MCV 115.8 H MCH 39.3 H MCHC 33.9 RDW 15.8 H D Plt Count 127 L D MPV 6.8 L Neutrophils % No Result Required. Lymphocytes % No Result Required. PT with INR 32.70 H INR 2.89 H D PTT (Actin FS) Sodium 139 Potassium 3.8 Chloride 104 Carbon Dioxide 27 Anion Gap 8 BUN 16 Creatinine 0.8 D Creat Clearance w eGFR > 60 Random Glucose 175 H D Uric Acid Calcium 8.1 L Phosphorus Magnesium Total Bilirubin 0.5 D AST 11 L D ALT 11 L D Alkaline Phosphatase 57 Troponin I B-Natriuretic Peptide Total Protein 6.7 Albumin 3.0 L Crossmatch 02/19/17 02/19/17 02/19/17 20:04 20:04 20:08 WBC RBC Hgb Hct MCV MCH MCHC RDW Plt Count MPV Neutrophils % Lymphocytes % PT with INR INR PTT (Actin FS) 31.8 Sodium Potassium Chloride Carbon Dioxide Anion Gap BUN Creatinine Creat Clearance w eGFR Random Glucose Uric Acid Calcium Phosphorus Magnesium Total Bilirubin AST ALT Alkaline Phosphatase Troponin I < 0.02 B-Natriuretic Peptide 555.41 H Total Protein Albumin Crossmatch 02/20/17 02/20/17 02/20/17 06:00 06:05 08:00 WBC 71.3 H* D RBC 1.69 L Hgb 6.6 L* D Hct 19.5 L D MCV 115.3 H MCH 38.7 H MCHC 33.6 RDW 15.5 Plt Count 123 L MPV 6.7 L Neutrophils % No Result Required. Lymphocytes % No Result Required. PT with INR 34.50 H INR 3.05 H PTT (Actin FS) 29.6 Sodium 139 Potassium 3.6 Chloride 106 Carbon Dioxide 25 Anion Gap 8 BUN 12 D Creatinine 0.5 L D Creat Clearance w eGFR > 60 Random Glucose 97 D Uric Acid Calcium 7.3 L Phosphorus 2.4 L Magnesium 2.2 Total Bilirubin 0.2 D AST 13 L ALT 10 L Alkaline Phosphatase 45 D Troponin I B-Natriuretic Peptide Total Protein 5.6 L Albumin 2.5 L Crossmatch 02/20/17 02/20/17 08:00 10:00 WBC RBC Hgb Hct MCV MCH MCHC RDW Plt Count MPV Neutrophils % Lymphocytes % PT with INR INR PTT (Actin FS) Sodium Potassium Chloride Carbon Dioxide Anion Gap BUN Creatinine Creat Clearance w eGFR Random Glucose Uric Acid Cancelled Calcium Phosphorus Magnesium Total Bilirubin AST ALT Alkaline Phosphatase Troponin I B-Natriuretic Peptide Total Protein Albumin Crossmatch See Detail Active Medications Generic Name Dose Route Start Last Admin Trade Name Freq PRN Reason Stop Dose Admin Acetaminophen 650 mg 02/20/17 00:01 Tylenol - PO Q6H PRN pain Ascorbic Acid 500 mg 02/20/17 10:00 02/20/17 09:37 Vitamin C - PO 500 mg DAILY JATINDER Administration Diltiazem HCl 180 mg 02/20/17 10:00 02/20/17 09:37 Cardizem Cd - PO 180 mg DAILY JATINDER Administration Enoxaparin Sodium 40 mg 02/20/17 10:00 02/20/17 09:37 Lovenox - SQ 40 mg BID JATINDER Administration Hydroxyurea 500 mg 02/20/17 11:00 Hydrea - PO DAILY [facility] Sodium Chloride 1,000 mls @ 75 mls/hr 02/20/17 03:30 Normal Saline - IV ASDIR [facility] Nystatin 500,000 units 02/20/17 06:00 Nystatin Oral Suspension - PO Q6HPO JATINDER Valacyclovir HCl 500 mg 02/20/17 10:00 02/20/17 09:37 Valtrex - PO 500 mg DAILY JATINDER Administration Voriconazole 100 mg 02/20/17 10:00 Vfend (Restricted To Id) PO BID [facility] CBC, BMP 02/20/17 06:05 02/20/17 08:00 ASSESSMENT/PLAN: 81 yof with AML, last treatment in 05/2016, DVT s/p IVC filter, on coumadin, Afib , recent dental extraction ( when coumadin held for 5 days of which 3 were covered with lovenox), admitted with RLE acute DVT and worsening AML #Acute RLE extensive DVT #AML, worsening leucocytosis #anemia #Thrombocytopenia #At risk for Tumor Lysis syndrome #Atrial fibrillation # Hypercholesterimia Plan: * Lovenox, transition to eliquis in AM. * Start hydroxyurea/Uloric. * Transfuse 2units PRBC. * Cardizem * GIPPX * Palliative care input * Monitor H/H * O2 as needed Dispo: We will continue to follow the patient. Thank you for this consultative opportunity.
[2017-02-20] MEDS: NYSTATIN 500,000 UNITS/5 ML SUSPENSION PO SCH ×3 (11:13→23:07)
[2017-02-20] MEDS: HYDROXYUREA 500 MG CAPSULE PO SCH (11:13)
[2017-02-20] MEDS ORDERED: NAPH,MB-DB/K PH,MBDB POWDER PACKET PO ONE (11:45)
[2017-02-20] MEDS ORDERED: FEBUXOSTAT 40 MG TAB PO SCH (12:00)
[2017-02-20 12:43] LABS: TOTAL CELLS COUNTED 100
[2017-02-20 12:45] LABS: ANISOCYTOSIS 1+; MACROCYTOSIS 2+
[2017-02-20 12:46] LABS: TOTAL CELLS COUNTED 100
[2017-02-20 12:46] LABS: BLAST 45 % (0-0)
[2017-02-20 12:47] LABS: BLAST 81 % (0-0); MYELOCYTE 1 % (0-2); REACTIVE LYMPHOCYTES 8 % (0-80)
--- NOTE | 2017-02-20 13:31 | PN ---
Physical Exam: SUBJECTIVE: Patient seen and examined. No complaints other than L leg pain. Denies fever, chills, n/v. No SOB, chest pain, or chest pressure. OBJECTIVE: Vital Signs Period Temp Pulse Resp BP Sys/Barrios Pulse Ox Last 24 Hr 97.9 F-98.4 F 69-115 17-20 99-131/44-66 96-100 GENERAL: thin elderly woman, nad, aaox3 EYES: sclera anicteric, conjunctiva clear ENT: oropharynx clear without exudates, moist mucous membranes LUNGS: CTAB, no wheezes, crackles, or rhonchi HEART: rrr, normal S1/S2 ABDOMEN: Soft, nontender, nondistended LOWER EXTREMITIES: 2+ PT and DP pulses bilaterally, L calf swelling (approx twice circumference of R calf), L popliteal fossa > L calf tenderness, sensation intact bilaterally, strength 5/5 bilaterally CBC, BMP 02/20/17 06:05 02/19/17 02/20/17 15:48 06:05 Total Counted 100 Lymphocytes % (Manual) 50 H 10 D Monocytes % (Manual) 5 Blast Cells % (Manual) 45 H 81 H D Anisocytosis 1+ Macrocytosis 2+ 02/20/17 08:00 Ca - 7.3 (corrected 8.5) Phos - 2.4 Mg - 2.2 Uric Acid - 3.2 Total Bilirubin 0.2 mg/dL (0.2-1.0) D 02/20/17 08:00 AST 13 U/L (15-37) L 02/20/17 08:00 ALT 10 U/L (12-78) L 02/20/17 08:00 Alkaline Phosphatase 45 U/L (45-117) D 02/20/17 08:00 Albumin 2.5 g/dl (3.4-5.0) L 02/20/17 08:00 Trop neg x1 BNP 555 Active Medications Acetaminophen (Tylenol -) 650 mg PO Q6H PRN PRN Reason: pain Ascorbic Acid (Vitamin C -) 500 mg PO DAILY [facility] Last Admin: 02/20/17 09:37 Dose: 500 mg Diltiazem HCl (Cardizem Cd -) 180 mg PO DAILY [facility] Last Admin: 02/20/17 09:37 Dose: 180 mg Enoxaparin Sodium (Lovenox -) 40 mg SQ BID [facility] Last Admin: 02/20/17 09:37 Dose: 40 mg Febuxostat (Uloric -) 40 mg PO DAILY [facility] Hydroxyurea (Hydrea -) 500 mg PO DAILY [facility] Last Admin: 02/20/17 11:13 Dose: 500 mg Sodium Chloride (Normal Saline -) 1,000 mls @ 75 mls/hr IV ASDIR [facility] Nystatin (Nystatin Oral Suspension -) 500,000 units PO Q6HPO [facility] Last Admin: 02/20/17 11:13 Dose: 500,000 units Valacyclovir HCl (Valtrex -) 500 mg PO DAILY [facility] Last Admin: 02/20/17 09:37 Dose: 500 mg Voriconazole (Vfend (Restricted To Id)) 100 mg PO BID [facility] ASSESSMENT/PLAN: 81yo woman with PMH pf AML (dx 2009, s/p Cytarabine May 2016), Afib, and DVT s/ p IVC filter on Coumadin who presents with 4xdays acute LLE pain and swelling, and found to have an extensive LLE DVT in common, deep, superficial femoral, popliteal, PT, and greater saphenous veins. CTA was negative for PE. Labs notable for severe leukocytosis (>70K) and manual differential showing bandemia. Tumor lysis syndrome unlikely based on current labs, however per Onc will ppx with Febuxostat. Patient found to have acute drop in Hgb of clear etiology; ddx includes AML POD vs bleed. #AML, labs c/w progression of disease -Heme/Onc following -Continue home Valacyclovir, Voriconazole, and Nystatin for opportunistic infection ppx -Start hydroxyurea 500mg PO daily -Start Febuxostat 40mg daily for tumor lysis syndrome ppx (pt allergic to allopurinol) #Anemia -receiving 2UxPRBCs -f/u FOBT #recurrent DVT -Treatment per Heme: -therapeutic lovenox 40mg SQ BID today -Start Eliquis tomorrow, DVT dosing 10 mg twice daily for 7 days followed by 5 mg BID #Afib -rate controlled with diltiazem -monitor #decreased weight -RD consulted, f/u recs -ensure #FEN/ppx -NS @ 75cc/hr -Repleted phosphate -sodium-controlled diet -no GI ppx -therapeutic lovenox #Palliative care consult for support Dispo: tele monitoring with likely dispo home tomorrow; awaiting PT for home needs eval FULL Code d/w Dr. Mariaelena Bray MD PGY-1 Visit type - Emergency Visit Emergency Visit: No - New Patient This patient is new to me today: Yes Date on this admission: 02/20/17 - Critical Care Critical Care patient: No
[2017-02-20 13:36] LABS: URIC ACID 3.2 mg/dL (2.6-7.2)
--- NOTE | 2017-02-20 15:36 | PN ---
Teaching Attending Note Name of Resident: Chris Xiao ATTENDING PHYSICIAN STATEMENT I saw and evaluated the patient. I reviewed the resident's note and discussed the case with the resident. I agree with the resident's findings and plan as documented. PULMONARY IMP RECURRENT DVT LLE S/P IVC FILTER AML ANEMIA AFIB ASHD DM HYPERCHOLESTEROLEMIA PLAN AC ELIQUIS TRANSFUSE MONITOR H+H O2 PRN DR MARKS Problem List - Problems (1) Anemia Code(s): D64.9 - ANEMIA, UNSPECIFIED (2) DVT (deep venous thrombosis) Code(s): I82.409 - ACUTE EMBOLISM AND THOMBOS UNSP DEEP VN UNSP LOWER EXTREMITY Qualifiers: DVT location: lower extremity Affected thrombotic vein of extremity: unspecified vein of extremity Chronicity: acute Laterality: unspecified laterality Qualified Code(s): I82.409 - Acute embolism and thrombosis of unspecified deep veins of unspecified lower extremity (3) AML (acute myelogenous leukemia) Code(s): C92.00 - ACUTE MYELOBLASTIC LEUKEMIA, NOT HAVING ACHIEVED REMISSION Qualifiers: Leukemia Active/Remission status: without remission Qualified Code(s): C92.00 - Acute myeloblastic leukemia, not having achieved remission (4) Atrial fibrillation Code(s): I48.91 - UNSPECIFIED ATRIAL FIBRILLATION (5) Thrombophlebitis Code(s): I80.9 - PHLEBITIS AND THROMBOPHLEBITIS OF UNSPECIFIED SITE (6) Anemia Code(s): D64.9 - ANEMIA, UNSPECIFIED
--- NOTE | 2017-02-20 17:05 | PN ---
Teaching Attending Note Name of Resident: Floridalma Bray ATTENDING PHYSICIAN STATEMENT Time of evaluation: 11:30 AM I saw and evaluated the patient. I reviewed the resident's note and discussed the case with the resident. I agree with the resident's findings and plan as documented. SUBJECTIVE: Patient seen and examined. left leg pain improved. no chest pain, palpitations, dyspnea or dizziness, denies dark or bloody stools. OBJECTIVE: Vital Signs Period Temp Pulse Resp BP Sys/Barrios Pulse Ox Last 24 Hr 97.9 F-98.4 F 69-115 17-20 111-131/48-66 96-100 Intake & Output 02/17/17 02/18/17 02/19/17 02/20/17 23:59 23:59 23:59 23:59 Weight 92 lb General: cachectic female in bed in no acute distress CVS S1S2 regular Chest CAB, no rales or wheezing abdomen soft, NT, ND, positive bowel sounds extremities LLE pitting edema, positive Rafael's sign, positive DP pulses Home Medication List Medication Instructions Recorded Confirmed Type Acetaminophen [Tylenol -] 650 mg PO Q6H PRN 02/19/17 02/19/17 History Ascorbic Acid [Vitamin C] 500 mg PO DAILY 02/19/17 02/19/17 History Diltiazem Cd [Cardizem Cd -] 180 mg PO DAILY 02/19/17 02/19/17 History Guaifenesin Dm [Mucinex Dm -] 1 tab PO BID PRN 02/19/17 02/19/17 History Nystatin Oral Suspension - 500,000 units PO Q6H 02/19/17 02/19/17 History [Nystatin Oral Susp 117142 Units/5 ML -] Valacyclovir HCl [Valtrex -] 500 mg PO DAILY 02/19/17 02/19/17 History Voriconazole 100 mg PO BID 02/19/17 02/19/17 History Warfarin Sodium [Coumadin] 5 mg PO DAILY 02/19/17 02/19/17 History Active Medications Generic Name Dose Route Start Last Admin Trade Name Freq PRN Reason Stop Dose Admin Acetaminophen 650 mg 02/20/17 00:01 Tylenol - PO Q6H PRN pain Ascorbic Acid 500 mg 02/20/17 10:00 02/20/17 09:37 Vitamin C - PO 500 mg DAILY JATINDER Administration Diltiazem HCl 180 mg 02/20/17 10:00 02/20/17 09:37 Cardizem Cd - PO 180 mg DAILY JATINDER Administration Enoxaparin Sodium 40 mg 02/20/17 10:00 02/20/17 09:37 Lovenox - SQ 40 mg BID JATINDER Administration Febuxostat 40 mg 02/20/17 12:00 02/20/17 15:20 Uloric - PO 40 mg DAILY JATINDER Administration Hydroxyurea 500 mg 02/20/17 11:00 02/20/17 11:13 Hydrea - PO 500 mg DAILY JATINDER Administration Sodium Chloride 1,000 mls @ 75 mls/hr 02/20/17 03:30 Normal Saline - IV ASDIR JATINDER Sodium Chloride 1,000 mls @ 75 mls/hr 02/20/17 15:30 Normal Saline - IV ASDIR JATINDER Nystatin 500,000 units 02/20/17 06:00 02/20/17 11:13 Nystatin Oral Suspension - PO 500,000 units Q6HPO JATINDER Administration Valacyclovir HCl 500 mg 02/20/17 10:00 02/20/17 09:37 Valtrex - PO 500 mg DAILY JATINDER Administration Voriconazole 100 mg 02/20/17 10:00 Vfend (Restricted To Id) PO BID [facility] Laboratory Results - last 24 hr 02/19/17 02/19/17 02/19/17 15:48 15:48 15:48 WBC 50.0 H* D RBC 2.07 L D Hgb 8.1 L D Hct 24.0 L D MCV 115.8 H MCH 39.3 H MCHC 33.9 RDW 15.8 H D Plt Count 127 L D MPV 6.8 L Total Counted 100 Neutrophils % No Result Required. Neutrophils % (Manual) 0 L Band Neuts % (Manual) 0 Lymphocytes % No Result Required. Lymphocytes % (Manual) 50 H Monocytes % (Manual) 5 Myelocytes % (Man) Blast Cells % (Manual) 45 H Anisocytosis 1+ Macrocytosis 2+ PT with INR 32.70 H INR 2.89 H D PTT (Actin FS) Sodium 139 Potassium 3.8 Chloride 104 Carbon Dioxide 27 Anion Gap 8 BUN 16 Creatinine 0.8 D Creat Clearance w eGFR > 60 Random Glucose 175 H D Uric Acid Calcium 8.1 L Phosphorus Magnesium Total Bilirubin 0.5 D AST 11 L D ALT 11 L D Alkaline Phosphatase 57 Troponin I B-Natriuretic Peptide Total Protein 6.7 Albumin 3.0 L Blood Type Antibody Screen Crossmatch 02/19/17 02/19/17 02/19/17 20:04 20:04 20:08 WBC RBC Hgb Hct MCV MCH MCHC RDW Plt Count MPV Total Counted Neutrophils % Neutrophils % (Manual) Band Neuts % (Manual) Lymphocytes % Lymphocytes % (Manual) Monocytes % (Manual) Myelocytes % (Man) Blast Cells % (Manual) Anisocytosis Macrocytosis PT with INR INR PTT (Actin FS) 31.8 Sodium Potassium Chloride Carbon Dioxide Anion Gap BUN Creatinine Creat Clearance w eGFR Random Glucose Uric Acid Calcium Phosphorus Magnesium Total Bilirubin AST ALT Alkaline Phosphatase Troponin I < 0.02 B-Natriuretic Peptide 555.41 H Total Protein Albumin Blood Type Antibody Screen Crossmatch 02/20/17 02/20/17 02/20/17 06:00 06:05 08:00 WBC 71.3 H* D RBC 1.69 L Hgb 6.6 L* D Hct 19.5 L D MCV 115.3 H MCH 38.7 H MCHC 33.6 RDW 15.5 Plt Count 123 L MPV 6.7 L Total Counted 100 Neutrophils % No Result Required. Neutrophils % (Manual) Band Neuts % (Manual) Lymphocytes % No Result Required. Lymphocytes % (Manual) 10 D Monocytes % (Manual) Myelocytes % (Man) 1 Blast Cells % (Manual) 81 H D Anisocytosis Macrocytosis PT with INR 34.50 H INR 3.05 H PTT (Actin FS) 29.6 Sodium 139 Potassium 3.6 Chloride 106 Carbon Dioxide 25 Anion Gap 8 BUN 12 D Creatinine 0.5 L D Creat Clearance w eGFR > 60 Random Glucose 97 D Uric Acid 3.2 D Calcium 7.3 L Phosphorus 2.4 L Magnesium 2.2 Total Bilirubin 0.2 D AST 13 L ALT 10 L Alkaline Phosphatase 45 D Troponin I B-Natriuretic Peptide Total Protein 5.6 L Albumin 2.5 L Blood Type Antibody Screen Crossmatch 02/20/17 02/20/17 08:00 10:00 WBC RBC Hgb Hct MCV MCH MCHC RDW Plt Count MPV Total Counted Neutrophils % Neutrophils % (Manual) Band Neuts % (Manual) Lymphocytes % Lymphocytes % (Manual) Monocytes % (Manual) Myelocytes % (Man) Blast Cells % (Manual) Anisocytosis Macrocytosis PT with INR INR PTT (Actin FS) Sodium Potassium Chloride Carbon Dioxide Anion Gap BUN Creatinine Creat Clearance w eGFR Random Glucose Uric Acid Cancelled Calcium Phosphorus Magnesium Total Bilirubin AST ALT Alkaline Phosphatase Troponin I B-Natriuretic Peptide Total Protein Albumin Blood Type O POSITIVE Antibody Screen Negative Crossmatch See Detail RLE extensive DVT CT chest neg for PE ASSESSMENT AND PLAN: 81 yof with AML, 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 Start hydroxyurea/Uloric. Transfuse 2units PRBC. [facility] Palliative care input Attempted to address code status with patient, wants her to be health care proxy, defers to her advanced directives. to bring in copy. Dispo planning in 24-48 hours if counts stable and transitioned to oral anticoagulation with no concerns.
[2017-02-20] MEDS: ACETAMINOPHEN 325 MG TABLET (FP) PO PRN (21:45)
--- NOTE | 2017-02-20 21:55 | HOSP ---
Subjective - Review of Symptoms General: No: Chills HEENT: No: Head Aches, Visual Changes Pulmonary: No: Dyspnea, Cough Cardiovascular: No: Chest Pain, Palpitations Gastrointestinal: No: Nausea, Vomiting Genitourinary: No: Dysuria Musculoskeletal: No: No Symptoms Neurological: No: Confusion Physical Examination Vital Signs: Vital Signs Temperature 98.2 F 02/20/17 18:21 Pulse Rate 108 H 02/20/17 18:21 Respiratory Rate 18 02/20/17 18:21 Blood Pressure 102/59 02/20/17 18:21 O2 Sat by Pulse Oximetry (%) 99 02/20/17 14:15 Vital Signs Period Temp Pulse Resp BP Sys/Barrios Pulse Ox Last 24 Hr 97.9 F-98.4 F 69-115 17-20 102-131/48-66 96-99 Called to see an 81 yo f with AML, last treatment in 05/2016, DVT s/p IVC filter , on coumadin, Afib, recent dental extraction ( when coumadin held for 5 days of which 3 were covered with lovenox), admitted with RLE acute DVT and worsening AML receiving 2 unit of PRBCs and found to be febrile at 101.6. Gen: Patient in no obvious respiratory distress, AOO x3, no rashes, no itching Heart: s1, s2 only no added sounds Chest: CTA bilaterally Musculoskeletal: No rashes Assessment: Transfusion reaction-Febrile: Stop transfusion tabs tylenol 650mg stat-given Iv benadryl 25mg resume Iv fluids CBC, type and screen, blood culture, urine culture, UA- samples taken Patient evaluated- stable Resume transfusion Watch for rashes, SOB [id number] vitals Monitor If SOB and rashes-likely anaphylaxis, stop transfusion, return blood to blood bank, methylprednisone Constitutional: Yes: No Distress, Calm Cardiovascular: Yes: Regular Rate and Rhythm, S1, S2 Respiratory: Yes: Regular, CTA Bilaterally Gastrointestinal: Yes: Soft Labs: CBC, BMP 02/20/17 06:05 02/20/17 08:00 Visit type - Emergency Visit Emergency Visit: Yes ED Registration Date: 02/19/17 Care time: The patient presented to the Emergency Department on the above date and was hospitalized for further evaluation of their emergent condition. - New Patient This patient is new to me today: Yes Date on this admission: 02/20/17 - Critical Care Critical Care patient: No
[2017-02-20 22:01] LABS: BASOPHIL 0.2 % (0-2.0); MCH 35.4 pg (25.7-33.7); MCHC 34.4 g/dl (32.0-36.0); MEAN CELL VOLUME 102.9 fl (80-96); MEAN PLT VOLUME 6.5 fl (7.5-11.1); NEUTROPHILS 0.4 % (42.8-82.8); PLATELET COUNT 120 K/MM3 (134-434); RDW 25.1 % (11.6-15.6)
[2017-02-20 22:09] LABS: WHITE BLOOD COUNT 56.2 K/mm3 (4.0-10.0)
[2017-02-20] MEDS: LEVOFLOXACIN 250 MG TABLET (FP) PO SCH (23:08)
[2017-02-20 23:42] LABS: URINE APPEARANCE CLEAR; URINE BILIRUBIN NEGATIVE (NEGATIVE); URINE BLOOD NEGATIVE (NEGATIVE); URINE COLOR LTYELLOW; URINE GLUCOSE (UA) NEGATIVE (NEGATIVE); URINE KETONE NEGATIVE (NEGATIVE); URINE NITRITE NEGATIVE (NEGATIVE); URINE PROTEIN NEGATIVE (NEGATIVE); URINE UROBILINOGEN NEGATIVE mg/dL (0.2-1.0)
[2017-02-21] MEDS: NYSTATIN 500,000 UNITS/5 ML SUSPENSION PO SCH ×3 (06:34→17:05)
[2017-02-21] MEDS: LEVOFLOXACIN 250 MG TABLET (FP) PO SCH (06:34)
[2017-02-21] MEDS ORDERED: SODIUM CHLORIDE 1,000 ML IV SCH ×2 (07:08→12:03)
[2017-02-21 08:00] LABS: MCH 34.9 pg (25.7-33.7); MCHC 34.5 g/dl (32.0-36.0); MEAN CELL VOLUME 101.1 fl (80-96); MEAN PLT VOLUME 6.7 fl (7.5-11.1); PLATELET COUNT 116 K/MM3 (134-434); RDW 26.5 % (11.6-15.6)
[2017-02-21 08:08] LABS: WHITE BLOOD COUNT 85.7 K/mm3 (4.0-10.0)
--- NOTE | 2017-02-21 08:12 | PN ---
Physical Exam: 24H Events: yesterday - started on Lovenox 40mg SQ BID for extensive LLE DVT ON - fever to 101.6, tachycardia low 100's during 2nd U prbcs, given Tylenol AM - rectal T 100.7, worsening leukocytosis from 56.2K to 85.7K SUBJECTIVE: Patient seen and examined. Continues to have LLE pain with ambulation and movement while in bed. Feels warm, lethargic, denies chills, nausea, vomiting. Denies SOB, chest pain, dizziness. OBJECTIVE: Vital Signs Period Temp Pulse Resp BP Sys/Barrios Pulse Ox Last 24 Hr 97.8 F-101.6 F 84-108 18-20 93-117/42-59 99-99 GENERAL: thin elderly woman, aaox3 EYES: sclera anicteric, conjunctiva clear ENT: oropharynx clear without exudates, moist mucous membranes LUNGS: CTAB, no wheezes, crackles, or rhonchi HEART: rrr, normal S1/S2 ABDOMEN: Soft, nontender, nondistended LOWER EXTREMITIES: 2+ PT and DP pulses bilaterally, L calf swelling (approx twice circumference of R calf), L popliteal fossa > L calf tenderness, sensation intact bilaterally, strength 5/5 bilaterally CBC, BMP 02/21/17 06:00 02/21/17 12:00 Hepatic Panel Total Bilirubin 0.3 mg/dL (0.2-1.0) D 02/21/17 12:00 Direct Bilirubin 0.2 mg/dL (0.0-0.2) D 02/21/17 06:00 AST 18 U/L (15-37) 02/21/17 12:00 ALT 13 U/L (12-78) 02/21/17 12:00 Alkaline Phosphatase 51 U/L (45-117) 02/21/17 12:00 Albumin 2.5 g/dl (3.4-5.0) L 02/21/17 12:00 IMAGING: CXR 02/21/17: left lung base haze opacity Active Medications Acetaminophen (Tylenol -) 650 mg PO Q6H PRN PRN Reason: pain Last Admin: 02/20/17 21:45 Dose: 650 mg Apixaban (Eliquis -) 10 mg PO BID [facility] Ascorbic Acid (Vitamin C -) 500 mg PO DAILY [facility] Last Admin: 02/20/17 09:37 Dose: 500 mg Diltiazem HCl (Cardizem Cd -) 180 mg PO DAILY [facility] Last Admin: 02/20/17 09:37 Dose: 180 mg Hydroxyurea (Hydrea -) 500 mg PO DAILY [facility] Last Admin: 02/20/17 11:13 Dose: 500 mg Sodium Chloride (Normal Saline -) 1,000 mls @ 42 mls/hr IV ASDIR [facility] Voriconazole 50 Mg Tab - Patient Own Med 2 each PO BID [facility] Nystatin (Nystatin Oral Suspension -) 500,000 units PO Q6HPO [facility] Last Admin: 02/21/17 06:34 Dose: 500,000 units Valacyclovir HCl (Valtrex -) 500 mg PO DAILY [facility] Last Admin: 02/20/17 09:37 Dose: 500 mg ASSESSMENT/PLAN: 81yo woman with PMH pf AML (dx 2009, s/p Cytarabine May 2016), Afib, and DVT s/ p IVC filter on Coumadin who presents with 4xdays acute LLE pain and swelling, and found to have an extensive LLE DVT in common, deep, superficial femoral, popliteal, PT, and greater saphenous veins. CTA was negative for PE. Patient received 2U PBRCs for acute Hgb drop. Developed fever last night to T max 101.6 and low grade this morning, which could be 2/2 from transfusion in addition to infection. Blood cultures drawn and growing GP cocci, and patient started on abx per ID. #sepsis with GP bacteremia, pt neutropenic, febrile and tachycardic -ID consulted -ECHO ordered to r/o endocarditis -Serial blood cultures x2 -Started Vancomycin and Cefepime -neutropenic precautions -IVFs - NS@100cc/hr #AML, labs c/w progression of disease -Heme/Onc and ID following -Continue home Valacyclovir, Voriconazole, and Nystatin for opportunistic infection ppx -Hydroxyurea 500mg PO daily -Holding Febuxostat and allopurinol due to adverse reaction (Febuxostat - hand shaking, allopurinol - rash) #Anemia, s/p 2UxPRBCs, FOBT neg, no active signs of bleeding -Trend H&H #recurrent DVT -therapeutic lovenox 40mg SQ BID -Dischage home on Eliquis (DVT dosing 10 mg twice daily for 7 days followed by 5 mg BID) #Afib -rate controlled with diltiazem -monitor #FEN/ppx -NS @ 100cc/hr -Repleted phosphate -sodium-controlled diet -no GI ppx -therapeutic lovenox #Palliative care consult for support Dispo: continue tele monitoring due to infection/sepsis FULL Code, to bring living will to further address [facility] d/w Dr. Mariaelena Bray MD PGY-1 Visit type - Emergency Visit Emergency Visit: No - New Patient This patient is new to me today: No - Critical Care Critical Care patient: No
[2017-02-21 09:02] LABS: ANION GAP 12 (8-16); CALCIUM 7.8 mg/dL (8.5-10.1); CO2 24 mmol/L (21-32); CREATININE 0.6 mg/dL (0.55-1.02); GLUCOSE,RANDOM 107 mg/dL (74-106); LDH 373 U/L (84-246); URIC ACID 3.1 mg/dL (2.6-7.2)
[2017-02-21] MEDS ORDERED: PT OWN MED DRAWER 7, Y5N ONE (09:45)
[2017-02-21 09:49] LABS: URINE LEUK ESTERASE Negative (NEGATIVE)
[2017-02-21] MEDS ORDERED: APIXABAN 5 MG TABLET PO SCH ×2 (10:00→12:00)
[2017-02-21] MEDS ORDERED: VORICONAZOLE 50 MG PO SCH (10:00)
--- NOTE | 2017-02-21 10:02 | PN ---
Physical Exam: SUBJECTIVE: Patient seen and examined at bedside. she had a fever 101 over night after the blood transfusion. today morning she is doing well. no new complaints ,she still have pain 7/10 when walk to the bathroom. OBJECTIVE: Vital Signs Period Temp Pulse Resp BP Sys/Barrios Pulse Ox Last 24 Hr 97.8 F-101.6 F 84-108 18-20 93-117/42-59 99-99 GENERAL: thin lady,Awake, alert, and fully oriented, in no acute distress. HEAD: Normal with no signs of trauma. EYES: sclera anicteric, conjunctiva clear. EARS, NOSE, THROAT: Moist mucous membranes. LUNGS: Breath sounds equal, clear to auscultation bilaterally. No wheezes, and no crackles. No accessory muscle use. HEART: irregular rate and rhythm, normal S1 and S2 without murmur, rub or gallop. ABDOMEN: Soft, nontender, not distended, normoactive bowel sounds, no guarding, no rebound, no masses. No hepatomegaly or splenomegaly. MUSCULOSKELETAL: Normal range of motion at all joints. No bony deformities LOWER EXTREMITIES: warm, well-perfused. + calf tenderness left leg. +1 peripheral edema. left leg bigger than the right but claim cast and surgery on the right. Sensation intact, strength 5/5 B/L NEUROLOGICAL: No focal deficit, Normal speech. Gait not observed. PSYCHIATRIC: Cooperative. Good eye contact. Appropriate mood and affect. SKIN: Warm, dry, no rashes or lesions noted. Laboratory Results - last 24 hr 02/19/17 02/20/17 02/20/17 15:48 06:05 08:00 WBC RBC Hgb Hct MCV MCH MCHC RDW Plt Count MPV Total Counted 100 100 Neutrophils % (Manual) 0 L Band Neuts % (Manual) 0 Lymphocytes % (Manual) 50 H 10 D Neutrophils % Monocytes % (Manual) 5 Lymphocytes % Myelocytes % (Man) 1 Monocytes % Blast Cells % (Manual) 45 H 81 H D Eosinophils % Basophils % Anisocytosis 1+ Macrocytosis 2+ Sodium 139 Potassium 3.6 Chloride 106 Carbon Dioxide 25 Anion Gap 8 BUN 12 D Creatinine 0.5 L D Creat Clearance w eGFR > 60 Random Glucose 97 D Uric Acid 3.2 D Calcium 7.3 L Phosphorus 2.4 L Magnesium 2.2 Total Bilirubin 0.2 D AST 13 L ALT 10 L Alkaline Phosphatase 45 D Total Protein 5.6 L Albumin 2.5 L Urine Color Urine Appearance Urine pH Ur Specific [place] Urine Protein Urine Glucose (UA) Urine Ketones Urine Blood Urine Nitrite Urine Bilirubin Urine Urobilinogen Blood Type Antibody Screen Crossmatch 02/20/17 02/20/17 02/20/17 08:00 10:00 21:40 WBC 56.2 H* RBC 2.54 L D Hgb 9.0 L D Hct 26.2 L D MCV 102.9 H D MCH 35.4 H MCHC 34.4 RDW 25.1 H Plt Count 120 L MPV 6.5 L Total Counted Neutrophils % (Manual) Band Neuts % (Manual) Lymphocytes % (Manual) Neutrophils % 0.4 L Monocytes % (Manual) Lymphocytes % 97.5 H D Myelocytes % (Man) Monocytes % 1.9 L Blast Cells % (Manual) Eosinophils % 0.0 D Basophils % 0.2 D Anisocytosis Macrocytosis Sodium Potassium Chloride Carbon Dioxide Anion Gap BUN Creatinine Creat Clearance w eGFR Random Glucose Uric Acid Cancelled Calcium Phosphorus Magnesium Total Bilirubin AST ALT Alkaline Phosphatase Total Protein Albumin Urine Color Urine Appearance Urine pH Ur Specific [place] Urine Protein Urine Glucose (UA) Urine Ketones Urine Blood Urine Nitrite Urine Bilirubin Urine Urobilinogen Blood Type O POSITIVE Antibody Screen Negative Crossmatch See Detail 02/20/17 02/21/17 23:30 06:00 WBC 85.7 H* D RBC 2.81 L Hgb 9.8 L Hct 28.4 L MCV 101.1 H MCH 34.9 H MCHC 34.5 RDW 26.5 H Plt Count 116 L MPV 6.7 L Total Counted Neutrophils % (Manual) Band Neuts % (Manual) Lymphocytes % (Manual) Neutrophils % No Result Required. Monocytes % (Manual) Lymphocytes % No Result Required. Myelocytes % (Man) Monocytes % Blast Cells % (Manual) Eosinophils % Basophils % Anisocytosis Macrocytosis Sodium Potassium Chloride Carbon Dioxide Anion Gap BUN Creatinine Creat Clearance w eGFR Random Glucose Uric Acid Calcium Phosphorus Magnesium Total Bilirubin AST ALT Alkaline Phosphatase Total Protein Albumin Urine Color Ltyellow Urine Appearance Clear Urine pH 6.0 Ur Specific [place] 1.021 Urine Protein Negative Urine Glucose (UA) Negative Urine Ketones Negative Urine Blood Negative Urine Nitrite Negative Urine Bilirubin Negative Urine Urobilinogen Negative Blood Type Antibody Screen Crossmatch Active Medications Generic Name Dose Route Start Last Admin Trade Name Melly PRN Reason Stop Dose Admin Acetaminophen 650 mg 02/20/17 00:01 02/20/17 21:45 Tylenol - PO 650 mg Q6H PRN Administration pain Ascorbic Acid 500 mg 02/20/17 10:00 02/20/17 09:37 Vitamin C - PO 500 mg DAILY JATINDER Administration Diltiazem HCl 180 mg 02/20/17 10:00 02/20/17 09:37 Cardizem Cd - PO 180 mg DAILY J[facility] Administration Enoxaparin Sodium 40 mg 02/21/17 09:45 Lovenox - SQ BID J[facility]ER Hydroxyurea 500 mg 02/20/17 11:00 02/20/17 11:13 Hydrea - PO 500 mg DAILY J[facility]ER Administration Sodium Chloride 1,000 mls @ 42 mls/hr 02/21/17 07:08 Normal Saline - IV ASDIR [facility] Voriconazole 50 Mg 2 each 02/21/17 10:00 Tab - Patient Own PO Med BID [facility] Nystatin 500,000 units 02/20/17 06:00 02/21/17 06:34 Nystatin Oral Suspension - PO 500,000 units Q6HPO JATINDER Administration Valacyclovir HCl 500 mg 02/20/17 10:00 02/20/17 09:37 Valtrex - PO 500 mg DAILY JATINDER Administration CBC, BMP 02/21/17 06:00 ASSESSMENT/PLAN: 81 yof with AML, last treatment in 05/2016, DVT s/p IVC filter, on coumadin, Afib , recent dental extraction ( when coumadin held for 5 days of which 3 were covered with lovenox), admitted with RLE acute DVT and worsening AML #Acute RLE extensive DVT #AML, worsening leucocytosis #anemia #Thrombocytopenia #At risk for Tumor Lysis syndrome #Atrial fibrillation # Hypercholesterimia Plan: * Lovenox, transition to eliquis in AM. * Start hydroxyurea/Uloric. * Transfuse 2units PRBC. * Cardizem * GIPPX * Palliative care input * Monitor H/H * O2 as needed Visit type - Emergency Visit Emergency Visit: No - New Patient This patient is new to me today: No - Critical Care Critical Care patient: No
[2017-02-21] MEDS: ENOXAPARIN NA (PORCINE) 40 MG/0.4 ML DISP.SYRIN SQ SCH ×3 (11:07→22:18)
[2017-02-21] MEDS: ASCORBIC ACID 500 MG TABLET (FP) PO SCH (11:09)
[2017-02-21] MEDS: HYDROXYUREA 500 MG CAPSULE PO SCH (11:09)
[2017-02-21] MEDS: valACYclovir HCL 500 MG TABLET (FP) PO SCH (11:09)
[2017-02-21] MEDS ORDERED: VANCOMYCIN 1,000 MG VIAL (RESTRICTED TO ID ONLY) IVPB ONE (11:49)
--- NOTE | 2017-02-21 11:53 | PN ---
Teaching Attending Note Name of Resident: Floridalma Bray ATTENDING PHYSICIAN STATEMENT Time of evaluaiton: 9:15 AM I saw and evaluated the patient. I reviewed the resident's note and discussed the case with the resident. I agree with the resident's findings and plan as documented. SUBJECTIVE: Patient seen and examined. Left leg pain improved. Hasn't slept well, feels warm currently, no new cough, dyspnea, nausea, vomiting, abdominal pain, or urinary symptoms. OBJECTIVE: Vital Signs Period Temp Pulse Resp BP Sys/Barrios Pulse Ox Last 24 Hr 97.8 F-101.6 F 84-108 18-20 93-117/42-59 99-99 Intake & Output 02/18/17 02/19/17 02/20/17 02/21/17 23:59 23:59 23:59 23:59 Intake Total 240 600 Balance 240 600 Weight 92 lb General:Tired looking in bed in no acute distress CVS: S1S2 regular Chest: CTAB, no rales or wheezing abdomen: soft, NT, ND, positive bowel sounds, no voluntary or involuntary guarding or rigidity extremities LLE 1+ pitting edema, positive DP pulses Home Medication List Medication Instructions Recorded Confirmed Type Acetaminophen [Tylenol -] 650 mg PO Q6H PRN 02/19/17 02/19/17 History Ascorbic Acid [Vitamin C] 500 mg PO DAILY 02/19/17 02/19/17 History Diltiazem Cd [Cardizem Cd -] 180 mg PO DAILY 02/19/17 02/19/17 History Guaifenesin Dm [Mucinex Dm -] 1 tab PO BID PRN 02/19/17 02/19/17 History Nystatin Oral Suspension - 500,000 units PO Q6H 02/19/17 02/19/17 History [Nystatin Oral Susp 961547 Units/5 ML -] Valacyclovir HCl [Valtrex -] 500 mg PO DAILY 02/19/17 02/19/17 History Voriconazole 100 mg PO BID 02/19/17 02/19/17 History Warfarin Sodium [Coumadin] 5 mg PO DAILY 02/19/17 02/19/17 History Ciprofloxacin [Cipro (Restricted 250 mg PO BID 02/21/17 02/21/17 History To Id)] Active Medications Generic Name Dose Route Start Last Admin Trade Name Freq PRN Reason Stop Dose Admin Acetaminophen 650 mg 02/20/17 00:01 02/20/17 21:45 Tylenol - PO 650 mg Q6H PRN Administration pain Ascorbic Acid 500 mg 02/20/17 10:00 02/21/17 11:09 Vitamin C - PO 500 mg DAILY [facility] Administration Diltiazem HCl 180 mg 02/20/17 10:00 02/21/17 11:09 Cardizem Cd - PO 180 mg DAILY [facility] Administration Enoxaparin Sodium 40 mg 02/21/17 09:45 02/21/17 11:08 Lovenox - SQ Not Given BID [facility] Hydroxyurea 500 mg 02/20/17 11:00 02/21/17 11:09 Hydrea - PO 500 mg DAILY [facility] Administration Sodium Chloride 1,000 mls @ 42 mls/hr 02/21/17 07:08 02/21/17 11:08 Normal Saline - IV Not Given ASDIR [facility] Voriconazole 50 Mg 2 each 02/21/17 10:00 Tab - Patient Own PO Med BID [facility] Nystatin 500,000 units 02/20/17 06:00 02/21/17 11:08 Nystatin Oral Suspension - PO 500,000 units Q6HPO [facility] Administration Valacyclovir HCl 500 mg 02/20/17 10:00 02/21/17 11:09 Valtrex - PO 500 mg DAILY [facility] Administration Blood cultures: gm positive cocci in chains ASSESSMENT AND PLAN: 81 yof with AML, last treatment in 05/2016, DVT s/p IVC filter, on coumadin, Afib , recent dental extraction ( when coumadin held for 5 days of which 3 were covered with lovenox), admitted with RLE acute DVT and worsening AML, now with Sepsis/bacteremia -Gm positive sepsis with bacteremia with worsening leucocytosis -Acute RLE extensive DVT -AMS, worsening leucocytosis/anemia -Thrombocytopenia -At risk for Tumor Lysis Syndrome -Atrial fibrillation Plan: Give a dose of cefepime/vancomycin, ID consult, pancultures sent on 02/20, will check CXR. continue telemetry, close hemodynamic monitoring and monitor for new focus. Check LFTs. less likely that overnight fevers only from transfusion reaction, overnight events noted. Monitor for now. Lovenox, transition to eliquis in per hematology. Started on hydroxyurea/Uloric. s/p 2 units of PRBC with appropriate response. No clinical evidence of bleed. Cardizem GIPPX Palliative care input Dispo planning on hold given new infectious process and need for monitoring. Reiterate with patient to have bring in advanced directives.
[2017-02-21] MEDS ORDERED: CEFEPIME HCL 2 GM VIAL (RESTRICTED TO ID) IVPB ONE (11:54)
--- NOTE | 2017-02-21 12:25 | PN ---
Progress Note (short form) - Note Progress Note: ID Consult dictated +BC GPCC Possible infectious endocarditis (recent dental work) ? catheter- related ? GI/ source Febrile neutropenia/ Neutropenic sepsis Acute leukemia DVT L LE Repeat BC x2 Echo Empiric cefepime/ vanco Neutropenic precautions Continue prophylactic voriconazole/ valtrex
[2017-02-21 12:57] LABS: ALBUMIN 2.6 g/dl (3.4-5.0); BILIRUBIN,DIRECT 0.2 mg/dL (0.0-0.2); BILIRUBIN,TOTAL 0.8 mg/dL (0.2-1.0); SGOT/AST 19 U/L (15-37); SGPT/ALT 13 U/L (12-78); TOT PROT 5.9 g/dl (6.4-8.2)
[2017-02-21 12:58] LABS: ALK PHOS 50 U/L (45-117)
[2017-02-21] MEDS ORDERED: CEFEPIME 2 GM in DEXTROSE 5%-WATER - 100 ML IVPB ONE (13:00)
--- NOTE | 2017-02-21 13:31 | PN ---
Teaching Attending Note Name of Resident: Chris Xiao ATTENDING PHYSICIAN STATEMENT I saw and evaluated the patient. I reviewed the resident's note and discussed the case with the resident. I agree with the resident's findings and plan as documented. SUBJECTIVE: Noted fever overnight to 101 after transfusion. Some dry cough. No CP or SOB. Intake & Output 02/18/17 02/19/17 02/20/17 02/21/17 23:59 23:59 23:59 23:59 Intake Total 240 900 Balance 240 900 Weight 92 lb Last Vital Signs Temp Pulse Resp BP Pulse Ox 98.5 F 87 20 117/57 99 02/21/17 06:00 02/21/17 06:00 02/21/17 10:00 02/21/17 06:00 02/21/17 10:00 Active Medications Acetaminophen (Tylenol -) 650 mg PO Q6H PRN PRN Reason: pain Last Admin: 02/20/17 21:45 Dose: 650 mg Ascorbic Acid (Vitamin C -) 500 mg PO DAILY [facility] Last Admin: 02/21/17 11:09 Dose: 500 mg Diltiazem HCl (Cardizem Cd -) 180 mg PO DAILY [facility] Last Admin: 02/21/17 11:09 Dose: 180 mg Enoxaparin Sodium (Lovenox -) 40 mg SQ BID [facility] Hydroxyurea (Hydrea -) 500 mg PO DAILY [facility] Last Admin: 02/21/17 11:09 Dose: 500 mg Sodium Chloride (Normal Saline -) 1,000 mls @ 100 mls/hr IV ASDIR [facility] Vancomycin HCl 1,000 mg/ (Dextrose) 250 mls @ 200 mls/hr IVPB BID@0100,1300 [facility] Cefepime HCl 1 gm/ Dextrose 100 mls @ 200 mls/hr IVPB Q8H-IV [facility] Nystatin (Nystatin Oral Suspension -) 500,000 units PO Q6HPO [facility] Last Admin: 02/21/17 11:08 Dose: 500,000 units Valacyclovir HCl (Valtrex -) 500 mg PO DAILY [facility] Last Admin: 02/21/17 11:09 Dose: 500 mg Voriconazole (Vfend (Restricted To Id)) 100 mg PO BID [facility] GENERAL: thin, NAD HEAD: Normal with no signs of trauma. EYES: sclera anicteric, conjunctiva clear. EARS, NOSE, THROAT: Moist mucous membranes. LUNGS: Few basilar rhonchi HEART: irregular rate and rhythm, normal S1 and S2 without murmur, rub or gallop. ABDOMEN: Soft, nontender, not distended, normoactive bowel sounds, no guarding, no rebound, no masses. No hepatomegaly or splenomegaly. MUSCULOSKELETAL: Normal range of motion at all joints. No bony deformities LOWER EXTREMITIES: warm, well-perfused. + calf tenderness left leg. +1 peripheral edema. left leg bigger than the right but claim cast and surgery on the right. Sensation intact, strength 5/5 B/L NEUROLOGICAL: No focal deficit PSYCHIATRIC: Cooperative. SKIN: Warm, dry, no rashes or lesions noted. Laboratory Results - last 24 hr 02/20/17 02/20/17 02/20/17 08:00 10:00 21:40 WBC 56.2 H* RBC 2.54 L D Hgb 9.0 L D Hct 26.2 L D MCV 102.9 H D MCH 35.4 H MCHC 34.4 RDW 25.1 H Plt Count 120 L MPV 6.5 L Neutrophils % 0.4 L Lymphocytes % 97.5 H D Monocytes % 1.9 L Eosinophils % 0.0 D Basophils % 0.2 D Sodium Potassium Chloride Carbon Dioxide Anion Gap BUN Creatinine Random Glucose Uric Acid 3.2 D Calcium LD Total Urine Color Urine Appearance Urine pH Ur Specific [place] Urine Protein Urine Glucose (UA) Urine Ketones Urine Blood Urine Nitrite Urine Bilirubin Urine Urobilinogen Ur Leukocyte Esterase Stool Occult Blood Blood Type O POSITIVE Antibody Screen Negative Crossmatch See Detail 02/20/17 02/21/17 02/21/17 23:30 06:00 06:00 WBC 85.7 H* D RBC 2.81 L Hgb 9.8 L Hct 28.4 L MCV 101.1 H MCH 34.9 H MCHC 34.5 RDW 26.5 H Plt Count 116 L MPV 6.7 L Neutrophils % No Result Required. Lymphocytes % No Result Required. Monocytes % Eosinophils % Basophils % Sodium 141 Potassium 3.9 Chloride 105 Carbon Dioxide 24 Anion Gap 12 BUN 18 D Creatinine 0.6 Random Glucose 107 H Uric Acid 3.1 Calcium 7.8 L LD Total 373 H Urine Color Ltyellow Urine Appearance Clear Urine pH 6.0 Ur Specific [place] 1.021 Urine Protein Negative Urine Glucose (UA) Negative Urine Ketones Negative Urine Blood Negative Urine Nitrite Negative Urine Bilirubin Negative Urine Urobilinogen Negative Ur Leukocyte Esterase Negative Stool Occult Blood Blood Type Antibody Screen Crossmatch 02/21/17 10:39 WBC RBC Hgb Hct MCV MCH MCHC RDW Plt Count MPV Neutrophils % Lymphocytes % Monocytes % Eosinophils % Basophils % Sodium Potassium Chloride Carbon Dioxide Anion Gap BUN Creatinine Random Glucose Uric Acid Calcium LD Total Urine Color Urine Appearance Urine pH Ur Specific [place] Urine Protein Urine Glucose (UA) Urine Ketones Urine Blood Urine Nitrite Urine Bilirubin Urine Urobilinogen Ur Leukocyte Esterase Stool Occult Blood Negative Blood Type Antibody Screen Crossmatch ASSESSMENT/PLAN: Acute on Chronic VTE Recent dental extraction (?) Endocarditis S/P IVC Filter AML Anemia Thrombocytopenia HPL Lovenox -> NOAC O2 as needed ABX per ID Normal transfusion thresholds Palliative care evaluation Dr Marquez
[2017-02-21 13:37] LABS: ALBUMIN 2.5 g/dl (3.4-5.0); ALK PHOS 51 U/L (45-117); ANION GAP 7 (8-16); BILIRUBIN,TOTAL 0.3 mg/dL (0.2-1.0); CALCIUM 7.7 mg/dL (8.5-10.1); CO2 26 mmol/L (21-32); CREATININE 0.5 mg/dL (0.55-1.02); GLUCOSE,RANDOM 113 mg/dL (74-106); SGOT/AST 18 U/L (15-37); SGPT/ALT 13 U/L (12-78)
--- NOTE | 2017-02-21 13:37 | CONS ---
INFECTIOUS DISEASE CONSULTATION DATE OF CONSULTATION: DATE OF DICTATION: 02/21/2017 REASON FOR CONSULTATION: The patient is an 81-year-old female with a history of AML, who was evaluated for febrile neutropenia. HISTORY OF PRESENT ILLNESS: The patient was admitted to the hospital on February 19, 2017, with a 4-day history of worsening left lower extremity pain. She had gone for a dental extraction approximately 2 weeks ago and had held her Coumadin. She was using Lovenox as a bridge. Despite the anticoagulation, she developed a left lower extremity DVT. She was admitted to the hospital where a CAT scan of the chest was performed and was negative for pulmonary embolism or pneumonia. Her course was complicated by fever to 101.6, tachycardia, and diaphoresis. Patient reports these symptoms developed while she was receiving a blood transfusion. Lab now reports positive blood cultures for gram-positive cocci in chains. She has no focal complaints. She denies any recent febrile illness or shaking chills. No complaints of chest pain, shortness of breath, cough, sputum production. No complaints of erythema or tenderness at the port. No dysuria or hematuria. No vomiting or diarrhea. Patient is on prophylactic treatment with voriconazole, Valtrex, and ciprofloxacin. 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 She reports being in remission for 5 years and now with a relapse. She was anticipating resuming chemotherapy. Her last chemotherapy was in May of 2016. Past medical history also includes atrial fibrillation, COPD, prior DVT. PAST SURGICAL HISTORY: Status post port placement and IVC filter. ALLERGIES: ALLOPURINOL. MEDICATIONS: Include Tylenol, vitamin C, Cardizem, Valtrex, voriconazole, Coumadin, ciprofloxacin. SOCIAL HISTORY: She lives at home with family members. She is a nonsmoker, nondrinker. SYSTEMS REVIEW: Neurologic: No loss of consciousness, seizure activity, or focal weakness. Cardiac: Negative chest pain and palpitations. Respiratory: Negative cough or sputum production. Gastrointestinal: Negative vomiting or vomiting. Genitourinary: Negative for urinary tract infection. LABORATORY DATA: White count 85,000; neutrophils 0%, lymphocytes 97%; blasts 81; hematocrit 28.4; platelet count 116. BUN 18, creatinine 0.6. Urinalysis negative. CAT scan of the chest: Negative for acute pulmonary embolism or infiltrate. PHYSICAL EXAMINATION: General: The patient is chronically ill appearing, cachectic. Vital Signs: Temperature 98.5, T-max 101.6; blood pressure 117/57; pulse 87, regular; respirations 20 per minute. HEENT: Sclerae are anicteric. Poor dentition. Dry mucous membranes. Neck: Supple. Heart: Sounds S1, S2. No loud murmur. Port Site: No erythema or tenderness. Lungs: Clear. Abdomen: Soft. No tenderness elicited. No mass, rebound, or rigidity. Extremities: Negative for edema. Positive ecchymotic areas noted, upper and lower extremities. IMPRESSION: 1. Positive blood culture of streptococcus species, possible infectious endocarditis secondary to recent dental work. 2. Possible catheter-related sepsis. 3. Possible occult gastrointestinal versus genitourinary source. 4. Febrile neutropenia/neutropenic sepsis. 5. Acute leukemia. 6. Deep venous thrombosis, left lower extremity. PLAN: We will repeat blood cultures x2, obtain echocardiogram, empiric coverage for neutropenic sepsis with cefepime and coverage of blood isolate with vancomycin, neutropenic precautions, continue prophylactic voriconazole and Valtrex. Prognosis is guarded. Will follow. Thank you for the kind referral. BALJIT DIAS M.D. [id number]
[2017-02-21] MEDS: VANCOMYCIN 1,000 MG in DEXTROSE 5%-WATER - 250 ML IVPB SCH (14:00)
--- NOTE | 2017-02-21 15:18 | PN ---
Progress Note (short form) - Note Progress Note: Patient seen and examined feels weak no overt bleeding no abdominal pain/cough/SOB Last Vital Signs Temp Pulse Resp BP Pulse Ox 98.5 F 87 20 117/57 99 02/21/17 06:00 02/21/17 06:00 02/21/17 10:00 02/21/17 06:00 02/21/17 10:00 Cor: RSR, No murmurs, No gallops Lungs: Clear to P&A Abd: Soft, Normal bowel sounds, No organomegaly Ext:No significant edema Home Medication List Medication Instructions Recorded Confirmed Type Acetaminophen [Tylenol -] 650 mg PO Q6H PRN 02/19/17 02/19/17 History Ascorbic Acid [Vitamin C] 500 mg PO DAILY 02/19/17 02/19/17 History Diltiazem Cd [Cardizem Cd -] 180 mg PO DAILY 02/19/17 02/19/17 History Guaifenesin Dm [Mucinex Dm -] 1 tab PO BID PRN 02/19/17 02/19/17 History Nystatin Oral Suspension - 500,000 units PO Q6H 02/19/17 02/19/17 History [Nystatin Oral Susp 047892 Units/5 ML -] Valacyclovir HCl [Valtrex -] 500 mg PO DAILY 02/19/17 02/19/17 History Voriconazole 100 mg PO BID 02/19/17 02/19/17 History Warfarin Sodium [Coumadin] 5 mg PO DAILY 02/19/17 02/19/17 History Ciprofloxacin [Cipro (Restricted 250 mg PO BID 02/21/17 02/21/17 History To Id)] Active Medications Generic Name Dose Route Start Last Admin Trade Name Freq PRN Reason Stop Dose Admin Acetaminophen 650 mg 02/20/17 00:01 02/20/17 21:45 Tylenol - PO 650 mg Q6H PRN Administration pain Ascorbic Acid 500 mg 02/20/17 10:00 02/21/17 11:09 Vitamin C - PO 500 mg DAILY JATINDER Administration Diltiazem HCl 180 mg 02/20/17 10:00 02/21/17 11:09 Cardizem Cd - PO 180 mg DAILY JATINDER Administration Enoxaparin Sodium 40 mg 02/21/17 22:00 Lovenox - SQ BID JATINDER Hydroxyurea 500 mg 02/20/17 11:00 02/21/17 11:09 Hydrea - PO 500 mg DAILY JATINDER Administration Sodium Chloride 1,000 mls @ 100 mls/hr 02/21/17 12:03 Normal Saline - IV ASDIR JATINDER Vancomycin HCl 1,000 mg/ 250 mls @ 200 mls/hr 02/21/17 13:00 Dextrose IVPB BID@0100,1300 JATINDER Cefepime HCl 1 gm/ Dextrose 100 mls @ 200 mls/hr 02/21/17 13:00 IVPB Q8H-IV JATINDER Nystatin 500,000 units 02/20/17 06:00 02/21/17 11:08 Nystatin Oral Suspension - PO 500,000 units Q6HPO JATINDER Administration Valacyclovir HCl 500 mg 02/20/17 10:00 02/21/17 11:09 Valtrex - PO 500 mg DAILY JATINDER Administration Voriconazole 100 mg 02/21/17 22:00 Voriconazole (Restricted To Id) PO BID JATINDER A/P 81 y/o female with AML , on hydrea, recent dental extraction, comes in with fever after dental extraction and extensive LLE DVT after interruption of coumadin Also with G+ bacteremia--on broad spectrum antibiotics ? endocarditis will discuss with ID regarding ? port PAtient interrupted coumadin for dental work. Placed back after a week interruption. Developed extensive LLE DVT NOw INR 3 but with exensive DVt ON lovenox 40mg SC boid Has a filter will reverse coumadin with vit. K Leukocytosis--AML + infection On hydrea+ antibiotics will check LDH/uric acid allergic to allopurinol/uloric Gentle hydration may need to titrate hydrea
[2017-02-21] MEDS: CEFEPIME 1 GM in DEXTROSE 5%-WATER - 100 ML IVPB SCH ×2 (15:25→17:04)
[2017-02-21] MEDS: SODIUM CHLORIDE 1,000 ML IV SCH (17:00)
[2017-02-21] MEDS: PHYTONADIONE 10 MG/1 ML AMP SQ SCH (17:04)
[2017-02-21 17:24] LABS: PLATELET ESTIMATE DECREASED (NORMAL)
[2017-02-21 17:25] LABS: BLAST 55 % (0-0); TOTAL CELLS COUNTED 100
[2017-02-21 17:26] LABS: ANISOCYTOSIS 2+; MACROCYTOSIS 1+; REACTIVE LYMPHOCYTES 4 % (0-80)
[2017-02-21] MEDS ORDERED: CEFEPIME HCL 1 GM VIAL (RESTRICTED TO ID) IVPB SCH (18:00)
[2017-02-21] MEDS ORDERED: VORICONAZOLE 200 MG TABLET (RESTRICTED TO ID) PO SCH (22:00)
[2017-02-21] MEDS: VORICONAZOLE 50 MG TABLET (RESTRICTED TO ID) PO SCH (22:32)
[2017-02-22] MEDS: NYSTATIN 500,000 UNITS/5 ML SUSPENSION PO SCH ×3 (00:35→17:39)
[2017-02-22] MEDS: VANCOMYCIN 1,000 MG in DEXTROSE 5%-WATER - 250 ML IVPB SCH ×2 (00:36→13:51)
[2017-02-22] MEDS: CEFEPIME 1 GM in DEXTROSE 5%-WATER - 100 ML IVPB SCH ×3 (01:03→17:39)
[2017-02-22 07:17] LABS: MCH 34.1 pg (25.7-33.7); MCHC 33.3 g/dl (32.0-36.0); MEAN CELL VOLUME 102.5 fl (80-96); MEAN PLT VOLUME 6.8 fl (7.5-11.1); PLATELET COUNT 113 K/MM3 (134-434); RDW 25.8 % (11.6-15.6)
--- NOTE | 2017-02-22 07:17 | PN ---
Physical Exam: SUBJECTIVE: Patient seen and examined. LLE pain slightly improved this AM, but persists with ambulation and movement while in bed. No fever, chills, nausea, vomiting. Denies SOB, chest pain, dizziness. OBJECTIVE: Vital Signs Period Temp Pulse Resp BP Sys/Barrios Pulse Ox Last 24 Hr 97.8 F-100.0 F 80-111 18-20 100-113/41-54 98-99 GENERAL: thin elderly woman, aaox3 EYES: sclera anicteric, conjunctiva clear ENT: oropharynx clear without exudates, moist mucous membranes LUNGS: CTAB, no wheezes, crackles, or rhonchi HEART: rrr, normal S1/S2 ABDOMEN: Soft, nontender, nondistended LOWER EXTREMITIES: 2+ PT and DP pulses bilaterally, L calf swelling (approx twice circumference of R calf), L popliteal fossa > L calf tenderness, sensation intact bilaterally, strength 5/5 bilaterally CBC, BMP 02/22/17 05:19 02/22/17 05:19 02/19/17 02/20/17 02/22/17 15:48 06:05 05:19 Total Counted 100 Lymphocytes % (Manual) 50 H 10 D Neutrophils % 1.0 L Monocytes % (Manual) 5 Lymphocytes % 60.0 H D Monocytes % 1.0 L Blast Cells % (Manual) 45 H 81 H D Anisocytosis 1+ Macrocytosis 2+ Hepatic Panel Total Bilirubin 0.3 mg/dL (0.2-1.0) 02/22/17 05:19 Direct Bilirubin 0.2 mg/dL (0.0-0.2) D 02/21/17 06:00 AST 13 U/L (15-37) L D 02/22/17 05:19 ALT 11 U/L (12-78) L 02/22/17 05:19 Alkaline Phosphatase 43 U/L (45-117) L 02/22/17 05:19 Albumin 2.4 g/dl (3.4-5.0) L 02/22/17 05:19 INR, PTT INR 1.46 (0.82-1.09) H D 02/22/17 05:19 Fibrinogen 504.0 mg/dL (238-498) H D 02/22/17 05:19 ECHO (02/22/09): no e/o endocarditis; mild MR, TR, AK Active Medications Acetaminophen (Tylenol -) 650 mg PO Q6H PRN PRN Reason: pain Last Admin: 02/20/17 21:45 Dose: 650 mg Ascorbic Acid (Vitamin C -) [address] [facility] Last Admin: 02/22/17 09:49 Dose: 500 mg Diltiazem HCl (Cardizem Cd -) [address] [facility] Last Admin: 02/22/17 09:49 Dose: 180 mg Enoxaparin Sodium (Lovenox -) [address] [facility] Last Admin: 02/22/17 09:49 Dose: 40 mg Hydroxyurea (Hydrea -) [address] [facility] Last Admin: 02/22/17 10:45 Dose: 500 mg Vancomycin HCl 1,000 mg/ (Dextrose) 250 mls @ 200 mls/hr IVPB BID@0100,1300 [facility] Last Admin: 02/22/17 13:51 Dose: 200 mls/hr Cefepime HCl 1 gm/ Dextrose 100 mls @ 200 mls/hr IVPB Q8H-IV [facility] Last Admin: 02/22/17 10:44 Dose: 200 mls/hr Sodium Chloride (Normal Saline -) 1,000 mls @ 60 mls/hr IV ASDIR [facility] Last Admin: 02/21/17 17:00 Dose: 60 mls/hr Nystatin (Nystatin Oral Suspension -) 500,[address] [facility] Last Admin: 02/22/17 06:51 Dose: 500,000 units Valacyclovir HCl (Valtrex -) [address] [facility] Last Admin: 02/22/17 09:49 Dose: 500 mg Voriconazole (Voriconazole (Restricted To Id)) [address] [facility] Last Admin: 02/22/17 09:49 Dose: 100 mg ASSESSMENT/PLAN: 81yo woman with PMH pf AML (dx 2009, s/p Cytarabine May 2016), Afib, and DVT s/ p IVC filter on Coumadin who presents with 4xdays acute LLE pain and swelling, and found to have an extensive LLE DVT in common, deep, superficial femoral, popliteal, PT, and greater saphenous veins. CTA was negative for PE. s/p 2U PBRCs. Blood cultures drawn and growing GP cocci, and patient started on abx per ID. No e/o endocarditis on 2D ECHO. #sepsis with GP bacteremia, pt neutropenic, febrile and tachycardic -ID consulted -Vancomycin and Cefepime (started 02/21) -F/u Vanc level -neutropenic precautions #AML, labs c/w progression of disease -Heme/Onc and ID following -Continue home Valacyclovir, Voriconazole, and Nystatin for opportunistic infection ppx -Hydroxyurea 500mg PO daily --> BID -Holding Febuxostat and allopurinol due to adverse reaction (Febuxostat - hand shaking, allopurinol - rash) #Anemia, s/p 2UxPRBCs, FOBT neg, no active signs of bleeding -Trend H&H #recurrent DVT -therapeutic lovenox 40mg SQ BID -Discharge home on Eliquis (DVT dosing 10 mg twice daily for 7 days followed by 5 mg BID) #Afib -rate controlled with diltiazem -monitor #FEN/ppx -NS @ 60cc/hr -Repleted phosphate -sodium-controlled diet -no GI ppx -therapeutic lovenox #Palliative care consult for support Dispo: continue tele monitoring due to infection/sepsis FULL Code, palliative care consult to discuss [facility] d/w Dr. Mariaelena Bray MD Visit type - Emergency Visit Emergency Visit: No - New Patient This patient is new to me today: No - Critical Care Critical Care patient: No
[2017-02-22 07:32] LABS: INR 1.46 (0.82-1.09); PROTHROMBIN TIME (PATIENT) 16.5 SEC (9.98-11.88)
[2017-02-22 08:00] LABS: WHITE BLOOD COUNT 88.2 K/mm3 (4.0-10.0)
[2017-02-22 08:09] LABS: ACTIVATED PTT 28.8 SECONDS (26.9-34.4)
[2017-02-22 08:14] LABS: ALBUMIN 2.4 g/dl (3.4-5.0); ALK PHOS 43 U/L (45-117); ANION GAP 11 (8-16); BILIRUBIN,TOTAL 0.3 mg/dL (0.2-1.0); CALCIUM 7.6 mg/dL (8.5-10.1); CO2 23 mmol/L (21-32); CREATININE 0.6 mg/dL (0.55-1.02); GLUCOSE,RANDOM 103 mg/dL (74-106); LDH 284 U/L (84-246); SGOT/AST 13 U/L (15-37); SGPT/ALT 11 U/L (12-78); TOT PROT 5.8 g/dl (6.4-8.2); URIC ACID 3.1 mg/dL (2.6-7.2)
[2017-02-22 08:40] LABS: PLATELET ESTIMATE DECREASED (NORMAL)
--- NOTE | 2017-02-22 09:30 | PN ---
Progress Note (short form) - Note Progress Note: Patient seen and examined ROS- denies headaches, diplopia, epistaxis, dysphagia, chest pains, SOB, dyspnea, GERD, nausea, emesis, diarrhea, constipation, dysuria, hematuria, ; some back pains, some left lower gum pains, sme left calf pains on ambulation Last Vital Signs Temp Pulse Resp BP Pulse Ox 99.0 F 80 18 100/45 98 02/22/17 06:00 02/22/17 06:00 02/22/17 06:00 02/22/17 06:00 02/21/17 21:00 HEENT: JAMARI, EOM Intact Oropharynx: No thrush, No mucositis, missing teeth , lower gum-periapical region area of erythema and tenderness incisors Neck: Supple Nodes: Without adenopathy Breasts: Without masses Cor: RSR, systolic murmur-(old) Lungs: scoliosis ; few rales at bases Abd: Soft, Normal bowel sounds, No organomegaly Ext:No significant edema; + left van's Skin: No rashes, Integument intact CBC, BMP 02/22/17 05:19 02/22/17 05:19 Microbiology 02/20/17 21:35 Blood - Peripheral Venous Blood Culture - Preliminary Streptococcus Species Pending Organism 02/20/17 21:40 Blood - Peripheral Venous Blood Culture - Preliminary NO GROWTH OBTAINED AFTER 24 HOURS, INCUBATION TO CONTINUE FOR 4 DAYS. Current Medications Generic Name Dose Route Start Last Admin Trade Name Freq PRN Reason Stop Dose Admin Acetaminophen 650 mg 02/20/17 00:01 02/20/17 21:45 Tylenol - PO 650 mg Q6H PRN Administration pain Ascorbic Acid 500 mg 02/20/17 10:00 02/21/17 11:09 Vitamin C - PO 500 mg DAILY JATINDER Administration Diltiazem HCl 180 mg 02/20/17 10:00 02/21/17 11:09 Cardizem Cd - PO 180 mg DAILY JATINDER Administration Enoxaparin Sodium 40 mg 02/21/17 22:00 02/21/17 22:18 Lovenox - SQ 40 mg BID JATINDER Administration Hydroxyurea 500 mg 02/20/17 11:00 02/21/17 11:09 Hydrea - PO 500 mg DAILY JATINDER Administration Vancomycin HCl 1,000 mg/ 250 mls @ 200 mls/hr 02/21/17 13:00 02/22/17 00:36 Dextrose IVPB 200 mls/hr BID@0100,1300 JATINDER Administration Cefepime HCl 1 gm/ Dextrose 100 mls @ 200 mls/hr 02/21/17 13:00 02/22/17 01: 03 IVPB 200 mls/hr Q8H-IV JATINDER Administration Sodium Chloride 1,000 mls @ 60 mls/hr 02/21/17 16:02 02/21/17 17:00 Normal Saline - IV 60 mls/hr ASDIR JATINDER Administration Nystatin 500,000 units 02/20/17 06:00 02/22/17 06:51 Nystatin Oral Suspension - PO 500,000 units Q6HPO JATINDER Administration Phytonadione 5 mg 02/21/17 16:00 02/21/17 17:04 Aqua Mephyton Injection - SQ 02/22/17 10:01 5 mg DAILY JATINDER Administration Valacyclovir HCl 500 mg 02/20/17 10:00 02/21/17 11:09 Valtrex - PO 500 mg DAILY JATINDER Administration Voriconazole 100 mg 02/21/17 22:00 02/21/17 22:32 Voriconazole (Restricted To Id) PO 100 mg BID JATINDER Administration Impression:Problems 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 secondary to dental procedure ?? endocarditis LLE -DVT Discussion Patient has not been in remission for greater than one year and she has been managed without chemotherapy and with prn trnsfusions which have been infrequent. Unfortunately with her rising WBC count, she may be "blasting -off ". She is on Hydrea -500 mg daily, but will need to increase dose. 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 ?? coumadin failure and ultimately change to NOAC Plan: To continue antibiotic work up and therapy per I.D. To increase Hydrea to 1000 mg daily and to monitor CBC, check uric acid ,LDH
[2017-02-22] MEDS ORDERED: PT OWN MED DRAWER 7, Y5N ONE ×3 (09:37→21:35)
[2017-02-22] MEDS: ENOXAPARIN NA (PORCINE) 40 MG/0.4 ML DISP.SYRIN SQ SCH ×2 (09:49→21:37)
[2017-02-22] MEDS: VORICONAZOLE 50 MG TABLET (RESTRICTED TO ID) PO SCH ×2 (09:49→21:37)
[2017-02-22] MEDS: ASCORBIC ACID 500 MG TABLET (FP) PO SCH (09:49)
[2017-02-22] MEDS: valACYclovir HCL 500 MG TABLET (FP) PO SCH (09:49)
[2017-02-22] MEDS: HYDROXYUREA 500 MG CAPSULE PO SCH ×2 (10:45→21:38)
--- NOTE | 2017-02-22 11:45 | PN ---
Progress Note, Physician History of Present Illness: pulmonary alert,feeling better,-sob.less lower ext pain - Current Medication List Current Medications: Active Medications Acetaminophen (Tylenol -) 650 mg PO Q6H PRN PRN Reason: pain Last Admin: 02/20/17 21:45 Dose: 650 mg Ascorbic Acid (Vitamin C -) 500 mg PO DAILY [facility] Last Admin: 02/22/17 09:49 Dose: 500 mg Diltiazem HCl (Cardizem Cd -) 180 mg PO DAILY [facility] Last Admin: 02/22/17 09:49 Dose: 180 mg Enoxaparin Sodium (Lovenox -) 40 mg SQ BID [facility] Last Admin: 02/22/17 09:49 Dose: 40 mg Hydroxyurea (Hydrea -) 500 mg PO BID [facility] Last Admin: 02/22/17 10:45 Dose: 500 mg Vancomycin HCl 1,000 mg/ (Dextrose) 250 mls @ 200 mls/hr IVPB BID@0100,1300 [facility] Last Admin: 02/22/17 00:36 Dose: 200 mls/hr Cefepime HCl 1 gm/ Dextrose 100 mls @ 200 mls/hr IVPB Q8H-IV [facility] Last Admin: 02/22/17 10:44 Dose: 200 mls/hr Sodium Chloride (Normal Saline -) 1,000 mls @ 60 mls/hr IV ASDIR [facility] Last Admin: 02/21/17 17:00 Dose: 60 mls/hr Nystatin (Nystatin Oral Suspension -) 500,000 units PO Q6HPO [facility] Last Admin: 02/22/17 06:51 Dose: 500,000 units Valacyclovir HCl (Valtrex -) 500 mg PO DAILY [facility] Last Admin: 02/22/17 09:49 Dose: 500 mg Voriconazole (Voriconazole (Restricted To Id)) 100 mg PO BID [facility] Last Admin: 02/22/17 09:49 Dose: 100 mg - Objective Vital Signs: Vital Signs Temperature 99.0 F 02/22/17 06:00 Pulse Rate 80 02/22/17 06:00 Respiratory Rate 18 02/22/17 06:00 Blood Pressure 100/45 02/22/17 06:00 O2 Sat by Pulse Oximetry (%) 98 02/21/17 21:00 Constitutional: Yes: Calm, Thin Eyes: Yes: WNL HENT: Yes: WNL Neck: Yes: WNL Cardiovascular: Yes: Pulse Irregular, S1, S2 Respiratory: Yes: Diminished Gastrointestinal: Yes: Normal Bowel Sounds, Soft Edema: Yes (lle) Labs: CBC, BMP 02/22/17 05:19 02/22/17 05:19 INR, PTT INR 1.46 (0.82-1.09) H D 02/22/17 05:19 Fibrinogen 504.0 mg/dL (238-498) H D 02/22/17 05:19 Problem List - Problems (1) Anemia Code(s): D64.9 - ANEMIA, UNSPECIFIED (2) DVT (deep venous thrombosis) Code(s): I82.409 - ACUTE EMBOLISM AND THOMBOS UNSP DEEP VN UNSP LOWER EXTREMITY Qualifiers: DVT location: lower extremity Affected thrombotic vein of extremity: unspecified vein of extremity Chronicity: acute Laterality: unspecified laterality Qualified Code(s): I82.409 - Acute embolism and thrombosis of unspecified deep veins of unspecified lower extremity (3) AML (acute myelogenous leukemia) Code(s): C92.00 - ACUTE MYELOBLASTIC LEUKEMIA, NOT HAVING ACHIEVED REMISSION Qualifiers: Leukemia Active/Remission status: without remission Qualified Code(s): C92.00 - Acute myeloblastic leukemia, not having achieved remission (4) Atrial fibrillation Code(s): I48.91 - UNSPECIFIED ATRIAL FIBRILLATION (5) Thrombophlebitis Code(s): I80.9 - PHLEBITIS AND THROMBOPHLEBITIS OF UNSPECIFIED SITE (6) Anemia Code(s): D64.9 - ANEMIA, UNSPECIFIED Assessment/Plan MP RECURRENT DVT LLE S/P IVC FILTER BACTEREMIA AML ANEMIA AFIB ASHD DM HYPERCHOLESTEROLEMIA PLAN AC ELIQUIS ANTIBIOTICS TRANSFUSE NEEDED MONITOR H+H O2 PRN DR MARKS Problem List - Problems (1) Anemia Code(s): D64.9 - ANEMIA, UNSPECIFIED (2) DVT (deep venous thrombosis) Code(s): I82.409 - ACUTE EMBOLISM AND THOMBOS UNSP DEEP VN UNSP LOWER EXTREMITY Qualifiers: DVT location: lower extremity Affected thrombotic vein of extremity: unspecified vein of extremity Chronicity: acute Laterality: unspecified laterality Qualified Code(s): I82.409 - Acute embolism and thrombosis of unspecified deep veins of unspecified lower extremity (3) AML (acute myelogenous leukemia) Code(s): C92.00 - ACUTE MYELOBLASTIC LEUKEMIA, NOT HAVING ACHIEVED REMISSION Qualifiers: Leukemia Active/Remission status: without remission Qualified Code(s): C92.00 - Acute myeloblastic leukemia, not having achieved remission (4) Atrial fibrillation Code(s): I48.91 - UNSPECIFIED ATRIAL FIBRILLATION (5) Thrombophlebitis Code(s): I80.9 - PHLEBITIS AND THROMBOPHLEBITIS OF UNSPECIFIED SITE (6) Anemia Code(s): D64.9 - ANEMIA, UNSPECIFIED
[2017-02-22] MEDS: PHYTONADIONE 10 MG/1 ML AMP SQ SCH (13:49)
--- NOTE | 2017-02-22 16:00 | PN ---
Progress Note, Physician Chief Complaint: OOB in chair No complaints Low grade temp WBC 88K 1% N Blood c/s anaaerobic strep to be identified - Current Medication List Current Medications: Active Medications Acetaminophen (Tylenol -) 650 mg PO Q6H PRN PRN Reason: pain Last Admin: 02/20/17 21:45 Dose: 650 mg Ascorbic Acid (Vitamin C -) 500 mg PO DAILY [facility] Last Admin: 02/22/17 09:49 Dose: 500 mg Diltiazem HCl (Cardizem Cd -) 180 mg PO DAILY [facility] Last Admin: 02/22/17 09:49 Dose: 180 mg Enoxaparin Sodium (Lovenox -) 40 mg SQ BID [facility] Last Admin: 02/22/17 09:49 Dose: 40 mg Hydroxyurea (Hydrea -) 500 mg PO BID [facility] Last Admin: 02/22/17 10:45 Dose: 500 mg Vancomycin HCl 1,000 mg/ (Dextrose) 250 mls @ 200 mls/hr IVPB BID@0100,1300 [facility] Last Admin: 02/22/17 13:51 Dose: 200 mls/hr Cefepime HCl 1 gm/ Dextrose 100 mls @ 200 mls/hr IVPB Q8H-IV [facility] Last Admin: 02/22/17 10:44 Dose: 200 mls/hr Sodium Chloride (Normal Saline -) 1,000 mls @ 60 mls/hr IV ASDIR [facility] Last Admin: 02/21/17 17:00 Dose: 60 mls/hr Nystatin (Nystatin Oral Suspension -) 500,000 units PO Q6HPO [facility] Last Admin: 02/22/17 06:51 Dose: 500,000 units Valacyclovir HCl (Valtrex -) 500 mg PO DAILY [facility] Last Admin: 02/22/17 09:49 Dose: 500 mg Voriconazole (Voriconazole (Restricted To Id)) 100 mg PO BID [facility] Last Admin: 02/22/17 09:49 Dose: 100 mg - Objective Vital Signs: Vital Signs Temperature 99.2 F 02/22/17 10:00 Pulse Rate 88 02/22/17 10:00 Respiratory Rate 18 02/22/17 10:00 Blood Pressure 108/60 02/22/17 10:00 O2 Sat by Pulse Oximetry (%) 99 02/22/17 09:00 Constitutional: Yes: No Distress, Cachectic Eyes: Yes: Conjunctiva Clear HENT: Yes: Other (poor dentition) Cardiovascular: Yes: Regular Rate and Rhythm, Murmur, S1, S2 Respiratory: Yes: CTA Bilaterally Gastrointestinal: Yes: Normal Bowel Sounds, Soft. No: Tenderness Extremities: Yes: Other (L LE edema) Edema: Yes Labs: CBC, BMP 02/22/17 05:19 02/22/17 05:19 INR, PTT INR 1.46 (0.82-1.09) H D 02/22/17 05:19 Fibrinogen 504.0 mg/dL (238-498) H D 02/22/17 05:19 Assessment/Plan Febrile neutropenia/ neutropenic sepsis +BC R/O anaerobic sepsis Acute leukemia L LE DVT Await BC Continue vancomycin/ cefepime
[2017-02-22] MEDS: SODIUM CHLORIDE 1,000 ML IV SCH (16:02)
--- NOTE | 2017-02-22 16:41 | PN ---
Teaching Attending Note Name of Resident: Floridalma Bray ATTENDING PHYSICIAN STATEMENT Time of evaluation: 10:40 AM I saw and evaluated the patient. I reviewed the resident's note and discussed the case with the resident. I agree with the resident's findings and plan as documented. SUBJECTIVE: Patient seen and examined, leg pain improved, no cough dyspnea, abdominal pain, nausea, vomiting, headache or photophobia. No new complaints. Still feels weak. OBJECTIVE: Vital Signs Period Temp Pulse Resp BP Sys/Barrios Pulse Ox Last 24 Hr 98.8 F-100.0 F 80-111 18-18 100-113/45-60 98-99 Intake & Output 02/19/17 02/20/17 02/21/17 02/22/17 23:59 23:59 23:59 23:59 Intake Total 240 1870 1370 Balance 240 1870 1370 Weight 92 lb General: cachectic female in bed in no acute distress CVS: S1S2 regular Chest: No rales or wheezing abdomen: soft, NT, ND, positive bowel sounds extremities: LLE edema improved, no tenderness, positive DP pulses Home Medication List Medication Instructions Recorded Confirmed Type Acetaminophen [Tylenol -] 650 mg PO Q6H PRN 02/19/17 02/19/17 History Ascorbic Acid [Vitamin C] 500 mg PO DAILY 02/19/17 02/19/17 History Diltiazem Cd [Cardizem Cd -] 180 mg PO DAILY 02/19/17 02/19/17 History Guaifenesin Dm [Mucinex Dm -] 1 tab PO BID PRN 02/19/17 02/19/17 History Nystatin Oral Suspension - 500,000 units PO Q6H 02/19/17 02/19/17 History [Nystatin Oral Susp 923619 Units/5 ML -] Valacyclovir HCl [Valtrex -] 500 mg PO DAILY 02/19/17 02/19/17 History Voriconazole 100 mg PO BID 02/19/17 02/19/17 History Warfarin Sodium [Coumadin] 5 mg PO DAILY 02/19/17 02/19/17 History Ciprofloxacin [Cipro (Restricted 250 mg PO BID 02/21/17 02/21/17 History To Id)] Active Medications Generic Name Dose Route Start Last Admin Trade Name Freq PRN Reason Stop Dose Admin Acetaminophen 650 mg 02/20/17 00:01 02/20/17 21:45 Tylenol - PO 650 mg Q6H PRN Administration pain Ascorbic Acid 500 mg 02/20/17 10:00 02/22/17 09:49 Vitamin C - PO 500 mg DAILY JATINDER Administration Diltiazem HCl 180 mg 02/20/17 10:00 02/22/17 09:49 Cardizem Cd - PO 180 mg DAILY JATINDER Administration Enoxaparin Sodium 40 mg 02/21/17 22:00 02/22/17 09:49 Lovenox - SQ 40 mg BID JATINDER Administration Hydroxyurea 500 mg 02/22/17 10:00 02/22/17 10:45 Hydrea - PO 500 mg BID JATINDER Administration Vancomycin HCl 1,000 mg/ 250 mls @ 200 mls/hr 02/21/17 13:00 02/22/17 13:51 Dextrose IVPB 200 mls/hr BID@0100,1300 JATINDER Administration Cefepime HCl 1 gm/ Dextrose 100 mls @ 200 mls/hr 02/21/17 13:00 02/22/17 10: 44 IVPB 200 mls/hr Q8H-IV JATINDER Administration Sodium Chloride 1,000 mls @ 60 mls/hr 02/21/17 16:02 02/22/17 16:02 Normal Saline - IV 60 mls/hr ASDIR JATINDER Administration Nystatin 500,000 units 02/20/17 06:00 02/22/17 06:51 Nystatin Oral Suspension - PO 500,000 units Q6HPO JATINDER Administration Valacyclovir HCl 500 mg 02/20/17 10:00 02/22/17 09:49 Valtrex - PO 500 mg DAILY JATINDER Administration Voriconazole 100 mg 02/21/17 22:00 02/22/17 09:49 Voriconazole (Restricted To Id) PO 100 mg BID JATINDER Administration Laboratory Results - last 24 hr 02/21/17 02/21/17 02/22/17 06:00 06:00 05:19 WBC RBC Hgb Hct MCV MCH MCHC RDW Plt Count MPV Total Counted 100 Neutrophils % Neutrophils % (Manual) 1.0 L Band Neutrophils % No Result Required. Lymphocytes % Lymphocytes % (Manual) 38.0 D Monocytes % Monocytes % (Manual) Eosinophils % (Manual) Basophils % (Manual) Myelocytes % (Man) Promyelocytes % (Man) Blast Cells % (Manual) 55 H D Nucleated RBC % Metamyelocytes Hypersegmented Neuts Plasma Cells Smudge Cells Other Cell Type Hypochromia Toxic Granulation Dohle Bodies Christen Rods Platelet Estimate Decreased Platelet Comment No clumping noted No Result Required. RBC Morphology Polychromasia Poikilocytosis Basophilic Stippling Anisocytosis 2+ Microcytosis Macrocytosis 1+ Spherocytes Siderocytes Sickle Cells Target Cells Tear Drop Cells Ovalocytes Stomatocytes Helmet Cells [place] Bodies Ola Rings [place] Cells Acanthocytes (Spur) Rouleaux Fragmented RBCs Schistocytes PT with INR 16.50 H INR 1.46 H D PTT (Actin FS) Fibrinogen Sodium Potassium Chloride Carbon Dioxide Anion Gap BUN Creatinine Creat Clearance w eGFR Random Glucose Uric Acid Calcium Total Bilirubin AST ALT Alkaline Phosphatase LD Total Total Protein Albumin 02/22/17 02/22/17 02/22/17 05:19 05:19 05:19 WBC 88.2 H* RBC 2.60 L Hgb 8.9 L Hct 26.7 L MCV 102.5 H MCH 34.1 H MCHC 33.3 RDW 25.8 H Plt Count 113 L MPV 6.8 L Total Counted Neutrophils % 1.0 L Neutrophils % (Manual) Band Neutrophils % Lymphocytes % 60.0 H D Lymphocytes % (Manual) Monocytes % 1.0 L Monocytes % (Manual) Eosinophils % (Manual) Basophils % (Manual) Myelocytes % (Man) Promyelocytes % (Man) Blast Cells % (Manual) Nucleated RBC % Metamyelocytes Hypersegmented Neuts Plasma Cells Smudge Cells Other Cell Type Hypochromia Toxic Granulation Dohle Bodies Christen Rods Platelet Estimate Decreased Platelet Comment No clumping noted RBC Morphology Polychromasia Poikilocytosis Basophilic Stippling Anisocytosis Microcytosis Macrocytosis Spherocytes Siderocytes Sickle Cells Target Cells Tear Drop Cells Ovalocytes Stomatocytes Helmet Cells [place] Bodies Ola Rings Hallie Cells Acanthocytes (Spur) Rouleaux Fragmented RBCs Schistocytes PT with INR INR PTT (Actin FS) 28.8 Fibrinogen 504.0 H D Sodium 138 Potassium 3.8 Chloride 104 Carbon Dioxide 23 Anion Gap 11 BUN 13 D Creatinine 0.6 Creat Clearance w eGFR > 60 Random Glucose 103 Uric Acid 3.1 Calcium 7.6 L Total Bilirubin 0.3 AST 13 L D ALT 11 L Alkaline Phosphatase 43 L LD Total 284 H D Total Protein 5.8 L Albumin 2.4 L 02/22/17 05:19 WBC RBC Hgb Hct MCV MCH MCHC RDW Plt Count MPV Total Counted Cancelled Neutrophils % Neutrophils % (Manual) Cancelled Band Neutrophils % Cancelled Lymphocytes % Lymphocytes % (Manual) Cancelled Monocytes % Monocytes % (Manual) Cancelled Eosinophils % (Manual) Cancelled Basophils % (Manual) Cancelled Myelocytes % (Man) Cancelled Promyelocytes % (Man) Cancelled Blast Cells % (Manual) Cancelled Nucleated RBC % Cancelled Metamyelocytes Cancelled Hypersegmented Neuts Cancelled Plasma Cells Cancelled Smudge Cells Cancelled Other Cell Type Cancelled Hypochromia Cancelled Toxic Granulation Cancelled Dohle Bodies Cancelled Christen Rods Cancelled Platelet Estimate Cancelled Platelet Comment Cancelled RBC Morphology Polychromasia Cancelled Poikilocytosis Cancelled Basophilic Stippling Cancelled Anisocytosis Cancelled Microcytosis Cancelled Macrocytosis Cancelled Spherocytes Cancelled Siderocytes Cancelled Sickle Cells Cancelled Target Cells Cancelled Tear Drop Cells Cancelled Ovalocytes Cancelled Stomatocytes Cancelled Helmet Cells Cancelled Boliv[place] Bodies Cancelled Ola Rings Cancelled Hallie Cells Cancelled Acanthocytes (Spur) Cancelled Rouleaux Cancelled Fragmented RBCs Cancelled Schistocytes Cancelled PT with INR INR PTT (Actin FS) Fibrinogen Sodium Potassium Chloride Carbon Dioxide Anion Gap BUN Creatinine Creat Clearance w eGFR Random Glucose Uric Acid Calcium Total Bilirubin AST ALT Alkaline Phosphatase LD Total Total Protein Albumin Blood cultures 1/2 streptococcus species ASSESSMENT AND PLAN: 81 yof with AML, last treatment in 05/2016, DVT s/p IVC filter, on coumadin, Afib , recent dental extraction ( when coumadin held for 5 days of which 3 were covered with lovenox), admitted with RLE acute DVT and worsening AML, now with Sepsis/bacteremia -Streptococcal sepsis with bacteremia with worsening leucocytosis -Acute RLE extensive DVT -AMS, worsening leucocytosis/anemia -Thrombocytopenia -At risk for Tumor Lysis Syndrome -Atrial fibrillation Plan: Cefepime/vancomycin day 2, ID consult, CXR/LFTs noted. continue telemetry, close hemodynamic monitoring and monitor for new focus. less likely that overnight fevers only from transfusion reaction, overnight events noted. Monitor for now. Lovenox, transition to eliquis in per hematology. Started on hydroxyurea/Uloric. s/p 2 units of PRBC with appropriate response. No clinical evidence of bleed. Silverio JOVELPBishop Palliative care input Dispo planning on hold given new infectious process and need for monitoring. Per advanced directives, HCP.
[2017-02-23] MEDS: NYSTATIN 500,000 UNITS/5 ML SUSPENSION PO SCH ×6 (00:11→17:47)
[2017-02-23] MEDS: VANCOMYCIN 1,000 MG in DEXTROSE 5%-WATER - 250 ML IVPB SCH ×2 (01:12→14:26)
[2017-02-23] MEDS: CEFEPIME 1 GM in DEXTROSE 5%-WATER - 100 ML IVPB SCH ×3 (01:12→17:48)
--- NOTE | 2017-02-23 07:32 | PN ---
<Tera Ferrell - Last Filed: 02/23/17 09:03> Physical Exam: SUBJECTIVE: Patient seen and examined OBJECTIVE: Vital Signs Period Temp Pulse Resp BP Sys/Barrios Pulse Ox Last 24 Hr 98.8 F-99.5 F 84-101 18-18 94-114/50-76 99 GENERAL: The patient is awake, alert, and fully oriented, in no acute distress. HEAD: Normal with no signs of trauma. EYES: PERRL, extraocular movements intact, sclera anicteric, conjunctiva clear. No ptosis. ENT: Ears normal, nares patent, oropharynx clear without exudates, moist mucous membranes. NECK: Trachea midline, full range of motion, supple. LUNGS: Breath sounds equal, clear to auscultation bilaterally, no wheezes, no crackles, no accessory muscle use. HEART: Regular rate and rhythm, S1, S2 without murmur, rub or gallop. ABDOMEN: Soft, nontender, nondistended, normoactive bowel sounds, no guarding, no rebound, no hepatosplenomegaly, no masses. EXTREMITIES: 2+ pulses, warm, well-perfused, no edema. NEUROLOGICAL: Cranial nerves II through XII grossly intact. Normal speech, gait not observed. PSYCH: Normal mood, normal affect. SKIN: Warm, dry, normal turgor, no rashes or lesions noted Laboratory Results - last 24 hr 02/23/17 02/23/17 06:00 06:00 WBC 83.2 H* RBC 2.43 L Hgb 8.3 L Hct 25.0 L MCV 103.1 H MCH 34.1 H MCHC 33.1 RDW 25.0 H Plt Count 116 L MPV 6.8 L Neutrophils % No Result Required. Lymphocytes % No Result Required. Sodium 138 Potassium 3.9 Chloride 107 Carbon Dioxide 24 Anion Gap 7 L BUN 19 H D Creatinine 0.6 Creat Clearance w eGFR > 60 Random Glucose 124 H D Uric Acid 2.8 Calcium 7.3 L Total Bilirubin 0.2 D AST 9 L D ALT 11 L Alkaline Phosphatase 44 L LD Total 251 H Total Protein 5.3 L Albumin 2.2 L Active Medications Generic Name Dose Route Start Last Admin Trade Name Freq PRN Reason Stop Dose Admin Acetaminophen 650 mg 02/20/17 00:01 02/20/17 21:45 Tylenol - PO 650 mg Q6H PRN Administration pain Ascorbic Acid 500 mg 02/20/17 10:00 02/22/17 09:49 Vitamin C - PO 500 mg DAILY JATINDER Administration Diltiazem HCl 180 mg 02/20/17 10:00 02/22/17 09:49 Cardizem Cd - PO 180 mg DAILY JATINDER Administration Enoxaparin Sodium 40 mg 02/21/17 22:00 02/22/17 21:37 Lovenox - SQ 40 mg BID JATIDNER Administration Hydroxyurea 500 mg 02/22/17 10:00 02/22/17 21:38 Hydrea - PO 500 mg BID JATINDER Administration Vancomycin HCl 1,000 mg/ 250 mls @ 200 mls/hr 02/21/17 13:00 02/23/17 01:12 Dextrose IVPB 200 mls/hr BID@0100,1300 JATINDER Administration Cefepime HCl 1 gm/ Dextrose 100 mls @ 200 mls/hr 02/21/17 13:00 02/23/17 01: 12 IVPB 200 mls/hr Q8H-IV JATINDER Administration Sodium Chloride 1,000 mls @ 60 mls/hr 02/21/17 16:02 02/22/17 16:02 Normal Saline - IV 60 mls/hr ASDIR JATINDER Administration Nystatin 500,000 units 02/20/17 06:00 02/23/17 06:33 Nystatin Oral Suspension - PO 500,000 units Q6HPO JATINDER Administration Valacyclovir HCl 500 mg 02/20/17 10:00 02/22/17 09:49 Valtrex - PO 500 mg DAILY JATINDER Administration Voriconazole 100 mg 02/21/17 22:00 02/22/17 21:37 Voriconazole (Restricted To Id) PO 100 mg BID JATINDER Administration ASSESSMENT/PLAN: 81 yof with AML, last treatment in 05/2016, DVT s/p IVC filter, on coumadin, Afib , recent dental extraction ( when coumadin held for 5 days of which 3 were covered with lovenox), admitted with RLE acute DVT and worsening AML, now with Sepsis/bacteremia -Streptococcal sepsis with bacteremia with worsening leucocytosis -Acute RLE extensive DVT -AMS, worsening leucocytosis/anemia -Thrombocytopenia -At risk for Tumor Lysis Syndrome -Atrial fibrillation Plan: Cefepime/vancomycin day 3, ID consult, CXR/LFTs noted. continue telemetry, close hemodynamic monitoring and monitor for new focus. less likely that overnight fevers only from transfusion reaction, overnight events noted. Monitor for now. Lovenox, transition to eliquis in per hematology. Started on hydroxyurea/Uloric. s/p 2 units of PRBC with appropriate response. No clinical evidence of bleed. Silverio GIPPX Palliative care input Dispo planning on hold given new infectious process and need for monitoring. Per advanced directives, HCP. <Floridalma Bray - Last Filed: 02/23/17 12:52> Physical Exam: SUBJECTIVE: Patient seen and examined. +cough this AM, no sob, L leg pain improved. No fever, chills, n/v, chest pain. Able to ambulate to bathroom. Eating and voiding well. OBJECTIVE: Vital Signs Period Temp Pulse Resp BP Sys/Barrios Pulse Ox Last 24 Hr 98.8 F-99.5 F 84-101 18-18 94-114/50-76 99-99 GENERAL: thin elderly woman, aaox3 EYES: sclera anicteric, conjunctiva clear ENT: oropharynx clear without exudates, moist mucous membranes LUNGS: CTAB, no wheezes, crackles, or rhonchi HEART: rrr, normal S1/S2 ABDOMEN: Soft, nontender, nondistended LOWER EXTREMITIES: 2+ PT and DP pulses bilaterally, L calf swelling (approx twice circumference of R calf), L popliteal fossa > L calf tenderness, sensation intact bilaterally, strength 5/5 bilaterally CBC, BMP 02/23/17 06:00 02/23/17 06:00 Uric acid - 2.8 LD total - 251 Microbiology 02/21/17 13:36 Blood - Peripheral Venous Blood Culture - Preliminary NO GROWTH OBTAINED AFTER 24 HOURS, INCUBATION TO CONTINUE FOR 4 DAYS. 02/21/17 13:30 Blood - Peripheral Venous Blood Culture - Preliminary NO GROWTH OBTAINED AFTER 24 HOURS, INCUBATION TO CONTINUE FOR 4 DAYS. 02/20/17 21:35 Blood - Peripheral Venous Blood Culture - Preliminary Streptococcus Species Pending Organism 02/20/17 21:40 Blood - Peripheral Venous Blood Culture - Preliminary NO GROWTH OBTAINED AFTER 48 HOURS, INCUBATION TO CONTINUE FOR 3 DAYS. 02/20/17 23:30 Urine - Urine Clean Catch Urine Culture - Final Imaging: CXR 02/21/17: hazy opacity in L lung base, atelectasis vs PNA ECHO (02/22/09): no e/o endocarditis; mild MR, TR, MS Active Medications Acetaminophen (Tylenol -) 650 mg PO Q6H PRN PRN Reason: pain Last Admin: 02/20/17 21:45 Dose: 650 mg Ascorbic Acid (Vitamin C -) 500 mg PO DAILY [facility] Last Admin: 02/22/17 09:49 Dose: 500 mg Diltiazem HCl (Cardizem Cd -) 180 mg PO DAILY [facility] Last Admin: 02/22/17 09:49 Dose: 180 mg Enoxaparin Sodium (Lovenox -) 40 mg SQ BID [facility] Last Admin: 02/22/17 21:37 Dose: 40 mg Hydroxyurea (Hydrea -) 500 mg PO BID [facility] Last Admin: 02/22/17 21:38 Dose: 500 mg Vancomycin HCl 1,000 mg/ (Dextrose) 250 mls @ 200 mls/hr IVPB BID@0100,1300 [facility] Last Admin: 02/23/17 01:12 Dose: 200 mls/hr Cefepime HCl 1 gm/ Dextrose 100 mls @ 200 mls/hr IVPB Q8H-IV [facility] Last Admin: 02/23/17 01:12 Dose: 200 mls/hr Sodium Chloride (Normal Saline -) 1,000 mls @ 60 mls/hr IV ASDIR [facility] Last Admin: 02/22/17 16:02 Dose: 60 mls/hr Nystatin (Nystatin Oral Suspension -) 500,000 units PO Q6HPO [facility] Last Admin: 02/23/17 06:33 Dose: 500,000 units Valacyclovir HCl (Valtrex -) 500 mg PO DAILY [facility] Last Admin: 02/22/17 09:49 Dose: 500 mg Voriconazole (Voriconazole (Restricted To Id)) 100 mg PO BID [facility] Last Admin: 02/22/17 21:37 Dose: 100 mg ASSESSMENT/PLAN: 81yo woman with PMH pf AML (dx 2009, s/p Cytarabine May 2016), Afib, and DVT s/ p IVC filter on Coumadin who presents with 4xdays acute LLE pain and swelling, and found to have an extensive LLE DVT in common, deep, superficial femoral, popliteal, PT, and greater saphenous veins. CTA was negative for PE. s/p 2U PBRCs. Blood cultures drawn and growing Streptococcus (organism pending), and on day 3 of Vanc and Cefepime. Two sets of blood cultures on 02/21 sterile, and 2D ECHO no e/o of endocarditis. Bacteremia likely from recent dental work. #sepsis with strep bacteremia, neutropenia improving (1000 from 400 PMNs) -ID consulted -Continue Vancomycin and Cefepime (started 02/21) -neutropenic precautions #AML, labs c/w progression of disease (blasts 75%) -Heme/Onc and ID following -Continue home Valacyclovir, Voriconazole, and Nystatin for opportunistic infection ppx -Hydroxyurea 500mg PO BID -Holding Febuxostat and allopurinol due to adverse reaction (Febuxostat - hand shaking, allopurinol - rash) #Anemia, s/p 2UxPRBCs, FOBT neg, no active signs of bleeding -Trend H&H #recurrent DVT -therapeutic lovenox 40mg SQ BID -Discharge home on Eliquis (DVT dosing 10 mg twice daily for 7 days followed by 5 mg BID) #Afib -rate controlled with diltiazem -monitor #FEN/ppx -NS @ 60cc/hr -lytes wnl -sodium-controlled diet -no GI ppx -therapeutic lovenox #Palliative care consult for support Dispo: continue tele monitoring due to infection/sepsis FULL Code, palliative care consult to discuss [facility] d/w Dr. Mariaelena Bray MD Visit type - Emergency Visit Emergency Visit: No - New Patient This patient is new to me today: No - Critical Care Critical Care patient: No
[2017-02-23 07:43] LABS: MCH 34.1 pg (25.7-33.7); MCHC 33.1 g/dl (32.0-36.0); MEAN CELL VOLUME 103.1 fl (80-96); MEAN PLT VOLUME 6.8 fl (7.5-11.1); PLATELET COUNT 116 K/MM3 (134-434)
[2017-02-23 07:46] LABS: WHITE BLOOD COUNT 83.2 K/mm3 (4.0-10.0)
[2017-02-23 08:08] LABS: ALBUMIN 2.2 g/dl (3.4-5.0); ANION GAP 7 (8-16); BILIRUBIN,TOTAL 0.2 mg/dL (0.2-1.0); CALCIUM 7.3 mg/dL (8.5-10.1); CO2 24 mmol/L (21-32); CREATININE 0.6 mg/dL (0.55-1.02); GLUCOSE,RANDOM 124 mg/dL (74-106); LDH 251 U/L (84-246); SGOT/AST 9 U/L (15-37); SGPT/ALT 11 U/L (12-78); URIC ACID 2.8 mg/dL (2.6-7.2)
[2017-02-23 08:09] LABS: ALK PHOS 44 U/L (45-117); TOT PROT 5.3 g/dl (6.4-8.2)
--- NOTE | 2017-02-23 08:58 | PN ---
Teaching Attending Note Name of Resident: Floridalma Bray ATTENDING PHYSICIAN STATEMENT Time of evaluation: 8:40 AM I saw and evaluated the patient. I reviewed the resident's note and discussed the case with the resident. I agree with the resident's findings and plan as documented. SUBJECTIVE: Patient seen and examined. Positive cough, no fevers/chills/nausea/vomiting/ abdominal pain. leg pain better, weakness improved, eating breakfast. OBJECTIVE: Vital Signs Period Temp Pulse Resp BP Sys/Barrios Pulse Ox Last 24 Hr 98.8 F-99.5 F 84-101 18-18 94-114/50-76 99-99 Intake & Output 02/20/17 02/21/17 02/22/17 02/23/17 23:59 23:59 23:59 23:59 Intake Total 240 1870 1969 550 Balance 240 1869 1969 550 General: sitting in bed having breakfast CVS: S1s2 regular Chest unable to appreciate rales or wheezing, positive air entry abdomen soft, NT, ND, positive bowel sounds extremities LLE edema improved, non tender Home Medication List Medication Instructions Recorded Confirmed Type Acetaminophen [Tylenol -] 650 mg PO Q6H PRN 02/19/17 02/19/17 History Ascorbic Acid [Vitamin C] 500 mg PO DAILY 02/19/17 02/19/17 History Diltiazem Cd [Cardizem Cd -] 180 mg PO DAILY 02/19/17 02/19/17 History Guaifenesin Dm [Mucinex Dm -] 1 tab PO BID PRN 02/19/17 02/19/17 History Nystatin Oral Suspension - 500,000 units PO Q6H 02/19/17 02/19/17 History [Nystatin Oral Susp 523875 Units/5 ML -] Valacyclovir HCl [Valtrex -] 500 mg PO DAILY 02/19/17 02/19/17 History Voriconazole 100 mg PO BID 02/19/17 02/19/17 History Warfarin Sodium [Coumadin] 5 mg PO DAILY 02/19/17 02/19/17 History Ciprofloxacin [Cipro (Restricted 250 mg PO BID 02/21/17 02/21/17 History To Id)] Active Medications Generic Name Dose Route Start Last Admin Trade Name Freq PRN Reason Stop Dose Admin Acetaminophen 650 mg 02/20/17 00:01 02/20/17 21:45 Tylenol - PO 650 mg Q6H PRN Administration pain Ascorbic Acid 500 mg 02/20/17 10:00 02/22/17 09:49 Vitamin C - PO 500 mg DAILY JATINDER Administration Diltiazem HCl 180 mg 02/20/17 10:00 02/22/17 09:49 Cardizem Cd - PO 180 mg DAILY JATINDER Administration Enoxaparin Sodium 40 mg 02/21/17 22:00 02/22/17 21:37 Lovenox - SQ 40 mg BID JATINDER Administration Hydroxyurea 500 mg 02/22/17 10:00 02/22/17 21:38 Hydrea - PO 500 mg BID JATINDER Administration Vancomycin HCl 1,000 mg/ 250 mls @ 200 mls/hr 02/21/17 13:00 02/23/17 01:12 Dextrose IVPB 200 mls/hr BID@0100,1300 JATINDER Administration Cefepime HCl 1 gm/ Dextrose 100 mls @ 200 mls/hr 02/21/17 13:00 02/23/17 01: 12 IVPB 200 mls/hr Q8H-IV JATINDER Administration Sodium Chloride 1,000 mls @ 60 mls/hr 02/21/17 16:02 02/22/17 16:02 Normal Saline - IV 60 mls/hr ASDIR JATINDER Administration Nystatin 500,000 units 02/20/17 06:00 02/23/17 06:33 Nystatin Oral Suspension - PO 500,000 units Q6HPO JATINDER Administration Valacyclovir HCl 500 mg 02/20/17 10:00 02/22/17 09:49 Valtrex - PO 500 mg DAILY JATINDER Administration Voriconazole 100 mg 02/21/17 22:00 02/22/17 21:37 Voriconazole (Restricted To Id) PO 100 mg BID JATINDER Administration Blood cultures 1 set streptococcus species 2D echo reviewed ASSESSMENT AND PLAN: 81 yof with AML, last treatment in 05/2016, DVT s/p IVC filter, on coumadin, Afib , recent dental extraction ( when coumadin held for 5 days of which 3 were covered with lovenox), admitted with RLE acute DVT and worsening AML, now with Sepsis/bacteremia -Streptococcal sepsis with bacteremia with worsening leucocytosis -Acute RLE extensive DVT -AMS, worsening leucocytosis/anemia -Thrombocytopenia -At risk for Tumor Lysis Syndrome -Atrial fibrillation Plan: Cefepime/vancomycin day 2, ID consult, CXR/LFTs noted. continue telemetry, close hemodynamic monitoring and monitor for new focus. 2D echot noted. Lovenox, transition to eliquis per hematology. Started on hydroxyurea/Uloric. s/p 2 units of PRBC with appropriate response. No clinical evidence of bleed. Cardizem GIPPX Palliative care input Per patient and , advanced directives were provided to nursing, none in chart, will follow up. Plan discussed with patient and in detail, all questions answered.
[2017-02-23 09:29] LABS: TOTAL CELLS COUNTED 100
[2017-02-23 09:30] LABS: BLAST 75 % (0-0)
[2017-02-23] MEDS: ENOXAPARIN NA (PORCINE) 40 MG/0.4 ML DISP.SYRIN SQ SCH ×2 (09:30→21:29)
[2017-02-23] MEDS: valACYclovir HCL 500 MG TABLET (FP) PO SCH (09:30)
[2017-02-23] MEDS: HYDROXYUREA 500 MG CAPSULE PO SCH ×2 (09:30→21:28)
[2017-02-23 09:31] LABS: ANISOCYTOSIS 3+; MACROCYTOSIS 1+; OVALOCYTE 1+; PLATELET ESTIMATE SLT DECREASE; POIKILOCYTOSIS 1+; POLYCHROMASIA 1+; TEAR DROP CELLS 1+
[2017-02-23] MEDS: VORICONAZOLE 50 MG TABLET (RESTRICTED TO ID) PO SCH ×2 (09:31→21:28)
[2017-02-23] MEDS: ASCORBIC ACID 500 MG TABLET (FP) PO SCH (09:31)
[2017-02-23] MEDS: SODIUM CHLORIDE 1,000 ML IV SCH ×2 (12:25→16:40)
--- NOTE | 2017-02-23 13:13 | PN ---
Progress Note (short form) - Note Progress Note: Progress Note (short form) Patient Name: MARIBEL SOW Date of : 1935 Patient Status: Inpatient Attending Provider: Tera Ferrell Date: 02/23/17 Initialization Date: 02/23/17 Progress Note (short form) - Note Progress Note: Patient seen and examined ROS- denies headaches, diplopia, epistaxis, dysphagia, chest pains, SOB, dyspnea, GERD, nausea, emesis, diarrhea, constipation, dysuria, hematuria, ; some back pains, some left lower gum pains, sme left calf pains on ambulation Vital Signs Period Temp Pulse Resp BP Sys/Barrios Pulse Ox Last 24 Hr 98.6 F-99.5 F 84-101 18-18 94-114/48-76 92-99 HEENT: JAMARI, EOM Intact Oropharynx: No thrush, No mucositis, missing teeth , lower gum-periapical region area of erythema and tenderness incisors Neck: Supple Nodes: Without adenopathy Breasts: Without masses Cor: RSR, systolic murmur-(old) Lungs: scoliosis ; few rales at bases Abd: Soft, Normal bowel sounds, No organomegaly Ext:No significant edema; + left van's Skin: No rashes, Integument intact CBC, BMP 02/23/17 06:00 02/23/17 06:00 Active Medications Generic Name Dose Route Start Last Admin Trade Name Freq PRN Reason Stop Dose Admin Acetaminophen 650 mg 02/20/17 00:01 02/20/17 21:45 Tylenol - PO 650 mg Q6H PRN Administration pain Ascorbic Acid 500 mg 02/20/17 10:00 02/23/17 09:31 Vitamin C - PO 500 mg DAILY JATINDER Administration Diltiazem HCl 180 mg 02/20/17 10:00 02/23/17 09:30 Cardizem Cd - PO 180 mg DAILY JATINDER Administration Enoxaparin Sodium 40 mg 02/21/17 22:00 02/23/17 09:30 Lovenox - SQ 40 mg BID JATINDER Administration Hydroxyurea 500 mg 02/22/17 10:00 02/23/17 09:30 Hydrea - PO 500 mg BID JATINDER Administration Vancomycin HCl 1,000 mg/ 250 mls @ 200 mls/hr 02/21/17 13:00 02/23/17 01:12 Dextrose IVPB 200 mls/hr BID@0100,1300 JATINDER Administration Cefepime HCl 1 gm/ Dextrose 100 mls @ 200 mls/hr 02/21/17 13:00 02/23/17 09: 30 IVPB 200 mls/hr Q8H-IV JATINDER Administration Sodium Chloride 1,000 mls @ 60 mls/hr 02/21/17 16:02 02/23/17 12:25 Normal Saline - IV 60 mls/hr ASDIR JATINDER Administration Nystatin 500,000 units 02/20/17 06:00 02/23/17 12:25 Nystatin Oral Suspension - PO 500,000 units Q6HPO JATINDER Administration Valacyclovir HCl 500 mg 02/20/17 10:00 02/23/17 09:30 Valtrex - PO 500 mg DAILY JATINDER Administration Voriconazole 100 mg 02/21/17 22:00 02/23/17 09:31 Voriconazole (Restricted To Id) PO 100 mg BID JATINDER Administration Impression:Problems 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 secondary to dental procedure ?? endocarditis LLE -DVT Discussion Patient has not been in remission for greater than one year and she has been managed without chemotherapy and with prn trnsfusions which have been infrequent. Unfortunately with her rising WBC count, she may be "blasting -off ". She is on Hydrea -500 mg daily, but will need to increase dose. 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 ?? coumadin failure and ultimately change to NOAC Plan: To continue antibiotic work up and therapy per I.D. continue Hydrea to 1000 mg daily and to monitor CBC, check uric acid ,LDH Hold off on transfusions
--- NOTE | 2017-02-23 16:03 | PN ---
Progress Note (short form) - Note Progress Note: PULMONARY Denies shortness of breath or chest pain. No fevers or chills. Last Vital Signs Temp Pulse Resp BP Pulse Ox 98.5 F 106 H 18 115/57 92 L 02/23/17 14:00 02/23/17 14:00 02/23/17 10:00 02/23/17 14:00 02/23/17 09:00 Gen: NAD, frail Heart: tachycardic, irregular Lung: decreased breath sounds at the bases Abd: soft, nontender Ext: LLE edema CBC, BMP 02/23/17 06:00 02/23/17 06:00 Active Medications Acetaminophen (Tylenol -) 650 mg PO Q6H PRN PRN Reason: pain Last Admin: 02/20/17 21:45 Dose: 650 mg Ascorbic Acid (Vitamin C -) 500 mg PO DAILY [facility] Last Admin: 02/23/17 09:31 Dose: 500 mg Diltiazem HCl (Cardizem Cd -) 180 mg PO DAILY [facility] Last Admin: 02/23/17 09:30 Dose: 180 mg Enoxaparin Sodium (Lovenox -) 40 mg SQ BID [facility] Last Admin: 02/23/17 09:30 Dose: 40 mg Hydroxyurea (Hydrea -) 500 mg PO BID [facility] Last Admin: 02/23/17 09:30 Dose: 500 mg Vancomycin HCl 1,000 mg/ (Dextrose) 250 mls @ 200 mls/hr IVPB BID@0100,1300 [facility] Last Admin: 02/23/17 14:26 Dose: 200 mls/hr Cefepime HCl 1 gm/ Dextrose 100 mls @ 200 mls/hr IVPB Q8H-IV [facility] Last Admin: 02/23/17 09:30 Dose: 200 mls/hr Sodium Chloride (Normal Saline -) 1,000 mls @ 60 mls/hr IV ASDIR [facility] Last Admin: 02/23/17 12:25 Dose: 60 mls/hr Nystatin (Nystatin Oral Suspension -) 500,000 units PO Q6HPO [facility] Last Admin: 02/23/17 12:25 Dose: 500,000 units Valacyclovir HCl (Valtrex -) 500 mg PO DAILY [facility] Last Admin: 02/23/17 09:30 Dose: 500 mg Voriconazole (Voriconazole (Restricted To Id)) 100 mg PO BID [facility] Last Admin: 02/23/17 09:31 Dose: 100 mg A/P AML Strep Bacteremia LLE DVT Atrial Fibrillation Anemia DM Hypercholesterolemia - continue antibiotics per ID - neutropenic precautions - f/u cultures - continue anticoagulaiton - O2 as needed
--- NOTE | 2017-02-23 18:59 | PN ---
Progress Note, Physician Chief Complaint: Awake, alert in bed No complaints Afebrile WBC 83K with blasts Blood c/s anaerobic bottle aerococcus, strep intermedius Repeat BC no growth - Current Medication List Current Medications: Active Medications Acetaminophen (Tylenol -) 650 mg PO Q6H PRN PRN Reason: pain Last Admin: 02/20/17 21:45 Dose: 650 mg Ascorbic Acid (Vitamin C -) 500 mg PO DAILY [facility] Last Admin: 02/23/17 09:31 Dose: 500 mg Diltiazem HCl (Cardizem Cd -) 180 mg PO DAILY [facility] Last Admin: 02/23/17 09:30 Dose: 180 mg Enoxaparin Sodium (Lovenox -) 40 mg SQ BID [facility] Last Admin: 02/23/17 09:30 Dose: 40 mg Hydroxyurea (Hydrea -) 500 mg PO BID [facility] Last Admin: 02/23/17 09:30 Dose: 500 mg Cefepime HCl 1 gm/ Dextrose 100 mls @ 200 mls/hr IVPB Q8H-IV [facility] Last Admin: 02/23/17 17:48 Dose: 200 mls/hr Sodium Chloride (Normal Saline -) 1,000 mls @ 60 mls/hr IV ASDIR [facility] Last Admin: 02/23/17 16:40 Dose: Not Given Nystatin (Nystatin Oral Suspension -) 500,000 units PO Q6HPO [facility] Last Admin: 02/23/17 17:47 Dose: 500,000 units Valacyclovir HCl (Valtrex -) 500 mg PO DAILY [facility] Last Admin: 02/23/17 09:30 Dose: 500 mg Voriconazole (Voriconazole (Restricted To Id)) 100 mg PO BID [facility] Last Admin: 02/23/17 09:31 Dose: 100 mg - Objective Vital Signs: Vital Signs Temperature 98.5 F 02/23/17 14:00 Pulse Rate 106 H 02/23/17 14:00 Respiratory Rate 18 02/23/17 10:00 Blood Pressure 115/57 02/23/17 14:00 O2 Sat by Pulse Oximetry (%) 92 L 02/23/17 09:00 Constitutional: Yes: No Distress Cardiovascular: Yes: Regular Rate and Rhythm, S1, S2 Respiratory: Yes: Rhonchi Gastrointestinal: Yes: Normal Bowel Sounds, Soft Extremities: Yes: Other (L LE edema) Edema: Yes Labs: CBC, BMP 02/23/17 06:00 02/23/17 06:00 INR, PTT INR 1.46 (0.82-1.09) H D 02/22/17 05:19 Fibrinogen 504.0 mg/dL (238-498) H D 02/22/17 05:19 Assessment/Plan Febrile neutropenia/ neutropenic sepsis +BC aerococcus, strep intermedius Acute leukemia L LE DVT Substitute ceftriaxone 2gm qd
[2017-02-23] MEDS: ACETAMINOPHEN 325 MG TABLET (FP) PO PRN (20:14)
[2017-02-23] MEDS ORDERED: MAG HYDROX/AL HYDROX/SIMETH 30 ML UNIT-DOSE CUP PO ONE (22:00)
[2017-02-24] MEDS: NYSTATIN 500,000 UNITS/5 ML SUSPENSION PO SCH ×4 (00:15→17:37)
[2017-02-24] MEDS: ACETAMINOPHEN 325 MG TABLET (FP) PO PRN ×2 (05:45→17:37)
[2017-02-24] MEDS ORDERED: SODIUM CHLORIDE 1,000 ML IV STA ×2 (07:44→22:00)
[2017-02-24] MEDS ORDERED: ACETAMINOPHEN 1000 MG/100 ML VIAL (NON FORMULARY) IVPB ONE (08:25)
[2017-02-24] MEDS ORDERED: SODIUM CHLORIDE 1,000 ML IV SCH (08:27)
[2017-02-24] MEDS ORDERED: VANCOMYCIN 1,000 MG in DEXTROSE 5%-WATER - 250 ML IVPB ONE (08:30)
[2017-02-24] MEDS ORDERED: CEFEPIME 1 GM in DEXTROSE 5%-WATER - 100 ML IVPB ONE (08:30)
[2017-02-24 08:52] LABS: ALBUMIN 2.4 g/dl (3.4-5.0); ANION GAP 8 (8-16); BILIRUBIN,TOTAL 0.3 mg/dL (0.2-1.0); CALCIUM 7.2 mg/dL (8.5-10.1); CO2 24 mmol/L (21-32); CREATININE 0.5 mg/dL (0.55-1.02); GLUCOSE,RANDOM 125 mg/dL (74-106); SGOT/AST 16 U/L (15-37); SGPT/ALT 14 U/L (12-78); TOT PROT 5.8 g/dl (6.4-8.2)
[2017-02-24 08:55] LABS: ALK PHOS 49 U/L (45-117); TROPONIN I < 0.02 ng/ml (0.00-0.05)
[2017-02-24] MEDS ORDERED: VANCOMYCIN 1,000 MG in DEXTROSE 5%-WATER - 250 ML IVPB SCH ×2 (09:00→09:24)
[2017-02-24] MEDS ORDERED: CEFEPIME HCL 1 GM VIAL (RESTRICTED TO ID) IVPB SCH ×2 (09:00→18:00)
[2017-02-24] MEDS: HYDROXYUREA 500 MG CAPSULE PO SCH ×2 (09:15→23:56)
[2017-02-24] MEDS: ENOXAPARIN NA (PORCINE) 40 MG/0.4 ML DISP.SYRIN SQ SCH ×2 (09:15→23:20)
[2017-02-24] MEDS: ASCORBIC ACID 500 MG TABLET (FP) PO SCH (09:15)
[2017-02-24] MEDS: valACYclovir HCL 500 MG TABLET (FP) PO SCH (09:16)
[2017-02-24] MEDS: VORICONAZOLE 50 MG TABLET (RESTRICTED TO ID) PO SCH ×2 (09:28→23:56)
[2017-02-24] MEDS: CEFEPIME 1 GM in DEXTROSE 5%-WATER - 100 ML IVPB SCH ×2 (09:30→17:36)
[2017-02-24 09:56] LABS: MCH 34.4 pg (25.7-33.7); MCHC 33.2 g/dl (32.0-36.0); MEAN CELL VOLUME 103.6 fl (80-96); MEAN PLT VOLUME 6.7 fl (7.5-11.1); PLATELET COUNT 130 K/MM3 (134-434); RDW 25.2 % (11.6-15.6)
[2017-02-24] MEDS ORDERED: CEFTRIAXONE 2 GM in DEXTROSE 5%-WATER - 100 ML IVPB SCH (10:00)
[2017-02-24] MEDS ORDERED: CEFEPIME 1 GM/100 ML BAG PRE-DOCKED IVPB SCH (10:00)
[2017-02-24 10:08] LABS: WHITE BLOOD COUNT 61.4 K/mm3 (4.0-10.0)
[2017-02-24 10:27] LABS: CPK 26 IU/L (26-192)
--- NOTE | 2017-02-24 10:38 | PN ---
Teaching Attending Note Name of Resident: Floridalma Bray ATTENDING PHYSICIAN STATEMENT Time of evaluation: 8:30 AM I saw and evaluated the patient. I reviewed the resident's note and discussed the case with the resident. I agree with the resident's findings and plan as documented. SUBJECTIVE: Patient seen and examined, anxious about her fevers, reports worsening cough. Denies any dyspnea, chest pain, palpitations, dizziness, nausea, vomiting, abdominal pain or diarrhea. OBJECTIVE: Vital Signs Period Temp Pulse Resp BP Sys/Barrios Pulse Ox Last 24 Hr 98.5 F-101.4 F 103-125 18-20 106-123/50-57 95 Intake & Output 02/21/17 02/22/17 02/23/17 02/24/17 23:59 23:59 23:59 23:59 Intake Total 1869 1969 790 960 Balance 1869 1969 790 960 General: sitting in bed, anxious looking, mildly tachypneic with coarse cough CVS;S1S2 regular rapid Chest poor effort audible coarse rales, but limited lung exam, positive air entry bilaterally Abdomen: soft, NT, ND, positive bowel sounds, no CVA tenderness Extremities: no edema, Neuro: AAOx3, facial symmetry, neck soft supple, power 5/5, grossly non focal Home Medication List Medication Instructions Recorded Confirmed Type Acetaminophen [Tylenol -] 650 mg PO Q6H PRN 02/19/17 02/19/17 History Ascorbic Acid [Vitamin C] 500 mg PO DAILY 02/19/17 02/19/17 History Diltiazem Cd [Cardizem Cd -] 180 mg PO DAILY 02/19/17 02/19/17 History Guaifenesin Dm [Mucinex Dm -] 1 tab PO BID PRN 02/19/17 02/19/17 History Nystatin Oral Suspension - 500,000 units PO Q6H 02/19/17 02/19/17 History [Nystatin Oral Susp 084608 Units/5 ML -] Valacyclovir HCl [Valtrex -] 500 mg PO DAILY 02/19/17 02/19/17 History Voriconazole 100 mg PO BID 02/19/17 02/19/17 History Warfarin Sodium [Coumadin] 5 mg PO DAILY 02/19/17 02/19/17 History Ciprofloxacin [Cipro (Restricted 250 mg PO BID 02/21/17 02/21/17 History To Id)] Active Medications Generic Name Dose Route Start Last Admin Trade Name Melly PRN Reason Stop Dose Admin Acetaminophen 650 mg 02/20/17 00:01 02/24/17 05:45 Tylenol - PO 650 mg Q6H PRN Administration pain Ascorbic Acid 500 mg 02/20/17 10:00 02/24/17 09:15 Vitamin C - PO 500 mg DAILY JATINDER Administration Diltiazem HCl 180 mg 02/20/17 10:00 02/24/17 09:15 Cardizem Cd - PO 180 mg DAILY JATINDER Administration Enoxaparin Sodium 40 mg 02/21/17 22:00 02/24/17 09:15 Lovenox - SQ 40 mg BID JATINDER Administration Hydroxyurea 500 mg 02/22/17 10:00 02/24/17 09:15 Hydrea - PO 500 mg BID JATINDER Administration Sodium Chloride 1,000 mls @ 100 mls/hr 02/24/17 08:27 02/24/17 10:12 Normal Saline - IV Not Given ASDIR JATINDER Cefepime HCl 1 gm/ Dextrose 100 mls @ 200 mls/hr 02/24/17 10:00 02/24/17 09: 30 IVPB Not Given Q8H-IV JATINDER Vancomycin HCl 1,000 mg/ 250 mls @ 200 mls/hr 02/24/17 09:24 Dextrose IVPB BID@0800,2000 JATINDER Nystatin 500,000 units 02/20/17 06:00 02/24/17 05:45 Nystatin Oral Suspension - PO 500,000 units Q6HPO JATINDER Administration Valacyclovir HCl 500 mg 02/20/17 10:00 02/24/17 09:16 Valtrex - PO 500 mg DAILY JATINDER Administration Voriconazole 100 mg 02/21/17 22:00 02/24/17 09:28 Voriconazole (Restricted To Id) PO 100 mg BID JATINDER Administration Laboratory Results - last 24 hr 02/20/17 02/23/17 02/23/17 10:00 06:00 13:00 WBC RBC Hgb Hct MCV MCH MCHC RDW Plt Count MPV Neutrophils % Lymphocytes % Platelet Comment No Result Required. Sodium Potassium Chloride Carbon Dioxide Anion Gap BUN Creatinine Creat Clearance w eGFR Random Glucose Calcium Total Bilirubin AST ALT Alkaline Phosphatase Creatine Kinase Troponin I Total Protein Albumin Vancomycin Pre-Dose 14.125 H Blood Type O POSITIVE Antibody Screen Negative Crossmatch See Detail 11/12/17 11/12/17 11/12/17 06:15 08:36 08:37 WBC 61.4 H* D RBC 2.57 L Hgb 8.8 L Hct 26.6 L MCV 103.6 H MCH 34.4 H MCHC 33.2 RDW 25.2 H Plt Count 130 L MPV 6.7 L Neutrophils % No Result Required. Lymphocytes % No Result Required. Platelet Comment Sodium 140 Potassium 3.9 Chloride 108 H Carbon Dioxide 24 Anion Gap 8 BUN 12 D Creatinine 0.5 L Creat Clearance w eGFR > 60 Random Glucose 125 H Calcium 7.2 L Total Bilirubin 0.3 D AST 16 D ALT 14 D Alkaline Phosphatase 49 Creatine Kinase 26 Cancelled Troponin I < 0.02 Cancelled Total Protein 5.8 L Albumin 2.4 L Vancomycin Pre-Dose Blood Type Antibody Screen Crossmatch EKG sinus tach 140s, no acute ST-T changes CXR ordered pending repeat blood cultures/urinalysis/urine cultures sent ASSESSMENT AND PLAN: 81 yof with AML, last treatment in 05/2016, DVT s/p IVC filter, on coumadin, Afib , recent dental extraction ( when coumadin held for 5 days of which 3 were covered with lovenox), admitted with RLE acute DVT and worsening AML, now with Sepsis/bacteremia Sepsis, worsening symptoms with fevers upto 103/tachycardia/new cough today -Streptococcal bacteremia -Acute RLE extensive DVT -AMS, worsening leucocytosis/anemia -Thrombocytopenia -At risk for Tumor Lysis Syndrome -Atrial fibrillation Plan: recurrent sepsis with worsening symptoms and new cough. ?PNA. resume cefepime/ vancomycin, 1L IVF bolus, increase IVF to 100 ml/hr, repeat blood cultures/ urinalysis/urine cultures and CXR. Close hemodynamic monitoring. EKG with sinus tach 140s (P waves visible) from high grade fevers. Tylenol IV, cool compresses , IVF, antibiotics. Low dose benzo if persistently anxious. Discussed with ID Dr. Rodriguez, will follow up for additional recs. 2D echo noted. Lovenox, transition to eliquis per hematology. Started on hydroxyurea/Uloric. s/p 2 units of PRBC with appropriate response. No clinical evidence of bleed. Cardizem GIPPX Palliative care input Discussed with patient and Scott Villalba, Patient confirms wants to be DNR/DNI, witnessed by and RN Ishmael. DNR/DNI placed in chart. Prognosis guided given worsening symptoms with sepsis, immunocompromised state. Discussed with patient and at bedside in detail, all questions answered.
--- NOTE | 2017-02-24 12:05 | PN ---
Progress Note, Physician Chief Complaint: Recurrent fever Reports new cough with thick sputum production Repeat CXR ? LLL infiltrate WBC decresed 61K - Current Medication List Current Medications: Active Medications Acetaminophen (Tylenol -) 650 mg PO Q6H PRN PRN Reason: pain Last Admin: 02/24/17 05:45 Dose: 650 mg Ascorbic Acid (Vitamin C -) 500 mg PO DAILY [facility] Last Admin: 02/24/17 09:15 Dose: 500 mg Diltiazem HCl (Cardizem Cd -) 180 mg PO DAILY [facility] Last Admin: 02/24/17 09:15 Dose: 180 mg Enoxaparin Sodium (Lovenox -) 40 mg SQ BID [facility] Last Admin: 02/24/17 09:15 Dose: 40 mg Hydroxyurea (Hydrea -) 500 mg PO BID [facility] Last Admin: 02/24/17 09:15 Dose: 500 mg Sodium Chloride (Normal Saline -) 1,000 mls @ 100 mls/hr IV ASDIR [facility] Last Admin: 02/24/17 10:12 Dose: Not Given Cefepime HCl 1 gm/ Dextrose 100 mls @ 200 mls/hr IVPB Q8H-IV [facility] Last Admin: 02/24/17 09:30 Dose: Not Given Vancomycin HCl 1,000 mg/ (Dextrose) 250 mls @ 200 mls/hr IVPB BID@0800,2000 [facility] Nystatin (Nystatin Oral Suspension -) 500,000 units PO Q6HPO [facility] Last Admin: 02/24/17 05:45 Dose: 500,000 units Valacyclovir HCl (Valtrex -) 500 mg PO DAILY [facility] Last Admin: 02/24/17 09:16 Dose: 500 mg Voriconazole (Voriconazole (Restricted To Id)) 100 mg PO BID [facility] Last Admin: 02/24/17 09:28 Dose: 100 mg - Objective Vital Signs: Vital Signs Temperature 100.5 F H 02/24/17 05:00 Pulse Rate 125 H 02/24/17 05:00 Respiratory Rate 20 02/24/17 05:00 Blood Pressure 123/53 02/24/17 05:00 O2 Sat by Pulse Oximetry (%) 95 02/23/17 21:00 Constitutional: Yes: No Distress, Cachectic Eyes: Yes: Conjunctiva Clear HENT: Yes: Other (tongue coated) Cardiovascular: Yes: Regular Rate and Rhythm, S1, S2 Respiratory: Yes: CTA Bilaterally Gastrointestinal: Yes: Normal Bowel Sounds, Soft. No: Tenderness Extremities: Yes: Other (L LE edema) Labs: CBC, BMP 02/24/17 06:15 02/24/17 08:36 INR, PTT INR 1.46 (0.82-1.09) H D 02/22/17 05:19 Fibrinogen 504.0 mg/dL (238-498) H D 02/22/17 05:19 Assessment/Plan Febrile neutropenia/ neutropenic sepsis Recurrent fever, new cough ? pneumonia +BC aerococcus, strep intermedius Acute leukemia L LE DVT Repeat cultures obtained Broaden coverage Vancomycin/ cefepime
[2017-02-24] MEDS ORDERED: ADENOSINE 6 MG/2 ML VIAL IVPUSH ONE ×2 (13:05→13:30)
[2017-02-24] MEDS ORDERED: dilTIAZem HCL 50 MG/10 ML - 10 ML VIAL IVPUSH ONE (13:18)
--- NOTE | 2017-02-24 13:33 | PN ---
Progress Note (short form) - Note Progress Note: Progress Note (short form) - Note Progress Note: Patient seen and examined . She is ok though she thinks it is a bad day today as she ate [place] food yesterday. ROS- denies headaches, diplopia, epistaxis, dysphagia, chest pains, SOB, dyspnea, GERD, nausea, emesis, diarrhea, constipation, dysuria, hematuria, ; some back pains, some left lower gum pains, sme left calf pains on ambulation Vital Signs Period Temp Pulse Resp BP Sys/Barrios Pulse Ox Last 24 Hr 98.5 F-103 F 103-150 18-20 106-123/50-57 95-97 HEENT: JAMARI, EOM Intact Oropharynx: No thrush, No mucositis, missing teeth , lower gum-periapical region area of erythema and tenderness incisors Neck: Supple Nodes: Without adenopathy Breasts: Without masses Cor: RSR, systolic murmur-(old) Lungs: scoliosis ; few rales at bases Abd: Soft, Normal bowel sounds, No organomegaly Ext:No significant edema; + left van's Skin: No rashes, Integument intact CBC, BMP 02/24/17 06:15 02/24/17 08:36 Active Medications Generic Name Dose Route Start Last Admin Trade Name Freq PRN Reason Stop Dose Admin Acetaminophen 650 mg 02/20/17 00:01 02/24/17 05:45 Tylenol - PO 650 mg Q6H PRN Administration pain Ascorbic Acid 500 mg 02/20/17 10:00 02/24/17 09:15 Vitamin C - PO 500 mg DAILY JATINDER Administration Diltiazem HCl 180 mg 02/20/17 10:00 02/24/17 09:15 Cardizem Cd - PO 180 mg DAILY JATINDER Administration Diltiazem HCl 10 mg 02/24/17 13:18 Cardizem Injection - IVPUSH 02/24/17 13:19 ONCE ONE Enoxaparin Sodium 40 mg 02/21/17 22:00 02/24/17 09:15 Lovenox - SQ 40 mg BID JATINDER Administration Furosemide 40 mg 02/24/17 14:00 Lasix Injection - IVPUSH 02/24/17 14:01 ONCE ONE Hydroxyurea 500 mg 02/22/17 10:00 02/24/17 09:15 Hydrea - PO 500 mg BID JATINDER Administration Sodium Chloride 1,000 mls @ 100 mls/hr 02/24/17 08:27 02/24/17 10:12 Normal Saline - IV Not Given ASDIR JATINDER Cefepime HCl 1 gm/ Dextrose 100 mls @ 200 mls/hr 02/24/17 10:00 02/24/17 09: 30 IVPB Not Given Q8H-IV JATINDER Vancomycin HCl 1,000 mg/ 250 mls @ 200 mls/hr 02/24/17 09:24 Dextrose IVPB BID@0800,2000 JATINDER Nystatin 500,000 units 02/20/17 06:00 02/24/17 12:44 Nystatin Oral Suspension - PO 500,000 units Q6HPO JATINDER Administration Valacyclovir HCl 500 mg 02/20/17 10:00 02/24/17 09:16 Valtrex - PO 500 mg DAILY JATINDER Administration Voriconazole 100 mg 02/21/17 22:00 02/24/17 09:28 Voriconazole (Restricted To Id) PO 100 mg BID JATINDER Administration Impression:Problems 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 secondary to dental procedure ?? endocarditis LLE -DVT Discussion Patient developed her bacteremia post dental work despite intermodal customer service prophylaxis with valtrex, voriiconazole and cipro-250 mg BID. Patient developed her progressive DVT after coumadin had been stopped and lovenox bridging until the day before dental work. ?? coumadin failure and ultimately change to NOAC Plan: To continue antibiotic work up and therapy per I.D. continue Hydrea to 1000 mg daily and to monitor CBC. No evidence of tumor lysis Hb better and no need for transfusions at this time
[2017-02-24 13:35] LABS: TOTAL CELLS COUNTED 100
[2017-02-24 13:58] LABS: REACTIVE LYMPHOCYTES 5 % (0-80)
[2017-02-24] MEDS ORDERED: FUROSEMIDE 40 MG/4 ML INJECTABLE VIAL IVPUSH ONE (14:00)
[2017-02-24 14:07] LABS: BLAST 50 % (0-0)
--- NOTE | 2017-02-24 14:09 | PN ---
Teaching Attending Note Name of Resident: . Critical event note: Called by RN around 1 Pm, as patient tachycardic to 150-170s, febrile 100.4 and increased shortness of breath. patient seen stat. O/E: Vitals: HR 170s-180s, SBP 120s, Oxygen 80s on 2 L NC respiratory distress, use of acessory muscles of respiration CVS S1s2 irregular, rapid Chest, bilateral coarse rales, positive air entry abdomen soft, NT, ND, positive bowel sounds Telemetry HR 170s-180s, regular, suggestive of SVT. Adenosine 6 mg IV x 1 given with HR improvement to 100s sinus rhythm, transiently with increase upto 170s again. Adenosine 12 mg IV x 1 given with HR improvement to 140s-150s. Cardizem 10 mg IV HR 120s. EKG done, currntly Sinus tachycardia 130s with no acute ST-T changes. Lasix 40 mg IV given with urine output > 600 ml with clinically improvement, oxygenating 95% on 100% NRB. IVF stopped. Patient symptomatically improved, current telemetry with Sinus rhythm 120s- 140s. Ramirez placed, tylenol suppository given. Cardiology consulted with Dr. Kimball (covering for Dr. Hoskins), rhythm strips/ EKG reviewed, agree with prior SVT episode, recommend treatment of underlying cause for current sinus tachycardia but no rate controlling agents. If recurrent SVT, to consider anti-arrthymics as amiodarone. -Acute ?diastolic Heart failure (normal EF on echo this admission) -SVT -Sinus tachycardia -Acute hypoxic respiratory insufficiency -Sepsis -Streptococcal bacteremia -AML -LLE DVT Hold off additional IVF. Close hemodynamic monitoring. aggressive treatment of fever. Cefepime/vancomycin for now. Cardiology consulted with Dr. Hoskins (Dr. Ramírez covering). Lasix prn, Cautious monitoring off IVF with sepsis. IF recurrent SVT, consider anti-arrhythmics. Patient and Scott at bedside. revoked DNR/DNI. Per , "want everything done to keep her alive". Per patient "We changed our mind". Confirmed by myself and GRACE Quiñones. DNR/DNI revoked. patient full code now. Time in: 1 Pm, total critical care time at bedside 50 min and total time spent in patient care including discussion with manager income tax and co-ordination of care 65 min.
--- NOTE | 2017-02-24 14:34 | EKG ---
Test Reason : Blood Pressure : / mmHG Vent. Rate : 131 BPM Atrial Rate : 131 BPM P-R Int : 140 ms QRS Dur : 076 ms QT Int : 310 ms P-R-T Axes : 050 -26 037 degrees QTc Int : 457 ms SINUS TACHYCARDIA LEFT ANTERIOR FASCICULAR BLOCK WHEN COMPARED WITH ECG OF 24-FEB-2017 08:42, NO SIGNIFICANT CHANGE WAS FOUND CLINICAL CORRELATION IS RECOMMENDED Confirmed by ISABEL CASTANEDA MD ([id number] on 02/24/2017 2:33:50 PM Referred By: Confirmed By:ISABEL CASTANEDA MD
[2017-02-24] MEDS ORDERED: ACETAMINOPHEN 650 MG SUPP.RECT PR ONE (14:41)
--- NOTE | 2017-02-24 15:03 | EKG ---
Test Reason : Blood Pressure : / mmHG Vent. Rate : 143 BPM Atrial Rate : 143 BPM P-R Int : 134 ms QRS Dur : 070 ms QT Int : 264 ms P-R-T Axes : 059 -37 034 degrees QTc Int : 407 ms SINUS TACHYCARDIA POSSIBLE LEFT ATRIAL ENLARGEMENT RSR' V2 LAHB NONSPECIFIC ST ABNORMALITY ABNORMAL ECG WHEN COMPARED WITH ECG OF 20-FEB-2017 00:39, PREMATURE ATRIAL COMPLEXES ARE NO LONGER PRESENT CRITERIA FOR SEPTAL INFARCT ARE NO LONGER PRESENT CLINICAL CORRELATION IS RECOMMENDED Confirmed by ISABEL CASTANEDA MD ([id number]) on 02/24/2017 3:02:33 PM Referred By: Confirmed By:ISABEL CASTANEDA MD
[2017-02-24 15:35] LABS: URINE APPEARANCE SLCLOUDY; URINE BILIRUBIN NEGATIVE (NEGATIVE); URINE BLOOD NEGATIVE (NEGATIVE); URINE COLOR LTYELLOW; URINE GLUCOSE (UA) NEGATIVE (NEGATIVE); URINE KETONE NEGATIVE (NEGATIVE); URINE NITRITE NEGATIVE (NEGATIVE); URINE UROBILINOGEN NEGATIVE mg/dL (0.2-1.0)
[2017-02-24 15:42] LABS: URINE PROTEIN 1+ (NEGATIVE)
--- NOTE | 2017-02-24 15:55 | PN ---
Progress Note (short form) - Note Progress Note: PULMONARY Clinically worse today. Febrile, now on NRB mask and tachycardic. Last Vital Signs Temp Pulse Resp BP Pulse Ox 103 F H 150 H 20 112/55 97 02/24/17 09:00 02/24/17 09:00 02/24/17 09:00 02/24/17 09:00 02/24/17 09:00 Intake & Output 02/21/17 02/22/17 02/23/17 02/24/17 23:59 23:59 23:59 23:59 Intake Total 1869 1613 443 0322 Balance 1869 2110 295 6010 Gen: toxic appearing, tachypneic, frail Heart: tachycardic, irregular Lung: scattered rhonchi Abd: soft, nontender Ext: LLE edema CBC, BMP 02/24/17 06:15 02/24/17 08:36 Active Medications Acetaminophen (Tylenol -) 650 mg PO Q6H PRN PRN Reason: pain Last Admin: 02/24/17 05:45 Dose: 650 mg Ascorbic Acid (Vitamin C -) 500 mg PO DAILY [facility] Last Admin: 02/24/17 09:15 Dose: 500 mg Diltiazem HCl (Cardizem Cd -) 180 mg PO DAILY [facility] Last Admin: 02/24/17 09:15 Dose: 180 mg Enoxaparin Sodium (Lovenox -) 40 mg SQ BID [facility] Last Admin: 02/24/17 09:15 Dose: 40 mg Hydroxyurea (Hydrea -) 500 mg PO BID [facility] Last Admin: 02/24/17 09:15 Dose: 500 mg Cefepime HCl 1 gm/ Dextrose 100 mls @ 200 mls/hr IVPB Q8H-IV [facility] Last Admin: 02/24/17 09:30 Dose: Not Given Vancomycin HCl 1,000 mg/ (Dextrose) 250 mls @ 200 mls/hr IVPB BID@0800,2000 [facility] Nystatin (Nystatin Oral Suspension -) 500,000 units PO Q6HPO [facility] Last Admin: 02/24/17 12:44 Dose: 500,000 units Valacyclovir HCl (Valtrex -) 500 mg PO DAILY [facility] Last Admin: 02/24/17 09:16 Dose: 500 mg Voriconazole (Voriconazole (Restricted To Id)) 100 mg PO BID [facility] Last Admin: 02/24/17 09:28 Dose: 100 mg A/P AML Strep Bacteremia LLE DVT Atrial Fibrillation Anemia DM Hypercholesterolemia - continue antibiotics per ID - O2 to keep SpO2 >90% - f/u cultures - continue anticoagulation - poor overall prognosis
[2017-02-24 16:09] LABS: URINE MUCUS RARE
[2017-02-24 16:24] LABS: URINE RBC 0; URINE WBC 0
[2017-02-24 18:42] LABS: URINE LEUK ESTERASE Negative (NEGATIVE)
[2017-02-24] MEDS ORDERED: VANCOMYCIN 1 GRAM (PRE-DOCKED) 1,000 MG/250 ML BAG IVPB SCH (22:00)
[2017-02-24] MEDS ORDERED: SODIUM CHLORIDE 500 ML IV STA (22:06)
[2017-02-24 22:10] LABS: ARTERIAL BLOOD GAS BASE EXCESS -0.8 meq/l (-2-2); ARTERIAL BLOOD GAS HCO3 21.9 meq/L (22-26); ARTERIAL BLOOD GAS PO2 62.8 mmHg (68-100); ARTERIAL BLOOD GAS pH 7.48 (7.35-7.45)
[2017-02-24 22:11] LABS: ALLENS TEST POSITIVE; ART PUNCT SITE RIGHT RADIAL; LPM/O2% 100%; PT. ON O2? YES; TYPE OF O2 NRB MASK
[2017-02-24] MEDS ORDERED: morphine SULFATE 4 MG/ML VIAL IVPUSH ONE ×2 (22:33→22:46)
[2017-02-24] MEDS ORDERED: morphine CARPU-JECT 4 MG/1 ML DISP.SYRIN IVPUSH ONE (22:39)
[2017-02-24] MEDS ORDERED: PT OWN MED DRAWER 7, Y5N ONE (22:44)
--- NOTE | 2017-02-24 22:55 | RAPID ---
Physical Examination Vital Signs: Vital Signs Temperature 102.8 F H 02/24/17 17:00 Pulse Rate 130 H 02/24/17 17:00 Respiratory Rate 18 02/24/17 17:00 Blood Pressure 121/53 02/24/17 17:00 O2 Sat by Pulse Oximetry (%) 97 02/24/17 09:00 Constitutional: Yes: Severe Distress Cardiovascular: Yes: Tachycardia Respiratory: Yes: Rhonchi Gastrointestinal: Yes: WNL Labs: CBC, BMP 02/24/17 06:15 02/24/17 08:36 Rapid Response - Rapid Response Assessment: Rapid response called for this 81F w/ hx of AML (diagnosed in 2009), a-fib, DVT s/p IVC filter on coumadin, and PNA who presented with acute LLE pain, was found to have an extensive LLE DVT, severe leukocytosis, anemia, and thrombocytopenia, who was admitted to telemetry for DVT. Pt was found to be lethargic, not responding to questions. Her BP was in the 70/30s with sinus tachycardia. She was satting 93% on NC, and she was febrile to 101. Cardiac exam showed tachycardia, and respiratory exam demonstrated scattered rhonchi. Assessment and Plan: Hypotension possibly 2/2 septic shock -CXR -ABG -lactic acid -CMP, CBC -EKG -troponin Pt given 500cc bolus of NS, and her BP increased. She was transferred to the ICU , and her mental status improved. was present and notified of situation.
--- NOTE | 2017-02-24 23:17 | HOSP ---
Subjective - Review of Symptoms Subjective: WEATHERIZATION TECHNICIAN called for hypotension BP 76/36 RR 30 HR 114 02 96, T 102.6 Pt. 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
[2017-02-25] MEDS: NYSTATIN 500,000 UNITS/5 ML SUSPENSION PO SCH ×4 (00:03→17:54)
[2017-02-25] MEDS ORDERED: ACETAMINOPHEN 325 MG TABLET (FP) PO PRN (00:07)
[2017-02-25] MEDS ORDERED: NOREPINEPHRINE BITARTRATE 4 MG/4 ML ML IV ONE ×4 (00:09→20:29)
[2017-02-25] MEDS ORDERED: LIDOCAINE HCL 1%, 10 MG/ML (20ML VIAL) ONE (01:03)
[2017-02-25] MEDS: CEFEPIME 1 GM in DEXTROSE 5%-WATER - 100 ML IVPB SCH ×3 (01:47→17:54)
[2017-02-25] MEDS: NOREPINEPHRINE BITARTRATE 8,000 MCG in DEXTROSE 5%-WATER - 492 ML IV SCH ×3 (02:15→20:45)
[2017-02-25] MEDS ORDERED: ETOMIDATE 40 MG/20 ML VIAL IVPUSH ONE (02:23)
[2017-02-25] MEDS ORDERED: MIDAZOLAM HCL 5 MG/1 ML Single Dose Vial IVPUSH ONE (02:24)
[2017-02-25] MEDS ORDERED: ETOMIDATE 20 MG/10 ML AMPUL IVPUSH ONE (02:56)
--- NOTE | 2017-02-25 05:32 | CONSULT ---
Consult Consult Specialty:: PULM/CCM Reason for Consultation:: Dr. 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 (The patient had a dental procedure 2 wks [employer] which required her to stop taking her coumadin X 5 days). Pt had a L LE DVT years ago & has an IVC Filter in place. (No Hx/o PE). Of note the pt has active AML, pt of Dr Miranda, last chemo cycle: May 2016. (Also to note: This AML pt has recently lost 30 lbs). Pt was on the floor convalescing then sudden SOB O/N. WBC > 85 c/f AML blast crisis vs infection. - Past Medical History Cardio/Vascular: Yes: AFIB Pulmonary: Yes: COPD. No: O2 Dependent Gastrointestinal: Yes: GERD - Alcohol/Substance Use Hx Alcohol Use: No - Smoking History Smoking history: Never smoked Have you smoked in the past 12 months: No - Social History ADL: Independent History of Recent Travel: No Home Medications - Allergies Allergies/Adverse Reactions: Allergies Allergy/AdvReac Type Severity Reaction Status Date / Time allopurinol Allergy Verified 02/19/17 14:41 - Home Medications Home Medications: Ambulatory Orders Acetaminophen [Tylenol -] 650 mg PO Q6H PRN 02/19/17 Ascorbic Acid [Vitamin C] 500 mg PO DAILY 02/19/17 Diltiazem Cd [Cardizem Cd -] 180 mg PO DAILY 02/19/17 Guaifenesin Dm [Mucinex Dm -] 1 tab PO BID PRN 02/19/17 Nystatin Oral Suspension - [Nystatin Oral Susp 816047 Units/5 ML -] 500,000 units PO Q6H 02/19/17 Valacyclovir HCl [Valtrex -] 500 mg PO DAILY 02/19/17 Voriconazole 100 mg PO BID 02/19/17 Warfarin Sodium [Coumadin] 5 mg PO DAILY 02/19/17 Ciprofloxacin [Cipro (Restricted To Id)] 250 mg PO BID 02/21/17 Family Disease History - Family Disease History Family History: Unable to Obtain (Pt on BiPap) Review of Systems Unable to obtain ROS, reason: Pt on Bi-Level Physical Exam Vital Signs: Vital Signs Temperature 99.8 F H 02/25/17 04:00 Pulse Rate 110 H 02/25/17 04:00 Respiratory Rate 34 H 02/25/17 04:00 Blood Pressure 97/44 02/25/17 04:00 O2 Sat by Pulse Oximetry (%) 100 02/25/17 03:00 Constitutional: Yes: Cachectic, Moderate Distress, Thin Eyes: Yes: WNL, Conjunctiva Clear, EOM Intact HENT: Yes: WNL, Atraumatic, Normocephalic Neck: Yes: WNL, Supple, Trachea Midline Cardiovascular: Yes: WNL, Regular Rate and Rhythm, Tachycardia Respiratory: Yes: WNL, Regular, CTA Bilaterally, Accessory Muscle Use, On BiPap , SOB, SOB on Exertion Gastrointestinal: Yes: WNL, Normal Bowel Sounds, Soft ...Rectal Exam: Yes: Deferred Renal/: Yes: CVA Tenderness - Right Breast(s): Yes: WNL Musculoskeletal: Yes: WNL Extremities: Yes: WNL Edema: No Peripheral Pulses WNL: Yes Integumentary: Yes: WNL Neurological: Yes: WNL, Alert, Oriented ...Motor Strength: WNL Psychiatric: Yes: WNL Labs: CBC, BMP 02/24/17 06:15 02/24/17 08:36 Imaging - Results Chest X-ray: Image Reviewed (02/24: L ACW port, LLL PNA (My Read).) EKG: Image Reviewed (02/24: S-Tach in the 120's, no ect, normal axis, QTc = 457ms, no acute processes ( My Read).) Assessment/Plan ASSESS: -AML w/ hyper-lukocytosis c/f blast crisis -Shock 2/2 sepsis -Strep Bacteremia -LLE DVT -A-Fib -Anemia -DM -Hypercholesterolemia PLAN: - Bi-Level - Nebs - Low threshold to intubate - Abx - f/u cultures - Cardizem - Lovenox - CVC - Press Prn - Can cont AC - poor overall prognosis DGL [facility] ICU PULM/CCM [id number]
[2017-02-25] MEDS ORDERED: PT OWN MED DRAWER 7, Y5N ONE ×5 (06:16→21:03)
--- NOTE | 2017-02-25 06:17 | PROC ---
Central Line Insertion Indication: Sepsis, Vasopressor Risks and Benefits Explained: Yes Consent on Chart: Yes Central Line: Triple Lumen Catheter Anesthesia: 1% Lidocaine Sterile Technique: Yes Ultrasound Guided Assistance: Yes Position: Right Internal Jugular Post Insertion: Yes: Bilateral Breath Sounds, Bilateral Chest Expansion, Chest X-Ray Ordered Sterile Dressing Applied: Yes
[2017-02-25] MEDS: HYDROmorphone HCL CARPU-JECT 2 MG/1 ML DISP.SYRIN IVPUSH PRN ×2 (06:19→21:04)
[2017-02-25 06:22] LABS: MCHC 33.1 g/dl (32.0-36.0); MEAN CELL VOLUME 105.7 fl (80-96); MEAN PLT VOLUME 7.3 fl (7.5-11.1); PLATELET COUNT 155 K/MM3 (134-434); RDW 24.5 % (11.6-15.6)
[2017-02-25 06:45] LABS: WHITE BLOOD COUNT 57.7 K/mm3 (4.0-10.0)
[2017-02-25] MEDS ORDERED: ACETAMINOPHEN 1000 MG/100 ML VIAL (NON FORMULARY) IVPB ONE (07:30)
--- NOTE | 2017-02-25 07:45 | PN ---
Physical Exam: 24H Events: yesterday - worsening sepsis, fever Tmax 103, tachycardic to 150's s/p adenosinex2, cardizem 10mg IVP, given lasix with good response ON - rapid response called and transferred to ICU, placed for tachycardia/ tachypnea, placed on BiPap, L IJ inserted and started on levophed AM - sustained Afib, placed on amiodarone gtt SUBJECTIVE: Patient seen and examined in ICU. On BiPAP, conversant with some dyspnea, +cough and increased sputum, L leg pain improved OBJECTIVE: Vital Signs Period Temp Pulse Resp BP Sys/Barrios Pulse Ox Last 24 Hr 98.2 F-103 F 106-150 18-44 70-124/34-62 97-100 Intake & Output 02/22/17 02/23/17 02/24/17 02/25/17 23:59 23:59 23:59 23:59 Intake Total 7637 188 2009 2765 Output Total 1999 1200 Balance 1969 318 270 1771 Weight 44 kg GENERAL: awake, alert, on BiPAP EYES: sclera anicteric, conjunctiva clear. No ptosis LUNGS: scattered rales bilaterally, accessory muscle use when conversing HEART: rrr, normal S1/S2, without murmur, rub or gallop. ABDOMEN: Soft, ntnd LOWER EXTREMITIES: 2+ pulses, wwp, L calf circumference 2X R calf, L popliteal fossa > L calf tenderness, sensation intact bilaterally, strength 5/5 bilaterally CBC, BMP 02/25/17 06:00 02/25/17 06:00 Hepatic Panel Total Bilirubin 0.5 mg/dL (0.2-1.0) D 02/25/17 06:00 Direct Bilirubin 0.2 mg/dL (0.0-0.2) D 02/21/17 06:00 AST 18 U/L (15-37) 02/25/17 06:00 ALT 15 U/L (12-78) 02/25/17 06:00 Alkaline Phosphatase 44 U/L (45-117) L 02/25/17 06:00 Albumin 2.0 g/dl (3.4-5.0) L 02/25/17 06:00 Microbiology 02/21/17 13:36 Blood - Peripheral Venous Blood Culture - Preliminary NO GROWTH OBTAINED AFTER 96 HOURS, INCUBATION TO CONTINUE FOR 1 DAYS. 02/21/17 13:30 Blood - Peripheral Venous Blood Culture - Preliminary NO GROWTH OBTAINED AFTER 96 HOURS, INCUBATION TO CONTINUE FOR 1 DAYS. 02/24/17 13:45 Urine - Urine - Catheterized Urine Culture - Final NO GROWTH OBTAINED 02/24/17 06:15 Blood - Peripheral Venous Blood Culture - Preliminary NO GROWTH OBTAINED AFTER 24 HOURS, INCUBATION TO CONTINUE FOR 4 DAYS. 02/24/17 06:15 Blood - Peripheral Venous Blood Culture - Preliminary NO GROWTH OBTAINED AFTER 24 HOURS, INCUBATION TO CONTINUE FOR 4 DAYS. 02/20/17 21:40 Blood - Peripheral Venous Blood Culture - Preliminary NO GROWTH OBTAINED AFTER 96 HOURS, INCUBATION TO CONTINUE FOR 1 DAYS. 02/20/17 21:35 Blood - Peripheral Venous Blood Culture - Final Aerococcus Species Streptococcus Intermedius 02/20/17 23:30 Urine - Urine Clean Catch Urine Culture - Final IMAGING: ECHO (02/22/09): no e/o endocarditis; mild MR, TR, [place] Active Medications Ascorbic Acid (Vitamin C -) 500 mg PO DAILY [facility] Last Admin: 02/25/17 10:16 Dose: Not Given Chlorhexidine Gluconate (Hibiclens For Decolonization -) 1 applic TP HS [facility] Diltiazem HCl (Cardizem Cd -) 180 mg PO DAILY [facility] Enoxaparin Sodium (Lovenox -) 40 mg SQ BID [facility] Last Admin: 02/25/17 10:32 Dose: 40 mg Hydromorphone HCl (Dilaudid Injection -) 1 mg IVPUSH Q4H PRN PRN Reason: PAIN Stop: 02/26/17 06:00 Last Admin: 02/25/17 06:19 Dose: 1 mg Hydroxyurea (Hydrea -) 500 mg PO BID [facility] Last Admin: 02/25/17 10:16 Dose: Not Given Cefepime HCl 1 gm/ Dextrose 100 mls @ 200 mls/hr IVPB Q8H-IV [facility] Last Admin: 02/25/17 10:16 Dose: 200 mls/hr Vancomycin HCl 1,000 mg/ (Dextrose) 250 mls @ 200 mls/hr IVPB BID@0800,2000 [facility] Last Admin: 02/25/17 08:00 Dose: 200 mls/hr Norepinephrine Bitartrate 8, (000 mcg/ Dextrose) 500 mls @ 4.69 mls/hr IV ASDIR [facility]; 0.03 MCG/KG/MIN PRN Reason: Protocol Last Admin: 02/25/17 10:27 Dose: 0.72 mcg/kg/min, 113 mls/hr Amiodarone HCl 450 mg/ (Dextrose) 250 mls @ 33.33 mls/hr IVPB TITR JATINDER; 1 MG/ MIN PRN Reason: Protocol Stop: 02/25/17 20:00 Last Admin: 02/25/17 14:38 Dose: 1 mg/min, 33.33 mls/hr Amiodarone HCl 450 mg/ (Dextrose) 250 mls @ 16.66 mls/hr IVPB TITR JATINDER; 0.5 MG/ MIN PRN Reason: Protocol Stop: 02/26/17 13:59 Mupirocin (Bactroban Ointment (For Decolonization) -) 1 applic NS BID [facility] Stop: 03/02/17 09:59 Last Admin: 02/25/17 10:15 Dose: 1 applic Nystatin (Nystatin Oral Suspension -) 500,000 units PO Q6HPO [facility] Last Admin: 02/25/17 12:00 Dose: Not Given Valacyclovir HCl (Valtrex -) 500 mg PO DAILY [facility] Last Admin: 02/25/17 10:16 Dose: Not Given Voriconazole (Voriconazole (Restricted To Id)) 100 mg PO BID [facility] Last Admin: 02/25/17 10:17 Dose: Not Given ASSESSMENT/PLAN: 81yo woman with PMH of AML (dx 2009, s/p Cytarabine May 2016), Afib, and DVT s/ p IVC filter on Coumadin who presents with 4xdays acute LLE pain and swelling, and found to have an extensive LLE DVT in common, deep, superficial femoral, popliteal, PT, and greater saphenous veins. CTA was negative for PE. s/p 2U PBRCs with appropriate response. Blood cultures drawn and growing Streptococcus Intermedius, on Vanc and Cefepime (started 02/21). 2D ECHO no e/o of endocarditis. Bacteremia likely from recent dental work. Now with septic shock requiring pressor support, likely 2/2 bacteremia, ?HCAP c/b advancing AML. #septic shock, with GP bacteremia, pt neutropenic, febrile and tachycardic -Critical Care consulted, levophed gtt to maintain MAP>60 -ID consulted -continue Vancomycin and Cefepime (started 02/21), repeat vanco before 4th dose -neutropenic precautions -f/u repeat cultures #acute hypoxic respiratory failure -O2 support to maintain pSaO2>90%, BiPAP as needed #Afib with RVR (150-160's) -Amiodarone gtt started; 150mg bolus, 1mg/min x 6hrs, 0.5mg/min x 18hrs #AML, labs c/w progression of disease -Heme/Onc and ID following -Continue home Valacyclovir, Voriconazole, and Nystatin for opportunistic infection ppx -Hydroxyurea 500mg PO BID -Holding Febuxostat and allopurinol due to adverse reaction (Febuxostat - hand shaking, allopurinol - rash) #Anemia, s/p 2UxPRBCs, FOBT neg, no active signs of bleeding -Trend H&H #recurrent DVT -therapeutic lovenox 40mg SQ BID -Discharge home on Eliquis (DVT dosing 10 mg twice daily for 7 days followed by 5 mg BID) #FEN/ppx -NS boluses prn -Repleted hypocalcemia with 1gm Ca gluconate -NPO while on BiPAP, otherwise neutropenic diet -no GI ppx -therapeutic lovenox #Palliative care consult for support Dispo: continue ICU monitoring FULL Code, palliative care on board, continue GOC discussion with family d/w Dr. Mariaelena Bray MD Visit type - Emergency Visit Emergency Visit: No - New Patient This patient is new to me today: No - Critical Care Critical Care patient: Yes Total Critical Care Time (in minutes): 40 Critical Care Statement: The care of this patient involved high complexity decision making to prevent further life threatening deterioration of the patient 's condition and/or to evaluate & treat vital organ system(s) failure or risk of failure.
[2017-02-25] MEDS: VANCOMYCIN 1,000 MG in DEXTROSE 5%-WATER - 250 ML IVPB SCH ×2 (08:00→20:31)
--- NOTE | 2017-02-25 08:14 | PN ---
Teaching Attending Note Name of Resident: Floridalma Bray ATTENDING PHYSICIAN STATEMENT Time of evaluation: 9:00 AM I saw and evaluated the patient. I reviewed the resident's note and discussed the case with the resident. I agree with the resident's findings and plan as documented. SUBJECTIVE: Patient seen and examined. on Bipap, able to converse, mentating well. Some cough, trouble breathing. Denies any nausea, vomiting or abdominal pain. Leg pain improved. OBJECTIVE: Vital Signs Period Temp Pulse Resp BP Sys/Barrios Pulse Ox Last 24 Hr 98.2 F-103 F 106-150 18-44 70-124/34-62 97-100 Intake & Output 02/22/17 02/23/17 02/24/17 02/25/17 23:59 23:59 23:59 23:59 Intake Total 0717 915 7289 1765 Output Total 1999 350 Balance 1969 111 969 3323 Weight 97 lb 0.054 oz General: sitting in bed on Bipap, use of acessory muscles of respiration, some respiratory distress CVS:S1S2 regular rapid neck: soft, supple, no JVD visualized Chest: Poor effort, limited exam, occasional rales Abdomen: soft, NT, ND, positive bowel sounds extremities: RLE edema, positive pulses Neuro: AAOX3 Home Medication List Medication Instructions Recorded Confirmed Type Acetaminophen [Tylenol -] 650 mg PO Q6H PRN 02/19/17 02/19/17 History Ascorbic Acid [Vitamin C] 500 mg PO DAILY 02/19/17 02/19/17 History Diltiazem Cd [Cardizem Cd -] 180 mg PO DAILY 02/19/17 02/19/17 History Guaifenesin Dm [Mucinex Dm -] 1 tab PO BID PRN 02/19/17 02/19/17 History Nystatin Oral Suspension - 500,000 units PO Q6H 02/19/17 02/19/17 History [Nystatin Oral Susp 299415 Units/5 ML -] Valacyclovir HCl [Valtrex -] 500 mg PO DAILY 02/19/17 02/19/17 History Voriconazole 100 mg PO BID 02/19/17 02/19/17 History Warfarin Sodium [Coumadin] 5 mg PO DAILY 02/19/17 02/19/17 History Ciprofloxacin [Cipro (Restricted 250 mg PO BID 02/21/17 02/21/17 History To Id)] Active Medications Generic Name Dose Route Start Last Admin Trade Name Freq PRN Reason Stop Dose Admin Ascorbic Acid 500 mg 02/25/17 10:00 Vitamin C - PO DAILY [facility] Chlorhexidine Gluconate 1 applic 02/25/17 22:00 Hibiclens For Decolonization - TP HS [facility] Diltiazem HCl 180 mg 02/25/17 10:00 Cardizem Cd - PO DAILY [facility] Enoxaparin Sodium 40 mg 02/25/17 10:00 Lovenox - SQ BID [facility] Hydromorphone HCl 1 mg 02/25/17 06:01 02/25/17 06:19 Dilaudid Injection - IVPUSH 02/26/17 06:00 1 mg Q4H PRN Administration PAIN Hydroxyurea 500 mg 02/25/17 10:00 Hydrea - PO BID [facility] Cefepime HCl 1 gm/ Dextrose 100 mls @ 200 mls/hr 02/25/17 02:00 02/25/17 01: 47 IVPB 200 mls/hr Q8H-IV [facility] Administration Vancomycin HCl 1,000 mg/ 250 mls @ 200 mls/hr 02/25/17 08:00 Dextrose IVPB BID@0800,2000 [facility] Norepinephrine Bitartrate 8, 500 mls @ 4.69 mls/hr 02/25/17 02:30 02/25/17 02 :52 000 mcg/ Dextrose IV 0.72 mcg/kg/min ASDIR [facility] 113 mls/hr Protocol Titration 0.03 MCG/KG/MIN Mupirocin 1 applic 02/25/17 10:00 Bactroban Ointment (For Decolonization) - NS 03/02/17 09:59 BID [facility] Nystatin 500,000 units 02/25/17 06:00 02/25/17 06:32 Nystatin Oral Suspension - PO Not Given Q6HPO [facility] Valacyclovir HCl 500 mg 02/25/17 10:00 Valtrex - PO DAILY [facility] Voriconazole 100 mg 02/25/17 10:00 Voriconazole (Restricted To Id) PO BID [facility] Laboratory Results - last 24 hr 02/24/17 02/24/17 02/24/17 06:15 13:43 21:55 WBC RBC Hgb Hct MCV MCH MCHC RDW Plt Count MPV Total Counted 100 Neutrophils % Neutrophils % (Manual) 2.0 L Band Neutrophils % No Result Required. Lymphocytes % Lymphocytes % (Manual) 42.0 H D Monocytes % (Manual) 1 L Blast Cells % (Manual) 50 H D Platelet Comment No Result Required. Anticoagulation Therapy Y Puncture Site Right radial ABG pH 7.48 H ABG pCO2 at Pt Temp 29.8 L ABG pO2 at Pt Temp 62.8 L ABG HCO3 21.9 L ABG O2 Sat (Measured) 94.0 ABG O2 Content 11.4 L ABG Base Excess -0.8 Onel Test Positive O2 Delivery Device Nrb mask Oxygen Flow Rate 100% Vent Mode Y Vent Rate Y Mechanical Rate Y Pressure Support Vent Y Sodium Potassium Chloride Carbon Dioxide Anion Gap BUN Creatinine Creat Clearance w eGFR Random Glucose Lactic Acid Calcium Total Bilirubin AST ALT Alkaline Phosphatase Total Protein Albumin Urine Color Ltyellow Urine Appearance Slcloudy Urine pH 5.0 Ur Specific [place] 1.010 Urine Protein 1+ H Urine Glucose (UA) Negative Urine Ketones Negative Urine Blood Negative Urine Nitrite Negative Urine Bilirubin Negative Urine Urobilinogen Negative Ur Leukocyte Esterase Negative Urine WBC (Auto) 0 Urine RBC (Auto) 0 Urine Mucus Rare 02/24/17 02/25/17 02/25/17 23:00 02:03 06:00 WBC 57.7 H* RBC 2.29 L Hgb 8.0 L Hct 24.2 L MCV 105.7 H MCH 35.0 H MCHC 33.1 RDW 24.5 H Plt Count 155 MPV 7.3 L Total Counted 100 Neutrophils % No Result Required. Neutrophils % (Manual) 1.0 L Band Neutrophils % No Result Required. Lymphocytes % No Result Required. Lymphocytes % (Manual) 22.0 D Monocytes % (Manual) 2 L D Blast Cells % (Manual) 75 H D Platelet Comment No Result Required. Anticoagulation Therapy Puncture Site ABG pH ABG pCO2 at Pt Temp ABG pO2 at Pt Temp ABG HCO3 ABG O2 Sat (Measured) ABG O2 Content ABG Base Excess Onel Test O2 Delivery Device Oxygen Flow Rate Vent Mode Vent Rate Mechanical Rate Pressure Support Vent Sodium Potassium Chloride Carbon Dioxide Anion Gap BUN Creatinine Creat Clearance w eGFR Random Glucose Lactic Acid 4.1 H* 2.7 H* Calcium Total Bilirubin AST ALT Alkaline Phosphatase Total Protein Albumin Urine Color Urine Appearance Urine pH Ur Specific [place] Urine Protein Urine Glucose (UA) Urine Ketones Urine Blood Urine Nitrite Urine Bilirubin Urine Urobilinogen Ur Leukocyte Esterase Urine WBC (Auto) Urine RBC (Auto) Urine Mucus 02/25/17 06:00 WBC RBC Hgb Hct MCV MCH MCHC RDW Plt Count MPV Total Counted Neutrophils % Neutrophils % (Manual) Band Neutrophils % Lymphocytes % Lymphocytes % (Manual) Monocytes % (Manual) Blast Cells % (Manual) Platelet Comment Anticoagulation Therapy Puncture Site ABG pH ABG pCO2 at Pt Temp ABG pO2 at Pt Temp ABG HCO3 ABG O2 Sat (Measured) ABG O2 Content ABG Base Excess Onel Test O2 Delivery Device Oxygen Flow Rate Vent Mode Vent Rate Mechanical Rate Pressure Support Vent Sodium 137 Potassium 3.4 L Chloride 105 Carbon Dioxide 16 L D Anion Gap 16 BUN 19 H D Creatinine 0.8 D Creat Clearance w eGFR > 60 Random Glucose 175 H D Lactic Acid Calcium 6.5 L* Total Bilirubin 0.5 D AST 18 ALT 15 Alkaline Phosphatase 44 L Total Protein 5.1 L Albumin 2.0 L Urine Color Urine Appearance Urine pH Ur Specific [place] Urine Protein Urine Glucose (UA) Urine Ketones Urine Blood Urine Nitrite Urine Bilirubin Urine Urobilinogen Ur Leukocyte Esterase Urine WBC (Auto) Urine RBC (Auto) Urine Mucus Microbiology 02/24/17 13:45 Urine - Urine - Catheterized Urine Culture - Final NO GROWTH OBTAINED 02/24/17 06:15 Blood - Peripheral Venous Blood Culture - Preliminary NO GROWTH OBTAINED AFTER 24 HOURS, INCUBATION TO CONTINUE FOR 4 DAYS. 02/24/17 06:15 Blood - Peripheral Venous Blood Culture - Preliminary NO GROWTH OBTAINED AFTER 24 HOURS, INCUBATION TO CONTINUE FOR 4 DAYS. 02/20/17 21:40 Blood - Peripheral Venous Blood Culture - Preliminary NO GROWTH OBTAINED AFTER 96 HOURS, INCUBATION TO CONTINUE FOR 1 DAYS. 02/21/17 13:36 Blood - Peripheral Venous Blood Culture - Preliminary NO GROWTH OBTAINED AFTER 72 HOURS, INCUBATION TO CONTINUE FOR 2 DAYS. 02/21/17 13:30 Blood - Peripheral Venous Blood Culture - Preliminary NO GROWTH OBTAINED AFTER 72 HOURS, INCUBATION TO CONTINUE FOR 2 DAYS. 02/20/17 21:35 Blood - Peripheral Venous Blood Culture - Final Aerococcus Species Streptococcus Intermedius 02/20/17 23:30 Urine - Urine Clean Catch Urine Culture - Final ASSESSMENT AND PLAN: 81 yof with AML, last treatment in 05/2016, DVT s/p IVC filter, on coumadin, Afib , recent dental extraction ( when coumadin held for 5 days of which 3 were covered with lovenox), admitted with RLE acute DVT and worsening AML, now with Septic shock, Possible LLL HCAP, strep bacteremia, acute hypoxic respiratory failure -Septic shock, ?LLL HCAP, Streptococcus intermedius bacteremia. -Acute hypoxic respiratory failure, suspect from septic shock/CHF from volume resuscitation and tachycardia -SVT on 02/24/2017 s/p adenosine/cardizem -Acute ?diastolic HF exacerbation, from tachycardia/volume resuscitation, s/p lasix 02/24 -Lactic acidosis. -Acute RLE extensive DVT -AMS, worsening leucocytosis/anemia -Thrombocytopenia -At risk for Tumor Lysis Syndrome -Atrial fibrillation -Hypocalcemia, corrected Ca 8.4 Plan: Overnight events noted. Continue ICU level of care. Cefepime/vancomycin. repeat vanco levels before 4th dose. Norepinephrine, titrate per BP readings. Defer to ICU. Fluid resuscitation as tolerated. Follow up repeat cultures. Refused intubation per ICU records, on Bipap, continue to address goals of care (patient and requested DNR/DNI yesterday, but revoked later during the day). discussed with patient, Scott and daughter Trice at bedside, agreable to intubation if indicated. Full code for now. SVT yesterday, s/p adenosine/cardizem. 2D echo noted. cardiology consulted with Dr. Kimball (covering for Dr. Hoskins). Follow up recs. Lovenox, transition to eliquis per hematology. Trend CBC, neutropenic precautions. Started on hydroxyurea/Uloric. Replete Ca s/p 2 units of PRBC with appropriate response. No clinical evidence of bleed. Cardizem GIPPX Palliative care input Continue ICU level of care and address goals with patient, palliative care reconsulted. prognosis poor. Critically ill now with septic shock, hypoxic respiratory failure. total critical care time spent 45 min.
[2017-02-25 08:43] LABS: BLAST 75 % (0-0); TOTAL CELLS COUNTED 100
[2017-02-25 09:20] LABS: ANION GAP 16 (8-16); CO2 16 mmol/L (21-32); GLUCOSE,RANDOM 175 mg/dL (74-106)
[2017-02-25 09:24] LABS: ALK PHOS 44 U/L (45-117); BILIRUBIN,TOTAL 0.5 mg/dL (0.2-1.0); CREATININE 0.8 mg/dL (0.55-1.02); SGOT/AST 18 U/L (15-37); SGPT/ALT 15 U/L (12-78); TOT PROT 5.1 g/dl (6.4-8.2)
[2017-02-25 09:34] LABS: CALCIUM 6.5 mg/dL (8.5-10.1)
[2017-02-25] MEDS: MUPIROCIN 2% TOPICAL OINTMENT FOR DECOLONIZATION NS SCH ×2 (10:15→22:55)
[2017-02-25] MEDS: valACYclovir HCL 500 MG TABLET (FP) PO SCH (10:16)
[2017-02-25] MEDS: HYDROXYUREA 500 MG CAPSULE PO SCH ×2 (10:16→22:56)
[2017-02-25] MEDS: ASCORBIC ACID 500 MG TABLET (FP) PO SCH (10:16)
[2017-02-25] MEDS: VORICONAZOLE 50 MG TABLET (RESTRICTED TO ID) PO SCH ×2 (10:17→22:56)
[2017-02-25] MEDS: ENOXAPARIN NA (PORCINE) 40 MG/0.4 ML DISP.SYRIN SQ SCH ×2 (10:32→22:53)
--- NOTE | 2017-02-25 11:03 | PN ---
Progress Note, Physician Chief Complaint: Transferred to ICU with fever, dyspnea, tachycardia, hypotension Awake and alert on Bipap Mildly tachypneic Hypotensive on pressors Febrile past 48h T 101.8 Reported new cough with thick sputum production Repeat cultures obtained; pending WBC decreased 57K 1%N - Current Medication List Current Medications: Active Medications Ascorbic Acid (Vitamin C -) 500 mg PO DAILY [facility] Last Admin: 02/25/17 10:16 Dose: Not Given Chlorhexidine Gluconate (Hibiclens For Decolonization -) 1 applic TP HS [facility] Diltiazem HCl (Cardizem Cd -) 180 mg PO DAILY [facility] Enoxaparin Sodium (Lovenox -) 40 mg SQ BID [facility] Last Admin: 02/25/17 10:32 Dose: 40 mg Hydromorphone HCl (Dilaudid Injection -) 1 mg IVPUSH Q4H PRN PRN Reason: PAIN Stop: 02/26/17 06:00 Last Admin: 02/25/17 06:19 Dose: 1 mg Hydroxyurea (Hydrea -) 500 mg PO BID [facility] Last Admin: 02/25/17 10:16 Dose: Not Given Cefepime HCl 1 gm/ Dextrose 100 mls @ 200 mls/hr IVPB Q8H-IV [facility] Last Admin: 02/25/17 10:16 Dose: 200 mls/hr Vancomycin HCl 1,000 mg/ (Dextrose) 250 mls @ 200 mls/hr IVPB BID@0800,2000 [facility] Last Admin: 02/25/17 08:00 Dose: 200 mls/hr Norepinephrine Bitartrate 8, (000 mcg/ Dextrose) 500 mls @ 4.69 mls/hr IV ASDIR [facility]; 0.03 MCG/KG/MIN PRN Reason: Protocol Last Admin: 02/25/17 10:27 Dose: 0.72 mcg/kg/min, 113 mls/hr Mupirocin (Bactroban Ointment (For Decolonization) -) 1 applic NS BID [facility] Stop: 03/02/17 09:59 Last Admin: 02/25/17 10:15 Dose: 1 applic Nystatin (Nystatin Oral Suspension -) 500,000 units PO Q6HPO [facility] Last Admin: 02/25/17 06:32 Dose: Not Given Valacyclovir HCl (Valtrex -) 500 mg PO DAILY [facility] Last Admin: 02/25/17 10:16 Dose: Not Given Voriconazole (Voriconazole (Restricted To Id)) 100 mg PO BID [facility] Last Admin: 02/25/17 10:17 Dose: Not Given - Objective Vital Signs: Vital Signs Temperature 97.6 F 02/25/17 10:00 Pulse Rate 100 H 02/25/17 10:27 Respiratory Rate 26 H 02/25/17 10:00 Blood Pressure 83/49 02/25/17 10:27 O2 Sat by Pulse Oximetry (%) 98 02/25/17 10:23 Constitutional: Yes: Cachectic Eyes: Yes: Conjunctiva Clear Cardiovascular: Yes: Regular Rate and Rhythm, S1, S2 Respiratory: Yes: Other (+ crepitations bilaterally) Gastrointestinal: Yes: Normal Bowel Sounds, Soft. No: Tenderness Extremities: Yes: Other (L LE edema) Labs: CBC, BMP 02/25/17 06:00 02/25/17 06:00 INR, PTT INR 1.46 (0.82-1.09) H D 02/22/17 05:19 Fibrinogen 504.0 mg/dL (238-498) H D 02/22/17 05:19 Assessment/Plan Febrile neutropenia/ neutropenic sepsis Sepsis/ septic shock HCAP Acute leukemia +BC aerococcus, strep intermedius L LE DVT Repeat cultures obtained Continue empiric Vancomycin/ cefepime Bipap Hemodynamic support Prognosis guarded
[2017-02-25] MEDS ORDERED: SODIUM CHLORIDE 500 ML IV STA (13:04)
--- NOTE | 2017-02-25 13:12 | CON.CARD ---
Consult Consult Specialty:: Cardiology Referred by:: Hospitalist Reason for Consultation:: Cardiac evaluation - History of Present Illness Chief Complaint: SOB History of Present Illness: Patient is an 81 year old female known to our office with underlying history of COPD, persistent atrial fibrillation, history of DVT s/p IVC filter placement int he past and history of AML followed by Dr. Miranda s/p chemotherapy who presents with recurrent LLE DVT. She was off Coumadin for dental procedure. She complained of shortness of breath. Patient has elevated WBC with diff suggestive of blast crisis vs. infection. She was found to be lethargic when rapid response was called and found to be hypotensive and tachycardic. She was also found to be febrile. She is on BIPAP. She complains of shortness of breath , but she is awake and responsive. Denies chest pain or palpitations at the moment. Denies abdominal pain. Denies headache or lightheadedness. - History Source History Provided By: Patient, Family Member, Medical Record Limitations to Obtaining History: Clinical Condition - Past Medical History Cardio/Vascular: Yes: AFIB Pulmonary: Yes: COPD. No: O2 Dependent Gastrointestinal: Yes: GERD Heme/Onc: Yes: Other (AML) - Alcohol/Substance Use Hx Alcohol Use: No - Smoking History Smoking history: Never smoked Have you smoked in the past 12 months: No - Social History ADL: Independent History of Recent Travel: No Home Medications - Allergies Allergies/Adverse Reactions: Allergies Allergy/AdvReac Type Severity Reaction Status Date / Time allopurinol Allergy Verified 02/19/17 14:41 - Home Medications Home Medications: Ambulatory Orders Acetaminophen [Tylenol -] 650 mg PO Q6H PRN 02/19/17 Ascorbic Acid [Vitamin C] 500 mg PO DAILY 02/19/17 Diltiazem Cd [Cardizem Cd -] 180 mg PO DAILY 02/19/17 Guaifenesin Dm [Mucinex Dm -] 1 tab PO BID PRN 02/19/17 Nystatin Oral Suspension - [Nystatin Oral Susp 342557 Units/5 ML -] 500,000 units PO Q6H 02/19/17 Valacyclovir HCl [Valtrex -] 500 mg PO DAILY 02/19/17 Voriconazole 100 mg PO BID 02/19/17 Warfarin Sodium [Coumadin] 5 mg PO DAILY 02/19/17 Ciprofloxacin [Cipro (Restricted To Id)] 250 mg PO BID 02/21/17 Review of Systems - Review of Systems Constitutional: reports: Fever. denies: Chills Cardiovascular: reports: Shortness of Breath. denies: Chest Pain, Palpitations Respiratory: reports: Cough, SOB. denies: Hemoptysis, Orthopnea Gastrointestinal: denies: Abdominal Pain, Constipation, Diarrhea, Melena, Nausea , Rectal Bleeding, Vomiting Neurological: reports: Weakness. denies: Dizziness, Headache, Seizure, Syncope Vital Signs: Vital Signs Temperature 97.6 F 02/25/17 10:00 Pulse Rate 121 H 02/25/17 12:00 Respiratory Rate 32 H 02/25/17 12:00 Blood Pressure 98/57 02/25/17 12:00 O2 Sat by Pulse Oximetry (%) 98 02/25/17 10:23 Respiratory: Yes: Diminished, On BiPap, Rhonchi Gastrointestinal: Yes: Normal Bowel Sounds, Soft. No: Tenderness Cardiovascular: Yes: Regular Rate and Rhythm, Tachycardia JVD: No Carotid Bruit: No PMI: Non-Displaced Heart Sounds: Yes: S1, S2 Murmur: Yes: Systolic Murmur, Grade 1 Edema: No - Other Data Labs, Other Data: CBC, BMP 02/25/17 06:00 02/25/17 06:00 INR, PTT INR 1.46 (0.82-1.09) H D 02/22/17 05:19 Fibrinogen 504.0 mg/dL (238-498) H D 02/22/17 05:19 Sinus tachycardia Problem List - Problems (1) AML (acute myelogenous leukemia) Code(s): C92.00 - ACUTE MYELOBLASTIC LEUKEMIA, NOT HAVING ACHIEVED REMISSION Qualifiers: Leukemia Active/Remission status: without remission Qualified Code(s): C92.00 - Acute myeloblastic leukemia, not having achieved remission (2) Anemia Code(s): D64.9 - ANEMIA, UNSPECIFIED (3) Atrial fibrillation Code(s): I48.91 - UNSPECIFIED ATRIAL FIBRILLATION Qualifiers: Atrial fibrillation type: paroxysmal Qualified Code(s): I48.0 - Paroxysmal atrial fibrillation (4) 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 Code(s): C92.90 - MYELOID LEUKEMIA, UNSPECIFIED, NOT HAVING ACHIEVED REMISSION (5) DVT (deep venous thrombosis) Code(s): I82.409 - ACUTE EMBOLISM AND THOMBOS UNSP DEEP VN UNSP LOWER EXTREMITY Qualifiers: DVT location: lower extremity Affected thrombotic vein of extremity: unspecified vein of extremity Chronicity: acute Laterality: unspecified laterality Qualified Code(s): I82.409 - Acute embolism and thrombosis of unspecified deep veins of unspecified lower extremity (6) Febrile neutropenia Code(s): D70.9 - NEUTROPENIA, UNSPECIFIED; R50.81 - FEVER PRESENTING WITH CONDITIONS CLASSIFIED ELSEWHERE Assessment/Plan 1. Septic shock - sepsis syndrome on pressors 2. Paroxysmal atrial fibrillation [id number] score of 4 3. CAD angina pectoris 4. Diastolic LV dysfunction with class I NYHA classification LV failure, compensated/euvolemic 5. AML with relapse post chemotherapy with anemia and thrombocytopenia 6. DM 7. Hypercholesterolemia 8. DVT post IVC filter implant - recurrent DVT PLAN: 1. Titrate pressors to maintain MAP's > 65, attempt to wean off 2. 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 Once weaned off of pressors, initiate Lopressor 4. Antibiotic coverage Supportive care Gato Maddox MD
[2017-02-25] MEDS ORDERED: CALCIUM GLUCONATE 10% - 1,000 MG/10 ML VIAL IVPB ONE (13:23)
[2017-02-25] MEDS ORDERED: AMIODARONE HCL 150 MG/3 ML VIAL IVPUSH ONE (13:39)
[2017-02-25] MEDS ORDERED: AMIODARONE HCL 150 MG/3 ML VIAL ONE (13:44)
[2017-02-25] MEDS ORDERED: AMIODARONE HCL INJECTION 450 MG in DEXTROSE 5%-WATER - 241 ML IVPB SCH ×2 (14:15→20:00)
[2017-02-25] MEDS ORDERED: AMIODARONE HCL INJECTION 150 MG in DEXTROSE 5%-WATER - 97 ML IVPB ONE (14:16)
--- NOTE | 2017-02-25 15:42 | PN ---
Physical Exam: SUBJECTIVE: Patient seen and examined at bedside. Pt brought to ICU for respiratory distress and septic shock. Pt states she feels much better. Denies headache, cp, abd pain. Admits to SOB. OBJECTIVE: Vital Signs Period Temp Pulse Resp BP Sys/Barrios Pulse Ox Last 24 Hr 97.6 F-102.8 F 100-130 18-44 70-124/34-66 96-100 GENERAL: The patient is awake, alert, and fully oriented, in respiratory distress on NIPPV HEAD: Normal with no signs of trauma. EYES: sclera anicteric, conjunctiva clear. No ptosis. ENT:moist mucous membranes. NECK: Trachea midline, full range of motion, supple. LUNGS: noisy chest 2/2 NIPPV. b/l air entry appreciated HEART: irregular, S1, S2 without murmur, rub or gallop. ABDOMEN: Soft, nontender, nondistended, normoactive bowel sounds, no guarding, no rebound, no hepatosplenomegaly, no masses. EXTREMITIES: 2+ pulses, warm, well-perfused, no edema. NEUROLOGICAL: Cranial nerves II through XII grossly intact. Normal speech, gait not observed. PSYCH: Normal mood, normal affect. SKIN: Warm, dry, normal turgor, no rashes or lesions noted Laboratory Results - last 24 hr 02/24/17 02/24/17 02/24/17 13:43 21:55 23:00 WBC RBC Hgb Hct MCV MCH MCHC RDW Plt Count MPV Total Counted Neutrophils % Neutrophils % (Manual) Band Neutrophils % Lymphocytes % Lymphocytes % (Manual) Monocytes % (Manual) Blast Cells % (Manual) Platelet Comment Anticoagulation Therapy Y Puncture Site Right radial ABG pH 7.48 H ABG pCO2 at Pt Temp 29.8 L ABG pO2 at Pt Temp 62.8 L ABG HCO3 21.9 L ABG O2 Sat (Measured) 94.0 ABG O2 Content 11.4 L ABG Base Excess -0.8 Onel Test Positive O2 Delivery Device Nrb mask Oxygen Flow Rate 100% Vent Mode Y Vent Rate Y Mechanical Rate Y Pressure Support Vent Y Sodium Potassium Chloride Carbon Dioxide Anion Gap BUN Creatinine Creat Clearance w eGFR Random Glucose Lactic Acid 4.1 H* Calcium Total Bilirubin AST ALT Alkaline Phosphatase Total Protein Albumin Urine Color Ltyellow Urine Appearance Slcloudy Urine pH 5.0 Ur Specific [place] 1.010 Urine Protein 1+ H Urine Glucose (UA) Negative Urine Ketones Negative Urine Blood Negative Urine Nitrite Negative Urine Bilirubin Negative Urine Urobilinogen Negative Ur Leukocyte Esterase Negative Urine WBC (Auto) 0 Urine RBC (Auto) 0 Urine Mucus Rare 02/25/17 02/25/17 02/25/17 02:03 06:00 06:00 WBC 57.7 H* RBC 2.29 L Hgb 8.0 L Hct 24.2 L MCV 105.7 H MCH 35.0 H MCHC 33.1 RDW 24.5 H Plt Count 155 MPV 7.3 L Total Counted 100 Neutrophils % No Result Required. Neutrophils % (Manual) 1.0 L Band Neutrophils % No Result Required. Lymphocytes % No Result Required. Lymphocytes % (Manual) 22.0 D Monocytes % (Manual) 2 L D Blast Cells % (Manual) 75 H D Platelet Comment No Result Required. Anticoagulation Therapy Puncture Site ABG pH ABG pCO2 at Pt Temp ABG pO2 at Pt Temp ABG HCO3 ABG O2 Sat (Measured) ABG O2 Content ABG Base Excess Onel Test O2 Delivery Device Oxygen Flow Rate Vent Mode Vent Rate Mechanical Rate Pressure Support Vent Sodium 137 Potassium 3.4 L Chloride 105 Carbon Dioxide 16 L D Anion Gap 16 BUN 19 H D Creatinine 0.8 D Creat Clearance w eGFR > 60 Random Glucose 175 H D Lactic Acid 2.7 H* Calcium 6.5 L* Total Bilirubin 0.5 D AST 18 ALT 15 Alkaline Phosphatase 44 L Total Protein 5.1 L Albumin 2.0 L Urine Color Urine Appearance Urine pH Ur Specific [place] Urine Protein Urine Glucose (UA) Urine Ketones Urine Blood Urine Nitrite Urine Bilirubin Urine Urobilinogen Ur Leukocyte Esterase Urine WBC (Auto) Urine RBC (Auto) Urine Mucus Active Medications Generic Name Dose Route Start Last Admin Trade Name Freq PRN Reason Stop Dose Admin Ascorbic Acid 500 mg 02/25/17 10:00 02/25/17 10:16 Vitamin C - PO Not Given DAILY [facility] Chlorhexidine Gluconate 1 applic 02/25/17 22:00 Hibiclens For Decolonization - TP HS JATINDER Diltiazem HCl 180 mg 02/25/17 10:00 Cardizem Cd - PO DAILY [facility] Enoxaparin Sodium 40 mg 02/25/17 10:00 02/25/17 10:32 Lovenox - SQ 40 mg BID [facility] Administration Hydromorphone HCl 1 mg 02/25/17 06:01 02/25/17 06:19 Dilaudid Injection - IVPUSH 02/26/17 06:00 1 mg Q4H PRN Administration PAIN Hydroxyurea 500 mg 02/25/17 10:00 02/25/17 10:16 Hydrea - PO Not Given BID JATINDER Cefepime HCl 1 gm/ Dextrose 100 mls @ 200 mls/hr 02/25/17 02:00 02/25/17 10: 16 IVPB 200 mls/hr Q8H-IV JATINDER Administration Vancomycin HCl 1,000 mg/ 250 mls @ 200 mls/hr 02/25/17 08:00 02/25/17 08:00 Dextrose IVPB 200 mls/hr BID@0800,2000 JATINDER Administration Norepinephrine Bitartrate 8, 500 mls @ 4.69 mls/hr 02/25/17 02:30 02/25/17 10 :27 000 mcg/ Dextrose IV 0.72 mcg/kg/min ASDIR JATINDER 113 mls/hr Protocol Administration 0.03 MCG/KG/MIN Amiodarone HCl 450 mg/ 250 mls @ 33.33 mls/hr 02/25/17 14:15 02/25/17 14:38 Dextrose IVPB 02/25/17 20:00 1 mg/min TITR JATINDER 33.33 mls/hr Protocol Administration 1 MG/MIN Amiodarone HCl 450 mg/ 250 mls @ 16.66 mls/hr 02/25/17 20:00 Dextrose IVPB 02/26/17 13:59 TITR [facility] Protocol 0.5 MG/MIN Mupirocin 1 applic 02/25/17 10:00 02/25/17 10:15 Bactroban Ointment (For Decolonization) - NS 03/02/17 09:59 1 applic BID JATINDER Administration Nystatin 500,000 units 02/25/17 06:00 02/25/17 12:00 Nystatin Oral Suspension - PO Not Given Q6HPO [facility] Valacyclovir HCl 500 mg 02/25/17 10:00 02/25/17 10:16 Valtrex - PO Not Given DAILY [facility] Voriconazole 100 mg 02/25/17 10:00 02/25/17 10:17 Voriconazole (Restricted To Id) PO Not Given BID [facility] ASSESSMENT/PLAN: Pt is an 81F w/ PMH AML, AF, DVT s/p IVC filter who presented to ED with recurrent DVT. Pt is now in ICU with septic shock. #Septic shock -2/2 severe neutropenia 2/2 AML -tachycardic, hypotensive, febrile -Strep bacteremia -On pressors -per ID, Cefepime, Valtrex, Vanco, Voriconazole -IVF #AML -resistant to therapy -WBC count 57, neutrophil count 1.0 -hydroxyurea #LLE DVT -Lovenox #AF w/ RVR -Pt in sinus this am -Found to be in AF by EKG with RVR in 150s-170s -Amiodarone drip started. 150mg bolus, 1mg/min x 6hrs, 0.5mg/min x 18hrs #Anemia -Hb of 8 -transfuse for Hb < 7 #PPX -on Lovenox #Dispo -Admitted to ICU for septic shock Ori Abdi MD ICU PGY-1 case discussed with attending Visit type - Emergency Visit Emergency Visit: No - New Patient This patient is new to me today: No - Critical Care Critical Care patient: Yes Total Critical Care Time (in minutes): 35 Critical Care Statement: The care of this patient involved high complexity decision making to prevent further life threatening deterioration of the patient 's condition and/or to evaluate & treat vital organ system(s) failure or risk of failure. - Discharge Referral Referred to [facility] Med [facility] No
--- NOTE | 2017-02-25 17:23 | EKG ---
Test Reason : Blood Pressure : / mmHG Vent. Rate : 150 BPM Atrial Rate : 192 BPM P-R Int : 000 ms QRS Dur : 076 ms QT Int : 314 ms P-R-T Axes : 000 -34 004 degrees QTc Int : 496 ms ATRIAL FIBRILLATION WITH RAPID VENTRICULAR RESPONSE LEFT AXIS DEVIATION LOW VOLTAGE QRS ABNORMAL ECG WHEN COMPARED WITH ECG OF 24-FEB-2017 13:16, ATRIAL FIBRILLATION HAS REPLACED SINUS RHYTHM VENT. RATE HAS INCREASED Confirmed by KRANTHI DEWITT, MARINA ([id number]) on 02/25/2017 5:23:02 PM Referred By: Confirmed By:MARINA CRISOSTOMO MD
--- NOTE | 2017-02-25 17:49 | PN ---
Progress Note (short form) - Note Progress Note: Patient seen and examined on BIPAP Last Vital Signs Temp Pulse Resp BP Pulse Ox 99.7 F H 160 H 35 H 99/48 96 02/25/17 16:00 02/25/17 16:00 02/25/17 16:00 02/25/17 16:00 02/25/17 14:04 Cor: RSR, No murmurs, No gallops Lungs: Clear to P&A Abd: Soft, Normal bowel sounds, No organomegaly Ext:No significant edema Home Medication List Medication Instructions Recorded Confirmed Type Acetaminophen [Tylenol -] 650 mg PO Q6H PRN 02/19/17 02/19/17 History Ascorbic Acid [Vitamin C] 500 mg PO DAILY 02/19/17 02/19/17 History Diltiazem Cd [Cardizem Cd -] 180 mg PO DAILY 02/19/17 02/19/17 History Guaifenesin Dm [Mucinex Dm -] 1 tab PO BID PRN 02/19/17 02/19/17 History Nystatin Oral Suspension - 500,000 units PO Q6H 02/19/17 02/19/17 History [Nystatin Oral Susp 275817 Units/5 ML -] Valacyclovir HCl [Valtrex -] 500 mg PO DAILY 02/19/17 02/19/17 History Voriconazole 100 mg PO BID 02/19/17 02/19/17 History Warfarin Sodium [Coumadin] 5 mg PO DAILY 02/19/17 02/19/17 History Ciprofloxacin [Cipro (Restricted 250 mg PO BID 02/21/17 02/21/17 History To Id)] Active Medications Generic Name Dose Route Start Last Admin Trade Name Freq PRN Reason Stop Dose Admin Ascorbic Acid 500 mg 02/25/17 10:00 02/25/17 10:16 Vitamin C - PO Not Given DAILY JATINDER Chlorhexidine Gluconate 1 applic 02/25/17 22:00 Hibiclens For Decolonization - TP HS JATINDER Diltiazem HCl 180 mg 02/25/17 10:00 Cardizem Cd - PO DAILY JATINDER Enoxaparin Sodium 40 mg 02/25/17 10:00 02/25/17 10:32 Lovenox - SQ 40 mg BID JATINDER Administration Hydromorphone HCl 1 mg 02/25/17 06:01 02/25/17 06:19 Dilaudid Injection - IVPUSH 02/26/17 06:00 1 mg Q4H PRN Administration PAIN Hydroxyurea 500 mg 02/25/17 10:00 02/25/17 10:16 Hydrea - PO Not Given BID JATINDER Cefepime HCl 1 gm/ Dextrose 100 mls @ 200 mls/hr 02/25/17 02:00 02/25/17 10: 16 IVPB 200 mls/hr Q8H-IV JATINDER Administration Vancomycin HCl 1,000 mg/ 250 mls @ 200 mls/hr 02/25/17 08:00 02/25/17 08:00 Dextrose IVPB 200 mls/hr BID@0800,2000 JATINDER Administration Norepinephrine Bitartrate 8, 500 mls @ 4.69 mls/hr 02/25/17 02:30 02/25/17 10 :27 000 mcg/ Dextrose IV 0.72 mcg/kg/min ASDIR JATINDER 113 mls/hr Protocol Administration 0.03 MCG/KG/MIN Amiodarone HCl 450 mg/ 250 mls @ 33.33 mls/hr 02/25/17 14:15 02/25/17 14:38 Dextrose IVPB 02/25/17 20:00 1 mg/min TITR JATINDER 33.33 mls/hr Protocol Administration 1 MG/MIN Amiodarone HCl 450 mg/ 250 mls @ 16.66 mls/hr 02/25/17 20:00 Dextrose IVPB 02/26/17 13:59 TITR JATINDER Protocol 0.5 MG/MIN Mupirocin 1 applic 02/25/17 10:00 02/25/17 10:15 Bactroban Ointment (For Decolonization) - NS 03/02/17 09:59 1 applic BID JATINDER Administration Nystatin 500,000 units 02/25/17 06:00 02/25/17 12:00 Nystatin Oral Suspension - PO Not Given Q6HPO [facility] Valacyclovir HCl 500 mg 02/25/17 10:00 02/25/17 10:16 Valtrex - PO Not Given DAILY [facility] Voriconazole 100 mg 02/25/17 10:00 02/25/17 10:17 Voriconazole (Restricted To Id) PO Not Given BID [facility] A/P 81 y/o female with AML , on hydrea, recent dental extraction, comes in with fever after dental extraction and extensive LLE DVT after interruption of coumadin Also with G+ bacteremia--on broad spectrum antibiotics ? endocarditis septic shock PAtient interrupted coumadin for dental work. ?was on lovenox bridging. Developed extensive LLE DVT coumadin failure NOw INR 3 but with exensive DVt ON lovenox 40mg SC bid Has a filter s/p vit. K overall declining clinical status Ongoing discussions regarding goals of care
[2017-02-25] MEDS: CHLORHEXIDINE GLUCONATE 4% CLEANSER FOR DECOLONIZATION TP SCH (22:55)
[2017-02-26] MEDS: NOREPINEPHRINE BITARTRATE 8,000 MCG in DEXTROSE 5%-WATER - 492 ML IV SCH ×3 (02:23→22:00)
[2017-02-26] MEDS: CEFEPIME 1 GM in DEXTROSE 5%-WATER - 100 ML IVPB SCH ×3 (02:23→18:53)
[2017-02-26] MEDS ORDERED: NOREPINEPHRINE BITARTRATE 4 MG/4 ML ML IV ONE (02:32)
[2017-02-26] MEDS: NYSTATIN 500,000 UNITS/5 ML SUSPENSION PO SCH ×5 (06:06→23:51)
--- NOTE | 2017-02-26 06:25 | PN ---
Progress Note (short form) - Note Progress Note: Chief Complaint: Events noted, notes reviewed, on CPAP, denies any chest pain but reports dyspnea, sinus rhythm is noted remains on Amiodarone IV History of Present Illness: Seen and examined in the ICU. Events noted, notes reviewed, on CPAP, denies any chest pain but reports dyspnea, sinus rhythm is noted remains on Amiodarone IV Remains on pressors, Norepinephrine Echocardiography dated 02/22/17 revealed normal LV size and function, mild MR and TR with RVSP between 30-40 mmHg Current Medications: Current Medications Ascorbic Acid (Vitamin C -) 500 mg PO DAILY [facility] Last Admin: 02/25/17 10:16 Dose: Not Given Chlorhexidine Gluconate (Hibiclens For Decolonization -) 1 applic TP HS [facility] Last Admin: 02/25/17 22:55 Dose: 1 applic Diltiazem HCl (Cardizem Cd -) 180 mg PO DAILY [facility] Enoxaparin Sodium (Lovenox -) 40 mg SQ BID [facility] Last Admin: 02/25/17 22:53 Dose: 40 mg Hydroxyurea (Hydrea -) 500 mg PO BID [facility] Last Admin: 02/25/17 22:56 Dose: Not Given Cefepime HCl 1 gm/ Dextrose 100 mls @ 200 mls/hr IVPB Q8H-IV [facility] Last Admin: 02/26/17 02:23 Dose: 200 mls/hr Vancomycin HCl 1,000 mg/ (Dextrose) 250 mls @ 200 mls/hr IVPB BID@0800,2000 [facility] Last Admin: 02/25/17 20:31 Dose: 200 mls/hr Norepinephrine Bitartrate 8, (000 mcg/ Dextrose) 500 mls @ 4.69 mls/hr IV ASDIR JATINDER; 0.03 MCG/KG/MIN PRN Reason: Protocol Last Admin: 02/26/17 03:00 Dose: 0.59 mcg/kg/min, 93.8 mls/hr Amiodarone HCl 450 mg/ (Dextrose) 250 mls @ 16.66 mls/hr IVPB TITR JATINDER; 0.5 MG/ MIN PRN Reason: Protocol Stop: 02/26/17 13:59 Last Admin: 02/25/17 20:00 Dose: 0.5 mg/min, 16.66 mls/hr Mupirocin (Bactroban Ointment (For Decolonization) -) 1 applic NS BID [facility] Stop: 03/02/17 09:59 Last Admin: 02/25/17 22:55 Dose: 1 applic Nystatin (Nystatin Oral Suspension -) 500,000 units PO Q6HPO [facility] Last Admin: 02/26/17 06:06 Dose: Not Given Valacyclovir HCl (Valtrex -) 500 mg PO DAILY [facility] Last Admin: 02/25/17 10:16 Dose: Not Given Voriconazole (Voriconazole (Restricted To Id)) 100 mg PO BID [facility] Last Admin: 02/25/17 22:56 Dose: Not Given Review of Systems Constitutional: denies Chills or Fever Respiratory: denies Cough or Sputum Production Cardiovascular: As noted above Gastrointestinal: denies Nausea, Vomiting, Diarrhea, Constipation or Abdominal Pain Genitourinary: No Symptoms Reported Musculoskeletal: No Symptoms Reported - Objective Vital Signs: Last Vital Signs Temp Pulse Resp BP Pulse Ox 97.5 F L 120 H 23 96/54 99 02/26/17 02:00 02/26/17 04:00 02/26/17 04:00 02/26/17 04:00 02/26/17 02:54 Intake & Output 02/23/17 02/24/17 02/25/17 02/26/17 23:59 23:59 23:59 23:59 Intake Total 790 2440 5136.9 984.0 Output Total 2000 1850 800 Balance 976 749 4107.9 184.0 Weight 97 lb 0.054 oz Neck: Supple Negative JVD No Bruit Respiratory: Bilateral Course Rhonchi Cardiovascular: S1 S2 Regular Rate and Rhythm No Murmurs Clicks or Gallops Gastrointestinal: Soft Benign Normal Bowel Sounds Ext: No Edema Labs: Blood test from this AM pending Assessment/Plan ASSESSMENT: 1. Septic shock, sepsis syndrome on pressors 2. Paroxysmal atrial fibrillation [id number] score of 4, currently in sinus rhythm on A/C 3. CAD angina pectoris 4. Diastolic LV dysfunction with class I NYHA classification LV failure, compensated/euvolemic 5. AML, in relapse post chemotherapy with anemia and thrombocytopenia 6. DM 7. Hypercholesterolemia 8. DVT post IVC filter implant PLAN: 1. Continue Amiodarone but initiate PO therapy 2. Titrate pressors to maintain MAP's > 65, attempt to wean off 3. Ideally patient should be A/C chcf, unless it is absolutely contraindicated to be discussed with hematology 4. Once off of pressors initiate Lopressor instead of Cardizem hemodynamics permitting 5. Antibiotic coverage as per the primary team 6. Follow labs from this AM Stephen Ramírez M.D.
[2017-02-26 06:38] LABS: MCH 35.5 pg (25.7-33.7); MCHC 34.1 g/dl (32.0-36.0); MEAN CELL VOLUME 103.9 fl (80-96); MEAN PLT VOLUME 7.4 fl (7.5-11.1); PLATELET COUNT 151 K/MM3 (134-434); RDW 24.6 % (11.6-15.6)
[2017-02-26 06:51] LABS: WHITE BLOOD COUNT 44.9 K/mm3 (4.0-10.0)
[2017-02-26 06:55] LABS: ALBUMIN 1.9 g/dl (3.4-5.0); ANION GAP 14 (8-16); CO2 18 mmol/L (21-32); GLUCOSE,RANDOM 174 mg/dL (74-106)
[2017-02-26 06:59] LABS: ALK PHOS 62 U/L (45-117); BILIRUBIN,TOTAL 0.3 mg/dL (0.2-1.0); CREATININE 0.7 mg/dL (0.55-1.02); SGOT/AST 40 U/L (15-37); SGPT/ALT 29 U/L (12-78); TOT PROT 5.4 g/dl (6.4-8.2)
[2017-02-26] MEDS ORDERED: PT OWN MED DRAWER 7, Y5N ONE ×5 (07:38→21:56)
[2017-02-26] MEDS: VANCOMYCIN 1,000 MG in DEXTROSE 5%-WATER - 250 ML IVPB SCH ×2 (07:46→21:20)
--- NOTE | 2017-02-26 08:00 | PN ---
Physical Exam: 24H Events: yesterday - Afib with RVR, started on amio gtt ON - on bipap AM - placed on Venti mask 50%, in NSR SUBJECTIVE: Patient seen and examined in ICU. On BiPAP overnight, switched to Venti mask 50%, +cough with thick brown sputum. OBJECTIVE: Vital Signs Period Temp Pulse Resp BP Sys/Barrios Pulse Ox Last 24 Hr 97 F-101.8 F 88-160 21-35 83-118/39-66 92-100 Intake & Output 02/23/17 02/24/17 02/25/17 02/26/17 23:59 23:59 23:59 23:59 Intake Total 790 2440 5136.9 1284.0 Output Total 1999 1850 1650 Balance 995 509 1061.9 -366.0 Weight 44 kg 45.132 kg GENERAL: awake, alert, on BiPAP EYES: sclera anicteric, conjunctiva clear. No ptosis LUNGS: scattered rales bilaterally, accessory muscle use when conversing HEART: rrr, normal S1/S2, without murmur, rub or gallop. ABDOMEN: Soft, ntnd LOWER EXTREMITIES: 2+ pulses, wwp, L calf circumference 2X R calf, L popliteal fossa > L calf tenderness, sensation intact bilaterally, strength 5/5 bilaterally CBC, BMP 02/26/17 06:15 02/26/17 06:15 Hepatic Panel Total Bilirubin 0.3 mg/dL (0.2-1.0) D 02/26/17 06:15 Direct Bilirubin 0.2 mg/dL (0.0-0.2) D 02/21/17 06:00 AST 40 U/L (15-37) H D 02/26/17 06:15 ALT 29 U/L (12-78) D 02/26/17 06:15 Alkaline Phosphatase 62 U/L (45-117) D 02/26/17 06:15 Albumin 1.9 g/dl (3.4-5.0) L 02/26/17 06:15 Microbiology 02/21/17 13:36 Blood - Peripheral Venous Blood Culture - Final NO GROWTH AFTER 5 DAYS INCUBATION 02/21/17 13:30 Blood - Peripheral Venous Blood Culture - Final NO GROWTH AFTER 5 DAYS INCUBATION 02/24/17 06:15 Blood - Peripheral Venous Blood Culture - Preliminary NO GROWTH OBTAINED AFTER 48 HOURS, INCUBATION TO CONTINUE FOR 3 DAYS. 02/24/17 06:15 Blood - Peripheral Venous Blood Culture - Preliminary NO GROWTH OBTAINED AFTER 48 HOURS, INCUBATION TO CONTINUE FOR 3 DAYS. 02/25/17 02:03 Blood - Central Line Blood Culture - Preliminary NO GROWTH OBTAINED AFTER 24 HOURS, INCUBATION TO CONTINUE FOR 4 DAYS. 02/25/17 02:03 Blood - Central Line Blood Culture - Preliminary NO GROWTH OBTAINED AFTER 24 HOURS, INCUBATION TO CONTINUE FOR 4 DAYS. 02/20/17 21:40 Blood - Peripheral Venous Blood Culture - Final NO GROWTH AFTER 5 DAYS INCUBATION 02/24/17 13:45 Urine - Urine - Catheterized Urine Culture - Final NO GROWTH OBTAINED 02/20/17 21:35 Blood - Peripheral Venous Blood Culture - Final Aerococcus Species Streptococcus Intermedius 02/20/17 23:30 Urine - Urine Clean Catch Urine Culture - Final IMAGING: ECHO (02/22/09): no e/o endocarditis; mild MR, TR, IA Active Medications Amiodarone HCl (Cordarone -) 200 mg PO DAILY [facility] Last Admin: 02/26/17 12:24 Dose: 200 mg Ascorbic Acid (Vitamin C -) 500 mg PO DAILY [facility] Last Admin: 02/26/17 10:41 Dose: 500 mg Chlorhexidine Gluconate (Hibiclens For Decolonization -) 1 applic TP HS [facility] Last Admin: 02/25/17 22:55 Dose: 1 applic Diltiazem HCl (Cardizem Cd -) 180 mg PO DAILY [facility] Enoxaparin Sodium (Lovenox -) 40 mg SQ BID [facility] Last Admin: 02/26/17 10:01 Dose: 40 mg Furosemide (Lasix Injection -) 20 mg IVPUSH ONCE ONE Stop: 02/26/17 18:12 Hydroxyurea (Hydrea -) 500 mg PO BID [facility] Last Admin: 02/26/17 10:42 Dose: 500 mg Cefepime HCl 1 gm/ Dextrose 100 mls @ 200 mls/hr IVPB Q8H-IV [facility] Last Admin: 02/26/17 09:25 Dose: 200 mls/hr Vancomycin HCl 1,000 mg/ (Dextrose) 250 mls @ 200 mls/hr IVPB BID@0800,2000 [facility] Last Admin: 02/26/17 07:46 Dose: 200 mls/hr Norepinephrine Bitartrate 8, (000 mcg/ Dextrose) 500 mls @ 4.69 mls/hr IV ASDIR JATINDER; 0.03 MCG/KG/MIN PRN Reason: Protocol Last Titration: 02/26/17 16:53 Dose: 25 mcg/kg/min, 3,912.18 mls/hr Mupirocin (Bactroban Ointment (For Decolonization) -) 1 applic NS BID [facility] Stop: 03/02/17 09:59 Last Admin: 02/26/17 10:00 Dose: 1 applic Nystatin (Nystatin Oral Suspension -) 500,000 units PO Q6HPO [facility] Last Admin: 02/26/17 13:48 Dose: 500,000 units Valacyclovir HCl (Valtrex -) 500 mg PO DAILY [facility] Last Admin: 02/26/17 10:42 Dose: 500 mg Voriconazole (Voriconazole (Restricted To Id)) 100 mg PO BID [facility] Last Admin: 02/25/17 22:56 Dose: Not Given ASSESSMENT/PLAN: 81yo woman with PMH of AML (dx 2009, s/p Cytarabine May 2016), Afib, and DVT s/ p IVC filter on Coumadin who presents with 4xdays acute LLE pain and swelling, and found to have an extensive LLE DVT in common, deep, superficial femoral, popliteal, PT, and greater saphenous veins. CTA was negative for PE. s/p 2U PBRCs with appropriate response. Blood cultures drawn and growing Streptococcus Intermedius, on Vanc and Cefepime (started 02/21). 2D ECHO no e/o of endocarditis. Bacteremia likely from recent dental work. Now with septic shock requiring pressor support, likely 2/2 bacteremia, ?HCAP c/b advancing AML. #septic shock, with GP bacteremia, pt neutropenic, febrile and tachycardic -Critical Care consulted, levophed gtt to maintain MAP>60 -ID consulted -continue Vancomycin and Cefepime (started 02/21) -neutropenic precautions -f/u repeat cultures #acute hypoxic respiratory failure -O2 support to maintain pSaO2>90%, BiPAP as needed #Afib with RVR (150-160's) -Amiodarone gtt started; 150mg bolus, 1mg/min x 6hrs, 0.5mg/min x 18hrs #AML, labs c/w progression of disease -Heme/Onc and ID following -Continue home Valacyclovir, Voriconazole, and Nystatin for opportunistic infection ppx -Hydroxyurea 500mg PO BID -Holding Febuxostat and allopurinol due to adverse reaction (Febuxostat - hand shaking, allopurinol - rash) #Anemia, s/p 2UxPRBCs, FOBT neg, no active signs of bleeding -Trend H&H #recurrent DVT -therapeutic lovenox 40mg SQ BID -Discharge home on Eliquis (DVT dosing 10 mg twice daily for 7 days followed by 5 mg BID) #FEN/ppx -NS boluses prn -Repleted hypocalcemia with 1gm Ca gluconate -INTERMEDIATE DESIGNER eval today - dysphagia puree with honey thick liq, meds with apple sauce, neutropenic precautions -no GI ppx -therapeutic lovenox #Palliative care consult for support Dispo: continue ICU monitoring FULL Code, palliative care on board, continue GOC discussion with family d/w Dr. Allen Bray MD Visit type - Emergency Visit Emergency Visit: No - New Patient This patient is new to me today: No - Critical Care Critical Care patient: Yes Total Critical Care Time (in minutes): 40 Critical Care Statement: The care of this patient involved high complexity decision making to prevent further life threatening deterioration of the patient 's condition and/or to evaluate & treat vital organ system(s) failure or risk of failure.
[2017-02-26 08:34] LABS: BLAST 73 % (0-0); TOTAL CELLS COUNTED 100
[2017-02-26 08:35] LABS: PLATELET ESTIMATE ADEQUATE
[2017-02-26 08:37] LABS: CALCIUM 6.6 mg/dL (8.5-10.1)
[2017-02-26] MEDS ORDERED: CALCIUM GLUBIONATE PO ONE (09:10)
[2017-02-26] MEDS ORDERED: CALCIUM GLUCONATE 10% - 1,000 MG/10 ML VIAL IVPB ONE (09:24)
--- NOTE | 2017-02-26 09:37 | PN ---
Physical Exam: SUBJECTIVE: Patient seen and examined at bedside. No acute events overnight. Pt was downgraded from bipap to partial nonrebreather, and today pt is on nasal cannula with O2 sat 99%. However, she still does not appear to be breathing totally comfortably. Pt states she feels well, but is a little anxious. No other complaints. Denies headache, cp, abd pain. Pt has not had BM or flatus since yest. OBJECTIVE: Vital Signs Period Temp Pulse Resp BP Sys/Barrios Pulse Ox Last 24 Hr 97 F-99.7 F 88-160 21-35 83-118/39-66 92-100 GENERAL: The patient is awake, alert, and fully oriented, in some respiratory distress. HEAD: Normal with no signs of trauma. EYES: extraocular movements intact, sclera anicteric, conjunctiva clear. No ptosis. ENT: oropharynx clear without exudates, moist mucous membranes. NECK: Trachea midline, full range of motion, supple. LUNGS: Breath sounds appreciated b/l, no wheezes, coarse breath sounds HEART: distant heart sounds. irregular rhythm, S1, S2 without murmur, rub or gallop. ABDOMEN: Soft, nontender, nondistended, no bowel sounds heard in 1-2 min, no guarding, no rebound, no hepatosplenomegaly, no masses. EXTREMITIES: 2+ pulses, warm, well-perfused, no edema. NEUROLOGICAL: Cranial nerves II through XII grossly intact. Normal speech, gait not observed. PSYCH: Normal mood, normal affect. SKIN: Warm, dry, normal turgor, no rashes or lesions noted Laboratory Results - last 24 hr 02/25/17 02/26/17 02/26/17 06:00 06:15 06:15 WBC 44.9 H* RBC 2.46 L Hgb 8.7 L Hct 25.6 L MCV 103.9 H MCH 35.5 H MCHC 34.1 RDW 24.6 H Plt Count 151 MPV 7.4 L Total Counted 100 Neutrophils % No Result Required. Neutrophils % (Manual) 2.0 L Band Neutrophils % No Result Required. Lymphocytes % No Result Required. Lymphocytes % (Manual) 20.0 Monocytes % (Manual) 4 D Blast Cells % (Manual) 73 H Platelet Estimate Adequate Platelet Comment No Result Required. Sodium 132 L Potassium 3.7 Chloride 100 Carbon Dioxide 18 L Anion Gap 14 BUN 20 H Creatinine 0.7 Creat Clearance w eGFR > 60 Random Glucose 174 H Calcium 6.5 L* 6.6 L* Total Bilirubin 0.3 D AST 40 H D ALT 29 D Alkaline Phosphatase 62 D Total Protein 5.4 L Albumin 1.9 L Active Medications Generic Name Dose Route Start Last Admin Trade Name Freq PRN Reason Stop Dose Admin Ascorbic Acid 500 mg 02/25/17 10:00 02/25/17 10:16 Vitamin C - PO Not Given DAILY [facility] Chlorhexidine Gluconate 1 applic 02/25/17 22:00 02/25/17 22:55 Hibiclens For Decolonization - TP 1 applic HS JATINDER Administration Diltiazem HCl 180 mg 02/25/17 10:00 Cardizem Cd - PO DAILY [facility] Enoxaparin Sodium 40 mg 02/25/17 10:00 02/25/17 22:53 Lovenox - SQ 40 mg BID JATINDER Administration Hydroxyurea 500 mg 02/25/17 10:00 02/25/17 22:56 Hydrea - PO Not Given BID JATINDER Cefepime HCl 1 gm/ Dextrose 100 mls @ 200 mls/hr 02/25/17 02:00 02/26/17 09: 25 IVPB 200 mls/hr Q8H-IV JATINDER Administration Vancomycin HCl 1,000 mg/ 250 mls @ 200 mls/hr 02/25/17 08:00 02/26/17 07:46 Dextrose IVPB 200 mls/hr BID@0800,2000 JATINDER Administration Norepinephrine Bitartrate 8, 500 mls @ 4.69 mls/hr 02/25/17 02:30 02/26/17 07 :00 000 mcg/ Dextrose IV 30 mcg/kg/min ASDIR JATINDER 4,694.62 mls/hr Protocol Titration 0.03 MCG/KG/MIN Amiodarone HCl 450 mg/ 250 mls @ 16.66 mls/hr 02/25/17 20:00 02/25/17 20:00 Dextrose IVPB 02/26/17 13:59 0.5 mg/min TITR JATINDER 16.66 mls/hr Protocol Administration 0.5 MG/MIN Mupirocin 1 applic 02/25/17 10:00 02/25/17 22:55 Bactroban Ointment (For Decolonization) - NS 03/02/17 09:59 1 applic BID JATINDER Administration Nystatin 500,000 units 02/25/17 06:00 02/26/17 06:06 Nystatin Oral Suspension - PO Not Given Q6HPO [facility] Valacyclovir HCl 500 mg 02/25/17 10:00 02/25/17 10:16 Valtrex - PO Not Given DAILY J[facility] Voriconazole 100 mg 02/25/17 10:00 02/25/17 22:56 Voriconazole (Restricted To Id) PO Not Given BID [facility] ASSESSMENT/PLAN: Pt is an 81F w/ PMH AML, AF, DVT s/p IVC filter who presented to ED with recurrent DVT. Pt is now in ICU with septic shock. #Respiratory distress -Pt was on NIPPV yesterday. Today she was successfully moved to partial nonrebreather, and then to nasal cannula. -Pt continues to be in respiratory distress, although O2 saturation is good -NIPPV to be added as needed #Dysphagia -Pt has poor cough and gag reflex -pt did poorly with bedside swallow eval -Speech and swallow consult appreciated. Rec honey thick liquids for now with advancement to puree as tolerated #Septic shock -2/2 severe neutropenia 2/2 AML -tachycardic, hypotensive, febrile -Strep bacteremia -On pressors -per ID, Cefepime, Valtrex, Vanco, Voriconazole -IVF #AML -resistant to therapy -WBC count 57, neutrophil count 1.0 -hydroxyurea #LLE DVT -Lovenox #AF w/ RVR -Amiodarone PO BID #Anemia -Hb of 8.7 -transfuse for Hb < 7 #decreased bowel sounds -Pt was NPO -will monitor as pt begins eating #PPX -on Lovenox #Dispo -Admitted to ICU for septic shock Ori Abdi MD ICU PGY-1 case discussed with attending Visit type - Emergency Visit Emergency Visit: No - New Patient This patient is new to me today: No - Critical Care Critical Care patient: Yes Total Critical Care Time (in minutes): 35 Critical Care Statement: The care of this patient involved high complexity decision making to prevent further life threatening deterioration of the patient 's condition and/or to evaluate & treat vital organ system(s) failure or risk of failure. - Discharge Referral Referred to [facility] No
--- NOTE | 2017-02-26 09:56 | PN ---
Progress Note (short form) - Note Progress Note: Patient seen and examined. Events noted. All notes reviewed. O/E: Appears in moderate distress, tacypneic Decreased breath sounds on Nasal canula Abdomen soft, non tender No LE edema AAOx3. Last Vital Signs Temp Pulse Resp BP Pulse Ox 97.7 F 98 H 30 H 113/55 94 L 02/26/17 06:00 02/26/17 08:00 02/26/17 08:00 02/26/17 08:00 02/26/17 07:13 CBC, BMP 02/26/17 06:15 02/26/17 06:15 Current Medications Generic Name Dose Route Start Last Admin Trade Name Freq PRN Reason Stop Dose Admin Ascorbic Acid 500 mg 02/25/17 10:00 02/25/17 10:16 Vitamin C - PO Not Given DAILY [facility] Chlorhexidine Gluconate 1 applic 02/25/17 22:00 02/25/17 22:55 Hibiclens For Decolonization - TP 1 applic HS JATINDER Administration Diltiazem HCl 180 mg 02/25/17 10:00 Cardizem Cd - PO DAILY [facility] Enoxaparin Sodium 40 mg 02/25/17 10:00 02/25/17 22:53 Lovenox - SQ 40 mg BID JATINDER Administration Hydroxyurea 500 mg 02/25/17 10:00 02/25/17 22:56 Hydrea - PO Not Given BID JATINDER Cefepime HCl 1 gm/ Dextrose 100 mls @ 200 mls/hr 02/25/17 02:00 02/26/17 09: 25 IVPB 200 mls/hr Q8H-IV JATINDER Administration Vancomycin HCl 1,000 mg/ 250 mls @ 200 mls/hr 02/25/17 08:00 02/26/17 07:46 Dextrose IVPB 200 mls/hr BID@0800,2000 JATINDER Administration Norepinephrine Bitartrate 8, 500 mls @ 4.69 mls/hr 02/25/17 02:30 02/26/17 07 :00 000 mcg/ Dextrose IV 30 mcg/kg/min ASDIR JATINDER 4,694.62 mls/hr Protocol Titration 0.03 MCG/KG/MIN Amiodarone HCl 450 mg/ 250 mls @ 16.66 mls/hr 02/25/17 20:00 02/25/17 20:00 Dextrose IVPB 02/26/17 13:59 0.5 mg/min TITR JATINDER 16.66 mls/hr Protocol Administration 0.5 MG/MIN Mupirocin 1 applic 02/25/17 10:00 02/25/17 22:55 Bactroban Ointment (For Decolonization) - NS 03/02/17 09:59 1 applic BID JATINDER Administration Nystatin 500,000 units 02/25/17 06:00 02/26/17 06:06 Nystatin Oral Suspension - PO Not Given Q6HPO [facility] Valacyclovir HCl 500 mg 02/25/17 10:00 02/25/17 10:16 Valtrex - PO Not Given DAILY [facility] Voriconazole 100 mg 02/25/17 10:00 02/25/17 22:56 Voriconazole (Restricted To Id) PO Not Given BID [facility] Assessment/Plan: AML, in blast crisis Bacteremia Strep causing septic shock Respiratory failure on Oxygen support extensive LLE DVT c/w Hydrea 1000mg on Abx per ID Lovenox for DVT as long as platelet count permits counts holding , stable. regular transfusion threshold. On levophed. appreciate ICU level of care overall declining clinical status Ongoing discussions regarding goals of care,she defers to her , palliative care to see.
[2017-02-26] MEDS: MUPIROCIN 2% TOPICAL OINTMENT FOR DECOLONIZATION NS SCH ×2 (10:00→21:21)
[2017-02-26] MEDS: ENOXAPARIN NA (PORCINE) 40 MG/0.4 ML DISP.SYRIN SQ SCH ×2 (10:01→21:21)
[2017-02-26] MEDS: ASCORBIC ACID 500 MG TABLET (FP) PO SCH (10:41)
[2017-02-26] MEDS: HYDROXYUREA 500 MG CAPSULE PO SCH ×2 (10:42→23:54)
[2017-02-26] MEDS: valACYclovir HCL 500 MG TABLET (FP) PO SCH (10:42)
--- NOTE | 2017-02-26 10:59 | PN ---
Progress Note, Physician Chief Complaint: Awake, alert. Tachypneic, congested on nasal cannula C/O anxiety No c/o chest pain or dyspnea Remains hypotensive on pressors Temps down- afebrile Repeat cultures no growth WBC decreased 44K 73% blasts - Current Medication List Current Medications: Active Medications Ascorbic Acid (Vitamin C -) 500 mg PO DAILY [facility] Last Admin: 02/26/17 10:41 Dose: 500 mg Chlorhexidine Gluconate (Hibiclens For Decolonization -) 1 applic TP HS [facility] Last Admin: 02/25/17 22:55 Dose: 1 applic Diltiazem HCl (Cardizem Cd -) 180 mg PO DAILY [facility] Enoxaparin Sodium (Lovenox -) 40 mg SQ BID [facility] Last Admin: 02/26/17 10:01 Dose: 40 mg Hydroxyurea (Hydrea -) 500 mg PO BID [facility] Last Admin: 02/26/17 10:42 Dose: 500 mg Cefepime HCl 1 gm/ Dextrose 100 mls @ 200 mls/hr IVPB Q8H-IV [facility] Last Admin: 02/26/17 09:25 Dose: 200 mls/hr Vancomycin HCl 1,000 mg/ (Dextrose) 250 mls @ 200 mls/hr IVPB BID@0800,2000 [facility] Last Admin: 02/26/17 07:46 Dose: 200 mls/hr Norepinephrine Bitartrate 8, (000 mcg/ Dextrose) 500 mls @ 4.69 mls/hr IV ASDIR JATINDER; 0.03 MCG/KG/MIN PRN Reason: Protocol Last Titration: 02/26/17 09:00 Dose: 20 mcg/kg/min, 3,129.75 mls/hr Amiodarone HCl 450 mg/ (Dextrose) 250 mls @ 16.66 mls/hr IVPB TITR JATINDER; 0.5 MG/ MIN PRN Reason: Protocol Stop: 02/26/17 13:59 Last Admin: 02/25/17 20:00 Dose: 0.5 mg/min, 16.66 mls/hr Mupirocin (Bactroban Ointment (For Decolonization) -) 1 applic NS BID [facility] Stop: 03/02/17 09:59 Last Admin: 02/25/17 22:55 Dose: 1 applic Nystatin (Nystatin Oral Suspension -) 500,000 units PO Q6HPO [facility] Last Admin: 02/26/17 06:06 Dose: Not Given Valacyclovir HCl (Valtrex -) 500 mg PO DAILY [facility] Last Admin: 02/26/17 10:42 Dose: 500 mg Voriconazole (Voriconazole (Restricted To Id)) 100 mg PO BID [facility] Last Admin: 02/25/17 22:56 Dose: Not Given - Objective Vital Signs: Vital Signs Temperature 97.8 F 02/26/17 10:00 Pulse Rate 94 H 02/26/17 10:00 Respiratory Rate 33 H 02/26/17 10:00 Blood Pressure 79/66 02/26/17 10:00 O2 Sat by Pulse Oximetry (%) 96 02/26/17 09:00 Constitutional: Yes: No Distress, Cachectic Eyes: Yes: Conjunctiva Clear Cardiovascular: Yes: Regular Rate and Rhythm, S1, S2 Respiratory: Yes: Other (bilateral crepitations) Gastrointestinal: Yes: Normal Bowel Sounds, Soft. No: Tenderness Edema: No Labs: CBC, BMP 02/26/17 06:15 02/26/17 06:15 INR, PTT INR 1.46 (0.82-1.09) H D 02/22/17 05:19 Fibrinogen 504.0 mg/dL (238-498) H D 02/22/17 05:19 Assessment/Plan Febrile neutropenia/ neutropenic sepsis Sepsis/ septic shock HCAP Acute leukemia +BC aerococcus, strep intermedius L LE DVT Repeat cultures no growth Continue empiric Vancomycin/ cefepime supplemental O2 Hemodynamic support, pressors Prognosis guarded
--- NOTE | 2017-02-26 12:21 | CONSULT ---
Admitting History and Physical - Primary Care Physician PCP: Eloina Villa - Admission History of Present Illness: 81F w/ hx of AML (diagnosed in 2009), a-fib, DVT s/p IVC filter on coumadin, and PNA who presents with acute LLE pain, found to have an extensive LLE DVT, severe leukocytosis, anemia, and thrombocytopenia, with recurrent DVT, now in ICU with septic shock. Pt has been NPO, on BIPAP. Per RD:Severe Malnutrition in context of chronic illness, related to inadequate nutrient intake, evidenced by weight loss, and observed fat loss and muscle loss on physical exam (orbital region -hollow/sunken, temporal wasting/cachexia) This is my first consult with this pt. History Source: Medical Record Limitations to Obtaining History: Clinical Condition - Past Medical History Cardiovascular: Yes: AFIB Pulmonary: Yes: COPD. No: O2 Dependent Gastrointestinal: Yes: GERD Heme/Onc: Yes: Other (AML) - Smoking History Smoking history: Never smoked Have you smoked in the past 12 months: No - Alcohol/Substance Use Hx Alcohol Use: No - Social History ADL: Independent History of Recent Travel: No History - Admission Reason For Visit: DEEP VEIN THROMBOSIS (DVT) - General Mental Status: Alert and Oriented (grossly), Awake and Alert, Able to Follow Commands, Anxious (rapid RR), Forgetful, Intermittently Confused Attention: Distractible Ability to Follow Directions: Fair Head/Neck Control: Fair - Hearing Hearing: Normal Speech Evaluation - Communication Primary Language: AMHARIC Communication: Yes: Simple Responses - Speech Production Able to Make Needs Known: Yes: WNL Intelligibility: Yes: Mildly Impaired - Speech Characteristics Voice Loudness: Normal Voice Pitch: Yes: Normal Voice Phonatory-based Quality: Yes: Normal Speech Pattern: Normal Speech Clarity: < 100% Nasal Resonance: Normal Articulation: Yes: Precise Rate of Speech: Too Fast (sec to increased RR) - Language/Verbal Expression Able to Respond to Simple Queries: Yes: WNL Able to Communicate Wants and Needs: Yes: WNL Functional Communication Status: Yes: WNL - Swallow Evaluation/Bedside Assessment Current Nutritional Intake: NPO Oral Secretions: Yes: WFL Dentition: Yes: Adequate Facial Symmetry at Rest: Symmetrical Facial Symmetry on Retraction: Symmetrical Against Resistance Opening: Weak Against Resistance Closing: Weak Pucker Lips: Weak Smile: Weak Lingual Movement: Symmetric Lingual Speed of Movement: Normal Lingual Movement Strgth Against Opposition: Reduced Laryngeal Movement: Labored,delay initiation, Reduced Velocity Rate of Intake: WFL Bolus Size: Small (accepts tip of tsp) Labial Seal: WFL Oral Prep Time: Increased Timing of Swallow: Delayed (at times absent) Coughing/Throat Clear: Yes (thin liquid) Recommendations - Speech Evaluation, Impression/Plan Impression: Pt with RR high 30's-low 40's on NC. This increases risk of aspiration.Pt attempts to speak during po trials, needing repeated reminders to "stop talking and swallow." Swallow intiation is at times absent, but always very delayed in onset, increasing risk of aspiration before swallow onset. Clinically, pt coughs with thin liquid, likely spilling into airway before swallow is initiated. - Dysphagia Impressions/Plan Swallowing Skills: Impaired Dysphagia Impressions: Mild Impairment, Moderate Impairment, Risk of Aspiration , Ongoing Evaluation *Silent aspiration: cannot be R/O at bedside Dysphagia Treatment Plan: Chin Tuck/Down, Safe Rate, 1/2 tsp. at a time, Elevate HOB during feed, Other (TELL PT TO SWALLOW WITH EVERY BITE,SIP, and monitor for reflex. 1-2 swallows per trial.) Recommendations: Palliative Care, Other (Mouth care before PO intake to reduce build up of oral bacteria/will increased risk with asoiration.) - Recommendations Diet Consistency: Dysphagia Pureed (when strongeer, if less sob, as desired.) Medication Administration: Crushed with applesauce (trial crushed and given in single sips of honey thick liquid from a med cup. TELL PT TO SWALLOW WITH EVERY SIP, and monitor for reflex. 1-2 swallows per trial.) Liquids: Honey Thick
[2017-02-26] MEDS: AMIODARONE HCL 200 MG TABLET (FP) PO SCH (12:24)
--- NOTE | 2017-02-26 13:05 | PN ---
Teaching Attending Note Name of Resident: Ori Abdi ATTENDING PHYSICIAN STATEMENT I saw and evaluated the patient. I reviewed the resident's note and discussed the case with the resident. I agree with the resident's findings and plan as documented. SUBJECTIVE: Pt seen and examined in the ICU. Remains tachypneic, now on nasal cannula. Remains on levophed support. OBJECTIVE: Last Vital Signs Temp Pulse Resp BP Pulse Ox 97.8 F 145 H 36 H 111/49 96 02/26/17 10:00 02/26/17 12:38 02/26/17 12:00 02/26/17 12:38 02/26/17 10:00 Intake & Output 02/23/17 02/24/17 02/25/17 02/26/17 23:59 23:59 23:59 23:59 Intake Total 790 2440 5136.9 984.0 Output Total 1999 1850 800 Balance 282 591 2241.9 184.0 Weight 97 lb 0.054 oz 99 lb 8 oz Gen: tachypneic at rest Heart: tachycardic, irregular Lung: bilateral rhonchi Abd: soft, nontender Ext: + edema CBC, BMP 02/26/17 06:15 02/26/17 06:15 Active Medications Amiodarone HCl (Cordarone -) 200 mg PO DAILY [facility] Last Admin: 02/26/17 12:24 Dose: 200 mg Ascorbic Acid (Vitamin C -) 500 mg PO DAILY [facility] Last Admin: 02/26/17 10:41 Dose: 500 mg Chlorhexidine Gluconate (Hibiclens For Decolonization -) 1 applic TP HS [facility] Last Admin: 02/25/17 22:55 Dose: 1 applic Diltiazem HCl (Cardizem Cd -) 180 mg PO DAILY [facility] Enoxaparin Sodium (Lovenox -) 40 mg SQ BID [facility] Last Admin: 02/26/17 10:01 Dose: 40 mg Hydroxyurea (Hydrea -) 500 mg PO BID [facility] Last Admin: 02/26/17 10:42 Dose: 500 mg Cefepime HCl 1 gm/ Dextrose 100 mls @ 200 mls/hr IVPB Q8H-IV [facility] Last Admin: 02/26/17 09:25 Dose: 200 mls/hr Vancomycin HCl 1,000 mg/ (Dextrose) 250 mls @ 200 mls/hr IVPB BID@0800,2000 [facility] Last Admin: 02/26/17 07:46 Dose: 200 mls/hr Norepinephrine Bitartrate 8, (000 mcg/ Dextrose) 500 mls @ 4.69 mls/hr IV ASDIR JATINDER; 0.03 MCG/KG/MIN PRN Reason: Protocol Last Titration: 02/26/17 12:38 Dose: 15 mcg/kg/min, 2,347.31 mls/hr Amiodarone HCl 450 mg/ (Dextrose) 250 mls @ 16.66 mls/hr IVPB TITR JATINDER; 0.5 MG/ MIN PRN Reason: Protocol Stop: 02/26/17 13:59 Last Titration: 02/26/17 12:15 Dose: 0 mg/min, 0 mls/hr Mupirocin (Bactroban Ointment (For Decolonization) -) 1 applic NS BID [facility] Stop: 03/02/17 09:59 Last Admin: 02/26/17 10:00 Dose: 1 applic Nystatin (Nystatin Oral Suspension -) 500,000 units PO Q6HPO [facility] Last Admin: 02/26/17 06:06 Dose: Not Given Valacyclovir HCl (Valtrex -) 500 mg PO DAILY [facility] Last Admin: 02/26/17 10:42 Dose: 500 mg Voriconazole (Voriconazole (Restricted To Id)) 100 mg PO BID [facility] Last Admin: 02/25/17 22:56 Dose: Not Given ASSESSMENT AND PLAN: AML Strep Bacteremia Septic Shock LLE DVT Atrial Fibrillation with RVR Anemia DM Hypercholesterolemia - continue antibiotics per ID - f/u cultures - O2 to keep SpO2 >90% - BiPAP as needed to assist in work of breathing - rate control - continue anticoagulation - aspiration precautions - poor overall prognosis - continue discussions regarding goals of care - continue ICU monitoring for tenuous respiratory status critical care time spent in reviewing chart, evaluating patient and formulating plan 38 min
[2017-02-26] MEDS ORDERED: ADENOSINE 6 MG/2 ML VIAL IVPUSH ONE (16:29)
--- NOTE | 2017-02-26 17:01 | PN ---
Teaching Attending Note Name of Resident: Floridalma Bray ATTENDING PHYSICIAN STATEMENT I saw and evaluated the patient. I reviewed the resident's note and discussed the case with the resident. I agree with the resident's findings and plan as documented. pt evaluated at 0900 this AM SUBJECTIVE:states breathing is slightly improved. been suctioning a lot from her mouth. denies CP, fever, chills, cough, N/V/CD OBJECTIVE: Last Vital Signs Temp Pulse Resp BP Pulse Ox 97.9 F 146 H 36 H 104/59 96 02/26/17 15:00 02/26/17 15:00 02/26/17 15:00 02/26/17 15:00 02/26/17 10:00 Intake & Output 02/23/17 02/24/17 02/25/17 02/26/17 23:59 23:59 23:59 23:59 Intake Total 790 2440 5136.9 1284.0 Output Total 2000 1850 1650 Balance 585 834 8227.9 -366.0 Weight 97 lb 0.054 oz 99 lb 8 oz General NAD A&O x3, HEENT bitemporal wasting, prominent cheekbones, prominent collarbones CV S1 S2 irregular Lungs crackles R base no wheezing ABdomen soft NT/ND extremities LLE non pitting edema, no calf tenderness ASSESSMENT AND PLAN: 81Yo F with PMH AML on chemo, DVT s/p IVC filter, afib on couamdin presented to the ER with LLE pain and found to have extensive DVT. Course complicated by development of septic shock due to bactermia and LLL HCAP with acute respiratory failure 1. Acute hypoxic respiratory failure- currently saturating 95% on NC. was on bipap overnight. refused intubation yesterda but now agreeable to intubation if needed. titrate down supplemental oxygen as tolerated. 2. Septic shock due to strep bactermia and LLL PNA- on 20mcg levo. on Cefipime/ Vanco and Acylcovir. repeat BCx negative. titrate pressor support to MAP >60. 3. SVT- s/p adenosine yesterday and converted to afib with RVR. now on amio ggt. rate is controlled. on full dose lovenox 4. AML- blast crisis. 73%. hydroxyurea incrased to 1000mg BID. no signs of tumor lysis syndrome. baseline WBC 16k, hematology on board 5. Severe malnutrition- evident by body habitus. states she thinks she lost weight but unable to quantify. swallow eval. if able to tolerate will advance diet. nutritional eval. 6. Acute anemia- s/p 2 units PRBC. no signs of bleedng. no indication for transfusion 7. DVT ppx- full dose lovenox The care of this patient involved high complexity decision making to prevent further life threatening deterioration of the patient's condition and/or to evaluate & treat vital organ system(s) failure or risk of failure. 40 mins
[2017-02-26] MEDS ORDERED: FUROSEMIDE 40 MG/4 ML INJECTABLE VIAL IVPUSH ONE (18:15)
--- NOTE | 2017-02-26 18:53 | PN ---
Progress Note (short form) - Note Progress Note: Called by nurse to evaluate patient due to increasing shortness of breath and oxygen desaturation. PE: VS: HR 94: BP 106/60; RR30; Lungs: very coarse breath sounds throughout bilateral lungs espinal; wet crackles HR: sinus tachycardia Extremities: RLE no edema; LLE mid calf slight pitting edema; ankle swelling A/P CXR this morning showed increased bilateral fluid/infiltrate. -Start patient back on BiPAP -ABG (although pt already on BiPAP when abg drawn) -BNP -IV lasix 40mg IVP -monitor I/O -f/u cxr
[2017-02-26 19:24] LABS: ALLENS TEST POSITIVE; ARTERIAL BLD GAS O2 SATURATION 98.6 % (90-98.9); ARTERIAL BLOOD GAS BASE EXCESS -5.1 meq/l (-2-2); ARTERIAL BLOOD GAS HCO3 20.3 meq/L (22-26); ARTERIAL BLOOD GAS pH 7.31 (7.35-7.45)
[2017-02-26 19:25] LABS: ART PUNCT SITE RIGHT RADIAL; LPM/O2% 80%; PT. ON O2? YES; TYPE OF O2 BIPAP
[2017-02-26 19:26] LABS: VENT RATE 14
[2017-02-26] MEDS: CHLORHEXIDINE GLUCONATE 4% CLEANSER FOR DECOLONIZATION TP SCH (21:21)
[2017-02-26] MEDS: VORICONAZOLE 50 MG TABLET (RESTRICTED TO ID) PO SCH (23:52)
[2017-02-27] MEDS: CEFEPIME 1 GM in DEXTROSE 5%-WATER - 100 ML IVPB SCH ×2 (02:10→10:40)
[2017-02-27] MEDS ORDERED: NOREPINEPHRINE BITARTRATE 4 MG/4 ML ML IV ONE ×2 (02:46→13:18)
[2017-02-27 06:19] LABS: MCH 35.5 pg (25.7-33.7); MCHC 33.9 g/dl (32.0-36.0); MEAN CELL VOLUME 104.9 fl (80-96); MEAN PLT VOLUME 7.8 fl (7.5-11.1); PLATELET COUNT 122 K/MM3 (134-434); RDW 24.6 % (11.6-15.6)
--- NOTE | 2017-02-27 06:27 | PN ---
Progress Note (short form) - Note Progress Note: Chief Complaint: Events noted, notes reviewed, in respiratory distress on CPAP, responds to verbal commands by opening eyes, rhythm is probably atrial flutter/ atrial fibrillation History of Present Illness: Seen and examined in the ICU. Events noted, notes reviewed, in respiratory distress on CPAP, responds to verbal commands by opening eyes, rhythm is probably atrial flutter/atrial fibrillation Informed by nursing staff that patient is DNR/DNI Remains on pressors, Norepinephrine Echocardiography dated 02/22/17 revealed normal LV size and function, mild MR and TR with RVSP between 30-40 mmHg Current Medications: Current Medications Amiodarone HCl (Cordarone -) 200 mg PO DAILY [facility] Last Admin: 02/26/17 12:24 Dose: 200 mg Ascorbic Acid (Vitamin C -) 500 mg PO DAILY [facility] Last Admin: 02/26/17 10:41 Dose: 500 mg Chlorhexidine Gluconate (Hibiclens For Decolonization -) 1 applic TP HS [facility] Last Admin: 02/26/17 21:21 Dose: 1 applic Diltiazem HCl (Cardizem Cd -) 180 mg PO DAILY [facility] Enoxaparin Sodium (Lovenox -) 40 mg SQ BID [facility] Last Admin: 02/26/17 21:21 Dose: 40 mg Hydroxyurea (Hydrea -) 500 mg PO BID [facility] Last Admin: 02/26/17 23:54 Dose: 500 mg Cefepime HCl 1 gm/ Dextrose 100 mls @ 200 mls/hr IVPB Q8H-IV [facility] Last Admin: 02/27/17 02:10 Dose: 200 mls/hr Vancomycin HCl 1,000 mg/ (Dextrose) 250 mls @ 200 mls/hr IVPB BID@0800,2000 [facility] Last Admin: 02/26/17 21:20 Dose: 200 mls/hr Norepinephrine Bitartrate 8, (000 mcg/ Dextrose) 500 mls @ 4.69 mls/hr IV ASDIR [facility]; 0.03 MCG/KG/MIN PRN Reason: Protocol Last Admin: 02/26/17 22:00 Dose: 20 mcg/kg/min, 3,129.75 mls/hr Morphine Sulfate (Morphine Sulfate) 2 mg IVPUSH Q3H PRN PRN Reason: PAIN Mupirocin (Bactroban Ointment (For Decolonization) -) 1 applic NS BID [facility] Stop: 03/02/17 09:59 Last Admin: 02/26/17 21:21 Dose: 1 applic Nystatin (Nystatin Oral Suspension -) 500,000 units PO Q6HPO [facility] Last Admin: 02/26/17 23:51 Dose: 500,000 units Valacyclovir HCl (Valtrex -) 500 mg PO DAILY [facility] Last Admin: 02/26/17 10:42 Dose: 500 mg Voriconazole (Voriconazole (Restricted To Id)) 100 mg PO BID [facility] Last Admin: 02/26/17 23:52 Dose: 100 mg Review of Systems Constitutional: denies Chills or Fever Respiratory: denies Cough or Sputum Production Cardiovascular: As noted above Gastrointestinal: denies Nausea, Vomiting, Diarrhea, Constipation or Abdominal Pain Genitourinary: No Symptoms Reported Musculoskeletal: No Symptoms Reported - Objective Vital Signs: Last Vital Signs Temp Pulse Resp BP Pulse Ox 97.8 F 120 H 36 H 75/44 96 02/27/17 02:09 02/27/17 04:00 02/27/17 04:00 02/27/17 04:00 02/27/17 04:03 Intake & Output 02/24/17 02/25/17 02/26/17 02/27/17 23:59 23:59 23:59 23:59 Intake Total 2440 5136.9 3114.0 Output Total 2000 1850 4000 Balance 440 3286.9 -886.0 Weight 97 lb 0.054 oz 99 lb 8 oz Neck: Supple Negative JVD No Bruit Respiratory: Bilateral Course Rhonchi Cardiovascular: S1 S2 Regular Rate and Rhythm No Murmurs Clicks or Gallops Gastrointestinal: Soft Benign Normal Bowel Sounds Ext: No Edema Labs: Blood test from this AM pending Assessment/Plan ASSESSMENT: 1. Respiratory failure related to probable acute on chronic class II-III NYHA classification LV diastolic failure 2. Septic shock, sepsis syndrome on pressors 3. Paroxysmal/persistent atrial fibrillation [id number] score of 4, recurrent arrhythmia 4. CAD angina pectoris 5. AML, in relapse post chemotherapy with anemia and thrombocytopenia 6. DM 7. Hypercholesterolemia 8. DVT post IVC filter implant PLAN: 1. Continue Amiodarone may need to initiate IV Amiodarone 2. Titrate pressors to maintain MAP's > 65, attempt to wean off 3. Continue Lovenox with caution 4. Once off of pressors initiate Lopressor instead of Cardizem hemodynamics permitting 5. Diuretics this AM with caution 6. Antibiotic coverage as per the primary team 7. Follow labs from this AM Overall poor prognosis Stephen Ramírez M.D.
[2017-02-27] MEDS ORDERED: FUROSEMIDE 40 MG/4 ML INJECTABLE VIAL IVPUSH ONE (06:28)
[2017-02-27 06:31] LABS: WHITE BLOOD COUNT 31.5 K/mm3 (4.0-10.0)
[2017-02-27 07:00] LABS: ALBUMIN 1.9 g/dl (3.4-5.0); ANION GAP 10 (8-16); CO2 23 mmol/L (21-32); CREATININE 0.9 mg/dL (0.55-1.02); GLUCOSE,RANDOM 242 mg/dL (74-106); SGOT/AST 17 U/L (15-37); SGPT/ALT 28 U/L (12-78)
[2017-02-27 07:01] LABS: ALK PHOS 73 U/L (45-117); BILIRUBIN,TOTAL 0.3 mg/dL (0.2-1.0); TOT PROT 5.3 g/dl (6.4-8.2)
[2017-02-27 07:06] LABS: CALCIUM 6.9 mg/dL (8.5-10.1)
[2017-02-27] MEDS: NYSTATIN 500,000 UNITS/5 ML SUSPENSION PO SCH (07:14)
[2017-02-27] MEDS ORDERED: CALCIUM GLUCONATE 10% - 1,000 MG/10 ML VIAL IVPB ONE ×2 (07:15→08:00)
[2017-02-27] MEDS ORDERED: HYDROXYUREA 500 MG CAPSULE PO SCH (07:36)
--- NOTE | 2017-02-27 08:43 | PN ---
Physical Exam: 24H Events: yesterday - made DNR/DNI, sinus tachycardia to 140's s/p adenosine 6mg, placed on Bipap due to respiratory distress, s/p lasix with good response ON - c/o generalized weakness, given morphine 2mg with good effect AM - levophed gtt increased, agonal breathing SUBJECTIVE: Patient seen and examined in ICU. On bipap, tachypneic to 40's. OBJECTIVE: Vital Signs Period Temp Pulse Resp BP Sys/Barrios Pulse Ox Last 24 Hr 97.2 F-97.9 F 89-146 31-38 75-126/37-78 96-98 Intake & Output 02/24/17 02/25/17 02/26/17 02/27/17 23:59 23:59 23:59 23:59 Intake Total 2440 5136.9 3114.0 800 Output Total 2000 1850 4000 500 Balance 440 3286.9 -886.0 300 Weight 44 kg 45.132 kg 43.63 kg GENERAL: awake, alert, on BiPAP, agonal breathing EYES: sclera anicteric, conjunctiva clear LUNGS: scattered rales bilaterally, accessory muscle use HEART: rrr, normal S1/S2, without murmur, rub or gallop. ABDOMEN: Soft, ntnd MSK: no spinal ttp LOWER EXTREMITIES: 2+ pulses, wwp, L calf circumference approx twice of R calf, L calf tenderness, sensation intact bilaterally, strength 5/5 bilaterally CBC, BMP 02/27/17 06:00 02/27/17 06:00 Hepatic Panel Total Bilirubin 0.3 mg/dL (0.2-1.0) 02/27/17 06:00 Direct Bilirubin 0.2 mg/dL (0.0-0.2) D 02/21/17 06:00 AST 17 U/L (15-37) D 02/27/17 06:00 ALT 28 U/L (12-78) 02/27/17 06:00 Alkaline Phosphatase 73 U/L (45-117) 02/27/17 06:00 Albumin 1.9 g/dl (3.4-5.0) L 02/27/17 06:00 Microbiology 02/24/17 06:15 Blood - Peripheral Venous Blood Culture - Preliminary NO GROWTH OBTAINED AFTER 72 HOURS, INCUBATION TO CONTINUE FOR 2 DAYS. 02/24/17 06:15 Blood - Peripheral Venous Blood Culture - Preliminary NO GROWTH OBTAINED AFTER 72 HOURS, INCUBATION TO CONTINUE FOR 2 DAYS. 02/25/17 02:03 Blood - Central Line Blood Culture - Preliminary NO GROWTH OBTAINED AFTER 48 HOURS, INCUBATION TO CONTINUE FOR 3 DAYS. 02/25/17 02:03 Blood - Central Line Blood Culture - Preliminary NO GROWTH OBTAINED AFTER 48 HOURS, INCUBATION TO CONTINUE FOR 3 DAYS. 02/21/17 13:36 Blood - Peripheral Venous Blood Culture - Final NO GROWTH AFTER 5 DAYS INCUBATION 02/21/17 13:30 Blood - Peripheral Venous Blood Culture - Final NO GROWTH AFTER 5 DAYS INCUBATION 02/20/17 21:40 Blood - Peripheral Venous Blood Culture - Final NO GROWTH AFTER 5 DAYS INCUBATION 02/24/17 13:45 Urine - Urine - Catheterized Urine Culture - Final NO GROWTH OBTAINED 02/20/17 21:35 Blood - Peripheral Venous Blood Culture - Final Aerococcus Species Streptococcus Intermedius 02/20/17 23:30 Urine - Urine Clean Catch Urine Culture - Final IMAGING: CXR (02/27): pulm vascular congestion improved since yesterday ECHO (02/22/09): no e/o endocarditis; mild MR, TR, MN Active Medications Amiodarone HCl (Cordarone -) 200 mg PO DAILY [facility] Last Admin: 02/27/17 10:04 Dose: 200 mg Ascorbic Acid (Vitamin C -) 500 mg PO DAILY [facility] Last Admin: 02/27/17 10:02 Dose: 500 mg Chlorhexidine Gluconate (Hibiclens For Decolonization -) 1 applic TP HS [facility] Last Admin: 02/26/17 21:21 Dose: 1 applic Enoxaparin Sodium (Lovenox -) 40 mg SQ BID [facility] Last Admin: 02/27/17 10:01 Dose: 40 mg Hydroxyurea (Hydrea -) 500 mg PO DAILY [facility] Cefepime HCl 1 gm/ Dextrose 100 mls @ 200 mls/hr IVPB Q8H-IV [facility] Last Admin: 02/27/17 10:40 Dose: 200 mls/hr Norepinephrine Bitartrate 8, (000 mcg/ Dextrose) 500 mls @ 4.69 mls/hr IV [facility]; 0.03 MCG/KG/MIN PRN Reason: Protocol Last Titration: 02/27/17 12:00 Dose: 30 mcg/kg/min, 4,694.62 mls/hr Morphine Sulfate (Morphine Sulfate) 2 mg IVPUSH Q3H PRN PRN Reason: PAIN Last Admin: 02/27/17 15:32 Dose: 2 mg Mupirocin (Bactroban Ointment (For Decolonization) -) 1 applic NS BID [facility] Stop: 03/02/17 09:59 Last Admin: 02/27/17 10:00 Dose: 1 applic Nystatin (Nystatin Oral Suspension -) 500,000 units PO Q6HPO [facility] Last Admin: 02/27/17 07:14 Dose: 500,000 units Valacyclovir HCl (Valtrex -) 500 mg PO DAILY [facility] Last Admin: 02/26/17 10:42 Dose: 500 mg Voriconazole (Voriconazole (Restricted To Id)) 100 mg PO BID [facility] Last Admin: 02/27/17 10:03 Dose: 100 mg ASSESSMENT/PLAN: 81yo woman with PMH of AML (dx 2009, s/p Cytarabine May 2016), Afib, and DVT s/ p IVC filter on Coumadin who presents with 4xdays acute LLE pain and swelling, and found to have an extensive LLE DVT in common, deep, superficial femoral, popliteal, PT, and greater saphenous veins. CTA was negative for PE. s/p 2U PBRCs with appropriate response. Streptococcus Intermedius bacteremia likely from recent dental work, follow-up blood cultures neg. Patient started on Vanc and Cefepime on 02/21. 2D ECHO no e/o of endocarditis. Now with septic shock requiring pressor support, likely 2/2 bacteremia, ?HCAP c/b advancing AML. #septic shock 2/2 streptococcus intermedius bacteremia and ?HCAP, on levophed -Critical Care consulted, levophed gtt to maintain MAP>65 -ID consulted, continue Vancomycin and Cefepime (Day 7), vanc trough today 23.5 , hold dose for tomorrow -neutropenic precautions -f/u repeat cultures #acute hypoxic respiratory failure -O2 support to maintain pSaO2>90%, BiPAP as needed -lasix prn #Afib with RVR (150-160's) -Amio 200mg PO daily #AML, labs c/w progression of disease -Heme/Onc and ID following -Continue home Valacyclovir, Voriconazole, and Nystatin for opportunistic infection ppx -Hydroxyurea 1000mg PO daily, consider 500mg daily tomorrow due to CrCl 34 -Holding Febuxostat and allopurinol due to adverse reaction (Febuxostat - hand shaking, allopurinol - rash) #Anemia, s/p 2UxPRBCs, FOBT neg, no active signs of bleeding -Trend H&H #recurrent DVT -therapeutic lovenox 40mg SQ BID -Discharge home on Eliquis (DVT dosing 10 mg twice daily for 7 days followed by 5 mg BID) #FEN/ppx -NS boluses prn -Repleted hypocalcemia with 1gm Ca gluconate -Dysphagia puree with honey thick liq, meds with apple sauce, neutropenic precautions -no GI ppx -therapeutic lovenox #Palliative care consult for GOC discussion; spiritual support Dispo: continue ICU monitoring DNR/DNI d/w Dr. Allen Bray MD PGY-1 - Internal Medicine Visit type - Emergency Visit Emergency Visit: No - New Patient This patient is new to me today: No - Critical Care Critical Care patient: Yes Total Critical Care Time (in minutes): 40 Critical Care Statement: The care of this patient involved high complexity decision making to prevent further life threatening deterioration of the patient 's condition and/or to evaluate & treat vital organ system(s) failure or risk of failure.
[2017-02-27 09:57] LABS: BLAST 64 % (0-0); TOTAL CELLS COUNTED 100
--- NOTE | 2017-02-27 09:57 | PN ---
Progress Note (short form) - Note Progress Note: Patient seen and examined. Events noted. Pt is back on BiPAP now. O/E: Appears in distress, tacypneic Decreased breath sounds on BiPAP Abdomen soft, non tender No LE edema AAOx3. Last Vital Signs Temp Pulse Resp BP Pulse Ox 97.2 F L 126 H 25 H 96/43 100 02/27/17 06:00 02/27/17 08:00 02/27/17 08:00 02/27/17 08:00 02/27/17 09:00 CBC, BMP 02/27/17 06:00 02/27/17 06:00 Current Medications Generic Name Dose Route Start Last Admin Trade Name Freq PRN Reason Stop Dose Admin Amiodarone HCl 200 mg 02/26/17 12:00 02/26/17 12:24 Cordarone - PO 200 mg DAILY [facility] Administration Ascorbic Acid 500 mg 02/25/17 10:00 02/26/17 10:41 Vitamin C - PO 500 mg DAILY [facility] Administration Chlorhexidine Gluconate 1 applic 02/25/17 22:00 02/26/17 21:21 Hibiclens For Decolonization - TP 1 applic HS [facility] Administration Enoxaparin Sodium 40 mg 02/25/17 10:00 02/26/17 21:21 Lovenox - SQ 40 mg BID [facility] Administration Hydroxyurea 1,000 mg 02/27/17 07:36 Hydrea - PO BID [facility] Cefepime HCl 1 gm/ Dextrose 100 mls @ 200 mls/hr 02/25/17 02:00 02/27/17 02: 10 IVPB 200 mls/hr Q8H-IV [facility] Administration Vancomycin HCl 1,000 mg/ 250 mls @ 200 mls/hr 02/25/17 08:00 02/26/17 21:20 Dextrose IVPB 200 mls/hr BID@0800,2000 [facility] Administration Norepinephrine Bitartrate 8, 500 mls @ 4.69 mls/hr 02/25/17 02:30 02/26/17 22 :00 000 mcg/ Dextrose IV 20 mcg/kg/min [facility] 3,129.75 mls/hr Protocol Administration 0.03 MCG/KG/MIN Morphine Sulfate 2 mg 02/27/17 00:22 Morphine Sulfate IVPUSH Q3H PRN PAIN Mupirocin 1 applic 02/25/17 10:00 02/26/17 21:21 Bactroban Ointment (For Decolonization) - NS 03/02/17 09:59 1 applic BID [facility] Administration Nystatin 500,000 units 02/25/17 06:00 02/27/17 07:14 Nystatin Oral Suspension - PO 500,000 units Q6HPO [facility] Administration Valacyclovir HCl 500 mg 02/25/17 10:00 02/26/17 10:42 Valtrex - PO 500 mg DAILY [facility] Administration Voriconazole 100 mg 02/25/17 10:00 02/26/17 23:52 Voriconazole (Restricted To Id) PO 100 mg BID [facility] Administration Microbiology 02/24/17 06:15 Blood - Peripheral Venous Blood Culture - Preliminary NO GROWTH OBTAINED AFTER 72 HOURS, INCUBATION TO CONTINUE FOR 2 DAYS. 02/24/17 06:15 Blood - Peripheral Venous Blood Culture - Preliminary NO GROWTH OBTAINED AFTER 72 HOURS, INCUBATION TO CONTINUE FOR 2 DAYS. 02/25/17 02:03 Blood - Central Line Blood Culture - Preliminary NO GROWTH OBTAINED AFTER 48 HOURS, INCUBATION TO CONTINUE FOR 3 DAYS. 02/25/17 02:03 Blood - Central Line Blood Culture - Preliminary NO GROWTH OBTAINED AFTER 48 HOURS, INCUBATION TO CONTINUE FOR 3 DAYS. 02/21/17 13:36 Blood - Peripheral Venous Blood Culture - Final NO GROWTH AFTER 5 DAYS INCUBATION 02/21/17 13:30 Blood - Peripheral Venous Blood Culture - Final NO GROWTH AFTER 5 DAYS INCUBATION Assessment/Plan: AML, in blast crisis Bacteremia Strep causing septic shock , repeat cultures negative Respiratory failure on Oxygen support extensive LLE DVT c/w Hydrea 1000mg, White count trending down on Abx per ID Lovenox for DVT as long as platelet count permits counts holding , stable. regular transfusion threshold. On levophed. appreciate ICU level of care overall declining clinical status DNR/DNI Family at bedside.
[2017-02-27] MEDS: VANCOMYCIN 1,000 MG in DEXTROSE 5%-WATER - 250 ML IVPB SCH (09:58)
[2017-02-27 09:59] LABS: ANISOCYTOSIS 2+; MACROCYTOSIS 1+; NUCLEATED RED BLOOD CELL 1 % (0-0)
[2017-02-27] MEDS: MUPIROCIN 2% TOPICAL OINTMENT FOR DECOLONIZATION NS SCH (10:00)
[2017-02-27] MEDS: ENOXAPARIN NA (PORCINE) 40 MG/0.4 ML DISP.SYRIN SQ SCH (10:01)
[2017-02-27] MEDS: ASCORBIC ACID 500 MG TABLET (FP) PO SCH (10:02)
[2017-02-27] MEDS: VORICONAZOLE 50 MG TABLET (RESTRICTED TO ID) PO SCH (10:03)
[2017-02-27] MEDS: AMIODARONE HCL 200 MG TABLET (FP) PO SCH (10:04)
--- NOTE | 2017-02-27 10:14 | PN ---
Progress Note, [facility] - Note Progress Note: Pt's voice is high pitch and dysphonic with fair (-) intelligibility. Significant oral dryness sec to VM with mouth breathing and supplemental o2. Selected Entries 02/26/17 02/26/17 02/26/17 00:00 02:00 06:00 Temperature 97 F L 97.5 F L 97.7 F 02/26/17 02/26/17 02/27/17 10:00 15:00 02:09 Temperature 97.8 F 97.9 F 97.8 F 02/27/17 06:00 Temperature 97.2 F L Laboratory Tests 02/24/17 02/25/17 02/27/17 08:36 06:00 06:00 WBC 57.7 H* 31.5 H* Albumin 2.4 L 02/27/17 06:00 WBC Albumin 1.9 L Educated staff on pt's symptoms of dysphagia and compensatory swallowing strategies. Suggest adding humidification to supplemental o2.
[2017-02-27] MEDS ORDERED: PT OWN MED DRAWER 7, Y5N ONE (10:36)
--- NOTE | 2017-02-27 10:59 | PN ---
Teaching Attending Note Name of Resident: Ori Abdi ATTENDING PHYSICIAN STATEMENT I saw and evaluated the patient. I reviewed the resident's note and discussed the case with the resident. I agree with the resident's findings and plan as documented. SUBJECTIVE: Pt seen and examined in the ICU. Placed on BiPAP overnight due to respiratory distress. On higher dose levophed gtt. Discussed with pt and family yesterday, made DNR/DNI. Back in sinus rhythm. OBJECTIVE: Last Vital Signs Temp Pulse Resp BP Pulse Ox 97.2 F L 126 H 25 H 96/43 100 02/27/17 06:00 02/27/17 08:00 02/27/17 08:00 02/27/17 08:00 02/27/17 09:00 Intake & Output 02/24/17 02/25/17 02/26/17 02/27/17 23:59 23:59 23:59 23:59 Intake Total 2440 5136.9 3114.0 500 Output Total 2000 1850 4000 Balance 440 3286.9 -886.0 500 Weight 97 lb 0.054 oz 99 lb 8 oz 96 lb 3 oz Gen: tachypneic at rest Heart: tachycardic, regular Lung: bilateral rhonchi Abd: soft, nontender Ext: + edema CBC, BMP 02/27/17 06:00 02/27/17 06:00 Active Medications Amiodarone HCl (Cordarone -) 200 mg PO DAILY [facility] Last Admin: 02/27/17 10:04 Dose: 200 mg Ascorbic Acid (Vitamin C -) 500 mg PO DAILY [facility] Last Admin: 02/27/17 10:02 Dose: 500 mg Chlorhexidine Gluconate (Hibiclens For Decolonization -) 1 applic TP HS [facility] Last Admin: 02/26/17 21:21 Dose: 1 applic Enoxaparin Sodium (Lovenox -) 40 mg SQ BID [facility] Last Admin: 02/27/17 10:01 Dose: 40 mg Hydroxyurea (Hydrea -) 1,000 mg PO BID [facility] Last Admin: 02/27/17 10:01 Dose: 1,000 mg Cefepime HCl 1 gm/ Dextrose 100 mls @ 200 mls/hr IVPB Q8H-IV [facility] Last Admin: 02/27/17 10:40 Dose: 200 mls/hr Vancomycin HCl 1,000 mg/ (Dextrose) 250 mls @ 200 mls/hr IVPB BID@0800,2000 [facility] Last Admin: 02/27/17 09:58 Dose: Not Given Norepinephrine Bitartrate 8, (000 mcg/ Dextrose) 500 mls @ 4.69 mls/hr IV [facility]; 0.03 MCG/KG/MIN PRN Reason: Protocol Last Admin: 02/26/17 22:00 Dose: 20 mcg/kg/min, 3,129.75 mls/hr Morphine Sulfate (Morphine Sulfate) 2 mg IVPUSH Q3H PRN PRN Reason: PAIN Mupirocin (Bactroban Ointment (For Decolonization) -) 1 applic NS BID [facility] Stop: 03/02/17 09:59 Last Admin: 02/27/17 10:00 Dose: 1 applic Nystatin (Nystatin Oral Suspension -) 500,000 units PO Q6HPO [facility] Last Admin: 02/27/17 07:14 Dose: 500,000 units Valacyclovir HCl (Valtrex -) 500 mg PO DAILY [facility] Last Admin: 02/26/17 10:42 Dose: 500 mg Voriconazole (Voriconazole (Restricted To Id)) 100 mg PO BID [facility] Last Admin: 02/27/17 10:03 Dose: 100 mg ASSESSMENT AND PLAN: Acute Hypoxic Respiratory Failure AML Strep Bacteremia Septic Shock LLE DVT Atrial Fibrillation with RVR Anemia DM Hypercholesterolemia - continue antibiotics per ID - O2 to keep SpO2 >90% - BiPAP as needed to assist in work of breathing - rhythm control with amiodarone - continue anticoagulation - levophed gtt to maintain MAP >65 - aspiration precautions - poor overall prognosis - continue discussions regarding goals of care - continue ICU monitoring for tenuous respiratory status critical care time spent in reviewing chart, evaluating patient and formulating plan 38 min
[2017-02-27] MEDS: morphine SULFATE 4 MG/ML VIAL IVPUSH PRN ×2 (12:18→15:32)
--- NOTE | 2017-02-27 13:04 | EKG ---
Test Reason : Blood Pressure : / mmHG Vent. Rate : 139 BPM Atrial Rate : 139 BPM P-R Int : 000 ms QRS Dur : 078 ms QT Int : 380 ms P-R-T Axes : 000 -40 -32 degrees QTc Int : 578 ms SUPRAVENTRICULAR TACHYCARDIA WITH PREMATURE SUPRAVENTRICULAR COMPLEXES LEFT AXIS DEVIATION PULMONARY DISEASE PATTERN INFERIOR INFARCT , AGE UNDETERMINED ABNORMAL ECG WHEN COMPARED WITH ECG OF 25-FEB-2017 13:58, SINUS RHYTHM HAS REPLACED ATRIAL FIBRILLATION Confirmed by CLIFF GOMEZ MD [id number]) on 02/27/2017 1:03:36 PM Referred By: Nawaf BILLINGSLEY Confirmed By:CLIFF GOMEZ MD
--- NOTE | 2017-02-27 13:31 | PN ---
Physical Exam: SUBJECTIVE: Patient seen and examined at bedside. No acute events overnight. Pt appears unwell, cachectic, and in respiratory distress. OBJECTIVE: Vital Signs Period Temp Pulse Resp BP Sys/Barrios Pulse Ox Last 24 Hr 97.2 F-98.0 F 89-146 25-38 75-126/37-78 95-100 GENERAL: The patient is awake, alert, and fully oriented, in respiratory distress. Cachectic HEAD: Normal with no signs of trauma. EYES: extraocular movements intact, sclera anicteric, conjunctiva clear. No ptosis. ENT: oropharynx clear without exudates, moist mucous membranes. NECK: Trachea midline, full range of motion, supple. LUNGS: Breath sounds appreciated b/l, no wheezes, coarse breath sounds HEART: distant heart sounds. irregular rhythm, S1, S2 without murmur, rub or gallop. ABDOMEN: Soft, nontender, nondistended, no bowel sounds heard, no guarding, no rebound, no hepatosplenomegaly, no masses. EXTREMITIES: 2+ pulses, warm, well-perfused, no edema. NEUROLOGICAL: Cranial nerves II through XII grossly intact. Normal speech, gait not observed. PSYCH: Normal mood, normal affect. SKIN: Warm, dry, normal turgor, no rashes or lesions noted Laboratory Results - last 24 hr 02/26/17 02/26/17 02/27/17 19:10 19:45 06:00 WBC RBC Hgb Hct MCV MCH MCHC RDW Plt Count MPV Total Counted Neutrophils % Neutrophils % (Manual) Band Neutrophils % Lymphocytes % Lymphocytes % (Manual) Monocytes % (Manual) Blast Cells % (Manual) Nucleated RBC % Anisocytosis Macrocytosis Fragmented RBCs Anticoagulation Therapy Y Puncture Site Right radial ABG pH 7.31 L D ABG pCO2 at Pt Temp 41.7 D ABG pO2 at Pt Temp 119.0 H D ABG HCO3 20.3 L ABG O2 Sat (Measured) 98.6 ABG O2 Content 12.6 L ABG Base Excess -5.1 L Onel Test Positive O2 Delivery Device Bipap Oxygen Flow Rate 80% Vent Mode S/t Vent Rate 14 Mechanical Rate Y Pressure Support Vent 10/5 Sodium Potassium Chloride Carbon Dioxide Anion Gap BUN Creatinine Creat Clearance w eGFR Random Glucose Calcium Total Bilirubin AST ALT Alkaline Phosphatase B-Natriuretic Peptide 35607.59 H Total Protein Albumin Vancomycin Pre-Dose 23.538 H* 11/15/17 11/15/17 06:00 06:00 WBC 31.5 H* RBC 2.54 L Hgb 9.0 L Hct 26.6 L MCV 104.9 H MCH 35.5 H MCHC 33.9 RDW 24.6 H Plt Count 122 L MPV 7.8 Total Counted 100 Neutrophils % No Result Required. Neutrophils % (Manual) 2.0 L Band Neutrophils % No Result Required. Lymphocytes % No Result Required. Lymphocytes % (Manual) 26.0 D Monocytes % (Manual) 8 D Blast Cells % (Manual) 64 H Nucleated RBC % 1 H Anisocytosis 2+ Macrocytosis 1+ Fragmented RBCs Few Anticoagulation Therapy Puncture Site ABG pH ABG pCO2 at Pt Temp ABG pO2 at Pt Temp ABG HCO3 ABG O2 Sat (Measured) ABG O2 Content ABG Base Excess Onel Test O2 Delivery Device Oxygen Flow Rate Vent Mode Vent Rate Mechanical Rate Pressure Support Vent Sodium 133 L Potassium 3.7 Chloride 100 Carbon Dioxide 23 D Anion Gap 10 BUN 28 H D Creatinine 0.9 D Creat Clearance w eGFR > 60 Random Glucose 242 H D Calcium 6.9 L* Total Bilirubin 0.3 AST 17 D ALT 28 Alkaline Phosphatase 73 B-Natriuretic Peptide Total Protein 5.3 L Albumin 1.9 L Vancomycin Pre-Dose Active Medications Generic Name Dose Route Start Last Admin Trade Name Bertrandq PRN Reason Stop Dose Admin Amiodarone HCl 200 mg 02/26/17 12:00 02/27/17 10:04 Cordarone - PO 200 mg DAILY JATINDER Administration Ascorbic Acid 500 mg 02/25/17 10:00 02/27/17 10:02 Vitamin C - PO 500 mg DAILY JATINDER Administration Chlorhexidine Gluconate 1 applic 02/25/17 22:00 02/26/17 21:21 Hibiclens For Decolonization - TP 1 applic HS JATINDER Administration Enoxaparin Sodium 40 mg 02/25/17 10:00 02/27/17 10:01 Lovenox - SQ 40 mg BID JATINDER Administration Hydroxyurea 1,000 mg 02/27/17 07:36 02/27/17 10:01 Hydrea - PO 1,000 mg BID JATINDER Administration Cefepime HCl 1 gm/ Dextrose 100 mls @ 200 mls/hr 02/25/17 02:00 02/27/17 10: 40 IVPB 200 mls/hr Q8H-IV JATINDER Administration Norepinephrine Bitartrate 8, 500 mls @ 4.69 mls/hr 02/25/17 02:30 02/27/17 12 :00 000 mcg/ Dextrose IV 30 mcg/kg/min ASDIR JATINDER 4,694.62 mls/hr Protocol Titration 0.03 MCG/KG/MIN Morphine Sulfate 2 mg 02/27/17 00:22 02/27/17 12:18 Morphine Sulfate IVPUSH 2 mg Q3H PRN Administration PAIN Mupirocin 1 applic 02/25/17 10:00 02/27/17 10:00 Bactroban Ointment (For Decolonization) - NS 03/02/17 09:59 1 applic BID JATINDER Administration Nystatin 500,000 units 02/25/17 06:00 02/27/17 07:14 Nystatin Oral Suspension - PO 500,000 units Q6HPO JATINDER Administration Valacyclovir HCl 500 mg 02/25/17 10:00 02/26/17 10:42 Valtrex - PO 500 mg DAILY JATINDER Administration Voriconazole 100 mg 02/25/17 10:00 02/27/17 10:03 Voriconazole (Restricted To Id) PO 100 mg BID JATINDER Administration ASSESSMENT/PLAN: Pt is an 81F w/ PMH AML, AF, DVT s/p IVC filter who presented to ED with recurrent DVT. Pt is now in ICU with septic shock. #Respiratory distress -Pt continues to be in respiratory distress, requiring NIPPV #Dysphagia -Pt has poor cough and gag reflex -pt did poorly with bedside swallow eval -Speech and swallow consult appreciated. Rec honey thick liquids for now with advancement to puree as tolerated #Septic shock -2/2 severe neutropenia 2/2 AML -tachycardic, hypotensive, febrile -Strep bacteremia -On pressors -per ID, Cefepime, Valtrex, Vanco, Voriconazole -IVF #AML -resistant to therapy -WBC count 57, neutrophil count 1.0 -hydroxyurea #LLE DVT -Lovenox #AF w/ RVR -Amiodarone PO BID #Anemia: Resolved -Hb of 12.7 -transfuse for Hb < 7 #decreased bowel sounds -Pt not tolerating foods -Will monitor for now #PPX -on Lovenox #Dispo -Admitted to ICU for septic shock -DNR/DNI Ori Abdi MD ICU PGY-1 case discussed with attending Visit type - Emergency Visit Emergency Visit: No - New Patient This patient is new to me today: No - Critical Care Critical Care patient: Yes Total Critical Care Time (in minutes): 35 Critical Care Statement: The care of this patient involved high complexity decision making to prevent further life threatening deterioration of the patient 's condition and/or to evaluate & treat vital organ system(s) failure or risk of failure. - Discharge Referral Referred to [facility] Med P.C.: No
--- NOTE | 2017-02-27 13:51 | PN ---
Teaching Attending Note Name of Resident: Floridalma Bray ATTENDING PHYSICIAN STATEMENT I saw and evaluated the patient. I reviewed the resident's note and discussed the case with the resident. I agree with the resident's findings and plan as documented. SUBJECTIVE:mild respiratory distress, stating it is difficult to breathe. denies Cp OBJECTIVE: Last Vital Signs Temp Pulse Resp BP Pulse Ox 98.0 F 98 H 28 H 82/37 95 02/27/17 10:00 02/27/17 12:00 02/27/17 12:00 02/27/17 12:00 02/27/17 10:35 Intake & Output 02/24/17 02/25/17 02/26/17 02/27/17 23:59 23:59 23:59 23:59 Intake Total 2440 5136.9 3114.0 500 Output Total 2000 1850 4000 Balance 440 3286.9 -886.0 500 Weight 97 lb 0.054 oz 99 lb 8 oz 96 lb 3 oz General mild respiratory distress, tacypnic, using accessory muscles to breathe HEENT bitemporal wasting, prominent cheekbones, prominent collarbones CV S1 S2 irregular Lungs crackles R base no wheezing decreased breath sounds bases ABdomen soft NT/ND extremities LLE non pitting edema, no calf tenderness ASSESSMENT AND PLAN: 81Yo F with PMH AML on chemo, DVT s/p IVC filter, afib on couamdin presented to the ER with LLE pain and found to have extensive DVT. Course complicated by development of septic shock due to bactermia and LLL HCAP with acute respiratory failure 1. Acute hypoxic respiratory failure- currently on bipap with accessory muscle use. pt and family signed DNR/DNI. CXR showing congestion. lasix 40mg IVP given this Am. cont bipap at this time 2. Septic shock due to strep bactermia and LLL PNA- on 20mcg levo. on Cefipime/ Vanco and Acylcovir. Vanco level elevated. hold todays dose and repeat level tomorrow. repeat BCx negative. titrate pressor support to MAP >60. 3. SVT- s/p adenosine yesterday and converted to afib with RVR. was initiating amio po this AM however in decompensated state will place back on amio ggt. now on amio ggt. on full dose lovenox 4. AML- blast crisis. 73%. hydroxyurea increased to 1000mg BID. no signs of tumor lysis syndrome. baseline WBC 16k, hematology on board 5. Severe malnutrition- evident by body habitus. states she thinks she lost weight but unable to quantify. swallow eval. NPO at this time as on bipap. nutritional eval. 6. Acute anemia- s/p 2 units PRBC. no signs of bleedng. no indication for transfusion 7. DVT ppx- full dose lovenox 8. DNR/DNI. poor overall prognosis. spoke with and sister at bedside. explained overall poor prognosis and limited options at this time. verbalized understanding and agreement The care of this patient involved high complexity decision making to prevent further life threatening deterioration of the patient's condition and/or to evaluate & treat vital organ system(s) failure or risk of failure. 45 mins
[2017-02-27 16:33] VITALS: TEMP 98.9
[2017-02-27 17:20] VITALS: BP 128/92; PULSE 75
--- NOTE | 2017-02-27 19:08 | PN ---
Progress Note (short form) - Note Progress Note: At 6:53pm, was called by nurse to examine pt, since she started to go into asystole on monitor and had no pulse. On exam, pt did not respond to physical or verbal stimuli. Absent heart and breath sounds. No corneal reflex, pupils fixed and dilated, non-reactive to light. Absent radial and dorsalis pedis pulses b/l. Pupils fixed and dilated. Pt pronounced at 6:55pm. Pt passed with [employer] advanced operator maintainer and family at bedside. Support given. Lisbet Crawford MD PGY-1 ICU
[2017-02-28] MEDS ORDERED: HYDROXYUREA 500 MG CAPSULE PO SCH ×2 (10:00)
--- NOTE | 2017-02-28 18:43 | DS ---
Physical Exam: HOSPITAL COURSE: Date of Admission:02/19/17 Date of Discharge: 02/28/17 Pre-hospital course: 81yo woman w/ hx of AML (diagnosed in 2009), a-fib, DVT s/p IVC filter on coumadin, and PNA who presents with LLE pain x 4 days. She states that it began in her thigh and has extended to her calf as well, is 8/10, burning in quality, worsened by walking, improved with rest. She states that she had stopped taking her coumadin for a 5 day period about 2 weeks ago for a dental extraction and covered herself with lovenox for 3 of those 5 days. Pt endorses increased immobility over the past week or so, and she denies recent trauma to leg. She denies fevers, chills, leg numbness, leg weakness, headache, SOB, hemoptysis, cough, chest pain, palpitations, abdominal pain, n/v/d/c, and dysuria. She states that she received injections for her AML in may 2016 for a 14 day period, then was off treatment for 14 days, then could not complete a 2nd 14 day course of treatment due to b/l PNA. Pt states that she lost a significant amount of weight, and she told her oncologist (Dr. Miranda) that she wants to gain back her weight before continuing therapy. Pt states that she sees her oncologist every 2 weeks. She states that her wbc count has been slowly rising, but does not recall it ever being higher than 20,000. She states that she only had one DVT before, diagnosed 2 years ago in her LLE. Her IVC filter was placed shortly afterwards. ER course was notable for: (1) severe leukocytosis (2) anemia and thrombocytopenia (3) DVT (4) CTA neg for PE Subsequent hospital course: Briefly, patient was found to have an extensive LLE DVT in common, deep, superficial femoral, popliteal, greater saphenous and PT veins. CBC suggestive of progression of AML into blast crisis. Hematology was consulted, she was started on Hydroxyurea and her home OI ppx was continued (valacyclovir, voriconazole, nystatin). She was treated with therapeutic dose of lovenox 40mg sq BID. Anemia (hgb 6.6) was treated with 2U of PRBCs with appropriate response. She subsequently developed fever (Tmax 101.6), and infectious work-up revealed Streptococcus Intermedius bacteremia, possibly from recent dental work. CBC revealed neutropenia, and she was placed on neutropenic precautions. ID was consulted; Vancomycin and Cefepime was started. 2D ECHO revealed no e/o of endocarditis. On 02/24, she became febrile to 100.4, telemetry suggestive of SVT (HR 170-180's) and given adenosine 6mg then 12mg, then cardizem 10mg IV with conversion to sinus tachycardia to 130s with no acute ST-T changes seen on EKG. Lasix 40 mg IV given with urine output > 600 ml with clinically improvement , oxygenating 95% on 100% NRB. Cardiology consulted with Dr. Kimball ( covering for Dr. Hoskins); no recommendation for rate controlling agents. Evening of 02/24, pt went into neutropenic septic shock requiring pressor support, and was transferred to the ICU. Started on levophed gtt and placed on bipap for acute hypoxic respiratory failure. CXR revealed congestion and possible LLA PNA. Given lasix prn. Pressor support was unable to be titrated down. Patient continued to be in respiratory distress on BIPAP, but made DNR/DNI. Palliative care team was consulted, and supportive care provided. Patient passed with family at bedside at 6:55pm, 02/27/17. Minutes to complete discharge: 40 Discharge Summary Reason For Visit: DEEP VEIN THROMBOSIS (DVT) Condition: - Instructions Referrals: Saeed Dalton MD [Primary Care Provider] - Disposition: - Home Medications Comprehensive Discharge Medication List: Ambulatory Orders Acetaminophen [Tylenol -] 650 mg PO Q6H PRN 02/19/17 Ascorbic Acid [Vitamin C] 500 mg PO DAILY 02/19/17 Diltiazem Cd [Cardizem Cd -] 180 mg PO DAILY 02/19/17 Guaifenesin Dm [Mucinex Dm -] 1 tab PO BID PRN 02/19/17 Nystatin Oral Suspension - [Nystatin Oral Susp 309676 Units/5 ML -] 500,000 units PO Q6H 02/19/17 Valacyclovir HCl [Valtrex -] 500 mg PO DAILY 02/19/17 Voriconazole 100 mg PO BID 02/19/17 Warfarin Sodium [Coumadin] 5 mg PO DAILY 02/19/17 Ciprofloxacin [Cipro (Restricted To Id)] 250 mg PO BID 02/21/17 This patient is new to me today: No Emergency Visit: No Critical Care patient: Yes Total Critical Care Time (in minutes): 35 Critical Care Statement: The care of this patient involved high complexity decision making to prevent further life threatening deterioration of the patient 's condition and/or to evaluate & treat vital organ system(s) failure or risk of failure. - Discharge Referral Referred to [facility] Med P.C.: No
== END 2017-02-27 18:55 | disposition expired | DRG 834 ==
LOC: JER 14:36 → JERBED 23:10 → J4W 02-20 18:00 → JICU 02-24 22:43
PROVIDERS: ADMIT Internal Medicine; ATTEND Internal Medicine
PROC: 30233H1 Transfusion of Nonautologous Whole Blood into Peripheral Vein, Percutaneous Approach (ICD-10-PCS; principal; 2017-02-20)
PROC: 5A09457 Assistance with Respiratory Ventilation, 24-96 Consecutive Hours, Continuous Positive Airway Pressure (ICD-10-PCS; 2017-02-20)
PROC: 05HM33Z Insertion of Infusion Device into Right Internal Jugular Vein, Percutaneous Approach (ICD-10-PCS; 2017-02-25)
DX: C92.00 Acute myeloblastic leukemia, not having achieved remission (principal); J96.01 Acute respiratory failure with hypoxia; R65.21 Severe sepsis with septic shock; A40.8 Other streptococcal sepsis; J18.9 Pneumonia, unspecified organism; E43 Unspecified severe protein-calorie malnutrition; I82.412 Acute embolism and thrombosis of left femoral vein; R64 Cachexia; Z68.1 Body mass index [BMI] 19.9 or less, adult; I48.92 Unspecified atrial flutter; I47.1 Supraventricular tachycardia; I82.432 Acute embolism and thrombosis of left popliteal vein; E83.51 Hypocalcemia; I48.0 Paroxysmal atrial fibrillation; Z79.01 Long term (current) use of anticoagulants; J44.9 Chronic obstructive pulmonary disease, unspecified; D53.9 Nutritional anemia, unspecified; D70.9 Neutropenia, unspecified; D69.6 Thrombocytopenia, unspecified; K21.9 Gastro-esophageal reflux disease without esophagitis; E78.5 Hyperlipidemia, unspecified; I25.10 Atherosclerotic heart disease of native coronary artery without angina pectoris; R50.84 Febrile nonhemolytic transfusion reaction; Z98.818 Other dental procedure status
CPT/HCPCS: 36415; 36430; 36600; 71010-TC; 71275-TC; 80048; 80053; 80076; 81003; 81015; 82272; 82550; 82803; 83605; 83615; 83735; 83880; 84100; 84484; 84550; 85025; 85384; 85610; 85730; 86078; 86850; 86900; 86901; 86922; 87040; 87077; 87086; 93005; 93010; 93306-TC; 93971-TC; 94010; 94660; 97116-GP; 97161-GP; 99283-25; G0480; J8999; P9038; P9058